=== PATIENT | female | born 1945 | race Caucasian/White ===

== ENCOUNTER → 2016-09-14 | Outpatient (CLI) | payer OTHER ==
[~2016-09-14] MED LIST: ACET-1175 PO; AMIO200T4 PO; ANAS1TAB19 PO; ARM1 PO; ASPI-428 PO; ATOR10TA82 PO; CALC1CAP36 PO; CHOL100010 PO; FURO-85 PO; IBUP-1450 PO; LEVO1TAB PO; METO25TA56 PO; MULT-506 PO; POTA-327 PO; SYN137 PO; WARF5TAB7 PO
[2016-09-14 13:01] VITALS: BP 128/67; PULSE 70; TEMP 36.8; O2SAT 95
--- NOTE | 2016-09-14 13:57 | Radiation Oncology Follow-Up ---
Radiation Oncology Follow-Up Date of Visit Sep 14, 2016. Reason For Visit Annual follow-up Radiation Completion Date 02/07/15 Diagnosis (1) Malignant neoplasm of upper-outer quadrant of female breast Status: Resolved Onset Date: 09/12/2014 Histology Subtype: ductal Stage: l (A) Permanent Comment: Self detected firmness of the right breast Status post abnormal mammogram and ultrasound Status post ultrasound-guided biopsy 09/12/2014 revealing 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, progesterone receptor positive, HER-2/estelita positive Status post lumpectomy and axillary dissection 11/04/2014 positive margin Pathologic stage [id number] Reexcision 12/10/2014 no residual disease Oncotype DX score of 28, patient decision to not have chemotherapy Status post completion of radiation therapy 02/07/2015 received 3850 cGy Last Edited By: Anh Pop on Sep 14, 2016 13:49 History of Present Illness Ms. Richardson is a 70-year-old female without a family history of breast cancer. She has been followed with screening mammograms. The patient's self identified a right breast mass. On 09/02/2014 she underwent bilateral diagnostic mammograms. If the right breast an irregular mass was noted within the right anterior breast at the 3 o'clock position that corresponded with the patient's self identified palpable abnormality. A targeted ultrasound showed a corresponding irregular hypoechoic solid mass at the 2 o'clock position with internal vascularity measuring 0.4 x 0.4 x 0.3 cm 1 cm from the nipple. A group of indistinct calcifications was noted at the 9 o'clock position of the right breast. These findings are suspicious for malignancy and a biopsy was recommended. On 09/12/2014 the patient underwent an ultrasound-guided core biopsy of the right breast of the 2 areas of suspicion. The biopsy of the right breast calcifications showed no evidence of carcinoma. Biopsy of the palpable mass revealed an invasive ductal carcinoma grade 2. This lesion was ER strongly positive (100% nuclear positivity). Progesterone receptors were strongly positive (90% nuclear positivity). 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 Accession #: [id number]. The patient was subtotally seen by Dr. Yuriy Blackmon who discussed treatment options with the patient. The patient opted to proceed with a breast conserving technique. He noted that the patient had developed a large hematoma on the lateral aspect of the right breast that gradually decreased in size. On 11/04/2014 the patient underwent a needle localized lumpectomy. The patient had been injected for possible sentinel node biopsy. However upon investigating the axilla with the neoprobe there was inconsistent counts. After incising and going into the axilla with the neoprobe the counts were 0. Therefore he proceeded with a right axillary dissection. The partial mastectomy specimen revealed an invasive ductal carcinoma measuring 1.9 x 1.5 x 1.1 cm. This was a histologic [place] grade 3 of 3. There was evidence of ductal carcinoma in situ, cribriform with focal necrosis and nuclear grade 2 of 3. The margins were evaluated and invasive carcinoma was noted extending to the anterior and superior margins. The en face medial, lateral and inferior margins were negative. The tumor extended to within 0.8 cm of the posterior margin. No lymphovascular invasion was appreciated. 19 lymph nodes were removed and examined. All were negative for metastatic carcinoma. Pathologic stage was therefore pT1c pN0, ER positive DE positive HER-2/estelita negative Because of the positive margins Dr. Blackmon performed a wide reexcision of the right breast region on 12/10/2014. This revealed benign breast tissue with no residual DCIS or invasive carcinoma identified at the biopsy site or at the examined margins of resection. Case: [id number]. The patient went on to have an Oncotype DX tissue evaluation. This was reported with a recurrent score of 28. This is the patient in the mid intermediate risk group with a 10 year risk of distant recurrence with tamoxifen alone at 18%. The patient was seen by Dr. Cale Hurley on 12/24/2014 to discuss the role of adjuvant therapy based on the NCCN Guidelines the patient did not wish to consider systemic chemotherapy. He therefore offered her Arimidex for 5 years. He suggested starting the Arimidex after the completion of her radiation. We were subsequently asked to see this patient in referral to discuss the role of adjuvant radiation. She underwent a CT simulation and was found to be a candidate for accelerated partial breast treatment. Radiation was completed 02/07/2015 she received 3850 cGy. Interim History She had been on Arimidex. She noted a weight gain of approximately 15 pounds. She discuss this with Dr. Hurley and made a decision to stop treatment. With stopping the medication and is not made a difference in her weight. She plans discuss restarting the medication with Dr. Hurley at her next visit. She has developed fibrous tissue in the upper inner portion of the breast. She has been using massage therapy to the area which does appear to be improving a firmness of the tissue. She denies pain in this area. There is no no change of the axilla. She denies swelling of her arm. She has had some swelling of her left leg which was evaluated. She had a venous Doppler study was negative. Her daughter was diagnosed with breast cancer and underwent bilateral mastectomies. She is 46 years old. She did not require radiation or chemotherapy. Patient stated that genetic testing has been performed and was negative. Allergies Coded Allergies: No Known Allergies (Unverified , 11/04/14) Home Medications Scheduled Amiodarone Hcl (Cordarone), 200 MG PO QAM Aspirin (Ecotrin Low Strength), 81 MG PO QPM Atorvastatin (Lipitor), 10 MG PO DAILY Cholecalciferol (Vitamin D), 1,000 INTER.UNIT PO DAILY Levothyroxine Sodium (Synthroid), 0.137 MG PO QAM Metoprolol Tartrate (Lopressor) (Lopressor), 12.5 MG PO BID Multivitamin (Multivitamin), 1 TAB PO BID Warfarin Sod (Jantoven), 5 MG PO QPM Scheduled PRN Acetaminophen (Tylenol), 650 MG PO Q4H PRN for MILD PAIN Furosemide (Lasix), 20 MG PO DIRECTED PRN for edema Ibuprofen (Motrin), 600 MG PO Q6H PRN for Pain Potassium Ext Rel (Klor-Con), 5 MEQ PO DIRECTED PRN for edema Review of Systems Gastrointestinal: Symptoms: WNL GI Comments: takes stool softener daily, hemrroidal bleeding at times Oral: Symptoms: No Problems Respiratory: Symptoms: WNL Other Respiratory: "I cough now and then" Urinary: Symptoms: WNL Skin: Symptoms: No Problems Other Skin Symptoms: Patient states right breast is tender and has scar tissue Breast: Right Upper Arm Measurement: 35.1 Right Mid Arm Measurement: 26.5 Right Wrist Measurement: 17.6 Left Upper Arm Measurement: 35.2 Left Mid Arm Measurement: 26.4 Left Wrist Measurement: 17.0 Arm Dominence: Right Physical Exam Vital Signs Date Time Temp Pulse Resp B/P Pulse Ox O2 Delivery O2 Flow Rate FiO2 09/14/16 13:01 36.8 70 16 128/67 95 Fatigue: None General Appearance: no apparent distress Eyes: normal inspection, EOMI ENT: normal ENT inspection, hearing grossly normal Neck: no adenopathy, thyroid normal Respiratory/Chest: lungs clear, no respiratory distress, no accessory muscle use Breast: Dense firm fibrous tissue in the upper portion of the right breast which extends medially. There is a central area of deficit. There is mild telangiectasia. The density of the tissue is confluent throughout the areas of fibrous tissue. There is no axillary adenopathy. There are no nipple changes. Using the Wirt score cosmesis she has a poor outcome due to the dense fibrous tissue. The left breast showed no masses or tenderness and no axillary adenopathy. Cardiovascular: regular rate, rhythm, no gallop, no murmur Abdomen: non tender Extremities: no pedal edema Neurologic/Psychiatric: no motor/sensory deficits, alert, normal mood/affect Skin: warm/dry Lymphatic: no adenopathy Additional Studies She had a mammogram 05/10/2016. This showed status post previous radiation therapy and lumpectomy. Findings are probably benign. A short interval follow- up was recommended in 6 months. BI-RADS Category 3. Assessment & Plan Plan: She will have a bilateral digital diagnostic mammogram in October. Continue massage therapy to the area of fibrous tissue. She'll be seeing Dr. Hurley and plans to discuss restarting her Arimidex. Continue follow-up with her primary care physician. We did discuss smoke cessation. She states she has greatly cut down on cigarettes and is only smoking one every few days. She'll continue to cut down on smoking. We asked her to return to our office in 1 year. Total Time In Follow-Up I spent 20 minutes speaking to the patient for an examination. I spent 15 minutes reviewing information and completing this note Copy To Yuriy Blackmon M.D.; Nu Montoya D.O.; Cale Hurley M.D. Problem Qualifiers (1) Malignant neoplasm of upper-outer quadrant of female breast: Laterality: right Qualified Codes: C50.411 - Malignant neoplasm of upper- outer quadrant of right female breast
== END | disposition home or self-care (01) ==
LOC: C.ONC 12:05
PROVIDERS: ATTEND Physician Assistant Medical
DX: Z08 Encounter for follow-up examination after completed treatment for malignant neoplasm (principal); Z92.3 Personal history of irradiation; Z85.3 Personal history of malignant neoplasm of breast

== ENCOUNTER 2016-12-15 17:42 | Emergency (ER) | payer OTHER ==
[~2016-12-15] VITALS: Ht 162.6 cm; Wt 103.0 kg
[~2016-12-15 17:42] MED LIST changes: -ANAS1TAB19 PO; -ARM1 PO; -CALC1CAP36 PO; -SYN137 PO
[2016-12-15 17:49] VITALS: Ht 162.6 cm; Wt 103.0 kg
[2016-12-15] MEDS ORDERED: LIDOCAINE/EPINEPHRINE 1% 20 ML VIAL ONE (17:50)
[2016-12-15] MEDS ORDERED: CALC1CAP36 PO (18:03)
[2016-12-15] MEDS ORDERED: SYN137 PO (18:03)
[2016-12-15] MEDS ORDERED: ARM1 PO (18:03)
--- NOTE | 2016-12-15 18:04 | EMERGENCY ROOM VISIT NOTE ---
History Report prepared by Luda: Vania Griffin Under the Supervision of: Dr. Jp Rowe M.D. 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 The patient was planting paul in her yard today. She stood up quickly and hit her head on the deck. She denies any LOC. She started bleeding immediately. The patient is on Coumadin for two artificial heart valves. She denies headache, neck pain, and any other injury. Her tetanus is not up to dated. 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 A total of 10 systems reviewed and were otherwise negative. Past Medical & Surgical Medical Problems: (1) Bronchitis (2) Kidney disease (3) Malignant neoplasm of upper-outer quadrant of female breast Surgical Problems: (1) H/O mitral valve replacement Family History Diabetes mellitus FH: cancer FH: heart disease Hypertension Social History Smoking Status: Current Every Day Smoker Marital Status: Housing Status: assisted living Occupation Status: retired Current/Historical Medications Scheduled Amiodarone Hcl (Cordarone), 200 MG PO QAM Anastrozole (Anastrozole), 1 MG PO DAILY Aspirin (Ecotrin Low Strength), 81 MG PO QPM Atorvastatin (Lipitor), 10 MG PO DAILY Calcitriol (Calcitriol), 0.25 MCG PO DAILY Cholecalciferol (Vitamin D), 1,000 INTER.UNIT PO DAILY Levothyroxine Sodium (Levothyroxine Sodium), 137 MCG PO QAM Metoprolol Tartrate (Lopressor) (Lopressor), 12.5 MG PO BID Multivitamin (Multivitamin), 1 TAB PO BID Warfarin Sod (Jantoven), 5 MG PO QPM Scheduled PRN Acetaminophen (Tylenol), 650 MG PO Q4H PRN for MILD PAIN Furosemide (Lasix), 20 MG PO DIRECTED PRN for edema Ibuprofen (Motrin), 600 MG PO Q6H PRN for Pain Potassium Ext Rel (Klor-Con), 5 MEQ PO DIRECTED PRN for edema Allergies Coded Allergies: No Known Allergies (Unverified , 12/15/16) Physical Exam Vital Signs Date Time Temp Pulse Resp B/P (MAP) Pulse Ox O2 Delivery O2 Flow Rate FiO2 12/15/16 19:39 37.2 70 16 159/80 98 Room Air 12/15/16 18:57 84 16 179/84 98 12/15/16 17:49 37.2 86 22 133/111 97 Room Air Physical Exam GENERAL: Patient is a healthy-appearing well-nourished older female. HEAD: Normocephalic, 2.6 cm laceration to the crown of the head. EYES: Ocular movements intact pupils equal and react to light OROPHARYNX mucous membranes are moist no exudates present no erythema or edema present NECK: Supple no nuchal rigidity CHEST: Good equal expansion LUNGS: Clear and equal to auscultation CARDIAC: Normal S1 and S2 ABDOMEN: Soft nontender no guarding BACK: No CVA tenderness EXTREMITIES: No pain upon palpation normal muscle strength in all groups no clubbing cyanosis or edema NEURO: Patient is following commands and answering questions appropriately. Alert and oriented x3 Cranial Nerves 2-12 grossly intact Medical Decision & Procedures ER Provider Diagnostic Interpretation: Radiology results as stated below per my review and radiologist interpretation: CT HEAD WITHOUT CONTRAST (CT) CLINICAL HISTORY: Head pain status post head trauma COMPARISON STUDY: 08/25/2013 TECHNIQUE: Axial CT of the brain is performed from the vertex to the skull base. IV contrast was not administered for this examination. CT DOSE: 537.48 mGy.cm FINDINGS: No intra or extra-axial mass lesions are visualized. There is no CT evidence of acute cortical infarction. There is no evidence of midline shift. There is no acute hemorrhage. No calvarial fractures are visualized. There are patchy white matter hypodensities likely on a small vessel basis. There is no evidence of pathologic ventricular dilatation. There are persistent inflammatory changes within the right maxillary sinus. There are frontal scalp skin katie. IMPRESSION: No acute intracranial findings Electronically signed by: Spike Fu M.D. 12/15/2016 6:36 PM Dictated Date/Time: 12/15/2016 6:35 PM Laboratory Results 12/15/16 18:00 Red Blood Count 4.48, Mean Corpuscular Volume 96.4, Mean Corpuscular Hemoglobin 30.8, Mean Corpuscular Hemoglobin Concent 31.9, Mean Platelet Volume 11.3, Neutrophils (%) (Auto) 60.9, Lymphocytes (%) (Auto) 28.0, Monocytes (%) (Auto) 8.7, Eosinophils (%) (Auto) 1.8, Basophils (%) (Auto) 0.3, Neutrophils # (Auto) 4.16, Lymphocytes # (Auto) 1.91, Monocytes # (Auto) 0.59, Eosinophils # (Auto) 0.12, Basophils # (Auto) 0.02 Test 12/15/16 18:00 12/15/16 18:46 White Blood Count 6.82 K/uL (4.8-10.8) Red Blood Count 4.48 M/uL (4.2-5.4) Hemoglobin 13.8 g/dL (12.0-16.0) Hematocrit 43.2 % (37-47) Mean Corpuscular Volume 96.4 fL (80-100) Mean Corpuscular Hemoglobin 30.8 pg (25-34) Mean Corpuscular Hemoglobin Concent 31.9 g/dl (32-36) Platelet Count 187 K/uL (130-400) Mean Platelet Volume 11.3 fL (7.4-10.4) Neutrophils (%) (Auto) 60.9 % Lymphocytes (%) (Auto) 28.0 % Monocytes (%) (Auto) 8.7 % Eosinophils (%) (Auto) 1.8 % Basophils (%) (Auto) 0.3 % Neutrophils # (Auto) 4.16 K/uL (1.4-6.5) Lymphocytes # (Auto) 1.91 K/uL (1.2-3.4) Monocytes # (Auto) 0.59 K/uL (0.11-0.59) Eosinophils # (Auto) 0.12 K/uL (0-0.5) Basophils # (Auto) 0.02 K/uL (0-0.2) RDW Standard Deviation 52.4 fL (36.4-46.3) RDW Coefficient of Variation 15.0 % (11.5-14.5) Immature Granulocyte % (Auto) 0.3 % Immature Granulocyte # (Auto) 0.02 K/uL (0.00-0.02) Prothrombin Time 23.2 SECONDS (9.0-12.0) Prothromb Time International Ratio 2.1 (0.9-1.1) Bedside Hemoglobin 15.0 g/dl (12.0-16.0) Bedside Hematocrit 44 % (37-47) Bedside Sodium 141 mEq/L (135-144) Bedside Potassium 4.1 mEq/L (3.3-5.0) Bedside Chloride 105 mEq/L (101-112) Bedside Total CO2 25 mEq/l (24-31) Anion Gap 16.0 mmol/L (16-25) Bedside Blood Urea Nitrogen 15 mg/dl (7-18) Bedside Creatinine 1.3 mg/dl (0.6-1.3) Bedside Glucose (other) 108 mg/dl (70-99) Bedside Ionized Calcium (Aramis) 1.22 mmol/l (1.12-1.32) Labs reviewed by ED physician. Medications Administered Medications (Trade) Dose Ordered Sig/[place] Route Start Time Stop Time Status Last Admin Dose Admin Lidocaine/ Epinephrine (Xylocaine/Epine 1% Inj) 20 ml NOW STAT INFIL 12/15/16 18:06 12/15/16 18:08 DC 12/15/16 18:06 20 ML Procedure Location: Scalp Total length: 2.6 cm Complexity: Simple Verbal consent was obtained after the risks and benefits were explained, including but not limited to bleeding, scarring, infection, pain, and bone/ nerve damage. At this time, the risks of the procedure are less than the risks of NOT performing the procedure. A time out was taken and the correct patient and site identified. The scalp was prepped with betadine. The target area was anesthetized with 2 ml of 1% lidocaine without epinephrine. Copious irrigation was performed using saline. The skin was re-prepped with betadine, the hair cleared from the wound, and a sterile field set. The wound was explored for foreign bodies and none found. Debridement was not performed. The wound edges were approximated using 4 surgical katie in the standard fashion. Hemostasis and excellent approximation was achieved. Antibacterial ointment and a sterile dressing applied. Detailed wound care instructions and signs and symptoms of infection reviewed with the patient. No complications and the patient tolerated the procedure well. ED Course 1745: Past medical records reviewed. The patient was evaluated in room C3. A complete history and physical examination was performed. At this time I repaired the patient's head laceration. Please see the procedure note for further details. 1805: Lidocaine/Epinephrine 2 ml inj 1902: I updated the patient and her daughter. 1920: I reassessed the patient at this time. She is feeling better and resting comfortably. I discussed the results and treatment plan with the patient. I answered all pertaining questions that she had. She expressed understanding and verbalized agreement. The patient will be discharged home. Medical Decision Differential diagnosis: Etiologies such as fracture, dislocation, intra-abdominal, pneumothorax, intrathoracic , intracranial, neurologic, as well as other traumatic pathologies were entertained. Medication Reconciliation: I attest that I have personally reviewed the patient' s current medication list. Blood Pressure Screening: Patient was found to have an elevated blood pressure and was referred to their primary care doctor for recheck and further treatment. This is a 71-year-old female who presents emergency department complaining of head injury. The patient presents emergency department with diffuse amount of bleeding and what appears to be an arterial bleed present. Therefore she was emergently closed. [place] were used as above. She was sent for CT the head in the patient's Coumadin level was checked. Her hemoglobin and PT/INR are therapeutic and I believe that the patient can be sent home. Patient and family were in agreement with the treatment plan. Impression Primary Impression: Laceration Additional Impression: Closed head injury Scribe Attestation The scribe's documentation has been prepared under my direction and personally reviewed by me in its entirety. I confirm that the note above accurately reflects all work, treatment, procedures, and medical decision making performed by me. Departure Information Dispostion Home / Self-Care Referrals Nu Montoya D.O. (PCP) Forms HOME CARE DOCUMENTATION FORM, IMPORTANT VISIT INFORMATION Patient Instructions ED Head Injury Closed, ED Laceration Scalp Stitch Or Stap, Hypertension Dc, My [facility] Additional Instructions Katie out in 7-10 days You were found to have an elevated blood pressure today (>120 sytolic or >90 diastolic). Per medicare guidelines, you need to follow up with this blood pressure screening with your Primary Care Physician (PCP). For a new PCP call [phone]. You have been examined and treated today on an emergency basis only. This is not a substitute for, or an effort to provide, complete comprehensive medical care. It is impossible to recognize and treat all injuries or illnesses in a single emergency department visit. It is therefore important that you follow up closely with Dr Montoya. Call as soon as possible for an appointment. Thank you for your time and consideration. I look forward to speaking with you again soon. Please don't hesitate to call us if you have any questions. Problem Qualifiers Additional Impression: Closed head injury Encounter type: initial encounter Qualified Codes: S09.90XA - Unspecified injury of head, initial encounter
[2016-12-15] MEDS ORDERED: LIDOCAINE/EPINEPHRINE 1% 20 ML VIAL INFIL STA (18:06)
[2016-12-15] MEDS ORDERED: LIDOCAINE/EPINEPHRINE 1% 20 ML VIAL INJ PRN (18:15)
--- NOTE | 2016-12-15 18:37 | DIAGNOSTIC IMAGING REPORT ---
CT HEAD WITHOUT CONTRAST (CT) CLINICAL HISTORY: Head pain status post head trauma COMPARISON STUDY: 08/25/2013 TECHNIQUE: Axial CT of the brain is performed from the vertex to the skull base. IV contrast was not administered for this examination. CT DOSE: 537.48 mGy.cm FINDINGS: No intra or extra-axial mass lesions are visualized. There is no CT evidence of acute cortical infarction. There is no evidence of midline shift. There is no acute hemorrhage. No calvarial fractures are visualized. There are patchy white matter hypodensities likely on a small vessel basis. There is no evidence of pathologic ventricular dilatation. There are persistent inflammatory changes within the right maxillary sinus. There are frontal scalp skin cisco. IMPRESSION: No acute intracranial findings Electronically signed by: Spike Fu M.D. 12/15/2016 6:36 PM Dictated Date/Time: 12/15/2016 6:35 PM
[2016-12-15 19:13] LABS: BASO % 0.3 %; BASO ABS # 0.02 K/uL (0-0.2); COMPLETE YES; EOS % 1.8 %; HEMATOCRIT 43.2 % (37-47); IG% 0.3 %; LYMPH ABS # 1.91 K/uL (1.2-3.4); MEAN CELL VOLUME 96.4 fL (80-100); MEAN CORPUSCULAR HEMOGLOBIN 30.8 pg (25-34); MEAN CORPUSCULAR HGB CONC 31.9 g/dl (32-36); MEAN PLATELET VOLUME 11.3 fL (7.4-10.4); MONO % 8.7 %; NEUT % 60.9 %; PLATELET COUNT 187 K/uL (130-400); RED BLOOD COUNT 4.48 M/uL (4.2-5.4); WHITE BLOOD COUNT 6.82 K/uL (4.8-10.8)
[2016-12-15 19:21] LABS: INR 2.1 (0.9-1.1); PROTHROMBIN TIME (PATIENT) 23.2 SECONDS (9.0-12.0)
[2016-12-15 19:39] VITALS: BP 159/80; PULSE 70; TEMP 37.2; O2SAT 98
[2016-12-15 19:58] LABS: ISTAT CREATININE 1.3 mg/dl (0.6-1.3); ISTAT IONIZED CALCIUM 1.22 mmol/l (1.12-1.32)
== END 2016-12-15 19:40 | disposition home or self-care (01) ==
LOC: C.EDB 17:43 → C.EDC 19:40
DX: S01.01XA Laceration without foreign body of scalp, initial encounter (principal); Y93.H2 Activity, gardening and landscaping; W22.09XA Striking against other stationary object, initial encounter; Z79.01 Long term (current) use of anticoagulants; Y92.096 Garden or yard of other non-institutional residence as the place of occurrence of the external cause; Z83.3 Family history of diabetes mellitus; Z82.49 Family history of ischemic heart disease and other diseases of the circulatory system; Z79.82 Long term (current) use of aspirin; Z79.899 Other long term (current) drug therapy; F17.210 Nicotine dependence, cigarettes, uncomplicated; Z80.9 Family history of malignant neoplasm, unspecified; Z95.2 Presence of prosthetic heart valve

== ENCOUNTER → 2016-12-20 | Outpatient (CLI) | payer OTHER ==
[~2016-12-20] MED LIST changes: +ARM1 PO; +CALC1CAP36 PO; -LEVO1TAB PO; +SYN137 PO
--- NOTE | 2016-12-21 06:12 | PAP/PSG TECHNICIAN REPORT ---
[facility] Aluminum Pourer Polysomnogram Report Study name: None Report date: 12/21/2016 Study date: 12/20/2016 Referring Physician: Sadia Dotson M.D. Name: CHENTE RICHARDSON Maria Eugenia Interpreting Physician: Coleman Dotson M.D. Date of : 1945 Aluminum Pourer: Roseann Chun, PSGT. Sex: Female Age: 71 StudyType: PSG Weight: 220 lbs Height: 71 years, Height 5' 4" Neck Circum:14.5 inches BMI: 37.76 Medications: VIT-D3 100 UNITS, ARIMIDEX 1MG, LIPITOR 25 MG, LEVOTHYROXINE 137 MCG, JANTOVEN 5 MG, LOPRESSOR 25 MG, KLOR-CON 10, LASIX 40 MG, MULTI-VIT, DOCUSATE SODIUM 100 MG, ECOTRIN 81 MG. Patient History 71 yr. old female in room 5, presents tonight for a split night study. Pt. states that she never feels rested when she wakes, she gets up twice a night for the restroom falls back to sleep pretty well.Ess = 3, Neck = 14.5 inches. Parameters Monitored NPSG: E1-M2, E2-M1, Fp1-M2, Fp2-M1, F3-M2, F4-M2, F4-M1, C3-M2, C4-M2, C4-M1, O1-M2, O2-M2, O2-M1, T3-M2, T4-M1, P3-M2, P4-M1, CHIN1, CHIN2, HR, EKG, Legs, PFLOW, SNOR, FLOW, CFLOW, Tidal Volume, THOR, ABDO, SpO2, PLTH, CPRESS, ETCO2 Wave, ETCO2, pH Sleep Architecture Sleep Stages Time at Lights Off 10:29:02 PM STAGES Time (min.) TST (%) Time at Lights On 5:30:02 AM Wake 187.0 -- Total Recording Time (TRT) 422.00 min. N1 6.0 3 Total Sleep Period (TSP) 387.5 min. N2 208.5 89 Total Sleep Time (TST) 233.5min. N3 0.0 0 Awake Time 187.5 min. REM 19.0 8 Wake after Sleep Onset 154.0 min. Sleep Efficiency (SE) 56 % Sleep Onset Latency (ISAIAH) 33.5 min. Number of Stage 1 Shifts None Awakenings 6 Stage Changes 24 Number of REM periods 2 REM 19.0 8 REM Latency 239.0 min. NREM 214.5 92 Body Position Analysis Supine Right Left Side Prone Vertical Total Sleep Time (min.) 148.6 187.4 5.5 192.88 0.0 0.0 Total Sleep Time (%) 17% 80% 2% 83 0% N/A% Total Sleep Time REM (min.) 0.0 19.0 0.0 None 0.0 0.0 Total Sleep Time NREM (min.) 40.6 168.4 5.5 None 0.0 0.0 Intermittent Wake (min.) 108.0 67.8 11.2 None 0.0 0.0 Total Sleep Period (%) 30% None None None None None Arousals Myoclonus (PLM) * Events Count Index Events Count Index Spontaneous 18 5 Events Awake (PLMW) 5 1.6 Respiratory 13 3.3 Events Asleep w/ Arousal (PLMA) 24 6.2 PLM 24 6 Events Asleep w/o Arousal (PLMS) 148 38.0 Snoring 8 2 Total Asleep 172 44.2 Total 63 16 Total 177 25 Respiratory Analysis * CA OA MA CH H RERA Total Count 0 17 1 0 164 0 182 Index 0.0 4.4 0.3 0 42.1 0 46.8 Mean Duration 0.0 24.6 21.9 0.00 18.6 0.0 19.2 Longest Duration 0.0 38.5 21.9 0.00 21.9 0.0 55.0 Respiratory Event Summary Total Supine ~Supine Right Left Prone REM NREM Apneas Count 18 0 18 18 0 N/A 9 9 Index 4.6 0 6 5.8 0.0 N/A 28 3 Hypopneas (4% Desat) Count 164 29 135 134 1 N/A 16 148 Index 42.1 42.8 42 42.9 11.0 N/A 50.5 41.4 Apneas & All Hypopneas Count 182 29 153 152 1 N/A 25 157 Index 46.8 43 48 49 11 N/A 78.9 43.9 Respiratory Events (Ventilating Equipment Installer+All Hyp+RERA) Count 182 29 153 152 1 N/A 25 157 Index 46.8 43 48 48.7 11.0 N/A 78.9 43.9 Respiratory Related Arousal Count 13 29 12 12 0 N/A 2 11 Index 3.3 1 4 4 0 N/A 6 3 Snoring Analysis Supine Right Left Prone REM NREM Total Snore duration 38.8 min Snores count 240 1,527 32 N/A 97 1,702 1,799 Snore mean duration 1.3 Sec Snores index 354 489 351 N/A 306.3 476.1 462.3 TST with snoring (%) 16.6% Desaturation Event Summary: Minimum %SpO2 Event Count Mean/Min/Max Duration(sec.) Desaturation Index % Time In Bed > 90 129 23.6 / 7.8 / 60.0 75.5 25.5 86 - 90 122 19.2 / 7.8 / 54.3 27.0 67.3 81 - 85 4 18.8 / 12.8 / 29.5 10.5 5.7 76 - 80 1 14.3 / 14.3 / 14.3 16.3 0.9 71 - 75 1 14.3 / 14.3 / 14.3 27.3 0.5 66 - 70 0 N/A 0.0 0.0 61 - 65 0 N/A 0.0 0.0 56 - 60 0 N/A 0.0 0.0 51 - 55 0 N/A 0.0 0.0 < 50 0 N/A 0.0 0.0 Total REM NREM Awake <50% 0.0 min. 0.0 min. 0.0 min. 0.0 min. 51 - 60% 0.0 min. 0.0 min. 0.0 min. 0.0 min. 61 - 70% 0.1 min. 0.1 min. 0.0 min. 0.0 min. 71 - 80% 5.9 min. 3.0 min. 2.9 min. 0.0 min. 81 - 90% 293.5 min. 10.4 min. 178.5 min. 104.6 min. 91 - 100% 102.5 min. 5.5 min. 33.0 min. 64.1 min. Average 89 87 88 90 Minimum SpO2 69 69 71 84 Desaturation Event Index 27.3 82.1 46.2 0.0 # Desat. Events below 89% 181 23 158 N/A Time(%) with Saturation below 89% 36.1 2.5 26.5 7.1 Time(min.) with Saturation below 89% 145.2 10.1 106.4 28.7 Time (mins) REM (mins) NREM (mins) % of TST SpO2 Below 90% 191 26 N165 69.1 SpO2 Below 88% 66 0 0 33 Heart Rate Analysis Min (bpm) Max (bpm) Average (bpm) Awake 53 74 61 NREM 57 69 62 REM 60 72 64 Overall 57 72 62 Supplemental O2 Values Minimum O2 level: None Value Start Time End Time Aluminum Pourer Comments PSG Study MS. Richardson slept in the right, left, and supine positions. No cardiac arrhythmia. PLM's noted. No bruxism noted. Snoring was noted and scored as a 4 on a scale of 1 through 5. (0=no snoring, 5=snoring loud enough to be heard through a closed door or down the sims way) Ms. Richardson awoke to use the restroom two times during the night. Ms. Richardson stated, I did not sleep as well as I do when I am in my own bed. The final report will be interpreted and signed by a sleep physician. The completed physician report will then be placed in the patient medical record. Pt. had a long onset to sleep, she woke twice for the restroom. She did display respiratory events when asleep. With low oxygen saturations. She was a restless sleeper with leg movements waking her. Therapy (cm H2O) 0 TIB (min.) 420.5 TST (min.) 233.5 Sleep Onset (min.) 33.5 REM Onset From Sleep (min.) 239.0 Sleep Efficiency % 56 Wakefulness (%) 44 Wakefulness (min.) 187.5 NREM 1 (%) 3 NREM 1 (min.) 6.0 NREM 2 (%) 89 NREM 2 (min.) 208.5 NREM 3 (%) 0 NREM 3 (min.) 0.0 REM (%) 8 REM (min.) 19.0 # Arousals 63 Arousal Index 16 # Snore 1,799 Snore Index 462.3 AHI 46.8 AHI Supine 43 AHI Non-Supine 48 NREM AHI 43.9 REM AHI 78.9 RDI 46.8 # Obstructive Apnea 17 # Central Apnea 0 # Mixed Apnea 1 # Hypopneas 164 RERAs 0 Total Respiratory Events 184 Time Below SpO2 89% (min.) 116.5 Mean NREM SpO2 (%) 88 Mean REM SpO2 (%) 87 Mean Sleep SpO2 (%) 88 Min NREM SpO2 (%) 71 Min REM SpO2 (%) 69 Position Supine (min.) 148.6 Position Non-supine (min.) 192.9 LM Index Sleep 44.2 LM Index NREM 44.5 LM Index REM 41.1 Mean Heart Rate (bpm) 62 Min Heart Rate (bpm) 57
--- NOTE | 2017-01-15 10:15 | POLYSOMNOGRAPH REPORT ---
REFERRING PERSON: Lois Dotson. AUTOMOTIVE EXHAUST EMISSIONS TECHNICIAN: Kiara Chun. Ms. Richardson is a 71-year-old female who presents for a split night sleep study. She states she never feels rested upon awakening in the morning and she gets up twice during the night to use bathroom. Her [place] sleepiness scale score on the evening of this study is 3. BMI is 37.76. Following the technical and digital specifications of the [employer] [employer] (AASM) a standard diagnostic polysomnogram was performed monitoring EEG, EOG, EMG (chin and leg deviations), oxygen saturation, body position, digital video, respiratory effort and airflow. The sleep Stage and event scoring was based on the AASM Manual for the Scoring of Sleep and Associated Events 2007 edition. Apneas are defined as a drop in the peak thermal sensor excursion by >90% of baseline for at least 10 seconds. Hypopneas were scored using the 4% oxygen desaturation rule (4A-Medicare) and a decrease in the nasal pressure excursions by >30% of baseline for at least 10 seconds. Respiratory effort-related arousal (RERA's) is defined as a sequence of breaths lasting at least 10 seconds characterized by increasing respiratory effort or flattening of the nasal pressure waveform leading to an arousal from sleep when the sequence of breaths does not meet criteria for an apnea or hypopnea. Apnea Hypopnea index (AHI) is defined as the number of apneas and hypopneas occurring in an hour of sleep. Respiratory disturbance index (RDI) is defined as the number of apneas, hypopneas, and RERA's occurring in an hour of sleep. Ms. Kramer total sleep period time was 387.5 minutes. Total sleep time was 233.5 minutes. Sleep efficiency was 56%. Latency to sleep onset was 33.5 minutes. Wake after sleep onset was 154 minutes. Total non-REM sleep time was 214.5 minutes. She spent 3% of that time in N1 sleep, 89% in N2 sleep and no time in N3 sleep. REM latency was prolonged at 239 minutes. Total REM sleep time was 19 minutes or 8% of total sleep time. There were 63 cortical arousals from sleep. Eighteen of these arousals were spontaneous, 13 were due to respiratory events, 24 due to periodic limb movements of sleep and 8 were due to snoring. There were 172 periodic limb movements noted on this test. Limb movement index was 44.2. Limb movement with arousal index was 6.2. There were no central, 17 obstructive and 1 mixed apnea on this test. There were 164 hypopnea. Apnea-hypopnea index was markedly elevated at 46.8 consistent with severe sleep apnea. Supine AHI was 43 and REM AHI was 78.9. There were 1799 snoring events recorded. Total sleep time with snoring was 16.6%. Mean saturation during sleep was low at 89%. Desaturations to 69% were noted on this study. These occurred during a series of respiratory events during REM sleep. Saturations were less than 89% for 145.2 minutes of recording time. This is significant nocturnal hypoxemia. There was no cardiac ectopy noted on this study. Ms. Richardson' heart rate ranged from a low of 57 beats per minute to a high of 72 beats per minute during sleep. IMPRESSION AND PLAN: A 71-year-old female with evidence of severe sleep apnea, which is very severe in REM sleep as well as significant nocturnal hypoxemia. 1. The patient would likely benefit from positive airway pressure therapy. She should return to the sleep lab for a full night titration and then based on those results be started on equipment at home. A download from her machine can be reviewed in 1 month both to check compliance as well as AHI and further pressure adjustments can occur at that time. 2. Should this patient be unwilling or unable to tolerate CPAP therapy, I would recommend that she be started on nocturnal oxygen and then be referred to ear, nose and throat or oral surgery/dental medicine (if appropriate) to discuss alternative treatments for sleep disorder breathing.
== END | disposition home or self-care (01) ==
LOC: C.NEUR 20:00
PROVIDERS: ATTEND Family Medicine
DX: R06.83 Snoring (principal); G47.10 Hypersomnia, unspecified; E66.9 Obesity, unspecified; Z68.35 Body mass index [BMI] 35.0-35.9, adult

== ENCOUNTER → 2017-02-14 | Outpatient (CLI) | payer OTHER ==
[~2017-02-14] MED LIST changes: -ATOR10TA82 PO; +ATOR10TA88 PO
--- NOTE | 2017-02-15 06:20 | PAP/PSG TECHNICIAN REPORT ---
[facility] Component Design Engineer Polysomnogram Report Study name: None Report date: 02/15/2017 Study date: 02/14/2017 Referring Physician: Sadia Dotson M.D. Name: CARABALLO CHENTE Maria Eugenia Interpreting Physician: Coleman Dotson M.D. Date of : 1945 Component Design Engineer: Ammon Zhang RPSGT. Sex: Female Age: 71 StudyType: PSG PAP Weight: 218 lbs Height: 71 years, Height 5' 8" BMI: 33.14 Medications: LEVOTHYROXINE SODIUM 137 MCG, LOPRESSOR 25 MG, LIPITOR 10 MG, BENZONATATE 100 MG, CORDARONE 200 MG, VIT D-3, ARIMIDEX 1 MG, ROCALTROL 0.25 MCG, JANTOVEN 5 MG, KLOR-CON, LASIX 40 MG Patient History PATIENT HAD A SLEEP STUDY DONE IN NOVEMBER OF 2016. SHE WAS POSITIVE FOR SARAH WITH AN AHI OF 46.8/HR. SHE CURRENTLY HAS BEEN WEARING APAP AND HAS BEEN HAVING TROUBLE WEARING THE MASK. SHE IS HERE TODAY FOR A CPAP TITRATION. RM 7 Parameters Monitored NPSG: E1-M2, E2-M1, Fp1-M2, Fp2-M1, F3-M2, F4-M2, F4-M1, C3-M2, C4-M2, C4-M1, O1-M2, O2-M2, O2-M1, T3-M2, T4-M1, P3-M2, P4-M1, CHIN1, CHIN2, HR, EKG, Legs, PFLOW, SNOR, FLOW, CFLOW, Tidal Volume, THOR, ABDO, SpO2, PLTH, CPRESS, ETCO2 Wave, ETCO2, pH Sleep Architecture Sleep Stages Time at Lights Off 10:36:42 PM STAGES Time (min.) TST (%) Time at Lights On 5:45:42 AM Wake 148.5 -- Total Recording Time (TRT) 429.50 min. N1 17.0 6 Total Sleep Period (TSP) 408.5 min. N2 157.5 56 Total Sleep Time (TST) 280.5min. N3 52.0 19 Awake Time 148.5 min. REM 54.0 19 Wake after Sleep Onset 128.0 min. Sleep Efficiency (SE) 65 % Sleep Onset Latency (ISAIAH) 20.5 min. Number of Stage 1 Shifts None Awakenings 27 Stage Changes 84 Number of REM periods 2 REM 54.0 19 REM Latency 127.5 min. NREM 226.5 81 Body Position Analysis Supine Right Left Side Prone Vertical Total Sleep Time (min.) 365.0 0.0 20.0 20.00 0.0 0.0 Total Sleep Time (%) 93% 0% 7% 7 0% N/A% Total Sleep Time REM (min.) 54.0 0.0 0.0 None 0.0 0.0 Total Sleep Time NREM (min.) 206.5 0.0 20.0 None 0.0 0.0 Intermittent Wake (min.) 104.5 0.0 44.0 None 0.0 0.0 Total Sleep Period (%) 84% None None None None None Arousals Myoclonus (PLM) * Events Count Index Events Count Index Spontaneous 18 4 Events Awake (PLMW) 91 36.8 Respiratory 21 4.9 Events Asleep w/ Arousal (PLMA) 41 8.8 PLM 37 9 Events Asleep w/o Arousal (PLMS) 136 29.1 Snoring 4 1 Total Asleep 177 37.9 Total 80 17 Total 268 37 Respiratory Analysis * CA OA MA CH H RERA Total Count 0 3 0 0 57 7 60 Index 0.0 0.6 0.0 0 12.2 1 14.3 Mean Duration 0.0 16.7 0.0 0.00 20.1 15.8 19.5 Longest Duration 0.0 19.9 0.0 0.00 0.0 19.7 56.6 Respiratory Event Summary Total Supine ~Supine Right Left Prone REM NREM Apneas Count 3 3 0 N/A 0 N/A 0 3 Index 0.6 1 0 N/A 0.0 N/A 0 1 Hypopneas (4% Desat) Count 57 56 1 N/A 1 N/A 4 53 Index 12.2 12.9 3 N/A 3.0 N/A 4.4 14.0 Apneas & All Hypopneas Count 60 59 1 N/A 1 N/A 4 56 Index 12.8 14 3 N/A 3 N/A 4.4 14.8 Respiratory Events (Program Director Substance Abuse+All Hyp+RERA) Count 60 64 3 N/A 3 N/A 4 56 Index 14.3 15 9 N/A 9.0 N/A 4.4 16.7 Respiratory Related Arousal Count 21 64 1 N/A 1 N/A 1 22 Index 4.9 5 3 N/A 3 N/A 1 6 Snoring Analysis Supine Right Left Prone REM NREM Total Snore duration 8.3 min Snores count 428 N/A 0 N/A 259 169 428 Snore mean duration 1.2 Sec Snores index 99 N/A 0 N/A 287.8 44.8 91.6 TST with snoring (%) 2.9% Desaturation Event Summary: Minimum %SpO2 Event Count Mean/Min/Max Duration(sec.) Desaturation Index % Time In Bed > 90 49 33.0 / 16.0 / 65.4 10.2 69.7 86 - 90 29 24.8 / 9.5 / 54.8 14.4 29.2 81 - 85 0 N/A 0.0 1.1 76 - 80 0 N/A 0.0 0.0 71 - 75 0 N/A 0.0 0.0 66 - 70 0 N/A 0.0 0.0 61 - 65 0 N/A 0.0 0.0 56 - 60 0 N/A 0.0 0.0 51 - 55 0 N/A 0.0 0.0 < 50 0 N/A 0.0 0.0 Total REM NREM Awake <50% 0.0 min. 0.0 min. 0.0 min. 0.0 min. 51 - 60% 0.0 min. 0.0 min. 0.0 min. 0.0 min. 61 - 70% 0.0 min. 0.0 min. 0.0 min. 0.0 min. 71 - 80% 0.2 min. 0.0 min. 0.0 min. 0.2 min. 81 - 90% 125.0 min. 6.4 min. 88.5 min. 30.1 min. 91 - 100% 288.1 min. 47.6 min. 138.0 min. 102.6 min. Average 92 93 92 92 Minimum SpO2 78 83 83 78 Desaturation Event Index 9.1 4.4 14.6 2.4 # Desat. Events below 89% 46 2 42 2 Time(%) with Saturation below 89% 10.2 0.8 8.0 1.4 Time(min.) with Saturation below 89% 42.2 3.2 33.1 5.9 Time (mins) REM (mins) NREM (mins) % of TST SpO2 Below 90% 52 4 N48 22.9 SpO2 Below 88% 20 0 0 7 Heart Rate Analysis Min (bpm) Max (bpm) Average (bpm) Awake 45 132 52 NREM 45 58 50 REM 44 56 49 Overall 44 58 50 Supplemental O2 Values Minimum O2 level: None Value Start Time End Time Component Design Engineer Comments Mrs. Caraballo slept in the left and supine positions. No cardiac arrhythmia noted. Leg movements noted. No bruxism noted. CPAP was initiated at +4 CMH2O and up-titrated to an optimal level of +18 CMH2O, which nearly eliminated all respiratory events and snoring. A Resmed Mirage Quattro full face size small mask was used during titration Mrs. Caraballo awoke to use the restroom 1 time during the night. Mrs. Caraballo stated I slept as well as I do when I am in my own bed. I started with a Resmed F10 mask full face but longterm through the study it showed was not effective at higher pressures. The patient's jaw would drop causing a very high mask leak. I switched to a Quattro and got better results. The patient stated that she is currently using nasal masks at home. She felt the nasal mask were more comfortable because they don't have to be as tight. I discussed with her the importance and reasoning for why the mask was a tight fit. She did complain of air coming out her mouth at home while using the nasal masks. The final report will be interpreted and signed by a sleep physician. The completed physician report will then be placed in the patient medical record. Therapy Event: Therapy (cm H20) 4 5 6 7 8 9 Total Time at Pressure (min.) 33.1 6.3 6.4 46.0 49.0 7.4 TST at Pressure (min.) 7.1 5.8 6.4 12.5 23.5 7.4 # Periods 1 1 1 1 1 1 Sleep Onset (min.) 20.5 0.0 0.0 0.0 0.0 0.0 REM Onset (min.) N/A N/A N/A N/A N/A 7.3 Sleep Efficiency % 21 92 100 27 47 100 Wakefulness (%) 78.6 8.0 0.0 72.8 52.1 0.0 Wakefulness (min.) 26.0 0.5 0.0 33.5 25.5 0.0 NREM 1 (%) 7.6 8.0 15.7 6.5 6.1 0.0 NREM 1 (min.) 2.5 0.5 1.0 3.0 3.0 0.0 NREM 2 (%) 13.9 84.0 84.3 20.7 41.8 99.1 NREM 2 (min.) 4.6 5.3 5.4 9.5 20.5 7.3 NREM 3 (%) 0.0 0.0 0.0 0.0 0.0 0.0 NREM 3 (min.) 0.0 0.0 0.0 0.0 0.0 0.0 REM (%) 0.0 0.0 0.0 0.0 0.0 0.9 REM (min.) 0.0 0.0 0.0 0.0 0.0 0.1 # Arousals 2 2 4 6 23 3 Arousal Index 16.9 20.9 37.7 28.7 58.8 24.4 # Snore 20 24 14 9 4 2 Snore Index 169.4 250.4 132.1 43.1 10.2 16.3 AHI 42.4 41.7 37.7 47.9 17.9 8.1 AHI Supine 42.4 41.7 37.7 72.2 46.8 8.1 AHI Non-Supine N/A N/A N/A 0.0 3.8 N/A NREM AHI 42.4 41.7 37.7 47.9 17.9 8.2 REM AHI N/A N/A N/A N/A N/A 0.0 RDI 42.4 41.7 37.7 52.6 20.5 16.3 # Obstructive 0 0 0 0 0 0 # Central Ap 0 0 0 0 0 0 # Mixed 0 0 0 0 0 0 # Hypopneas 5 4 4 10 7 1 RERAS 0 0 0 1 1 1 Total Respiratory Events 5 4 4 11 8 2 Time Below SpO2 89.00% (min.) 5.2 4.6 4.3 5.2 1.3 3.9 Mean NREM SpO2 (%) 87 87 88 89 90 89 Mean REM SpO2 (%) N/A N/A N/A N/A N/A 89 Mean Sleep SpO2 (%) 87 87 88 89 90 89 Min NREM SpO2 (%) 84 83 85 83 86 85 Min REM SpO2 (%) N/A N/A N/A N/A N/A 89 Position Supine (min.) 7.1 5.8 6.4 8.3 7.7 7.4 Position Non-supine (min.) 0.0 0.0 0.0 4.2 15.8 0.0 LM Index Sleep 8.5 20.9 9.4 9.6 125.3 40.7 LM Index NREM 8.5 20.9 9.4 9.6 125.3 41.1 LM Index REM N/A N/A N/A N/A N/A 0.0 Mean Heart Rate (bpm) 55 57 57 55 54 54 Min Heart Rate (bpm) 53 56 56 53 52 52 Therapy (cm H20) 10 11 12 14 16 18 Total Time at Pressure (min.) 11.7 119.4 21.0 12.6 44.2 71.9 TST at Pressure (min.) 11.7 75.9 16.5 11.1 42.7 59.9 # Periods 1 1 1 1 1 1 Sleep Onset (min.) 0.0 0.0 0.0 0.0 0.0 0.0 REM Onset (min.) 0.0 0.0 N/A N/A 18.6 N/A Sleep Efficiency % 100 63 78 88 96 83 Wakefulness (%) 0.0 36.4 21.4 11.9 3.4 16.7 Wakefulness (min.) 0.0 43.5 4.5 1.5 1.5 12.0 NREM 1 (%) 0.0 1.4 13.2 10.9 1.4 0.7 NREM 1 (min.) 0.0 1.7 2.8 1.4 0.6 0.5 NREM 2 (%) 0.0 20.9 65.4 77.2 35.3 56.9 NREM 2 (min.) 0.0 25.0 13.8 9.7 15.6 40.9 NREM 3 (%) 0.0 23.0 0.0 0.0 13.6 25.7 NREM 3 (min.) 0.0 27.5 0.0 0.0 6.0 18.5 REM (%) 100.0 18.2 0.0 0.0 46.3 0.0 REM (min.) 11.7 21.7 0.0 0.0 20.5 0.0 # Arousals 3 11 4 3 7 12 Arousal Index 15.3 8.7 14.5 16.2 9.8 12.0 # Snore 2 34 8 7 260 44 Snore Index 10.2 26.9 29.0 37.9 365.1 44.1 AHI 15.3 7.9 18.1 27.0 5.6 2.0 AHI Supine 15.3 7.9 18.1 27.0 5.6 2.0 AHI Non-Supine N/A N/A N/A N/A N/A N/A NREM AHI N/A 10.0 18.1 27.0 10.8 2.0 REM AHI 15.3 2.8 N/A N/A 0.0 N/A RDI 15.3 7.9 18.1 37.9 8.4 2.0 # Obstructive 0 2 0 0 1 0 # Central Ap 0 0 0 0 0 0 # Mixed 0 0 0 0 0 0 # Hypopneas 3 8 5 5 3 2 RERAS 0 0 0 2 2 0 Total Respiratory Events 3 10 5 7 6 2 Time Below SpO2 89.00% (min.) 3.2 8.3 0.1 0.2 0.0 0.0 Mean NREM SpO2 (%) N/A 90 92 93 93 95 Mean REM SpO2 (%) 90 92 N/A N/A 94 N/A Mean Sleep SpO2 (%) 90 91 92 93 94 95 Min NREM SpO2 (%) N/A 85 87 88 90 91 Min REM SpO2 (%) 83 90 N/A N/A 92 N/A Position Supine (min.) 11.7 75.9 16.5 11.1 42.7 59.9 Position Non-supine (min.) 0.0 0.0 0.0 0.0 0.0 0.0 LM Index Sleep 35.8 31.6 14.5 10.8 19.7 50.1 LM Index NREM N/A 26.6 14.5 10.8 24.3 50.1 LM Index REM 35.8 44.2 N/A N/A 14.6 N/A Mean Heart Rate (bpm) 54 50 48 48 47 46 Min Heart Rate (bpm) 52 47 47 47 44 45
--- NOTE | 2017-02-22 08:32 | POLYSOMNOGRAPH REPORT ---
REFERRING PERSON: Coleman Dotson MD TRANSIT COACH OPERATOR: Ammon Zhang. Ms. Richardson is a 71-year-old female who had a sleep study performed in November of 2006, which showed an AHI of 46.8. She has been using auto titrating CPAP at home, but has been having trouble using the device. She returns for a CPAP titration study. Her [place] sleepiness scale score on the evening of this study is not recorded. BMI is 33.14. Following the technical and digital specifications of the [place] [employer] (AASM) a standard diagnostic polysomnogram was performed monitoring EEG, EOG, EMG (chin and leg deviations), oxygen saturation, body position, digital video, respiratory effort and airflow. The sleep Stage and event scoring was based on the AASM Manual for the Scoring of Sleep and Associated Events 2007 edition. Apneas are defined as a drop in the peak thermal sensor excursion by >90% of baseline for at least 10 seconds. Hypopneas were scored using the 4% oxygen desaturation rule (4A-Medicare) and a decrease in the nasal pressure excursions by >30% of baseline for at least 10 seconds. Respiratory effort-related arousal (RERA's) is defined as a sequence of breaths lasting at least 10 seconds characterized by increasing respiratory effort or flattening of the nasal pressure waveform leading to an arousal from sleep when the sequence of breaths does not meet criteria for an apnea or hypopnea. Apnea Hypopnea index (AHI) is defined as the number of apneas and hypopneas occurring in an hour of sleep. Respiratory disturbance index (RDI) is defined as the number of apneas, hypopneas, and RERA's occurring in an hour of sleep. Ms. Richardson' total sleep period time was 408.5 minutes. Total sleep time was 280.5 minutes. Sleep efficiency was 65%. Latency to sleep onset was 20.5 minutes with wake after sleep onset of 128 minutes. Total non-REM sleep time was 226.5 minutes. She spent 6% of that time in N1 sleep, 56% in N2 sleep and 19% in N3 sleep. REM latency was 127.5 minutes. Total REM sleep time was 54 minutes or 19% of total sleep time. There were 80 cortical arousals from sleep. Eighteen of these arousals were spontaneous, 21 were due to respiratory events, 37 due to periodic limb movements of sleep and 4 were due to snoring. There were 177 periodic limb movements noted on this test. Limb movement index was 37.9. Limb movement with arousal index was 8.8. There were no central, 3 obstructive and no mixed apnea on this test. There were 57 hypopnea and 7 RERA. Apnea-hypopnea index was 12.8 consistent with mild sleep apnea. Supine AHI was 14, REM AHI was 4.4. 428 snoring events were recorded. Total sleep time with snoring was 2.9%. Mean saturation was 92% with desaturations of 78%. Saturations were less than 89% for 42.2 minutes of recorded time. This is significant nocturnal hypoxemia. There was no cardiac ectopy noted on this test. Heart rates ranged from a low of 44 beats per minute to a high of 58 beats per minute during this titration. Per the production maintenance technician's notes, this patient was started with a ResMed F10 full face mask for this titration. However, at higher pressures, this patient's jaw would drop causing a very high mask leak. She was switched to Mirage Quattro full face mask in a small size with much better results. The patient stated that she is currently using a nasal mask at home. On this titration, Ms. Richardson was titrated from a CPAP pressure of 4 to a CPAP pressure of 18 over the course of the night. Increasing pressures were needed to prevent hypopneas and arousals. She was observed on a pressure of 16 for 42.7 minutes of sleep time. During that time, the patient had 20.5 minutes of supine REM sleep. Her AHI and RDI on this pressure were 5.6 and 8.4 respectively. There were no desaturations less than 89%. Because of some mild residual events, she was increased to 18 at the end of the study and observed for 59.9 minutes of sleep. AHI and RDI on this pressure were both 2.0 with there was no supine or non-supine REM on this pressure. IMPRESSION AND PLAN: Successful CPAP titration study in this patient with known severe sleep apnea. For comfort, I would start this patient on CPAP at a pressure of 16 with a small Mirage Quattro full facemask. A download from her machine can be reviewed in 1 month, both to check compliance as well as AHI and further pressure adjustments can occur at that time. She may need slightly higher pressures.
== END | disposition home or self-care (01) ==
LOC: C.NEUR 21:00
PROVIDERS: ATTEND Family Medicine
DX: G47.33 Obstructive sleep apnea (adult) (pediatric) (principal); R09.02 Hypoxemia

== ENCOUNTER → 2017-09-13 | Outpatient (CLI) | payer OTHER ==
[~2017-09-13] MED LIST changes: +ATOR10TA82 PO; -ATOR10TA88 PO; -CHOL100010 PO; +DOCU100C31 PO; -FURO-85 PO; +FURO40TA3 PO; +MULT1CHW18 PO; -POTA-327 PO; +POTA10TA PO
[2017-09-13 13:19] VITALS: BP 158/69; PULSE 94; TEMP 36.4; O2SAT 91
--- NOTE | 2017-09-13 16:15 | Radiation Oncology Follow-Up ---
Radiation Oncology Follow-Up Date of Visit Sep 13, 2017. Reason For Visit Annual follow-up Radiation Completion Date 02/07/15 Diagnosis (1) Malignant neoplasm of upper-outer quadrant of female breast Status: Resolved Onset Date: 09/12/2014 Stage: l (A) Permanent Comment: Self detected firmness of the right breast Status post abnormal mammogram and ultrasound Status post ultrasound-guided biopsy 09/12/2014 revealing 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, progesterone receptor positive, HER-2/estelita positive Status post lumpectomy and axillary dissection 11/04/2014 positive margin Pathologic stage [id number] Reexcision 12/10/2014 no residual disease Oncotype DX score of 28, patient decision to not have chemotherapy Status post completion of radiation therapy 02/07/2015 received 3850 cGy Last Edited By: Anh Pop on Sep 14, 2016 13:49 History of Present Illness Ms. Richardson is without a family history of breast cancer. She has been followed with screening mammograms. The patient's self identified a right breast mass. On 09/02/2014 she underwent bilateral diagnostic mammograms. If the right breast an irregular mass was noted within the right anterior breast at the 3 o'clock position that corresponded with the patient's self identified palpable abnormality. A targeted ultrasound showed a corresponding irregular hypoechoic solid mass at the 2 o'clock position with internal vascularity measuring 0.4 x 0.4 x 0.3 cm 1 cm from the nipple. A group of indistinct calcifications was noted at the 9 o'clock position of the right breast. These findings are suspicious for malignancy and a biopsy was recommended. On 09/12/2014 the patient underwent an ultrasound-guided core biopsy of the right breast of the 2 areas of suspicion. The biopsy of the right breast calcifications showed no evidence of carcinoma. Biopsy of the palpable mass revealed an invasive ductal carcinoma grade 2. This lesion was ER strongly positive (100% nuclear positivity). Progesterone receptors were strongly positive (90% nuclear positivity). 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 Accession #: [id number]. The patient was subtotally seen by Dr. Yuriy Blackmon who discussed treatment options with the patient. The patient opted to proceed with a breast conserving technique. He noted that the patient had developed a large hematoma on the lateral aspect of the right breast that gradually decreased in size. On 11/04/2014 the patient underwent a needle localized lumpectomy. The patient had been injected for possible sentinel node biopsy. However upon investigating the axilla with the neoprobe there was inconsistent counts. After incising and going into the axilla with the neoprobe the counts were 0. Therefore he proceeded with a right axillary dissection. The partial mastectomy specimen revealed an invasive ductal carcinoma measuring 1.9 x 1.5 x 1.1 cm. This was a histologic Cubero grade 3 of 3. There was evidence of ductal carcinoma in situ, cribriform with focal necrosis and nuclear grade 2 of 3. The margins were evaluated and invasive carcinoma was noted extending to the anterior and superior margins. The en face medial, lateral and inferior margins were negative. The tumor extended to within 0.8 cm of the posterior margin. No lymphovascular invasion was appreciated. 19 lymph nodes were removed and examined. All were negative for metastatic carcinoma. Pathologic stage was therefore pT1c pN0, ER positive OK positive HER-2/estelita negative Because of the positive margins Dr. Blackmon performed a wide reexcision of the right breast region on 12/10/2014. This revealed benign breast tissue with no residual DCIS or invasive carcinoma identified at the biopsy site or at the examined margins of resection. Case: [id number]. The patient went on to have an Oncotype DX tissue evaluation. This was reported with a recurrent score of 28. This is the patient in the mid intermediate risk group with a 10 year risk of distant recurrence with tamoxifen alone at 18%. The patient was seen by Dr. Cale Hurley on 12/24/2014 to discuss the role of adjuvant therapy based on the NCCN Guidelines the patient did not wish to consider systemic chemotherapy. He therefore offered her Arimidex for 5 years. He suggested starting the Arimidex after the completion of her radiation. We were subsequently asked to see this patient in referral to discuss the role of adjuvant radiation. She underwent a CT simulation and was found to be a candidate for accelerated partial breast treatment. Radiation was completed 02/07/2015 she received 3850 cGy. Interim History She has been doing well over this past year. She is continued follow-up with her breast surgeon Dr. Blackmon. She is noted to have fibrous changes in the inner medial portion of the right breast. He was concerned in May about possible changes to the scar tissue. Mammogram was ordered and performed on June 09, 2017. This showed the right breast was negative for malignancy. Normal interval follow-up is recommended. BI-RADS Category 1. She herself has noted no change in her breasts. There is mild discomfort in the area of fibrous tissue if her dog accidentally bumps the area. She has noted no redness or changes of the overlying skin. There is been no nipple discharge. She has noticed no change of the axilla or swelling of her arm. She had previously discussed stopping the aromatase inhibitor with Dr. Zuluaga. She felt that it caused her to gain weight. She went off the medication and did not lose weight. After seeing him again she decided to restart the medication and has continued on anastrozole. Allergies Coded Allergies: No Known Allergies (Unverified , 08/17/17) Home Medications Scheduled Amiodarone Hcl (Cordarone), 200 MG PO QAM Anastrozole (Anastrozole), 1 MG PO QDL Aspirin (Ecotrin Low Strength), 81 MG PO QPM Atorvastatin (Lipitor), 10 MG PO QD@2000 Calcitriol (Calcitriol), 0.25 MCG PO QDL Docusate Sodium (Docusate Sodium), 1 CAP PO QAM Levothyroxine Sodium (Levothyroxine Sodium), 137 MCG PO QAM Metoprolol Tartrate (Lopressor) (Lopressor), 12.5 MG PO BID Multiple Vitamins W/ Minerals (Multivitamin Gummies Adul), 1 TAB PO QDL Warfarin Sod (Jantoven), 5 MG PO QPM Scheduled PRN Acetaminophen (Tylenol), 650 MG PO Q4H PRN for MILD PAIN Furosemide (Lasix), 40 MG PO DAILY PRN for INCREASED FLUID Ibuprofen (Motrin), 600 MG PO Q6H PRN for Pain Potassium Chloride (K-Tabs), 1 TAB PO QD PRN for WHEN TAKES LASIX Review of Systems Gastrointestinal: Symptoms: WNL GI Comments: Was to have surgery for diverticulitis but cancelled due to pneumnia Oral: Symptoms: No Problems Respiratory: Symptoms: WNL, SOB With Exertion Other Respiratory: "I cough now and then" Urinary: Symptoms: WNL Skin: Symptoms: No Problems Other Skin Symptoms: Patient states right breast is tender and has scar tissue Breast: Right Upper Arm Measurement: 34.1 Right Mid Arm Measurement: 26.8 Right Wrist Measurement: 17.1 Left Upper Arm Measurement: 34.5 Left Mid Arm Measurement: 26.6 Left Wrist Measurement: 16.9 Arm Dominence: Right Physical Exam Vital Signs Date Time Temp Pulse Resp B/P (MAP) Pulse Ox O2 Delivery O2 Flow Rate FiO2 09/13/17 13:19 36.4 94 16 158/69 91 Fatigue: None General Appearance: no apparent distress Eyes: normal inspection, EOMI ENT: normal ENT inspection, hearing grossly normal Neck: no adenopathy, thyroid normal Respiratory/Chest: lungs clear, no respiratory distress, no accessory muscle use Breast: Breast examination on the right reveals a large area of fibrous tissue in the medial central portion of the breast. The nipple deviates inwardly. There is scar retraction with overlying telangiectasia. Fibrous tissue appears to be softer this year compared to last. She denies pain on examination. There is no signs of infection. There is no axillary adenopathy. Using the Earling score of cosmesis she has a poor outcome. The left breast showed no masses or tenderness and no axillary adenopathy. Cardiovascular: regular rate, rhythm, no gallop, no murmur Abdomen: non tender, soft, no organomegaly Extremities: no pedal edema Neurologic/Psychiatric: no motor/sensory deficits, alert, normal mood/affect Skin: warm/dry Pain Management Patient Reports Pain: No Initial Pain Intensity: 0.0 Pain Management Plan She denies pain therefore requires no pain management. Laboratory Laboratory Results: not applicable Pathology Pathology Results: not applicable Imaging Imaging Studies: were reviewed Imaging Comments Reviewed in the interim history. She had a mammogram June 09, 2017. Assessment & Plan Plan: Continue regular follow-up with her breast surgeon, primary care physician , and medical oncologist. She continues on anastrozole. Today we discussed the fibrous changes of the breasts. She is not having issues with the appearance and outcome of her radiation and surgery. She does not have any issues with finding a bra that fits. We did discuss the possibility of seeing a plastic surgeon to discuss possible breast reduction on the left and removal of the fibrous tissue on the right. She did not wish to be considered for possible plastic surgery. She will continue with scheduled mammography. We asked her to return to our office in 1 year. She may call if she has any questions or concerns in the interim. Total Time In Follow-Up I spent 20 minutes speaking to the patient in performing examination. I spent 15 minutes reviewing information and completing this note. Copy To Nu Montoya D.O.; José Antonio Gordon M.D. Problem Qualifiers (1) Malignant neoplasm of upper-outer quadrant of female breast: Estrogen receptor status: positive Laterality: right Qualified Codes: C50.411 - Malignant neoplasm of upper-outer quadrant of right female breast; Z17.0 - Estrogen receptor positive status [ER+]
== END | disposition home or self-care (01) ==
LOC: C.ONC 12:19
PROVIDERS: ATTEND Physician Assistant Medical
DX: Z08 Encounter for follow-up examination after completed treatment for malignant neoplasm (principal); Z92.3 Personal history of irradiation; Z85.3 Personal history of malignant neoplasm of breast

== ENCOUNTER 2024-01-04 10:46 | Inpatient (IN) ==
--- NOTE | 2024-01-04 11:32 | Emergency Department Note ---
Impression & Plan Anemia, Fatigue, Hyponatremia, TONY (acute kidney injury) ED Provider Note NAME: CHENTE CARABALLO AGE: 78 SEX: F : 1945 ARRIVES VIA: Walk-In INFORMANT: [Patient][family] ED PROVIDER(S): [Rush Montoya MD] CHIEF COMPLAINT: Abnormal laboratories HISTORY OF PRESENT ILLNESS: The patient is a 78-year-old female who is on Coumadin. Last INR was 2.3. The patient had lab work done 2 days ago for routine reasons. She was called and told to come to the ED as her hemoglobin had dropped to around 8. She typically runs around 13. Patient has been somewhat short of breath but this is more of a chronic issue because of COPD. She has maybe been somewhat more tired than typical. There has been no fever, no cough or congestion. No urinary complaints. She does have hemorrhoids so she does occasionally see blood in the stool. Sometimes, her stools are dark but she thinks this is more so from what she ate. PMHx/PSHx/Social Hx: See Below PHYSICAL EXAM: GENERAL: Patient is in no acute distress. HEENT: No acute trauma, normocephalic atraumatic, mucous membranes moist, no nasal congestion. NECK: No stridor, no adenopathy, no meningismus, trachea is midline. LUNGS: Clear to auscultation bilaterally, no wheeze, no rhonchi, breath sounds equal. HEART: 3/6 systolic murmur, regular rate and rhythm. ABDOMEN: Soft, nontender, no peritonitis. EXTREMITIES: No cyanosis, full range of motion of all the joints without pain or difficulty. Mild to moderate bilateral pedal edema. NEUROLOGIC: Oriented x 3, no acute motor or sensory deficits, no focal weakness. SKIN: No jaundice, no diaphoresis. Rectal: Exam performed with a web development manager. The patient had significant external hemorrhoids that were not actively bleeding. Digital exam did not reveal any stool as the rectum was empty but heme test was trace positive. DIFFERENTIAL DIAGNOSIS: Upper or lower GI bleeding, electrolyte imbalance, anemia, dehydration, coagulopathy, among others. EMERGENCY DEPARTMENT PROCEDURES: MEDICAL DECISION MAKING: There is no leukocytosis. The patient is anemic with a hemoglobin of around 8. This is a significant drop for her when looking back at previous testing. There was a normal platelet count. INR was elevated at 2, consistent with her Coumadin use. Sodium was low at 130. There was some evidence for some mild acute kidney injury with a creatinine of 1.83. No concerning liver enzyme elevation. TSH was slightly high however, the T4 was normal. Urinalysis did not show findings of infection. Chest x-ray showed some cardiomegaly, no true CHF. On exam, patient was not hypotensive or tachycardic, she was resting comfortably. I did perform a rectal exam, there was no stool in the vault to truly chest for heme positivity. Hemorrhoids were noted externally. The patient received IV saline, 500 cc. The patient is anemic, the cause is unclear. Certainly, GI bleed is a consideration. Given the anemia, given the hyponatremia, given her Coumadin use, I do think a hospital stay, further workup and GI consult is warranted. I spoke with the patient and case management, the on-call hospitalist was consulted. Of note, the patient was not in need of an emergent blood transfusion, if her hemoglobin drops further, she may require packed red blood cells. Prior/Outside records/notes reviewed: None ECG per my interpretation: Indication was possible GI bleed. The ECG shows a normal sinus rhythm with a rate of 67. There is a left bundle branch block. No acute ST elevation, no PVCs. The QTc is 517. Continuous Cardiac Monitoring per my interpretation: An order was placed for continuous cardiac monitoring. The monitor shows a rate of 70 with normal sinus rhythm. Imaging/x-ray results per my interpretation: There was some cardiomegaly on chest x-ray, I did not see any pneumonia or true CHF. Chronic Medical/Social conditions affecting care: Advanced age, chronic Coumadin use. Care/Management discussed with: Case management, the on-call hospitalist. Level of care consideration(s): After review of the information above and other included data: --I believe the patient requires escalation of care to admission DISPOSITION: Admission Past Med/Surg History Problem List (Updated 01/04/24 @ 16:10 by Rush Montoya MD) TONY (acute kidney injury) (Acute) Hyponatremia (Acute) Fatigue (Acute) Anemia (Acute) Anemia SARAH on CPAP (Chronic) CKD (chronic kidney disease), stage III (Chronic) Colon polyps (Chronic) Acquired hypothyroidism (Chronic) HTN (hypertension) (Chronic) CAD (coronary artery disease) (Chronic) CKD (chronic kidney disease), stage III (Chronic) Hx of colonic polyps (Acute) "2/2 sub-total colectomy by Dr. Blackmon in November 2017" S/P AVR (aortic valve replacement) (Chronic 08/25/13) Encounter for pre-operative examination Gross hematuria Medical History Balance problem Poor historian Kidney stones hx Hypothyroidism Cancer of right breast sx, radiation, oral chemo On anticoagulant therapy warfarin daily Hypertension Hyperlipidemia History of transesophageal echocardiography (JAMEL) for monitoring Cardiac murmur followed with Dr. Sofia, has not seen new physician Sleep apnea cpap Thyroid cancer sx History of colon polyps Surgical History History of cystoscopy STENT INSERTED History of aortic aneurysm repair History of anesthesia reaction difficulty waking after heart surgery History of bilateral tubal ligation History of open reduction and internal fixation (ORIF) procedure collar bone fx---hardware in place History of open reduction and internal fixation (ORIF) procedure left leg---hardware removed History of colonoscopy History of esophagogastroduodenoscopy (EGD) History of partial mastectomy of right breast History of right breast biopsy malignant History of tooth extraction History of tonsillectomy and adenoidectomy History of cardiac cath 2014 @ [facility], no stents [place] [facility] [place] of [place] valve [place] [facility] [place] of thyroidectomy History of partial colectomy 2017 d/t colon polyps Family History Brother Family history of diabetes mellitus Family hx of colon cancer Father Family history of diabetes mellitus Other No family history of adverse response to anesthesia Social History Smoking Status: Current every day smoker Tobacco Type: Cigarettes Cigarettes Per Day: 1/2 PPD; Second Hand Exposure: Yes ( smokes); Do You Dip or Chew Tobacco: No; Hx Alcohol Use: No Hx Substance Use: No Preferred Language: Portuguese Communication Ability: Effective Metal Window Frame Maker Required: No Beliefs That Will Affect Care: None Current Living Situation: Spouse Current Living Situation Comment: apartment with Feels Safe at Home: Yes Safety Concerns: Feels Safe At This Time Assistive Devices: Cane and CPAP Allergies Allergies Allergy/AdvReac Type Severity Reaction Status Date / Time No Known Allergies Allergy Verified 01/04/24 12:49 Home Meds Home Medications Medication Instructions Recorded Confirmed amiodarone 200 mg tablet 200 mg PO QAM 08/16/18 01/04/24 aspirin 81 mg tablet,delayed 81 mg PO QPM 08/16/18 01/04/24 release (Yocasta Low Dose Aspirin) atorvastatin 10 mg tablet 10 mg PO QPM 08/16/18 01/04/24 levothyroxine 137 mcg tablet 137 mcg PO QAM 08/16/18 01/04/24 metoprolol tartrate 25 mg tablet 12.5 mg PO BID 08/16/18 01/04/24 multivitamin 1 tab PO QDD 08/16/18 01/04/24 warfarin 5 mg tablet (Jantoven) 7.5 mg PO HS 09/13/18 01/04/24 potassium citrate 10 mEq (1,080 10 meq PO BID 04/23/19 01/04/24 mg) tablet,extended release pantoprazole 20 mg tablet,delayed 20 mg PO QAM 12/02/22 01/04/24 release lisinopril 10 1 tab PO DAILY 01/04/24 01/04/24 mg-hydrochlorothiazide 12.5 mg tablet Results & Data (ED) Vital Signs Vital Signs - 24 hr 01/04/24 10:50 01/04/24 11:38 01/04/24 11:44 Temperature 36.6 C Temperature Source Temporal Artery Scan Pulse Rate 70 70 70 Respiratory Rate 19 14 Blood Pressure 154/65 H Blood Pressure Mean 94 Pulse Oximetry 93 97 Oxygen Delivery Method Room Air Room Air Sepsis Recent Fever Within 48 Hours No Sepsis New/Unexplained Change in Mental Status N/A Sepsis Action Taken by Nursing No Action Required Home Medications Current Medication List: was personally reviewed by me Laboratory Data Attestation: I reviewed the patient's lab results. 01/04/24 11:15 01/04/24 11:15 Lab Results 01/04/24 01/04/24 01/04/24 Range/Units 11:15 11:15 11:32 WBC 5.80 (4.8-10.8) K/ul RBC 3.42 L (4.20-5.40) M/uL Hgb 8.2 L (12.0-16.0) g/dl POC Hgb 9.5 L (12.0-16.0) g/dl Hct 28.1 L (37.0-47.0) % POC Hct 28 L (37-47) % MCV 82.2 (80.0-100.0) fL MCH 24.0 L (25.0-34.0) pg MCHC 29.2 L (32.0-36.0) g/dL RDW Std Deviation 47.2 H (36.4-46.3) fL RDW Coeff of Kallie 15.9 H (11.5-14.5) % Plt Count 300 (130-400) K/uL MPV 8.5 L (9.4-12.4) fL Immature Gran % (Auto) 0.2 % Neut % (Auto) 75.7 % Lymph % (Auto) 15.3 % [place] % (Auto) 7.8 % Eos % (Auto) 0.7 % Baso % (Auto) 0.3 % Neut # (Auto) 4.39 (1.40-6.50) K/uL Lymph # (Auto) 0.89 L (1.20-3.40) K/uL [place] # (Auto) 0.45 (0.11-0.59) K/uL Eos # (Auto) 0.04 (0.00-0.50) K/uL Baso # (Auto) 0.02 (0.00-0.20) K/uL Immature Gran # (Auto) 0.01 (0.01-0.20) K/uL PT 20.7 H (9.0-12.0) Seconds INR 2.0 H (0.9-1.1) APTT 35 H (21-31) Seconds PTT Ratio 1.3 POC Sodium 133 L (135-144) mmol/L Sodium 130 L (136-145) mmol/L POC Potassium 4.0 (3.3-5.0) mmol/L Potassium 4.0 (3.5-5.1) mmol/L POC Chloride 100 L (101-112) mmol/L Chloride 98 (98-107) mmol/L Carbon Dioxide 24 (21-32) mmol/L POC Total CO2 24 (24-31) mmol/L Anion Gap 8 (3-11) POC Anion Gap 15.0 L (16-25) mmol/L POC BUN 15 (7-18) mg/dl BUN 18 (6-23) mg/dl Creatinine 1.83 H (0.6-1.2) mg/dl POC Creatinine 1.9 H (0.6-1.3) mg/dl Est Cr Clr Drug Dosing 26.9 ml/min Est GFR ( Amer) 29.9 ml/min Est GFR (Non-Af Amer) 25.8 ml/min BUN/Creatinine Ratio 9.8 L (10-20) Glucose 103 H (70-99(Fasting)) mg/dl POC Glucose (other) 108 H (70-99) mg/dl Calcium 9.5 (8.6-10.3) mg/dl POC Ioniz Calcium Aramis 1.20 (1.12-1.32) mmol/l Magnesium 1.8 (1.7-2.4) mg/dl Iron 16 L (35-150) mcg/dl TIBC 438 (250-450) mcg/dl Unsaturated IBC 422 H (155-355) mcg/dl Transferrin % Sat 4 L (15-50) % Ferritin 14.4 (8-388) ng/ml Total Bilirubin 0.4 (0.2-1.0) mg/dl AST 31 (13-39) U/L ALT 17 (7-52) U/L Alkaline Phosphatase 43 (34-104) U/L Troponin I High Sens 11.8 (0-14) pg/ml Total Protein 8.0 (6.0-8.3) gm/dl Albumin 4.0 (3.4-5.0) gm/dl Globulin 4.0 (2.5-4.0) gm/dl Albumin/Globulin Ratio 1.0 (0.9-2) Vitamin B12 781 (180-914) pg/ml Folate > 22.30 (>5.38) ng/ml TSH 6.130 H (0.300-4.500) uIu/ml Free T4 1.56 (0.61-1.60) ng/dl Blood Type O Negative Antibody Screen POSITIVE A Antibody Identification Anti-C Anti-D Crossmatch See Detail Administered Medications Discontinued Medications Sodium Chloride (Nss) 500 mls @ 999 mls/hr IV .Q31M PATTY Stop: 01/04/24 11:45 Last Infusion: 01/04/24 12:25 Dose: Infused Documented By: Admin: 01/04/24 11:38 Dose: 999 mls/hr Documented By: AMY Iron Sucrose 300 mg/ Sodium (Chloride) 265 mls @ 176.667 mls/hr IV TODAY ONE; Protocol Stop: 01/04/24 15:59 Last Admin: 01/04/24 14:28 Dose: 176.7 mls/hr Documented By: AMY Imaging Data Radiologist's Impression: Chest X-Ray 01/04/24 11:11 SINGLE VIEW CHEST CLINICAL HISTORY: Generalized weakness FINDINGS: An AP, portable, upright chest radiograph is compared to study dated 09/20/2013. Correlation is made with abdominal CT dated 05/28/[address] dated 08/25/2013. The patient is status post midline sternotomy. The there is pulmonary vascular congestion. There are small pleural effusions, right larger than left with right basilar scarring/atelectasis. No pneumothorax is seen. The skeletal structures are osteopenic. There is chronic deformity and postsurgical change noted in the left clavicle. IMPRESSION: 1. Cardiomegaly with pulmonary vascular congestion. Radiographic follow-up to resolution is recommended. 2. Small pleural effusion. ACT 112: Negative or not required by law. Electronically signed by: Rush Morton M.D. 01/04/2024 12:04 PM Discharge Plan Visit Data Chief Complaint: Abnormal Labs/Diagnostic Testing Stated Complaint: ABN LABS, REF BY DOC ED Provider: Rush Montoya Discharge Problem: Anemia, Fatigue, Hyponatremia, TONY (acute kidney injury) Patient Disposition: Admitted As Inpatient Condition: Fair Discharge Instructions Interventions: ED Discharge Assessment Last Done: 01/04/24 14:43 Discharge Problem: Anemia Qualifiers: Anemia type: unspecified type Qualified Code(s): D64.9 - Anemia, unspecified Fatigue Qualifiers: Fatigue type: unspecified Qualified Code(s): R53.83 - Other fatigue
[2024-01-04] MEDS: SODIUM CHLORIDE 0.9% 500 ML IV SCH (11:38)
[2024-01-04 11:48] LABS: Basophils # (auto) 0.02 K/uL (0.00-0.20); Basophils % (auto) 0.3 %; Eosinophils # (auto) 0.04 K/uL (0.00-0.50); Eosinophils % (auto) 0.7 %; Hematocrit (blood only) 28.1 % (37.0-47.0); Hemoglobin 8.2 g/dl (12.0-16.0); Immature Granulocytes # (auto) 0.01 K/uL (0.01-0.20); Immature Granulocytes % (auto) 0.2 %; Lymphocytes # (auto) 0.89 K/uL (1.20-3.40); Lymphocytes % (auto) 15.3 %; Mean Corpuscular Hgb Conc 29.2 g/dL (32.0-36.0); Mean Corpuscular Volume 82.2 fL (80.0-100.0); Mean Platelet Volume 8.5 fL (9.4-12.4); Monocytes # (auto) 0.45 K/uL (0.11-0.59); Monocytes % (auto) 7.8 %; Neutrophils # (auto) 4.39 K/uL (1.40-6.50); Neutrophils % (auto) 75.7 %; Platelet Count 300 K/uL (130-400); RDW Coefficient of Variation 15.9 % (11.5-14.5); RDW Standard Deviation 47.2 fL (36.4-46.3); Red Blood Count 3.42 M/uL (4.20-5.40)
[2024-01-04 12:02] LABS: BUN Creatinine Ratio 9.8 (10-20); Bilirubin,Total 0.4 mg/dl (0.2-1.0); Calcium 9.5 mg/dl (8.6-10.3); Creatinine Clr Calc Pharmacy 26.9 ml/min; Est GFR (African American) 29.9 ml/min; Est GFR (Non-African American) 25.8 ml/min; Magnesium 1.8 mg/dl (1.7-2.4)
--- NOTE | 2024-01-04 12:05 | XRay Report ---
SINGLE VIEW CHEST CLINICAL HISTORY: Generalized weakness FINDINGS: An AP, portable, upright chest radiograph is compared to study dated 09/20/2013. Correlation is made with abdominal CT dated 05/28/[address] dated 08/25/2013. The patient is status post mi dline sternotomy. The there is pulmonary vascular congestion. There are small pleural effusions, righ t larger than left with right basilar scarring/atelectasis. No pneumothorax is seen. The skeletal str uctures are osteopenic. There is chronic deformity and postsurgical change noted in the left clavicle . IMPRESSION: 1. Cardiomegaly with pulmonary vascular congestion. Radiographic follow-up to resolution is recommend ed. 2. Small pleural effusion. ACT 112: Negative or not required by law. Electronically signed by: Rush Morton M.D. 01/04/2024 12:04 PM
[2024-01-04 12:06] LABS: Troponin I High Sensitivity 11.8 pg/ml (0-14)
[2024-01-04 12:11] LABS: Partial Thromboplastin Ratio 1.3; Partial Thromboplastin Time 35 Seconds (21-31); Prothrombin Time 20.7 Seconds (9.0-12.0)
[2024-01-04 12:12] LABS: iSTAT Creatinine 1.9 mg/dl (0.6-1.3); iSTAT Hemoglobin 9.5 g/dl (12.0-16.0); iSTAT Ionized Calcium 1.2 mmol/l (1.12-1.32)
[2024-01-04 12:16] LABS: Thyroid Stimulating Hormone 6.13 uIu/ml (0.300-4.500)
[2024-01-04 12:51] LABS: T4 Free Thyroxine 1.56 ng/dl (0.61-1.60)
--- NOTE | 2024-01-04 12:55 | History & Physical Report ---
Date of Service January 04, 2024 Assessment & Plan (1) Anemia: (2) CKD (chronic kidney disease), stage III: (3) HTN (hypertension): (4) SARAH on CPAP: Plan This is a 78 yr old F who has a significant PMH of HTN, hx of AVR and MVR, PAF on warfarin, CAD, COPD, SARAH on CPAP, Tobacco abuse, hypothyroidism, CKD-3, Hyperparathyroidism, hx of R breast ca s/p partial mastectomy who presents to ED 2/2 referral from PCP. Anemia, iron deficiency Possible GIB admit to tele anemia panel reveals iron 16, T sat 4% hgb stable no indication for transfusion at this time, will type/cross and place 2 units on hold Blood consent was obtained from the patient (or patient delegate) as delegated by Dr. Morrow. Risks and benefits were explained. All questions were answered, and the patient (or patient delegate) was offered the opportunity to discuss with attending physician and declined. Last C scope 11/2022 evidence of prior end to end ileocolonic anastomosis in sigmoid, patent, HANH revealed prolapse repeat hgb @ 20:00 Clear liquid diet, NPO after midnight in event surgical procedure required hold warfarin and ASA for now IV PPI BID Give 300mg IV Venofer x 1 now, consider repeat in a.m. PAF: anticoagulated with warfarin, metoprolol for rate/rhythm control, INR 2.0. Hold warfarin for now, follow INR, resume as soon as able HTN: Bp stable, hold HCTZ, continue metoprolol/lisinopril with parameters CKD -3b- cr baseline 1.7-1.9 - stable , avoid nephrotoxic agents COPD Tobacco abuse encourage cessation, pt declines nicotine patch no acute exac SARAH on CPAP Hypothyroidism: continue repletion, TSh 6.13, free T4 1.56 DVT ppx: SCDS Dispo: admit to med tele for GI consultation, anemia work up and tele monitoring for arrhythmias, will need PT/OT prior to d/c FULL CODE PCP: Dr. Marino Pt was seen and examined in collaboration with Dr. Morrow, please see addendum A total of 76 minutes was spent coordinating, documenting, and providing care for this patient excluding time spent in the performance of separately billed services. This included personally viewing all current laboratories and imaging studies, medication reconciliation, outpatient chart review, and discussion with specialists. Pt daughter is Sandrine Richardson, she works at [employer] in house keeping, she was not at bedside during my examination, her number is [phone] History of Present Illness Chief Complaint: Referred by PCP. Primary Care Provider: Krystyna Marino MD This is a 78 yr old F who has a significant PMH of HTN, hx of AVR and MVR, PAF on warfarin, CAD, COPD, SARAH on CPAP, Tobacco abuse, hypothyroidism, CKD-3, Hyperparathyroidism, hx of R breast ca s/p partial mastectomy who presents to ED 2/2 referral from PCP. She was seen by PCP Dr. Marino yesterday for routine 6 month check up and hemoglobin had dropped from 13.4 to ~ 8.0. Due to being on coumadin she was referred to ED for further work up. She reports feeling more fatigued and less energy to do her daily tasks then normal. THis has been going on for a few weeks. She also reports dark stools over last 2-3 days. She has known hemorrhoids for which she uses preparation H for but denies and significant BRBPR. She denies any abd pain, n/v/d, postprandial pain, significant NSAID use, f/c/s, chest pain, sob or URI sx. She is on a PPI daily and has been compliant with that. She reports several years ago having a part of her colon removed due to polyps but denies any prior hx of GIB or PUD. Her Daughter works in housekeeping at [employer]. In ED she remained hemodynamically stable. Her HGb was 8.2 and cr 1.9. She received some gentle IVF in ED. Her outpt records in [facility] were reviewed. No family at bedside to assist with history. Discussed with ED provider Dr. Montoya. She smokes 2-4 cigarettes a day as a stress reliever and has second hand exposure with . She denies alcohol. Allergies Allergy/AdvReac Type Severity Reaction Status Date / Time No Known Allergies Allergy Verified 01/04/24 12:49 Home Medications Medication Instructions Recorded Confirmed Type amiodarone 200 mg tablet 200 mg PO QAM 08/16/18 01/04/24 History aspirin 81 mg tablet,delayed 81 mg PO QPM 08/16/18 01/04/24 History release (Yocasta Low Dose Aspirin) atorvastatin 10 mg tablet 10 mg PO QPM 08/16/18 01/04/24 History levothyroxine 137 mcg tablet 137 mcg PO QAM 08/16/18 01/04/24 History metoprolol tartrate 25 mg tablet 12.5 mg PO BID 08/16/18 01/04/24 History multivitamin 1 tab PO QDD 08/16/18 01/04/24 History warfarin 5 mg tablet (Jantoven) 7.5 mg PO HS 09/13/18 01/04/24 History potassium citrate 10 mEq (1,080 10 meq PO BID 04/23/19 01/04/24 History mg) tablet,extended release pantoprazole 20 mg tablet,delayed 20 mg PO QAM 12/02/22 01/04/24 History release lisinopril 10 1 tab PO DAILY 01/04/24 01/04/24 History mg-hydrochlorothiazide 12.5 mg tablet Past Med/Surg History Problem List (Updated 01/04/24 @ 16:10 by Rush Montoya MD) TONY (acute kidney injury) (Acute) Hyponatremia (Acute) Fatigue (Acute) Anemia (Acute) Anemia SARAH on CPAP (Chronic) CKD (chronic kidney disease), stage III (Chronic) Colon polyps (Chronic) Acquired hypothyroidism (Chronic) HTN (hypertension) (Chronic) CAD (coronary artery disease) (Chronic) CKD (chronic kidney disease), stage III (Chronic) Hx of colonic polyps (Acute) "2/2 sub-total colectomy by Dr. Blackmon in November 2017" S/P AVR (aortic valve replacement) (Chronic 08/25/13) Encounter for pre-operative examination Gross hematuria Medical History Balance problem Poor historian Kidney stones hx Hypothyroidism Cancer of right breast sx, radiation, oral chemo On anticoagulant therapy warfarin daily Hypertension Hyperlipidemia History of transesophageal echocardiography (JAMEL) for monitoring Cardiac murmur followed with Dr. Sofia, has not seen new physician Sleep apnea cpap Thyroid cancer sx History of colon polyps Surgical History History of cystoscopy STENT INSERTED History of aortic aneurysm repair History of anesthesia reaction difficulty waking after heart surgery History of bilateral tubal ligation History of open reduction and internal fixation (ORIF) procedure collar bone fx---hardware in place History of open reduction and internal fixation (ORIF) procedure left leg---hardware removed History of colonoscopy History of esophagogastroduodenoscopy (EGD) History of partial mastectomy of right breast History of right breast biopsy malignant History of tooth extraction History of tonsillectomy and adenoidectomy History of cardiac cath 2014 @ [facility], no stents History of aortic valve replacement 2013 @ [facility] [place] History of mitral valve replacement 2013 @ [facility] [place] History of thyroidectomy History of partial colectomy 2017 d/t colon polyps Family History Brother Family history of diabetes mellitus Family hx of colon cancer Father Family history of diabetes mellitus Other No family history of adverse response to anesthesia Social History Smoking Status: Current every day smoker Tobacco Type: Cigarettes Cigarettes Per Day: 1/2 PPD; Second Hand Exposure: Yes ( smokes); Do You Dip or Chew Tobacco: No; Hx Alcohol Use: No Hx Substance Use: No Preferred Language: Sri Lankan Communication Ability: Effective 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 Beliefs That Will Affect Care: None Current Living Situation: Spouse Current Living Situation Comment: apartment with Feels Safe at Home: Yes Safety Concerns: Feels Safe At This Time Assistive Devices: Cane and CPAP Review of Systems Review of Systems: All systems reviewed & are unremarkable except as noted in HPI & below Physical Exam Physical Exam: Constitutional: WD/WN, vitals as above, NAD, sitting up in bed, pleasant, conversing easily Head: Normocephalic, Atraumatic Eyes: PERRL, conjunctivae normal, anicteric sclerae ENMT: external ear and nose normal, oropharynx normal Neck: trachea midline, no thyromegaly normal visual inspection Respiratory: normal respiratory effort, lungs clear to auscultation, no wheeze, rales, rhonchi. Normal insp/exp effort, no accessory muscle use Cardiovascular: RRR, no murmur, no edema Vessels: no JVD or carotid bruit Chest: normal inspection of chest Abdomen: normal bowel sounds, soft, nontender, no hepatosplenomegaly Musculoskeletal: no cyanosis or clubbing, extremities motor strength 5/5 Skin: no rashes, warm and dry normal turgor Neurologic: PERRL, EOMI, accommodation nl, no face palsy, no dysarthria CN's II-XI intact bilaterally and moves all extremities Psychiatric: A+Ox3, euthymic affect Lymphatic: no cervical or axillary lymphadenopathy : +ext hemorrhoid, nonbleeding nonthrombosed Results & Data Results & Data Vital Signs (Past 12 Hours) Vital Signs Temp Pulse Resp BP Pulse Ox O2 Del Method 01/04/24 11:44 70 01/04/24 11:38 70 14 97 Room Air 01/04/24 10:50 36.6 C 70 19 154/65 H 93 Room Air Laboratory Results I have independently reviewed and interpreted patient's admitting labs including CBC, CMP, PTT, PT/INR, mag, iron studies, UA and troponin. Diagnostic Findings Chest X-Ray 01/04/24 11:11 SINGLE VIEW CHEST CLINICAL HISTORY: Generalized weakness FINDINGS: An AP, portable, upright chest radiograph is compared to study dated 09/20/2013. Correlation is made with abdominal CT dated 05/28/[address] dated 08/25/2013. The patient is status post midline sternotomy. The there is pulmonary vascular congestion. There are small pleural effusions, right larger than left with right basilar scarring/atelectasis. No pneumothorax is seen. The skeletal structures are osteopenic. There is chronic deformity and postsurgical change noted in the left clavicle. IMPRESSION: 1. Cardiomegaly with pulmonary vascular congestion. Radiographic follow-up to resolution is recommended. 2. Small pleural effusion. ACT 112: Negative or not required by law. Electronically signed by: Rush Morton M.D. 01/04/2024 12:04 PM Medications Administered Medication List Discontinued Medications Sodium Chloride (Nss) 500 mls @ 999 mls/hr IV .Q31M PATTY Stop: 01/04/24 11:45 Last Infusion: 01/04/24 12:25 Dose: Infused Documented By: Admin: 01/04/24 11:38 Dose: 999 mls/hr Documented By: AMY COVID-19 Results Results COVID-19 Adm Lab Results: RBC 3.42 M/uL (4.20-5.40) L 01/04/24 WBC 5.80 K/ul (4.8-10.8) 01/04/24 Hgb 8.2 g/dl (12.0-16.0) L 01/04/24 Hct 28.1 % (37.0-47.0) L 01/04/24 Plt Count 300 K/uL (130-400) 01/04/24 Neutrophils (%) (Auto) 75.7 % 01/04/24 Lymphocytes (%) (Auto) 15.3 % 01/04/24 Monocytes # (Auto) 0.45 K/uL (0.11-0.59) 01/04/24 Eosinophils # (Auto) 0.04 K/uL (0.00-0.50) 01/04/24 Immature Granulocyte % (Auto) 0.2 % 01/04/24 Neutrophils # (Auto) 4.39 K/uL (1.40-6.50) 01/04/24 Lymphocytes # (Auto) 0.89 K/uL (1.20-3.40) L 01/04/24 Monocytes # (Auto) 0.45 K/uL (0.11-0.59) 01/04/24 Eosinophils # (Auto) 0.04 K/uL (0.00-0.50) 01/04/24 Basophils # (Auto) 0.02 K/uL (0.00-0.20) 01/04/24 Immature Granulocyte # (Auto) 0.01 K/uL (0.01-0.20) 4 Na 130 mmol/L (136-145) L 01/04/24 K 4.0 mmol/L (3.5-5.1) 01/04/24 Cl 98 mmol/L (98-107) 01/04/24 CO2 24 mmol/L (21-32) 01/04/24 Anion Gap 8 (3-11) 01/04/24 BUN 18 mg/dl (6-23) 01/04/24 Creatinine 1.83 mg/dl (0.6-1.2) H 01/04/24 BUN/Creatinine Ratio 9.8 (10-20) L 01/04/24 Glucose Level 103 mg/dl (70-99(Fasting)) H 01/04/24 Ca 9.5 mg/dl (8.6-10.3) 01/04/24 Total Bilirubin 0.4 mg/dl (0.2-1.0) 01/04/24 AST/SGOT 31 U/L (13-39) 01/04/24 ALT/SGPT 17 U/L (7-52) 01/04/24 Alkaline Phosphatase 43 U/L (34-104) 01/04/24 Total Protein 8.0 gm/dl (6.0-8.3) 01/04/24 Albumin 4.0 gm/dl (3.4-5.0) 01/04/24 Globulin 4.0 gm/dl (2.5-4.0) 01/04/24 Albumin/Globulin Ratio 1.0 (0.9-2) 01/04/24 Ferritin 14.4 ng/ml (8-388) 01/04/24 PTT 35 Seconds (21-31) H 01/04/24 INR 2.0 (0.9-1.1) H 01/04/24 Chest X-Ray 01/04/24 Code Status & VTE Plan Code Status FULL CODE Supervising Physician Co-Signing Physician Notes Attending Addendum: Case reviewed with the advanced practitioner. I have personally performed a history and physical examination on the patient. I have reviewed the advanced practitioner's documentation on the date of service referenced in note, and I agree with, and take responsibility for the plan of care. please refer to her notes for full details patient seen and examined, records reviewed by myself as well on exam, patient Seen resting in bed, sitting up, comfortable, not in distress No recurrence of hematochezia while in the hospital Denies abdominal pain, nausea vomiting, shortness of breath, chest pain no other symptoms VS noted and reviewed oriented X 3, not in distress, speaks in sentences with no effort nor accessory muscle use normal rate, regular rhythm, no murmurs clear breath sounds bilaterally non distended, soft, nontender no bipedal edema, erythema, warmth no neuro deficits all labs, imaging noted and reviewed ASSESSMENT AND PLAN Iron deficiency anemia Hematochezia, likely secondary to underlying GI bleed Baseline hemoglobin 13, currently 8 Iron level 16 IV iron ordered Transfuse for hemoglobin less than 8 GI consulted-recommending EGD and colonoscopy Patient is declining at this time Monitor closely other diagnoses and plan of care as per advanced practitioner's notes Miguel Morrow MD
[2024-01-04] MEDS ORDERED: SODIUM CHLORIDE 0.9% 250 ML IV PRN (13:06)
[2024-01-04 13:41] LABS: Appearance Urine Clear (Clear); Bilirubin Urine Negative (Negative); Blood Urine Negative (Negative); Color Urine Yellow; Glucose Urine UA Negative (Negative); Ketones Urine Negative (Negative); Leukocyte Esterase Urine Negative (Negative); Nitrite Urine Negative (Negative); Protein Urine Negative (Negative); Specific Gravity Urine 1.008 (1.000-1.030); Urobilinogen Urine Negative (Negative); pH Urine 7.5 (4.5-7.5)
--- NOTE | 2024-01-04 14:00 | Gastrointestinal Consultation ---
<Statement entered by Lisa Swanson MD - 01/04/24 16:07> I have examined the patient, reviewed the History & Physical and in the interval since the performance of the History & Physical I have noted the following changes of clinical significance: no changes noted. I agree with the documentation provided by JENN Loya with no additional comments. Monitor with iron infusions. If stable, patient prefers to follow up with [facility] for a capsule endoscopy. If her blood count falls further, will again discuss an endoscopic evaluation but she denies evidence of overt GIB and her last egd and colonoscopy were less than a year ago. Date of Consultation January 04, 2024 Assessment & Plan (1) Anemia: Patient had a low hgb on outpatient labs and was advised to come to the ED given her coumadin use. she has had some darker stools at times but she attributes it to diet. She did have a rectal in the ED that shown no stool but was trace positive. - monitor hgb/hct. transfuse as needed. - I discussed with the patient about performing an EGD/colonoscopy to further ev aluate but she wishes to decline at this time. she would prefer just monitoring labs for now. - will start protonix 40mg IV bid. History of Present Illness Reason for Consultation: ? GIB Requesting Physician: Keiko KHANNA History of Present Illness Patient is a 78 year old female with a significant past medical history of HTN, hx of AVR and MVR, PAF on warfarin, CAD, COPD, SARAH on CPAP, Tobacco abuse, hypothyroidism, CKD-3, Hyperparathyroidism, history of right breast cancer s/p partial mastectomy who presents to ED today after recommended by her PCP. She had routine labs done and hemoglobin had dropped from 13.4 in 06/2023 to 8. Due to being on coumadin she was referred to ED for further work up. She reports feeling more fatigued and having less energy to do her daily tasks then normal which has been going on for a few weeks. She also reports dark stools over last 2-3 days but also notes that this can come and go and she has always attributed to her diet. She has known hemorrhoids that can bleed at times, but she would say this is mild and infrequent. she does endorse tobacco use. no nsaid use. In ED she had a rectal exam showing hemorrhoids. no stool, but hemoccult was trace positive. she takes protonix 20mg daily as outpatient for reflux. she feels this works for her. Patient denies any current issues with nausea, vomiting, dysphagia, abdominal pain, unintentional weight loss. she has been taking coumadin for about 11-12 years after she had a blood clot after heart valve replacement. 01/03 hgb 8.2, INR 2. 12/10/22 colonoscopy - colo-ileocolonic anastamosis (she tells me due to larger polyp resection years ago), rectal prolapse. 12/10/22 EGD - unremarkable. Allergies Allergy/AdvReac Type Severity Reaction Status Date / Time No Known Allergies Allergy Verified 01/04/24 12:49 Home Medications Medication Instructions Recorded Confirmed Type amiodarone 200 mg tablet 200 mg PO QAM 08/16/18 01/04/24 History aspirin 81 mg tablet,delayed 81 mg PO QPM 08/16/18 01/04/24 History release (Yocasta Low Dose Aspirin) atorvastatin 10 mg tablet 10 mg PO QPM 08/16/18 01/04/24 History levothyroxine 137 mcg tablet 137 mcg PO QAM 08/16/18 01/04/24 History metoprolol tartrate 25 mg tablet 12.5 mg PO BID 08/16/18 01/04/24 History multivitamin 1 tab PO QDD 08/16/18 01/04/24 History warfarin 5 mg tablet (Jantoven) 7.5 mg PO HS 09/13/18 01/04/24 History potassium citrate 10 mEq (1,080 10 meq PO BID 04/23/19 01/04/24 History mg) tablet,extended release pantoprazole 20 mg tablet,delayed 20 mg PO QAM 12/02/22 01/04/24 History release lisinopril 10 1 tab PO DAILY 01/04/24 01/04/24 History mg-hydrochlorothiazide 12.5 mg tablet Patient History Medical History Balance problem Poor historian Kidney stones hx Hypothyroidism Cancer of right breast sx, radiation, oral chemo On anticoagulant therapy warfarin daily Hypertension Hyperlipidemia History of transesophageal echocardiography (JAMEL) for monitoring Cardiac murmur followed with Dr. Sofia, has not seen new physician Sleep apnea cpap Thyroid cancer sx History of colon polyps Surgical History History of cystoscopy STENT INSERTED History of aortic aneurysm repair History of anesthesia reaction difficulty waking after heart surgery History of bilateral tubal ligation History of open reduction and internal fixation (ORIF) procedure collar bone fx---hardware in place History of open reduction and internal fixation (ORIF) procedure left leg---hardware removed History of colonoscopy History of esophagogastroduodenoscopy (EGD) History of partial mastectomy of right breast History of right breast biopsy malignant History of tooth extraction History of tonsillectomy and adenoidectomy History of cardiac cath [address] [facility], no stents [place] of [place] [facility] [place] of mitral valve [place] [facility] [place] History of thyroidectomy History of partial colectomy 2017 d/t colon polyps Family History Brother Family history of diabetes mellitus Family hx of colon cancer Father Family history of diabetes mellitus Other No family history of adverse response to anesthesia Social History Smoking Status: Current every day smoker Cigarettes Per Day: 2 cigs per day; Second Hand Exposure: Yes ( smokes); Do You Dip or Chew Tobacco: No; Hx Alcohol Use: No Hx Substance Use: No Preferred Language: Uruguayan Communication Ability: Effective [id number]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 Beliefs That Will Affect Care: None Current Living Situation: Spouse Current Living Situation Comment: lives with Feels Safe at Home: Yes Assistive Devices: Cane, CPAP, Denture - Upper and Glasses Review of Systems Review of Systems: All systems reviewed & are unremarkable except as noted in HPI & below Physical Exam Constitutional: WD/WN, vitals as above Respiratory: normal respiratory effort, lungs clear to auscultation Cardiovascular: RRR, no murmur, no edema Gastrointestinal (Abdomen): normal bowel sounds, soft, nontender, no hepatosplenomegaly Psychiatric: Orientation: alert and oriented x 3 Affect: euthymic affect Results & Data Vital Signs (Past 12 Hours) Vital Signs Temp Pulse Resp BP Pulse Ox O2 Del Method 01/04/24 11:44 70 01/04/24 11:38 70 14 97 Room Air 01/04/24 10:50 97.9 F 70 19 154/65 H 93 Room Air Coding Level of Care Code 40295 INT INP/OBS CARE 255MIN Diagnoses Anemia D64.9
[2024-01-04] MEDS: IRON SUCROSE 300 MG in SODIUM CHLORIDE 0.9% 250 ML IV ONE (14:28)
[2024-01-04] MEDS ORDERED: ONDANSETRON INJ 2 MG/ML 2 ML VIAL IV PRN (15:17)
[2024-01-04] MEDS ORDERED: POLYETHYLENE (MIRALAX) 17 GM PACK PO PRN (15:17)
[2024-01-04] MEDS ORDERED: ALUMINUM/MAGNESIUM SUSP 30 ML UDC PO PRN (15:17)
[2024-01-04] MEDS ORDERED: MAGNESIUM HYDROXIDE SUSP 30 ML UDC PO PRN (15:17)
[2024-01-04] MEDS ORDERED: ACETAMINOPHEN 325 MG TAB PO PRN (15:17)
[2024-01-04 15:32] LABS: Ferritin 14.4 ng/ml (8-388)
[2024-01-04 15:44] LABS: Folate (Folic Acid),Ser orPlas > 22.30 ng/ml (>5.38)
[2024-01-04 15:45] LABS: Vitamin B12 781 pg/ml (180-914)
[2024-01-04] MEDS: PANTOprazole 40 MG in SYRINGE 0 ML IV ONE (16:48)
[2024-01-04] MEDS: PANTOprazole 40 MG in SYRINGE 0 ML IV SCH (20:43)
[2024-01-04] MEDS: POTASSIUM CITRATE 10 MEQ TAB PO SCH (20:43)
[2024-01-04] MEDS: ATORVASTATIN 10 MG TAB PO SCH (20:43)
[2024-01-04] MEDS: METOPROLOL TARTRATE 25 MG TAB PO SCH (20:44)
[2024-01-04] MEDS ORDERED: PANTOprazole 40 MG in SYRINGE 0 ML IV SCH (21:00)
[2024-01-04 21:32] LABS: Hematocrit (blood only) 24.6 % (37.0-47.0); Hemoglobin 7.3 g/dl (12.0-16.0)
--- OUTSIDE RECORDS SUMMARY | 2024-01-05 03:12 | External Medical Summary | Summary of Care ---
Author Name Unknown Organization [facility] Address [address] [place] [address] Phone [phone] Care Team Providers Care Advertising Space Clerk Name Role Phone Krystyna Marino MD Primary Care Provider Reason for Visit * Reason Onset Date Comments Test Results 01/03/2024 Encounter Details Date Type Department Care Team (Late st Contact Info) Description 01/03/2024 Telephone [facility] [address] [place] [address] Krystyna Marino MD [address] [place] [address] Test Results Allergies No known active allergiesdocumented as of this encounter (statuses as of 01/03/2024) Medications Medication Sig Dispensed Refills Start Date End Date Status ECOTRIN LOW STRENGTH 81 MG PO TBECIndications:Tob acco use disorder,Vertigo One pill by mouth once a day 1 Tab 0 4 Active MULTIVITAMIN GUMMIES ADULT PO CHEW Take by mouth. Is currently taking Active Acetaminophen 500 MG Oral Tablet Take 1 Tablet by mouth every 6 hours as needed for Pain. Active SURGICAL COMPRESSION STOCKING 20 to 30mm knee high. 2 Each 2 2 Active Pantoprazole Sodium 20 MG Oral Tablet Delayed Release (Protonix)Indicatio ns:Dysphagia, unspecified type Take 1 Tablet by mouth in the morning. In the morning.. 90 Tablet 3 3 Active Atorvastatin Calcium 10 MG Oral Tablet (Lipitor)Indication s:Dyslipidemia, goal LDL below 70 Take 1 Tablet by mouth in the morning. 90 Tablet 3 3 Active Levothyroxine Sodium 137 MCG Oral TabletIndications:P ostablative hypothyroidism take one tablet by mouth daily at least 30 minutes before breakfast and other medications 90 Tablet 3 3 Active Metoprolol Tartrate 25 MG Oral Tablet (Lopressor)Indicati ons:Cardiac tamponade,S/P mitral valve replacement,Overwei ght (BMI 25.0-29.9),Dyslipid emia, goal LDL below 100,Noncompliance TAKE 1/2 TABLET BY MOUTH IN THE MORNING AND 1/2 TABLET BEFORE BEDTIME 90 Tablet 3 3 Active Warfarin Sodium 5 MG Oral Tablet (Jantoven)Indicatio ns:S/P mitral valve replacement,Aortic valve disorder TAKE one to ONE AND ONE-HALF TABLET BY MOUTH DAILY or as directed by anticoagulation clinic 135 Tablet 3 3 Active Potassium Citrate ER 10 MEQ (1080 MG) Oral Tablet Extended Release (Urocit-K)Indicatio ns:CKD (chronic kidney disease) stage 3, GFR 30-59 ml/min (HCC) TAKE 1 TABLET BY MOUTH TWICE DAILY every morning and before bedtime 60 Tablet 11 3 Active Amiodarone HCl 200 MG Oral Tablet (Cordarone)Indicati ons:S/P mitral valve replacement,S/P AVR (aortic valve replacement),Paroxy smal atrial fibrillation (HCC) Take 1 Tablet by mouth in the morning. 90 Tablet 3 3 Active Anoro Ellipta 62.5-25 MCG/ACT Inhalation Aerosol Powder Breath Activated (umeclidinium-vilan terol) INHALE 1 PUFF BY MOUTH IN THE MORNING (BULK) 90 Blister Dosing Unit 3 4 Active Albuterol Sulfate HFA 108 (90 Base) MCG/ACT Inhalation Aerosol Solution INHALE TWO PUFFS BY MOUTH EVERY 6 HOURS NEEDED FOR SHORTNESS OF BREATH 6.7 g 1 4 Active Lisinopril-hydroCHL OROthiazide 10-12.5 MG Oral Tablet Take 1 Tablet by mouth in the morning. 90 Tablet 3 4 Active documented as of this encounter (statuses as of 01/03/2024) Active Problems Problem Noted Date Diagnosed Date Stage 3b chronic kidney disease 08/11/2023 COPD, group A, by GOLD 2017 classification 08/08 Overview: Per COPD GOLD Classification Anticoagulation management encounter 11/08/2022 Varicose veins of both lower extremities 022 DDD (degenerative disc disease), lumbar 04/19/20 Malignant neoplasm of right breast in female, estrogen receptor positive 04/19/2022 Coronary artery disease invo lving [place] coronary artery of [place] heart without angina pectoris 02/20/2021 Benign hypertension with CKD (chronic kidney disease) stage III 12/03/2020 Nocturnal hypoxemia 08/21/2019 Carcinoma of breast upper outer quadrant, right 11/22/2018 Iron deficiency anemia 05/10/2018 Paroxysmal atrial fibrillation 04/27/2018 S/P colectomy 04/27/2018 Secondary hyperparathyroidism of renal origin SARAH (obstructive sleep apnea) 04/01/2017 Overview: CPAP 8 cwp Care Plus Postablative hypothyroidism 10/22/2016 History of thyroid cancer 10/22/2016 Breast cancer 12/24/2014 Cancer Staging:Clinical stage from 12/24/2014:Stage IA(T1c, N0, M0) - Signed by Cale Hurley MD on 12/24/2014 Pathologic: Unsigned HTN, goal below 140/90 08/26/2014 S/P AVR (aortic valve replacement) 07/25/2013 S/P mitral valve replacement 07/06/2013 Tobacco use disorder 03/02/2013 Generalized osteoarthritis 07/24/2007 Dyslipidemia, goal LDL below 70 documented as of this encounter (statuses as of 01/03/2024) Resolved Problems Problem Noted Date Diagnosed Date Resolved Date COPD, severity to be determined 07/05/2022 08/11/2023 Overview: Per COPD GOLD Classification Benign hypertension with sta ge 3a chronic kidney disease 11/04/2020 04/19/2022 Overview: Per CKD protocol Benign hypertension with CKD (chronic kidney disease) stage III 04/27/2017 11/06/2020 Overview: Per CKD protocol Nephrolithiasis 08/11/2016 04/27/2017 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 10/25/2017 Kidney disease, chronic, sta ge III (GFR 30-59 ml/min) 08/20/2013 10/07/2017 Overview: Per CKD protocol #1 Cardiac tamponade 07/25/2013 07/25/2013 HTN, goal below 130/80 07/25/201308/26 Obesity, Class I, BMI 30.0-3 4.9 (see actual BMI) 03/02/2013 10/19/2016 Overview: bmi= 32.36 03/02/13 Adhesive capsulitis of left shoulder 03/02/2013 12/21/2016 Shoulder pain, left 03/02/2013 10/20/19 17 Obesity, Class I, BMI 30.0-3 4.9 (see actual BMI) 03/10/2012 10/19/2016 Overview: bmi= 30.81 03/10/12 Noncompliance 03/10/2012 12/21/2016 Special screening for osteoporosis 03/16/2010 10/19/2016 Special screening for malign ant neoplasms, colon 03/16/2010 10/19/2016 Need for influenza vaccination 03/16/2010 10/19/2016 Overweight (BMI 25.0-29.9) 07/24/2007 0 10/19/2016 Trigger finger 03/23/2006 12/21/2016 Tobacco use disorder 08/06/2004 009 Overview: Resolved per Duplicate Protocol #2. ACUTE CYSTITIS 03/17/2004 08/22/2008 Overview: Resolved per Benign Acute Dxs Protocol #3 Pyelonephritis 02/24/2004 04/27/2017 E COLI SEPTICEMIA 02/24/2004 04/27/2017 Tobacco use disorder 02/24/2004 013 Hypothyroidism 02/24/2004 02/24/2004 PHOTOSENSITIVITY DERMATITIS NOS 02/24/2004 10/19/2016 Hypothyroidism 02/19/2003 04/27/2011 Behavioral problems 05/10/2000 10/20/19 17 Overview: ICD-10 update of inactive term Headache 04/25/2000 02/24/2004 Overview: ICD-10 update of inactive term Hypothyroidism 04/25/2000 07/25/2008 Overview: Resolved per Duplicate Protocol #2. Dyslipidemia, goal to be determined 03/16/2010 Other specified acquired hypothyroidism 03/10/2012 documented as of this encounter (statuses as of 01/03/2024) Immunizations Name Administration Dates Next Due COVID-19 mRNA, LNP-s, No Pre serve, 2-Dose Series (Pfizer) 02/06/2021,01/17/2021 Pneumococcal Conjugate Vacc, 13 Valent (Prevnar) 04/15/2015 Pneumococcal Polysaccharide PPV23 (Pneumovax) 03/16/2010,10/31/2008(Deferred: Patient Refused) Seasonal Influenza, PF, 6 M & above, IM , (FluLaval or Fluzone) 03/06/2020,03/26/2019,04/14/2018,04/27 Seasonal Influenza, Quadriva lent Hd (Fluzone Hd) 05/04/2023,04/19/2022,04/10/2021 Seasonal Influenza, Quadriva lent, No Preserve, IM 04/20/2016,04/15/2015 Seasonal Influenza, Split, I IV3, With Preserve, Inj 06/27/2014,04/08/2014,03/30/2013,03/10,04/27/2011,03/16/2010 TDAP (age 10 and older)(Boostrix) 12/22/2016 TDAP, Age 7 and older, IM (Adacel) 10/31/2008(De josefinad: Patient Refused) documented as of this encounter Social History Tobacco Use Types Packs/Day Years Used Date Smoking Tobacco: Every Day Cigarettes 0.3 42 Passive Smoke Exposure: Current Smokeless Tobacco: Never Alcohol Use Standard Drinks/Week Comments No 0 (1 standard drink = 0.6 oz pur e alcohol) PHQ-2 Answer Date Recorded PHQ Adult Total Score 1 07/05/2022 Hunger Vital Sign Answer Date Recorded Within the past 12 months, y ou worried that your food would run out before you got the money to buy more. Never true 07/05/19 23 Within the past 12 months, t he food you bought just didn't last and you didn't have money to get more. Never true 07/05/2022 Sex and Gender Information Value Date Recorded Sex Assigned at Female 08/20/2022 10:35 AM EST Gender Identity Female 07/05/2022 1:26 PM EST Sexual Orientation Straight 10/13/2021 1: 51 PM EDT Job Start Date Occupation Industry Not on file Not on file Not on file documented as of this encounter Functional Status Functional Status Response Date of Assess ment Are you deaf or do you have serious difficulty h earing? No 08/26/2013 Are you blind or do you have serious difficulty seeing, even when wearing glasses? No 08/26/2013 Do you have serious difficul ty walking or climbing stairs? (5 years old or older) No 08/26/2013 Do you have difficulty dress ing or bathing? (5 years old or older) No 08/26/2013 Because of a physical, menta l, or emotional condition, do you have difficulty doing errands alone such as visiting a doctor s office or shopping? (15 years old or older) No 08/27/19 14 Cognitive Status Response Date of Assessm ent Because of a physical, menta l, or emotional condition, do you have serious difficulty concentrating, remembering, or making decisions? (5 years old or older) No 08/26/2013 documented as of this encounter Miscellaneous Notes * Telephone Encounter - Radha Christian LPN - 01/03/2024 4:23 PM EDT Patient aware and conveyed verbal understanding. Patient is going to call her daughter to take her tomorrow She does not believe that she will be able to take her today due to work Attempted to call [facility], no answer Sent TEAMS message to [facility] * Telephone Encounter - Krystyna Marino MD - 01/03/2024 12:57 PM EDT Called pt but no answer Blood test showed acute anemia again Hb level down to 8.1 from 13 6 mo ago She had EGD colonoscopy last year due to same problem She is on coumadin for her valves and a fib Although she didn't have any issue yesterday ,she will need to go to ER rubio for anemia work up Also need to monitor her level, coumadin use review etc Please advise pt to go to ER documented in this encounter Plan of Treatment Upcoming Encounters Date Type Department Care Team (Late st Contact Info) Description 02/17/2024 11:20 AM EDT Anticoagulation Pharmacy, [facility] [address] [place] [facility] [place] [address] [facility] [address] [place] [address] 03/01/2024 2:20 PM EDT Office Visit Nephrology, [facility] [address] [place] [address] Drake Jha MD [address] [facility] [address] [place] [address] 03/12/2024 11:00 AM EDT Cardiac Studies Cardiac Studies, [facility] [address] [facility] [place] [address] 03/20/2024 11:00 AM EDT Office Visit Cardiology, [facility] [address] [facility] [place] [address] Lise Goldman CRNP [address] [facility] [place] [address] 04/06/2024 10:40 AM EDT Office Visit Family Practice, [facility] [address] [place], [place] [address] [phone] Krystyna [facility]ino [facility] [address] [facility] [address] 07/27/2024 1:00 PM EST Nurse Only Ancillary Department, [address] [address] Trina Nurse [facility] [address] [place] [address] 08/21/2024 10:30 AM EST [facility] [address] [place] [address] Madeline Schaffer CRNP [address] [place] [address] Health Maintenance Due Date Last Done Comments DISCUSS TOBACCO CESSATION (REFER TO SMARTSET #8988) 1945 Alpha-1 Antitrypsin 1962 *COPD SEVERITY VERIFIED BY PFT 07/07/2022 COVID-19 Vaccine ( season) 2023 02/06/2021, 01/17/2021 Influenza Vaccine (FLU shot) (#1) 2024 05/04/2023, 04/19/2022, 04/10/2021, Additional history exists CKD PHOS USE SMARTSET 10750 07/04/20240 01/2024, 03/30/2022, 08/06/2021, Additional history exists GFR 07/04/2024 01/02/2024, 01/2024, 05/28/2023, Additional history exists Depression Screening 07/25/2024 07/25/2023 Albumin/Creatinine Ratio 01/01/2025 024, 01/06/2023, 04/09/2022, Additional history exists CKD HGB USE SMARTSET 12362 01/01/202501/01, 01/02/2024, 07/04/2023, Additional history exists O2 ASSESSMENT COMPLETED IN PAST YEAR FOR COPD 01/01/2025 01/02/2024 TSH 01/01/2025 01/02/2024, 01/2024, 12/31/2022, Additional history exists DTaP,Tdap,and Td Vaccines (2 - Td or Tdap) 12/22/2026 12/22/2016 DXA Scan 08/11/2029 08/11/2022, 07/28, 07/03/2019, Additional history exists Pneumococcal Vaccine: 65+ Years Completed 04/15/2015, 03/16/2010 HPV (Gardasil) Vaccine Aged Out No lo nger eligible based on patient's age to complete this topic Hepatitis B Vaccine Aged Out No longe r eligible based on patient's age to complete this topic MENINGOCOCCAL (MENACTRA/MENVEO) Aged Out No longer eligible based on patient's age to complete this topic Zoster Vaccines Discontinued documented as of this encounter Medical Devices Implanted Type Area Caustic Pump Operator Device Identifier Shelf Expiration Date Model / Serial / Lot Sut Steel 6 M654g - [id number] Implanted:Qty: 4 on 07/06[place]2013 [place] [facility]: Chest DO NOT USE 01/24/2018 M654G / / [id number] Valve Heart Mitral Epic 27mm - [id number] Implanted:Qty: 1 on 07/06/2013 at [place] [facility] N/A: Heart [place] : CARDIOVASCULAR 11/01/2014 [id number]-0 0 / [id number] / Valve Heart Aortic Epic 23mm - [id number] Implanted:Qty: 1 on 07/06/2013 at [place] [facility] N/A: Heart [place] : CARDIOVASCULAR 11/21/2016 [id number] 00 / [id number] / Graft Gelweave 28x12.5 [id number] - [id number] Implanted:Qty: 1 on 07/06/2013 at [place] [facility] N/A: Aorta [facility] : CARDIO SYS 12/04/2017 [id number] / [id number] / [id number] Sut Steel 6 M654g - [id number] Implanted:Qty: 6 on 07/06/2013 at [place] [facility] N/A: Chest DO NOT USE 01/24/2018 M654G / / [id number] documented as of this encounter Advance Directives * Full Code (Latest Code Status on File) Date Activated Date Inactivated Comments 11/01/2014 7:36 AM 11/01/2014 2:03 PM This order ref lects the patients wishes and were consensually agreed upon. * Full Code Date Activated Date Inactivated Comments 08/26/2013 3:14 PM 09/04/2013 5:07 PM This order re flects the patients wishes and were consensually agreed upon. Question Answer Comments Discussion of Advance Directives occurred with: Patient Does the patient have a Living Will? No Does the patient have Health Care Power of Attor donal? No * Full Code Date Activated Date Inactivated Comments 07/23/2013 5:32 AM 07/27/2013 10:52 PM This order reflects the patients wishes and were consensually agreed upon. Question Answer Comments Discussion of Advance Directives occurred with: Patient Does the patient have a Living Will? No Does the patient have Health Care Power of Attor donal? No * Full Code Date Activated Date Inactivated Comments 07/06/2013 12:34 PM 07/14/2013 6:30 PM This order reflects the patients wishes and were consensually agreed upon. Care Teams Advertising Space Clerk Relationship Specialty Start Date End Date Krystyna Marino MD [address] [place] [address] PCP - General Internal Medicine 04/19/22 documented as of this encounter
--- OUTSIDE RECORDS SUMMARY | 2024-01-05 03:12 | External Medical Summary | Summary of Care ---
Author Name Unknown Organization [facility] Address [address] [place] [address] Phone [phone] Care Team Providers Care Diabetes Physician Name Role Phone Krystyna Marino MD Primary Care Provider [phone] Reason for Visit * Reason Onset Date Comments Test Results 01/03/2024 Encounter Details Date Type Department Care Team (Late st Contact Info) Description 01/03/2024 Telephone [facility] [address] [place] [address] Krystyna Marino MD [address] [place] [address] Test Results Allergies No known [...] positive 04/19/2022 Coronary artery disease invo [place]ving [place] coronary artery of [place] heart without angina pectoris 02/20/2021 Benign hypertension [...] to take her today due to work * Telephone Encounter - Krystyna Marino MD [...] Description 02/17/2024 11:20 AM EDT Antico[facility] Pharmacy, [facility] [address] [place] [address] [facility] [address] [place] [facility] [place] [address] 03/01/2024 2:20 PM EDT Office Visit Nephrology, [facility] [address] [place] [address] Drake Jha MD [address] [place] [address] 03/12/2024 11:00 AM EDT Cardiac Studies [facility] [address] [facility] [address] 03/20/2024 11:00 AM EDT [facility] Visit [facility], [facility] [address] [facility] CRNP [address] [facility] [address] 04/06/2024 10:40 AM EDT Office Visit [facility], [facility] [address] [facility] [phone] Krystyna Marino MD [address] [facility] [address] 07/27/2024 1:00 PM EST Nurse Only Ancillary Department, [facility] [address] [facility] [address] Trina, Nurse [facility] [address] [facility] [address] 08/21/2024 10:30 AM EST Office Visit Sleep Disorders Ctr [facility] [address] [place] [address] Madeline Schaffer CRNP [address] [place] [address] Health Maintenance Due Date Last Done Comments DISCUSS TOBACCO CESSATION (REFER TO SMARTSET #3291) 1945 Alpha-1 Antitrypsin 1962 *COPD SEVERITY VERIFIED BY PFT 07/07/2022 COVID-19 Vaccine ( season) 2023 02/06/2021, 01/17/2021 Influenza Vaccine (FLU shot) (#1) 2024 05/04/2023, 04/19/2022, 04/10/2021, Additional history exists CKD PHOS USE SMARTSET 44609 07/04/20240 01/2024, 03/30/2022, 08/06/2021, Additional history exists GFR 07/04/2024 01/02/2024, 01/2024, 05/28/2023, Additional history exists Depression Screening 07/25/2024 07/25/2023 Albumin/Creatinine Ratio 01/01/2025 07/2 024, 01/06/2023, 04/09/2022, Additional history exists CKD HGB USE SMARTSET 20786 01/01/202501/01, 01/02/2024, 07/04/2023, Additional history exists O2 [...] this encounter Medical Devices Implanted Type Area Senior Systems Architect Device Identifier Shelf Expiration Date Model / Serial / Lot Sut Steel 6 M654g - [id number] Implanted:Qty: 4 on 07/06/2013 at OR [facility] [place] N/A: Chest DO NOT USE 01/24/2018 M654G / / [id number] Valve Heart Mitral Epic 27mm - [id number] Implanted:Qty: 1 on 07/06/2013 at OR [facility] [place] N/A: Heart [place] : CARDIOVASCULAR 11/01/2014 E730-65N-4 0 / [id number] / Valve Heart Aortic Epic 23mm - [id number] Implanted:Qty: 1 on 07/06/2013 at OR [facility] [place] N/A: Heart [place] : CARDIOVASCULAR 11/21/2016 [id number] 00 / [id number] / Graft Gelweave 28x12.5 [id number] - [id number] Implanted:Qty: 1 on 07/06/2013 at OR [facility] [place] N/A: Aorta [employer] : CARDIO SYS 12/04/2017 [id number] / [id number] / [id number] Sut Steel 6 M654g - [id number] Implanted:Qty: 6 on 07/06/2013 at [place] [facility] [place] N/A: Chest DO NOT USE 01/24/2018 M654G / / [id number] documented as of this encounter Advance Directives [...] and were consensually agreed upon. Care Teams Diabetes Physician Relationship Specialty Start Date End Date Krystyna Marino MD [address] [place] [address] PCP - General Internal Medicine 04/19/22 documented as of this encounter
--- OUTSIDE RECORDS SUMMARY | 2024-01-05 03:13 | External Medical Summary | Summary of Care ---
Author Name Unknown Organization [facility] Address [address] [place] [address] Phone [phone] Care Team Providers Care Wing Commander Name Role Phone Krystyna Marino MD Primary Care Provider [phone] Reason for Visit * Reason Comments Outpatient Testing Encounter Details Date Type Department Care Team (Late st Contact Info) Description 01/02/2024 11:40 AM EDT Laboratory Laboratory, [facility] [address] [place] [address] [facility], Laboratory [address] [place] [address] [employer] Other*[id number]; HTN, goal below 140/90; COPD, group A, by GOLD 2017 classification ([facility]); Coronary artery disease involving [place] coronary artery of [place] heart without angina pectoris; Postablative hypothyroidism; Stage 3b chronic kidney disease ([facility]) Allergies No known active allergiesdocumented as of this encounter (statuses as of 01/02/2024) Medications Medication Sig Dispensed Refills Start Date [...] as of this encounter (statuses as of 01/02/2024) Active Problems Problem Noted Date Diagnosed Date Stage 3b chronic kidney disease 08/11/2023 COPD, group A, by GOLD 2017 classification 08/08 Overview: Per COPD GOLD Classification Anticoagulation management encounter 11/08/2022 Varicose veins of both lower extremities 022 DDD (degenerative disc disease), lumbar 04/19/20 22 Malignant neoplasm of right breast in female, estrogen receptor positive 04/19/2022 Coronary artery disease invo lving [place] coronary artery of [place] heart without angina pectoris 02/20/2021 Benign hypertension [...] as of this encounter (statuses as of 01/02/2024) Resolved Problems Problem Noted Date Diagnosed Date [...] as of this encounter (statuses as of 01/02/2024) Immunizations Name Administration Dates Next Due COVID-19 [...] No 08/26/2013 documented as of this encounter Plan of Treatment Upcoming Encounters Date Type Department Care Team (Late st Contact Info) Description 02/17/2024 11:20 AM EDT [facility] [address] [facility] [address] [facility] [address] [facility] [place] [address] 03/01/2024 2:20 PM EDT Office Visit NephrologyMicha [address] [address] Drake Jha MD [address] [address] 03/12/2024 11:00 AM EDT Cardiac Studies Card[facility], [facility] [address] [facility] [address] 03/20/2024 11:00 AM EDT Office Visit Cardiology, [facility] [address] [facility] [place] [address] Lise Goldman CRNP [address] [facility] [address] 04/06/2024 10:40 AM EDT Office Visit Family [facility], [place] [address] [place] [phone] Krystyna Marino MD [address] [place] [address] 07/27/2024 1:00 PM EST Nurse Only Ancillary Department, [place] [address] [place] [address] [facility], Nurse [facility] [address] [place] [address] 08/21/2024 10:30 AM EST Office Visit Sleep Disorders Ctr [facility] [address] [facility] [id number] Madeline Schaffer CRNP [address] [facility] [place] [address] Pending Results Name Type Priority Associated Diagnoses Date /Time MYCODE SUBSEQUENT ADULT Lab Routine [employer] Other*[id number] 01/02/2024 11:42 AM EDT CBC WITH WBC DIFFERENTIAL Lab Routine HTN, goal below 140/90 COPD, group A, by GOLD 2017 classification (HCC) Coronary artery disease involving [place] coronary artery of [place] heart without angina pectoris 01/02/2024 11:42 AM EDT COMPREHENSIVE METABOLIC PANEL Lab Routine HTN, goal below 140/90 COPD, group A, by GOLD 2017 classification ([facility]) Coronary artery disease involving [place] coronary artery of [place] heart without angina pectoris 01/02/2024 11:42 AM EDT TSH WITH FREE T4 IF INDICATED Lab Routine Postablative hypothyroidism 01/02/2024 11:42 AM EDT MYCODE SST1 Lab Routine [employer] Other*[id number] 01/02/2024 11:42 AM EDT MYCODE SST2 Lab Routine [employer] Other*[id number] 01/02/2024 11:42 AM EDT CBC Lab Routine HTN, goal below 140/90 COPD, group A, by GOLD 2017 classification ([facility]) Coronary artery disease involving [place] coronary artery of [place] heart without angina pectoris 01/02/2024 11:42 AM EDT DIFFERENTIAL, AUTOMATED Lab Routine HTN, goal below 140/90 COPD, group A, by GOLD 2017 classification ([facility]) Coronary artery disease involving [place] coronary artery of [place] heart without angina pectoris 01/02/2024 11:42 AM EDT ALBUMIN / CREATININE RATIO, URINE Lab Routine Stage 3b chronic kidney disease (HCC) 01/02/2024 11:54 AM EDT Health Maintenance Due Date Last Done Comments DISCUSS TOBACCO CESSATION (REFER TO SMARTSET #3291) 1945 Alpha-1 Antitrypsin 1962 *COPD SEVERITY VERIFIED BY PFT 07/07/2022 COVID-19 Vaccine ( season) 2023 02/06/2021, 01/17/2021 GFR 01/02/2024 07/04/2023, 12/0 07/2022, 03/01/2023, Additional history exists Albumin/Creatinine Ratio 01/07/2024 023, 04/09/2022, 12/04/2018 Influenza Vaccine (FLU shot) (#1) 2024 05/04/2023, 04/19/2022, 04/10/2021, Additional history exists CKD HGB USE SMARTSET 41401 07/04/202407/04, 07/04/2023, 03/22/2023, Additional history exists CKD PHOS USE SMARTSET 47305 07/04/2024/01/2024, 03/30/2022, 08/06/2021, Additional history exists TSH 07/04/2024 07/04/2023, 07/0 12/2022, 09/14/2022, Additional history exists Depression Screening 07/25/2024 07/25/2023 O2 ASSESSMENT COMPLETED IN PAST YEAR FOR COPD 01/01/2025 01/02/2024 DTaP,Tdap,and Td Vaccines (2 - Td or [...] this encounter Medical Devices Implanted Type Area Cpo Device Identifier Shelf Expiration Date Model / Serial / Lot Sut Steel 6 [id number] - [id number] Implanted:Qty: 4 on 07/06/2013 at [place] [facility] N/A: Chest DO NOT USE 01/24/2018 [id number] / / [id number] Valve Heart Mitral Epic 27mm - [id number] Implanted:Qty: 1 on 07/06/2013 at OR [facility] N/A: Heart [place] : CARDIOVASCULAR 11/01/2014 [id number] 0 / [id number] / Valve Heart Aortic Epic 23mm - [id number] Implanted:Qty: 1 on 07/06/2013 at OR [facility] N/A: Heart [place] : CARDIOVASCULAR 11/21/2016 [id number] / [id number] / Graft Gelweave 28x12.5 [id number] - [id number] Implanted:Qty: 1 on 07/06/2013 at OR [facility] N/A: [facility] : CARDIO SYS 12/04/2017 [id number] / [id number] / [id number] Sut Steel 6 M654g - [id number] Implanted:Qty: 6 on 07/06/2013 at OR [facility] N/A: Chest DO NOT USE 01/24/2018 [id number] / / [id number] documented as of this encounter Visit Diagnoses Diagnosis [employer] Other*[id number] HTN, goal below 140/90 Unspecified essential hypertension COPD, group A, by GOLD 2017 classification (HCC) Coronary artery disease involving [place] coronary artery of [place] heart without angina pectoris Postablative hypothyroidism Other postablative hypothyroidism Stage 3b chronic kidney disease (HCC) documented in this encounter Advance Directives * Full Code (Latest Code Status on File) Date Activated Date Inactivated Comments 11/01/2014 7:36 AM 11/01/2014 2:03 PM This order ref lects the patients wishes and were consensually agreed upon. * Full Code Date Activated Date Inactivated Comments 08/26/2013 3:14 PM 09/04/2013 5:07 PM This order r eflects the patients wishes and were consensually agreed [...] and were consensually agreed upon. Care Teams Wing Commander Relationship Specialty Start Date End Date Krystyna Marino MD [address] [place] [address] PCP - General Internal Medicine 04/19/22 documented as of this encounter
--- OUTSIDE RECORDS SUMMARY | 2024-01-05 03:13 | External Medical Summary ---
Author Name Unknown Address Unknown Organization K01:LABORATORY [facility] [place] - [address] [facility] [place] [address] Laboratory Report Ordering Provider Test Date Status BLADESASHASAUMYA 01/02/2024 11:42:46 Final Observation Date Value Abnormality Reference (Units ) Status SYNC LEUKOCYTES IN BLOOD BY AUTOMATED COUNT 01/02/2024 11:42:46 6.27 4.00-10.80 (K/uL) Final Segs 01/02/2024 11:42:46 66.3 40.0-75.0 (%) Final Lymphs % 01/02/2024 11:42:46 20.9 18.0-42.0 (%) Final Monos 01/02/2024 11:42:46 9.1 1.0-11.0 (%) Final Eosinophils 01/02/2024 11:42:46 2.2 0.0-6.0 (%) Final Basos 01/02/2024 11:42:46 0.5 0.0-2.0 (%) Final Immature Granulocyte, Percent 01/02/2024 11:42:46 1.0 0.0-2.0 (%) Final Absolute Segs 01/02/2024 11:42:46 4.16 1.80-7.70 (K/uL) Final Lymphs, absolute 01/02/2024 11:42:46 1.31 1.00-4.80 (K/ul) Final Monos, Abs 01/02/2024 11:42:46 0.57 0.00-1.10 (K/uL) Final Eos, Abs 01/02/2024 11:42:46 0.14 0.00-0.70 (K/uL) Final Basos, Abs 01/02/2024 11:42:46 0.03 0.00-0.20 (K/uL) Final Immature Granulocytes, Number 01/02/2024 11:42:46 0.06 0.00-0.20 (K/uL) Final Performing Location LABORATORY [facility] - [address] [facility] [address]
--- OUTSIDE RECORDS SUMMARY | 2024-01-05 03:13 | External Medical Summary ---
Author Name Unknown Address Unknown Organization K01:[place] [facility] [place] [address] [place] [address] Laboratory Report Ordering Provider Test Date Status JARETT HUYNH 01/02/2024 11:42:46 Final Observation Date Value Abnormality Reference (Units ) Status MYCODE SPECIMEN-SST 01/02/2024 11:42:46 Freezing of extracted DNA, whole blood and/or serum. Final Performing Location LABORATORY C - [address] [place] [address]
--- OUTSIDE RECORDS SUMMARY | 2024-01-05 03:13 | External Medical Summary | Summary of Care ---
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 CARDIOVASCULAR 11/21/2016 [id number] 00 / [id number] / Graft Gelweave 28x12.5 [id number] - [id number] Implanted:Qty: 1 on 07/06/[address] [facility] [place] N/A: Aorta [employer] : CARDIO SYS 12/04/2017 [id number] / [id number] / [id number] Sut Steel 6 M654g - [id number] Implanted:Qty: 6 on 07/06/[address] [facility] [place] N/A: Chest DO NOT USE 01/24/2018 M654G / / [id number] documented as of this encounter Visit Diagnoses Diagnosis Stage 3b chronic kidney disease (HCC)- Primary HTN, goal below 140/90 Unspecified essential hypertension Carcinoma of breast upper outer quadrant, right (HCC) COPD, group A, by GOLD 2017 classification (HCC) Coronary artery disease involving [place] coronary artery of [place] heart without angina pectoris S/P AVR (aortic valve replacement) Heart valve replaced by other means Postablative hypothyroidism Other postablative hypothyroidism Paroxysmal atrial fibrillation (HCC) Atrial fibrillation SARAH (obstructive sleep apnea) Obstructive sleep apnea (adult) (pediatric) Tobacco use disorder Varicose veins of both lower extremities, unspecified whether complicated S/P mitral valve replacement Heart valve replaced by other means Generalized osteoarthritis Generalized osteoarthrosis, unspecified site History of thyroid cancer Personal history of malignant neoplasm of thyroid documented in this encounter Advance Directives * [...] and were consensually agreed upon. Care Teams Tin Plater Relationship Specialty Start Date End Date Krystyna Marino MD [address] [place] [address] PCP - General Internal Medicine 04/19/22 documented as of this encounter"
--- OUTSIDE RECORDS SUMMARY | 2024-01-05 03:13 | External Medical Summary | Summary of Care ---
Author Name Unknown Organization [facility] Address [address] [place] [address] Phone [phone] Care Team Providers Care Draw Tender Name Role Phone Krystyna Marino MD Primary Care Provider [phone] Encounter Details Date Type Department Care Team (Late st Contact Info) Description 01/03/2024 Telephone [facility] [address] [place] [address] Krystyna Marino MD [address] [place] [address] Allergies No known active allergiesdocumented as of [...] Coronary artery disease invo lving [place] coronary artery of [place] heart without angina pectoris 02/20/2021 Benign hypertension [...] encounter Miscellaneous Notes * Telephone Encounter - Krystyna Marino MD [...] Description 02/17/2024 11:20 AM EDT Anticoagulation Pharmacy, [place] [address] [place] [address] [facility] [address] [place] [address] 03/01/2024 2:20 PM EDT Office Visit Nephrology, [facility] [address] [facility] [place] [address] Drake Jha MD [address] [facility] [place] [address] 03/12/2024 11:00 AM EDT Cardiac Studies [facility] [address] 03/20/2024 11:00 AM EDT [facility] [place] [address] Lise [facility] [address] 04/06/2024 10:40 AM EDT Office Visit Family Practice, [place] [address] [place] [phone] Krystyna Marino MD [address] [place] [address] 07/27/2024 1:00 PM EST Nurse Only Ancillary Department, [place] [address] [place] [address] [place], [facility] [address] [place] [address] 08/21/2024 10:30 AM EST Office Visit Sleep Disorders [facility] [address] [facility] [place] [phone] Madeline Schaffer CRNP 132 [facility] [place] [address] Health Maintenance Due Date Last Done Comments DISCUSS TOBACCO CESSATION (REFER TO SMARTSET #3825) 1945 Alpha-1 Antitrypsin 1962 *COPD SEVERITY VERIFIED BY PFT 07/07/2022 COVID-19 Vaccine ( season) 2023 02/06/2021, 01/17/2021 Influenza Vaccine (FLU shot) (#1) 2024 05/04/2023, 04/19/2022, 04/10/2021, Additional history exists CKD PHOS USE SMARTSET 81842 07/04/20240 01/2024, 03/30/2022, 08/06/2021, Additional history exists GFR 07/04/2024 01/02/2024, 01/2024, 05/28/2023, Additional history exists Depression Screening 07/25/2024 07/25/2023 Albumin/Creatinine Ratio 01/01/2025 024, 01/06/2023, 04/09/2022, Additional history exists CKD HGB USE SMARTSET 15599 01/01/202501/01, 01/02/2024, 07/04/2023, Additional history exists O2 [...] this encounter Medical Devices Implanted Type Area Medical Sonographer Device Identifier Shelf Expiration Date Model / Serial / Lot Sut Isac 6 M654g - [id number] Implanted:Qty: 4 on 07/06/2013 [place] [facility] [place]/A: Chest DO NOT USE 01/24/2018 M654G / / [id number] Valve Heart Mitral Epic 27mm - [id number] Implanted:Qty: 1 on 07/06/2013 at [place] [facility] [place] N/A: Heart [place] : CARDIOVASCULAR 11/01/2014 [id number] 0 / [id number] / Valve Heart Aortic Epic 23mm - [id number] Implanted:Qty: 1 on 07/06/2013 at [place] [facility] [place] N/A: Heart [place] : CARDIOVASCULAR 11/21/2016 [id number] 00 / [id number] / Graft Gelweave 28x12.5 [id number] - [id number] Implanted:Qty: 1 on 07/06/2013 at [place] [facility] [place]/A: Aorta [employer] : CARDIO SYS 12/04/2017 [id number] / [id number] / [id number] Sut Steel 6 M654g - [id number] Implanted:Qty: 6 on 07/06/2013 at [place] [facility] [place]/A: Chest DO NOT USE 01/24/2018 M654G / / [id number] documented as of this encounter Advance Directives [...] and were consensually agreed upon. Care Teams Draw Tender Relationship Specialty Start Date End Date Krystyna Marino MD [address] [place] [address] PCP - General Internal Medicine 04/19/22 documented as of this encounter
--- OUTSIDE RECORDS SUMMARY | 2024-01-05 03:13 | External Medical Summary | Summary of Care ---
Author Name Unknown Organization [facility] Address [address] [place] [address] Phone [phone] Care Team Providers Care Element Setter Name Role Phone Krystyna Marino MD Primary Care Provider [phone] Reason for Visit * Reason Comments Dosage Adjustment In Person (Anticoag Cl inic) Encounter Details Date Type Department Care Team (Latest Contact Info) Description 01/02/2024 10:40 AM EDT Anticoagulation Pharmacy, [place] [address] [place] [address] [facility] [address] [place] [address] Anticoagulation management encounter*; S/P mitral valve replacement; Paroxysmal atrial fibrillation (HCC); S/P AVR (aortic valve replacement) Allergies No known active allergiesdocumented as of this encounter (statuses as of 01/02/2024) Medications Medication Sig Dispensed Refills Start Date End Date Status ECOTRIN LOW STRENGTH 81 MG PO TBECIndications:To bacco use disorder,Vertigo One pill by mouth once [...] Sodium 20 MG Oral Tablet Delayed Release (Protonix)Indicati ons:Dysphagia, unspecified type Take 1 Tablet by mouth in the morning. In the morning.. 90 Tablet 3 3 Active amLODIPine Besylate 2.5 MG Oral Tablet (Norvasc) Take 1 Tablet by mouth in the morning. 90 Tablet 3 3 Active Atorvastatin Calcium 10 MG Oral Tablet (Lipitor)Indicatio ns:Dyslipidemia, goal LDL below 70 Take 1 Tablet by mouth in the morning. 90 Tablet 3 3 Active Levothyroxine Sodium 137 MCG Oral TabletIndications: Postablative hypothyroidism take one tablet by mouth daily at least 30 minutes before breakfast and other medications 90 Tablet 3 3 Active Metoprolol Tartrate 25 MG Oral Tablet (Lopressor)Indicat ions:Cardiac tamponade,S/P mitral valve replacement,Overwe ight (BMI 25.0-29.9),Dyslipi demia, goal LDL below 100,Noncompliance TAKE 1/2 TABLET BY MOUTH IN THE MORNING AND 1/2 TABLET BEFORE BEDTIME 90 Tablet 3 3 Active Warfarin Sodium 5 MG Oral Tablet (Jantoven)Indicati ons:S/P mitral valve replacement,Aortic valve disorder TAKE one to ONE AND ONE-HALF TABLET BY MOUTH DAILY or as directed by anticoagulation clinic 135 Tablet 3 3 Active Potassium Citrate ER 10 MEQ (1080 MG) Oral Tablet Extended Release (Urocit-K)Indicati ons:CKD (chronic kidney disease) stage 3, GFR 30-59 ml/min (HCC) TAKE 1 TABLET BY MOUTH TWICE DAILY every morning and before bedtime 60 Tablet 11 3 Active Amiodarone HCl 200 MG Oral Tablet (Cordarone)Indicat ions:S/P mitral valve replacement,S/P AVR (aortic valve replacement),Parox ysmal atrial fibrillation (HCC) Take 1 Tablet by mouth in the morning. 90 Tablet 3 3 Active hydroCHLOROthiazid e 12.5 MG Oral Tablet (Hydrodiuril) Take 1 Tablet by mouth in the morning. 90 Tablet 3 4 Active Lisinopril 5 MG Oral Tablet (Prinivil)Indicati ons:HTN, goal below 140/90,Coronary artery disease involving [place] coronary artery of [place] heart without angina pectoris,S/P AVR (aortic valve replacement),S/P mitral valve replacement Take 1 Tablet by mouth in the morning. 90 Tablet 3 4 Active Anoro Ellipta 62.5-25 MCG/ACT Inhalation Aerosol Powder Breath Activated (umeclidinium-carmine nterol) INHALE 1 PUFF BY MOUTH IN THE MORNING (BULK) 90 Blister Dosing Unit 3 4 Active Albuterol Sulfate HFA 108 (90 Base) MCG/ACT Inhalation Aerosol Solution INHALE TWO PUFFS BY MOUTH EVERY 6 HOURS NEEDED FOR SHORTNESS OF BREATH 6.7 g 1 4 Active Trolamine Salicylate 10 % External Lotion Apply topically to affected area. Apply to back 01/02/20 24 Discontinu ed(Patient preference /discontin uation) Ferrous Sulfate 325 (65 Fe) MG Oral Tablet (Feosol) Take 1 Tablet by mouth in the morning and 1 Tablet before bedtime. 60 Tablet 11 3 01/02/20 24 Discontinu ed(Patient preference /discontin uation) documented as of this encounter (statuses as [...] No 08/26/2013 documented as of this encounter Progress Notes * Callie Wynn RPh - 01/02/2024 10:06 AM EDT Medication Therapy Disease Management - Anticoagulation Patient: Anay Richardson | : 1945 Subjective Patient-Reported Symptoms: Patient Findings Negatives: Signs/symptoms of thrombosis, Signs/symptoms of bleeding, Change in health, Change in alcohol use, Change in activity, Upcoming invasive procedure, Missed doses, Extra doses, Change in medications, Change in diet/appetite, Bruising Objective Current Warfarin Dose As of 01/02/2024 Warfarin maintenance plan: 7.5 mg (5 mg x 1.5) every Mon; 5 mg (5 mg x 1) all other days INR Result As of 01/02/2024 INR goal: 2.0-3.0 INR used for dosin.0 (01/02/2024) Assessment & Plan Warfarin Plan As of 01/02/2024 Full warfarin instructions: 7.5 mg every Mon; 5 mg all other days No change documented: Callie Wynn RPh Next INR check: 02/17/2024 Repeat PT/INR in 6 week(s) Weekly dose: not changed Additional Dosing Information: Callie Wynn RPh Clinical Pharmacist 01/02/2024, 10:06 AM documented in this encounter Plan of Treatment Upcoming Encounters Date Type Department Care Team (Late st Contact Info) Description 01/02/2024 11:00 AM EDT [facility] [address] [facility] [phone] Krystyna Marino MD [address] [facility] [place] [address] Arrived 02/17/2024 11:20 AM EDT Anticoagulation Pharmacy, [place] [address] [facility] [address] [place], [facility] [address] [place] [address] 03/01/2024 2:20 PM EDT Office Visit Nephrology, [facility] [address] [place], [place] [address] Drake Jha MD 200 [facility] [place], [place] [address] 03/12/2024 11:00 AM EDT Cardiac Studies [facility] Studies, [facility] [address] [facility] [address] 03/20/2024 11:00 AM EDT Office Visit Cardiology, [facility] [address] [facility] [place] [address] Lise Goldman CRNP [address] [facility] [address] 07/27/2024 1:00 PM EST Nurse Only Ancillary Department, [place] [address] [place] [address] [place], Nurse [facility] [address] [place] [address] 08/21/2024 10:30 AM EST Office Visit Sleep Disorders [facility] [phone] Madeline Schaffer CRNP [address] [facility] [place] [place] [address] Health Maintenance Due Date Last Done Comments DISCUSS TOBACCO CESSATION (REFER TO SMARTSET #3291) 1945 Alpha-1 Antitrypsin 1962 *COPD SEVERITY VERIFIED BY PFT 07/07/2022 COVID-19 Vaccine ( season) 2023 02/06/2021, 01/17/2021 GFR 01/02/2024 07/04/2023, 12/0 07/2022, 03/01/2023, Additional history exists Albumin/Creatinine Ratio 01/07/2024 023, 04/09/2022, 12/04/2018 Influenza Vaccine (FLU shot) (#1) 2024 05/04/2023, 04/19/2022, 04/10/2021, Additional history exists CKD HGB USE SMARTSET 31312 07/04/202407/04, 07/04/2023, 03/22/2023, Additional history exists CKD PHOS USE SMARTSET 84529 07/04/20240 01/2024, 03/30/2022, 08/06/2021, Additional history exists TSH 07/04/2024 07/04/2023, 12/2022, 09/14/2022, Additional history exists Depression Screening 07/25/2024 07/25/2023 O2 ASSESSMENT COMPLETED IN PAST YEAR FOR COPD 08/18/2024 08/18/2023 DTaP,Tdap,and Td Vaccines (2 - Td or [...] this encounter Medical Devices Implanted Type Area Editor Index Device Identifier Shelf Expiration Date Model / Serial / Lot Sut Steel 6 M654g - [id number] [place]:Q[place] 4 [place] 07[place]06/[place] [facility] [place]: Chest DO NOT USE 01/24/2018 M654G / / [id number] Valve Heart Mitral Epic 27mm - [id number] Implanted:Qty: 1 on 07/06/2013 [place] [facility] [place]A: Heart [place] : CARDIOVASCULAR 11/01/2014 [id number] 0 / [id number] / Valve Heart Aortic Epic 23mm - [id number] Implanted:Qty: 1 on 07/06/2013 [place] [facility] [place] Heart [place] : CARDIOVASCULAR 11/21/2016 [id number]- 00 / [id number] / Graft Gelweave 28x12.5 [id number] - [id number] Implanted:Qty: 1 on 07/06/2013 [place] [facility] [place]: Aorta [employer] : CARDIO SYS 12/04/2017 [id number] / [id number] / [id number] Sut Steel 6 M654g - [id number] Implanted:Qty: 6 on 07/06/2013 [place] [facility] [place]: Chest DO NOT USE 01/24/2018 M654G / / [id number] documented as of this encounter Procedures Procedure Name Priority Date/Time Associated Diagnosis Comments INR FINGERSTICK, POINT OF CARE STAT 01/02/2024 10:40 AM EDT S/P mitral valve replacement Anticoagulation management encounter Paroxysmal atrial fibrillation (HCC) S/P AVR (aortic valve replacement) documented in this encounter Results * INR FINGERSTICK, POINT OF CARE (01/02/2024 10:40 AM EDT) Fingerstick INR 2.0 INR 10:42 AM EDT [facility] Blood 01/02/2024 10:4 0 AM EDT 01/02/2024 10:42 AM EDT Narrative [facility] - 01/02/2024 10:42 AM EDT Therapeutic ranges for non-operative patients: Prophylaxsis/treatment of DVT: (Range:2.0-3.0) Treatment of pulmonary embolism:(Range:2.0-3.0) Prevention of systemic embolism from: -tissue heart valves -acute myocardial infarction -valvular heart disease -atrial fibrillation (Range: 2.0-3.0) Mechanical prosthetic valves: (Range: 2.5-3.5) Callie Wynn [facility] POINT OF CARE TEST DOCKED DEVICE UNSOLICITED RESULTS [facility] [address] [place] [address] documented in this encounter Visit Diagnoses Diagnosis Anticoagulation management encounter- Primary Encounter for therapeutic drug monitoring S/P mitral valve replacement Heart valve replaced by other means Paroxysmal atrial fibrillation (HCC) Atrial fibrillation S/P AVR (aortic valve replacement) Heart valve replaced by other means documented in this encounter Advance Directives * [...] and were consensually agreed upon. Care Teams Element Setter Relationship Specialty Start Date End Date Krystyna Marino MD [address] [place] [address] PCP - General Internal Medicine 04/19/22 documented as of this encounter"
--- OUTSIDE RECORDS SUMMARY | 2024-01-05 03:13 | External Medical Summary ---
Author Name Unknown Address Unknown Organization [id number]:LABORATORY [facility] [place] - [address] [place] [address] [place] [address] Laboratory Report Ordering Provider Test Date Status BLADESASHASAUMYA 01/02/2024 11:42:46 Final Observation Date Value Abnormality Reference (Units ) Status T4, Free 01/02/2024 11:42:46 1.8 Above high normal 0. 9-1.7 (ng/dL) Final Performing Location LABORATORY [facility] - [address] [place] [address]
--- OUTSIDE RECORDS SUMMARY | 2024-01-05 03:13 | External Medical Summary ---
Author Name Unknown Address Unknown Organization [id number]:[facility]ATORY [facility] [place] - [address] [facility] [address] Laboratory Report Ordering Provider Test Date Status DENNISLELASAUMYA 01/02/2024 11:42:46 Final Observation Date Value Abnormality Reference (Units ) Status TSH 01/02/2024 11:42:46 4.49 Above high normal 0. 27-4.20 (uIU/mL) Final Performing Location LAB[facility]ATORY [facility] - [address] [facility] [address]
--- OUTSIDE RECORDS SUMMARY | 2024-01-05 03:14 | External Medical Summary | Summary of Care ---
Author Name Unknown Organization [facility] Address [address] [place] [address] Phone [phone] Care Team Providers Care Adoption Agent Name Role Phone Krystyna Marino MD Primary Care Provider [phone] Reason for Visit * Reason Comments eRx-Medication Refill Encounter Details Date Type Department Care Team (Late st Contact Info) Description 12/21/2023 Refill [facility] [address] [place] [address] Krystyna Marino MD [address] [place] [address] Allergies No known active allergiesdocumented as of this encounter (statuses as of 12/21/2023) Medications Medication Sig Dispensed Refills Start Date End Date Status ECOTRIN LOW STRENGTH 81 MG PO TBECIndications:To bacco use disorder,Vertigo One pill by mouth once a day 1 Tab 0 07/27/19 14 Active MULTIVITAMIN GUMMIES ADULT PO CHEW Take by mouth. Is currently taking Active Acetaminophen 500 MG Oral Tablet Take 1 Tablet by mouth every 6 hours as needed for Pain. Active Trolamine Salicylate 10 % External Lotion Apply topically to affected area. Apply to back Active SURGICAL COMPRESSION STOCKING 20 to 30mm knee high. 2 Each 2 05/26/20 22 Active Ferrous Sulfate 325 (65 Fe) MG Oral Tablet (Feosol) Take 1 Tablet by mouth in the morning and 1 Tablet before bedtime. 60 Tablet 11 08/27/19 23 Active Additional Information Patient not taking.Reported on 07/04/2023 Pantoprazole Sodium 20 MG Oral Tablet Delayed Release (Protonix)Indicati ons:Dysphagia, unspecified type Take 1 Tablet by mouth in the morning. In the morning.. 90 Tablet 3 04/15/20 Active amLODIPine Besylate 2.5 MG Oral Tablet (Norvasc) Take 1 Tablet by mouth in the morning. 90 Tablet 3 04/15/20 Active Atorvastatin Calcium 10 MG Oral Tablet (Lipitor)Indicatio ns:Dyslipidemia, goal LDL below 70 Take 1 Tablet by mouth in the morning. 90 Tablet 3 04/18/20 23 Active Levothyroxine Sodium 137 MCG Oral TabletIndications: Postablative hypothyroidism take one tablet by mouth daily at least 30 minutes before breakfast and other medications 90 Tablet 3 04/18/20 Active Metoprolol Tartrate 25 MG Oral Tablet (Lopressor)Indicat ions:Cardiac tamponade,S/P mitral valve replacement,Overwe ight (BMI 25.0-29.9),Dyslipi demia, goal LDL below 100,Noncompliance TAKE 1/2 TABLET BY MOUTH IN THE MORNING AND 1/2 TABLET BEFORE BEDTIME 90 Tablet 3 04/18/20 Active Warfarin Sodium 5 MG Oral Tablet (Jantoven)Indicati ons:S/P mitral valve replacement,Aortic valve disorder TAKE one to ONE AND ONE-HALF TABLET BY MOUTH DAILY or as directed by anticoagulation clinic 135 Tablet 3 04/18/20 Active Potassium Citrate ER 10 MEQ (1080 [...] morning. 90 Tablet 3 05/16/20 23 Active hydroCHLOROthiazid e 12.5 MG Oral Tablet (Hydrodiuril) Take 1 Tablet by mouth in the morning. 90 Tablet 3 08/11/19 24 Active Lisinopril 5 MG Oral Tablet (Prinivil)Indicati ons:HTN, goal below 140/90,Coronary artery disease involving [place] coronary artery of [place] heart without angina pectoris,S/P AVR (aortic valve replacement),S/P mitral valve replacement Take 1 Tablet by mouth in the morning. 90 Tablet 3 09/13/19 24 Active Anoro Ellipta 62.5-25 MCG/ACT Inhalation Aerosol Powder Breath Activated (umeclidinium-carmine nterol) INHALE 1 PUFF BY MOUTH IN THE MORNING (BULK) 90 Blister Dosing Unit 3 11/15/19 24 Active Albuterol Sulfate HFA 108 (90 Base) MCG/ACT Inhalation Aerosol Solution INHALE TWO PUFFS BY MOUTH EVERY 6 HOURS NEEDED FOR SHORTNESS OF BREATH 6.7 g 1 12/21/19 24 Active Albuterol Sulfate HFA 108 (90 Base) MCG/ACT Inhalation Aerosol Solution Inhale 2 Puffs by mouth every 6 hours as needed for Shortness of Breath. 18 g 1 11/15/19 24 024 Discontinued documented as of this encounter (statuses as of 12/21/2023) Active Problems Problem Noted Date Diagnosed Date Stage 3b chronic kidney disease 08/11/2023 COPD, group A, by GOLD 2017 classification 08/08 Overview: Per COPD GOLD Classification Anticoagulation management encounter 11/08/2022 Varicose veins of both lower extremities 022 DDD (degenerative disc disease), lumbar 04/19/20 22 Malignant neoplasm of right breast in female, estrogen receptor positive 04/19/2022 Coronary artery disease invo lving [place] coronary artery of [place] heart without angina pectoris 02/20/2021 Benign hypertension [...] as of this encounter (statuses as of 12/21/2023) Resolved Problems Problem Noted Date Diagnosed Date [...] as of this encounter (statuses as of 12/21/2023) Immunizations Name Administration Dates Next Due COVID-19 [...] encounter Miscellaneous Notes * Telephone Encounter - Mary Edward RPh - 12/21/2023 5:58 PM EDT * Telephone Encounter - Mary Edward RPh - 12/21/2023 5:58 PM EDTSigned Prescriptions: Disp Refills Albuterol Sulfate HFA 108 (90 Base) MCG/AC*6.7 g 1 Sig: INHALE TWO PUFFS BY MOUTH EVERY 6 HOURS NEEDED FOR SHORTNESS OF BREATH Authorizing Provider: KRYSTYNA MARINO Ordering User: MARY EDWARD documented in this encounter Plan of Treatment Upcoming Encounters Date Type Department Care Team (Late st Contact Info) Description 01/02/2024 10:40 AM EDT Anticoagulation Pharmacy, [place] [address] [place] [facility] [place] [address] [place] [facility] [address] [place] [address] 01/02/2024 11:00 AM EDT Office Visit Family [facility] [place] [address] [facility] [phone] Krystyna Marino MD [address] [place] [facility] [place] [address] 03/01/2024 2:20 PM EDT Office Visit Nephrology, [address] [place] [address] Drake Jha MD [address] [place] [address] 03/12/2024 11:00 AM EDT Cardiac Studies [facility] [place] [address] 03/20/2024 11:00 AM EDT Office Visit Cardiology, [facility] [address] [facility] [place] [address] Lise Goldman CRNP [facility] [address] 07/27/2024 1:00 PM EST Nurse Only Ancillary Department, [address] [address] [place], Nurse Annual Wellness [facility] [place] [address] 08/21/2024 10:30 AM EST Office Visit Sleep Disorders [facility] [phone] Madeline Schaffer CR[facility] [address] [facility] [address] Health Maintenance Due Date Last Done Comments DISCUSS TOBACCO CESSATION (REFER TO SMARTSET #3291) 1945 Alpha-1 Antitrypsin 1962 Zoster Vaccines (1 of 2) 1994 *COPD SEVERITY VERIFIED BY PFT 07/07/2022 COVID-19 Vaccine (2022- season) 2023 02/06/2021, 01/17/2021 GFR 01/02/2024 07/04/2023, 12/0 07/2022, 03/01/2023, Additional history exists Albumin/Creatinine Ratio 01/07/2024 023, 04/09/2022, 12/04/2018 CKD HGB USE SMARTSET 52324 07/04/202407/04, 07/04/2023, 03/22/2023, Additional history exists CKD PHOS USE SMARTSET 35892 07/04/2024/0 01/2024, 03/30/2022, 08/06/2021, Additional history exists TSH 07/04/2024 07/04/2023, 07/0 12/2022, 09/14/2022, Additional history exists Depression Screening 07/25/2024 07/25/2023 O2 ASSESSMENT COMPLETED IN PAST YEAR FOR COPD 08/18/2024 08/18/2023 DTaP,Tdap,and Td Vaccines (2 - Td or Tdap) 12/22/2026 12/22/2016 DXA Scan 08/11/2029 08/11/2022, 07/28, 07/03/2019, Additional history exists Pneumococcal Vaccine: 65+ Years Completed 04/15/2015, 03/16/2010 Influenza Vaccine (FLU shot) Completed 01/2023, 04/19/2022, 04/10/2021, Additional history exists GARDASIL-HPV IMMUNIZATION SERIES Aged Out No longer eligible based on patient's age to complete this topic Hepatitis B Aged Out No longer eligi ble based on patient's age to complete this topic MENINGOCOCCAL (MENACTRA/MENVEO) Aged Out No longer eligible based on patient's age to complete this topic documented as of this encounter Medical Devices Implanted Type Area Physician Ophthalmologist Device Identifier Shelf Expiration Date Model / Serial / Lot Sut Steel 6 M654g - [id number] Implanted:Qty: 4 on 07/06/2013 at [place] [facility] [place]A: Chest DO NOT USE 01/24/2018 M654G / / [id number] Valve Heart Mitral Epic 27mm - [id number] Implanted:Qty: 1 on 07/06/2013 at [place] [facility] [place] N/A: Heart [place] : CARDIOVASCULAR 11/01/2014 [id number] 0 / [id number] / Valve Heart Aortic Epic 23mm - [id number] Implanted:Qty: 1 on 07/06/2013 at [place] [facility] [place] N/A: Heart [place] : CARDIOVASCULAR 11/21/2016 [id number] / [id number] / Graft Gelweave 28x12.5 [id number] - [id number] Implanted:Qty: 1 on 07/06/2013 at [place] [facility] [place] N/A: Aorta [employer] : CARDIO SYS 12/04/2017 [id number] / [id number] / [id number] Sut Steel 6 M654g - [id number] Implanted:Qty: 6 on 07/06/2013 at [place] [facility] [place] N/A: Chest DO NOT USE 01/24/2018 M654G / / [id number] documented as of this encounter Advance Directives [...] and were consensually agreed upon. Care Teams Adoption Agent Relationship Specialty Start Date End Date Krystyna Marino MD [address] [place] [address] PCP - General Internal Medicine 04/19/22 documented as of this encounter
--- OUTSIDE RECORDS SUMMARY | 2024-01-05 03:14 | External Medical Summary | Summary of Care ---
Author Name Unknown Organization [facility] Address [address] [place] [address] Phone [phone] Care Team Providers Care Bending Roll Operator Name Role Phone Krystyna Marino MD Primary Care Provider [phone] Reason for Visit * Reason Comments eRx-Medication Refill Encounter Details Date Type Department Care Team (Late st Contact Info) Description 11/14/2023 Refill [facility] [address] [place] [address] Krystyna Marino MD [address] [place] [address] Allergies No known active allergiesdocumented as of this encounter (statuses as of 11/25/2023) Medications Medication Sig Dispensed Refills Start Date [...] ons:HTN, goal below 140/90,Coronary artery disease involving [place] coronary artery of [place] heart without angina pectoris,S/P AVR (aortic valve [...] of Breath. 18 g 1 11/15/19 24 Active Anoro Ellipta 62.5-25 MCG/ACT Inhalation Aerosol Powder Breath Activated (umeclidinium-carmine nterol) Inhale 1 Puff by mouth in the morning. 90 Each 3 04/18/20 23 024 Discontinued documented as of this encounter (statuses as of 11/25/2023) Active Problems Problem Noted Date Diagnosed Date Stage 3b chronic kidney disease 08/11/2023 COPD, group A, by GOLD 2017 classification 08/08 Overview: Per COPD GOLD Classification Anticoagulation management encounter 11/08/2022 Varicose veins of both lower extremities 022 DDD (degenerative disc disease), lumbar 04/19/20 22 Malignant neoplasm of right breast in female, estrogen receptor positive 04/19/2022 Coronary artery disease invo lving [place] coronary artery of [place] heart without angina pectoris 02/20/2021 Benign hypertension [...] as of this encounter (statuses as of 11/25/2023) Resolved Problems Problem Noted Date Diagnosed Date [...] as of this encounter (statuses as of 11/25/2023) Immunizations Name Administration Dates Next Due COVID-19 [...] encounter Miscellaneous Notes * Telephone Encounter - Marcelle Rodriguez PHARM Tech - 11/25/2023 11:05 AM EDT Pt returning phone call. Notified pt that Albuterol was sent in along with Anoro. I offered to transfer her to [facility] if she had any questions, but she declined. Thank you, Marcelle Rodriguez, [employer]ica Dry Press Helper [facility] ([facility]) (Formerly Telepharmacy) 11/25/2023,11:06 AM * Telephone Encounter - Richar Andrade [facility] - 11/16/2023 5:01 PM EDT Left vm advising of Albuterol inhaler ordered, the reasons why and Rx sent to pharmacy. Asked pt toreturn our call with any questions. Thank You, Richar Herrera [facility] Clinical Pharmacist [facility] ([facility]) (formerly Telepharmacy) 11/16/2023, 5:02 PM * Telephone Encounter - Krystyna Marino MD - 11/15/2023 2:58 PM EDTSigned Prescriptions: Disp Refills Anoro Ellipta 62.5-25 MCG/ACT Inhalation A*90 Bli*3 Sig: INHALE 1 PUFF BY MOUTH IN THE MORNING (BULK) Authorizing Provider: KRYSTYNA MARINO Albuterol Sulfate HFA 108 (90 Base) MCG/AC*18 g 1 Sig: Inhale 2 Puffs by mouth every 6 hours as needed for Shortness of Breath. Authorizing Provider: KRYSTYNA MARINO * Telephone Encounter - Richar Andrade [facility] - 11/15/2023 2:43 PM EDTPending Prescriptions: Disp Refills Anoro Ellipta 62.5-25 MCG/ACT Inhalation A*90 Bli*3 Sig: INHALE 1 PUFF BY MOUTH IN THE MORNING (BULK) Albuterol Sulfate HFA 108 (90 Base) MCG/AC*18 g 1 Sig: Inhale 2 Puffs by mouth every 6 hours as needed for Shortness of Breath. * Telephone Encounter - Richar Andrade [facility] - 11/15/2023 2:41 PM EDT Refill pharmacists cannot approve long acting asthma/COPD (Anoro) medications without a short acting albuterol on file within the last year. Orders for approval for both are pended. Thank You, Richar Herrera [facility] Clinical Pharmacist [facility] ([facility]) (formerly Telepharmacy) 11/15/2023, 2:41 PM * Telephone Encounter - Richar Andrade [facility] - 11/15/2023 2:39 PM EDT Pending Prescriptions: Disp Refills Anoro Ellipta 62.5-25 MCG/ACT Inhalation *90 Bli*3 Sig: INHALE 1 PUFF BY MOUTH IN THE MORNING (BULK) Last Visit: 07/04/2023 (in office), Visit date not found (telemedicine) Next Visit: 01/02/2024 If no future appointments scheduled, and last appointment is greater than a year ago, please schedule patient for a follow-up appointment Last date the medication was ordered: 04/18/23 Pharmacy: [facility] [address] [place] Is this request for a controlled substance? No Urine Drug Screen:No results found. However, due to the size of the patient record, not all encounters were searched. Please check Results Review for a complete set of results. Patient Phone Numbers Labs: Lab Results Component Value Date/Time CREAT 1.6 (H) 07/04/2023 02:06 PM CREAT 1.27 (A) 05/28/2023 12:00 AM CREAT 1.3 (H) 07/17/2020 11:02 AM POTASSIUM 4.8 07/04/2023 02:06 PM POTASSIUM 4.3 05/28/2023 12:00 AM POTASSIUM 4.3 07/17/2020 11:02 AM TSH 1.33 07/04/2023 02:06 PM TSH 2.42 06/03/2020 11:05 AM LDLCALC 50 03/01/2023 10:32 AM LDLCALC 32 07/25/2019 10:16 AM LDLDIRECT NOT APPLICABLE 07/25/2019 10:16 AM ALT 18 07/04/2023 02:06 PM ALT 18 06/03/2020 11:05 AM HGBA1C 4.9 08/26/2013 03:35 PM documented in this encounter Plan of Treatment Upcoming Encounters Date Type Department Care Team (Late st Contact Info) Description 12/01/2023 1:45 PM EDT Imaging Radiology [address] [place] [address] 01/02/2024 10:40 AM EDT Anticoagulation Pharmacy, [facility] [address] [place] [address] [facility] [address] [place] [address] 01/02/2024 11:00 AM EDT Office Visit Family Practice, [facility] [address] [place] [phone] Krystyna Marino MD [address] [place] [address] 03/01/2024 2:20 PM EDT Office Visit Nephrology, [facility] [place] [address] Drake Jha MD [address] [facility] [address] 03/12/2024 11:00 AM EDT Cardiac Studies [facility], [facility] [place] [address] 03/20/2024 11:00 AM EDT Office Visit Cardiology, [facility] [place] [address] Lise Goldman CRNP [facility] [address] 07/27/2024 1:00 PM EST Nurse Only Ancillary Department, [place] [address] [place] [address] [place], Nurse Annual Wellness [address] [place] [address] 08/21/2024 10:30 AM EST Office Visit Sleep Disorders [facility] 132 [facility] [place] [phone] Madeline Schaffer CRNP [address] [address] [address] Health Maintenance Due Date Last Done Comments DISCUSS TOBACCO CESSATION (REFER TO SMARTSET #3293) 1945 Alpha-1 Antitrypsin 1962 Zoster Vaccines (1 of 2) 1994 *COPD SEVERITY VERIFIED BY PFT 07/07/2022 COVID-19 Vaccine ( season) 2023 02/06/2021, 01/17/2021 GFR 01/02/2024 07/04/2023, 1207/2022, 03/01/2023, Additional history exists Albumin/Creatinine Ratio 01/07/2024 023, 04/09/2022, 12/04/2018 CKD HGB USE SMARTSET 68224 07/04/202407/04, 07/04/2023, 03/22/2023, Additional history exists CKD PHOS USE SMARTSET 21570 07/04/20240 01/2024, 03/30/2022, 08/06/2021, Additional history exists [...] this encounter Medical Devices Implanted Type Area Supervisor International Reservations Device Identifier Shelf Expiration Date Model / Serial / Lot Sut Isac 6 M654g - [id number] [place]planted:Qty[place] 4 on 07/06[place]2013 [place] [facility] [place]: Chest DO NOT USE 01/24/2018 M654G / / [id number] Valve Heart Mitral Epic 27mm - [id number] Implanted:Qty: 1 on 07/06/2013 [place] [facility] [place] N/A: Heart [place] : CARDIOVASCULAR 11/01/2014 [id number] 0 / [id number] / Valve Heart Aortic Epic 23mm - [id number] Implanted:Qty: 1 on 07/06/2013 [place] [facility] [place] N/A: Heart [place] : CARDIOVASCULAR 11/21/2016 [id number] / [id number] / Graft Gelweave 28x12.5 [id number] - [id number] Implanted:Qty: 1 on 07/06/2013 [place] [facility] [place]: Aorta [employer] : CARDIO SYS 12/04/2017 [id number] / [id number] / [id number] Sut Steel 6 M654g - [id number] Implanted:Qty: 6 on 07/06/2013 [place] [facility] [place]A: Chest DO NOT USE 01/24/2018 M654G / / [id number] documented as of this encounter Advance Directives [...] and were consensually agreed upon. Care Teams Bending Roll Operator Relationship Specialty Start Date End Date Krystyna Marino MD [address] [place] [address] [place] [address] PCP - General Internal Medicine 04/19/22 documented as of this encounter
--- OUTSIDE RECORDS SUMMARY | 2024-01-05 03:14 | External Medical Summary | Summary of Care ---
Author Name Unknown Organization [facility] Address [address] [place] [address] Phone [phone] Care Team Providers Care Stream Control Officer Name Role Phone Krystyna Marino MD Primary Care Provider [phone] Reason for Visit * Reason Comments eRx-Medication Refill Encounter Details Date Type Department Care Team (Late st Contact Info) Description 11/14/2023 Refill [facility] [address] [place] [address] Krystyna Marino MD [address] [place] [address] Allergies No known active allergiesdocumented as of this encounter (statuses as of 12/03/2023) Medications Medication Sig Dispensed Refills Start Date [...] ons:HTN, goal below 140/90,Coronary artery disease involving [place] coronary artery of [place] heart without angina pectoris,S/P AVR (aortic valve [...] as of this encounter (statuses as of 12/03/2023) Active Problems Problem Noted Date Diagnosed Date Stage 3b chronic kidney disease 08/11/2023 COPD, group A, by GOLD 2017 classification 08/08 Overview: Per COPD GOLD Classification Anticoagulation management encounter 11/08/2022 Varicose veins of both lower extremities 022 DDD (degenerative disc disease), lumbar 04/19/20 22 Malignant neoplasm of right breast in female, estrogen receptor positive 04/19/2022 Coronary artery disease invo lving [place] coronary artery of [place] heart without angina pectoris 02/20/2021 Benign hypertension [...] as of this encounter (statuses as of 12/03/2023) Resolved Problems Problem Noted Date Diagnosed Date [...] as of this encounter (statuses as of 12/03/2023) Immunizations Name Administration Dates Next Due COVID-19 [...] Anoro. I offered to transfer her to [facility] if she had any questions, but she declined. Thank you, Marcelle Rodriguez, It Consulting Director Centralized Clinical Pharmacy Services (CCPS) (Formerly Telepharmacy) 11/25/2023,11:06 AM * Telephone Encounter - Richar Andrade [facility] - 11/16/2023 5:01 PM EDT Left vm advising of Albuterol inhaler ordered, the reasons why and Rx sent to pharmacy. Asked pt toreturn our call with any questions. Thank You, Richar Herrera [facility] Clinical Pharmacist Centralized Clinical Pharmacy [...] MARINO * Telephone Encounter - Richar Andrade [facility] - 11/15/2023 2:43 PM EDTPending Prescriptions: Disp Refills Anoro Ellipta 62.5-25 MCG/ACT Inhalation A*90 Bli*3 Sig: INHALE 1 PUFF BY MOUTH IN THE MORNING (BULK) Albuterol Sulfate HFA 108 (90 Base) MCG/AC*18 g 1 Sig: Inhale 2 Puffs by mouth every 6 hours as needed for Shortness of Breath. * Telephone Encounter - Richar Andrade [facility] - 11/15/2023 2:41 PM EDT Refill pharmacists cannot approve long acting asthma/COPD (Anoro) medications without a short acting albuterol on file within the last year. Orders for approval for both are pended. Thank You, Richar Herrera [facility] Clinical Pharmacist Centralized Clinical Pharmacy Services (CCPS) (formerly Telepharmacy) 11/15/2023, 2:41 PM * Telephone Encounter - Richar Andrade [facility] - 11/15/2023 2:39 PM EDT [...] 04/18/23 Pharmacy: [facility] [address] [place] Is this request for [...] Description 01/02/2024 10:40 AM EDT [facility]tico[facility], [place] [address] [address] [facility] [address] [facility] [address] [facility] [facility] [address] 01/02/2024 11:00 AM EDT Office Visit Family [facility], [place] [address] [address] [facility] [place] [phone] Krystyna Marino MD [address] [facility] [address] 03/01/2024 2:20 PM EDT Office Visit Nephrology, [facility] [address] [place] [address] Drake Jha MD [address] [facility] [place] [address] 03/12/2024 11:00 AM EDT Cardiac Studies [facility] Studies, [facility] [address] [facility] [place] [address] 03/20/2024 11:00 AM EDT Office Visit Cardiology, [facility] 132 [facility] [place] [address] Lise Goldman CRNP 132 [facility] [place] [address] 07/27/2024 1:00 PM EST Nurse Only Ancillary Department, [address] [address] [place], Nurse [facility] [address] [place] [address] 08/21/2024 10:30 AM EST Office Visit Sleep Disorders [facility] [place] [phone] Madeline Schaffer CRNP [facility] [address] Health Maintenance Due Date Last Done Comments DISCUSS TOBACCO CESSATION (REFER TO SMARTSET #4042) 1945 Alpha-1 Antitrypsin 1962 Zoster Vaccines (1 of 2) 1994 *COPD SEVERITY VERIFIED BY PFT 07/07/2022 COVID-19 Vaccine (2022- season) 2023 02/06/2021, 01/17/2021 GFR 01/02/2024 07/04/2023, 12/0 07/2022, 03/01/2023, Additional history exists Albumin/Creatinine Ratio 01/07/2024 023, 04/09/2022, 12/04/2018 CKD HGB USE SMARTSET 48211 07/04/202407/04, 07/04/2023, 03/22/2023, Additional history exists CKD PHOS USE SMARTSET 84680 07/04/2024/0 01/2024, 03/30/2022, 08/06/2021, Additional history exists [...] this encounter Medical Devices Implanted Type Area Hot Strip Mill Supervisor Device Identifier Shelf Expiration Date Model / Serial / Lot Sut Steel 6 M654g - [id number] Implanted:Qty: 4 on 07/06/[address] [facility] [place]: Chest DO NOT USE 01/24/2018 M654G / / [id number] Valve Heart Mitral Epic 27mm - [id number] Implanted:Qty: 1 on 07/06/[address] [facility] [place]/A: Heart [place] : CARDIOVASCULAR 11/01/2014 [id number]-4 0 / [id number] / Valve Heart Aortic Epic 23mm - [id number] Implanted:Qty: 1 on 07/06/[address] [facility] [place]A: Heart [place] : CARDIOVASCULAR 11/21/2016 [id number] / [id number] / Graft Gelweave 28x12.5 [id number] - [id number] Implanted:Qty: 1 on 07/06/[address] [facility] [place]A: Aorta [employer] : CARDIO SYS 12/04/2017 [id number] / [id number] / [id number] Sut Steel 6 M654g - [id number] Implanted:Qty: 6 on 07/06/[address] [facility] [place]A: Chest DO NOT USE 01/24/2018 M654G / / [id number] documented as of this encounter Advance Directives [...] and were consensually agreed upon. Care Teams Stream Control Officer Relationship Specialty Start Date End Date Krystyna Marino MD [address] [place] [address] PCP - General Internal Medicine 04/19/22 documented as of this encounter
--- OUTSIDE RECORDS SUMMARY | 2024-01-05 03:14 | External Medical Summary ---
Author Name Unknown Address Unknown Organization : Laboratory Report Ordering Provider Test Date Status KENDALL BLANDON 11/18/2023 11:34:08 Final Therapeutic ranges for non-o perative patients:
Prophylaxsis/treatment of DVT: (Range:2.0-3.0)
Treatment of pulmonary embolism:(Range:2.0-3.0)
Prevention of systemic embolism from:
-tissue heart valves
-acute myocardial infarction
-valvular heart disease
-atrial fibrillation
(Range: 2.0-3.0)
Mechanical prosthetic valves: (Range: 2.5-3.5) Observation Date Value Abnormality Reference (Units ) Status INR in Capillary blood by Coagulation assay 11/18/2023 11:34:08 2.7 (INR) Final Performing Location
--- OUTSIDE RECORDS SUMMARY | 2024-01-05 03:14 | External Medical Summary ---
Author Name Unknown Address Unknown Organization K01:LABORATORY [facility] - [address] [place] [address] Laboratory Report Ordering Provider Test Date Status JARETT HUYNH 01/02/2024 11:42:46 Final Observation Date Value Abnormality Reference (Units ) Status MYCODE SPECIMEN-SST 01/02/2024 11:42:46 Freezing of extracted DNA, whole blood and/or serum. Final Performing Location LABORATORY C - [address] [place] [address]
--- OUTSIDE RECORDS SUMMARY | 2024-01-05 03:14 | External Medical Summary | Summary of Care ---
Author Name Unknown Organization [facility] Address [address] [place] [address] Phone [phone] Care Team Providers Care Channel Marketing Program Manager Name Role Phone Krystyna Marino MD Primary Care Provider [phone] Reason for Visit * Reason Comments Dosage Adjustment In Person (Anticoag Cl inic) Encounter Details Date Type Department Care Team (Latest Contact Info) Description 11/18/2023 11:30 AM EDT Anticoagulation Pharmacy, [place] [address] [place] [address] [facility] [address] [place] [address] Anticoagulation management encounter*; S/P mitral valve replacement; Paroxysmal atrial fibrillation (HCC); S/P AVR (aortic valve replacement) Allergies No known active allergiesdocumented as of this encounter (statuses as of 11/18/2023) Medications Medication Sig Dispensed Refills Start Date [...] knee high. 2 Each 2 2 Active Ferrous Sulfate 325 (65 Fe) MG Oral Tablet (Feosol) Take 1 Tablet by mouth in the morning and 1 Tablet before bedtime. 60 Tablet 11 3 Active Additional Information Patient not taking.Reported on [...] the morning. 90 Tablet 3 3 Active hydroCHLOROthiazide 12.5 MG Oral Tablet (Hydrodiuril) Take 1 Tablet by mouth in the morning. 90 Tablet 3 4 Active Lisinopril 5 MG Oral Tablet (Prinivil)Indicatio ns:HTN, goal below 140/90,Coronary artery disease involving [place] coronary artery of [place] heart without angina pectoris,S/P AVR (aortic valve [...] for Shortness of Breath. 18 g 1 4 Active documented as of this encounter (statuses as of 11/18/2023) Active Problems Problem Noted Date Diagnosed Date Stage 3b chronic kidney disease 08/11/2023 COPD, group A, by GOLD 2017 classification 08/08 Overview: Per COPD GOLD Classification Anticoagulation management encounter 11/08/2022 Varicose veins of both lower extremities 022 DDD (degenerative disc disease), lumbar 04/19/20 22 Malignant neoplasm of right breast in female, estrogen receptor positive 04/19/2022 Coronary artery disease invo lving [place] coronary artery of [place] heart without angina pectoris 02/20/2021 Benign hypertension [...] as of this encounter (statuses as of 11/18/2023) Resolved Problems Problem Noted Date Diagnosed Date [...] as of this encounter (statuses as of 11/18/2023) Immunizations Name Administration Dates Next Due COVID-19 [...] 06/27/2014,04/08/2014,03/30/2013,03/10,04/27/2011,03/16/2010 TDAP (age 10 and older)(Boostrix) 12/22/2016 TDAP (age 11 and older)(Adacel) 10/31/2008(Defer red: Patient Refused) documented as of this encounter [...] this encounter Progress Notes * Callie Wynn RP - 11/18/2023 11:32 AM EDT Medication Therapy Disease Management - Anticoagulation Patient: Anay Richardson | : 1945 Subjective Patient-Reported Symptoms: Patient Findings Negatives: Signs/symptoms of thrombosis, Signs/symptoms of bleeding, Change in health, Change in alcohol use, Change in activity, Upcoming invasive procedure, Missed doses, Extra doses, Change in medications, Change in diet/appetite, Bruising Objective Current Warfarin Dose As of 11/18/2023 Warfarin maintenance plan: 7.5 mg (5 mg x 1.5) every Mon; 5 mg (5 mg x 1) all other days INR Result As of 11/18/2023 INR goal: 2.0-3.0 INR used for dosin.7 (11/18/2023) Assessment & Plan Warfarin Plan As of 11/18/2023 Full warfarin instructions: 7.5 mg every Mon; 5 mg all other days No change documented: Callie Wynn cabrera Next INR check: 01/02/2024 Repeat PT/INR in 6 week(s) Weekly dose: not changed Additional Dosing Information: Callie Wynn [facility] Clinical Pharmacist 11/18/2023, 11:32 AM documented in this encounter Plan of Treatment Upcoming Encounters Date Type Department Care Team (Late st Contact Info) Description 11/25/2023 11:15 AM EDT Imaging Radiology [address] [place] [address] 01/02/2024 10:40 AM EDT Anticoagulation Pharmacy, [address] [place] [address] [facility] [address] [place] [address] [place] [address] 01/02/2024 11:00 AM EDT Office Visit Family [facility], [address] [place] [phone] Krystyna Marino MD [address] [place] [address] 03/01/2024 2:20 PM EDT [facility] 200 [facility] [place] [address] Drake Jha MD 200 [facility] [place] [address] 03/12/2024 11:00 AM EDT Cardiac Studies Card[facility] Studies, [facility] [address] 03/20/2024 11:00 AM EDT Office Visit Cardiology, [facility] [address] Lise Goldman CRNP [facility] [address] 07/27/2024 1:00 PM EST Nurse Only Ancillary Department, [place] [address] [place] [address] [place], Nurse Annual [facility]ness [address] [place] [address] 08/21/2024 10:30 AM EST Office Visit Sleep Disorders [facility] [phone] Madeline Schaffer CRNP [address] [place] [address] Scheduled Orders Name Type Priority Associated Diagnoses Orde r Schedule PT INR Lab Routine S/P mitral valve replacement Anticoagulation management encounter Paroxysmal atrial fibrillation (HCC) S/P AVR (aortic valve replacement) 26 Occurrences starting 11/18/2023 until 11/17/2024 INR FINGERSTICK, POINT OF CARE Point of Care Testing - Unsolicited Results STAT S/P mitral valve replacement Anticoagulation management encounter Paroxysmal atrial fibrillation (HCC) S/P AVR (aortic valve replacement) Every 2 Weeks for 26 Occurrences starting 11/18/2023 until 11/17/2024 Health Maintenance Due Date Last Done Comments DISCUSS TOBACCO CESSATION (REFER TO SMARTSET #8381) 1945 Alpha-1 Antitrypsin 1962 Zoster Vaccines (1 of 2) 1994 *COPD SEVERITY VERIFIED BY PFT 07/07/2022 COVID-19 Vaccine ( season) 2023 02/06/2021, 01/17/2021 GFR 01/02/2024 07/04/2023, 1207/2022, 03/01/2023, Additional history exists Albumin/Creatinine Ratio 01/07/2024 023, 04/09/2022, 12/04/2018 CKD HGB USE SMARTSET 69411 07/04/202407/04, 07/04/2023, 03/22/2023, Additional history exists CKD PHOS USE SMARTSET 72388 07/04/[address]240 01/2024, 03/30/2022, 08/06/2021, Additional history exists [...] this encounter Medical Devices Implanted Type Area Bed Teacher Device Identifier Shelf Expiration Date Model / Serial / Lot Sut Steel 6 M654g - [id number] [place]planted:Qty: 4 [place] 07[place]06[place]2013 [place] [facility] [place]: Chest DO NOT USE 01/24/2018 M654G / / [id number] Valve Heart Mitral Epic 27mm - [id number] Implanted:Qty: 1 on 07/06/2013 [place] [facility] [place]/A: Heart [place] : CARDIOVASCULAR 11/01/2014 [id number] 0 / [id number] / Valve Heart Aortic Epic 23mm - [id number] Implanted:Qty: 1 on 07/06/2013 [place] [facility] [place]A: Heart [place] : CARDIOVASCULAR 11/21/2016 [id number] / [id number] / Graft Gelweave 28x12.5 [id number] - [id number] Implanted:Qty: 1 on 07/06/2013 [place] [facility] [place]A: Aorta [employer] : CARDIO SYS 12/04/2017 [id number] / [id number] / [id number] Sut Steel 6 M654g - [id number] Implanted:Qty: 6 on 07/06/2013 [place] [facility] [place]A: Chest DO NOT USE 01/24/2018 M654G / / [id number] documented as of this encounter Procedures Procedure Name Priority Date/Time Associated Diagnosis Comments INR FINGERSTICK, POINT OF CARE BRENDA 11/18/2023 11:34 AM EDT documented in this encounter Results * INR FINGERSTICK, POINT OF CARE (11/18/2023 11:34 AM EDT) Fingerstick INR 2.7 INR 11:36 AM EDT LABORATORY [place] 56[facility]01 Blood 11/18/2023 11:3 4 AM EDT 11/18/2023 11:36 AM EDT [facility]ative [facility] - 11/18/2023 11:36 AM EDT Therapeutic ranges for non-operative patients: Prophylaxsis/treatment of DVT: (Range:2.0-3.0) Treatment of pulmonary embolism:(Range:2.0-3.0) Prevention of systemic embolism from: -tissue heart valves -acute myocardial infarction -valvular heart disease -atrial fibrillation (Range: 2.0-3.0) Mechanical prosthetic valves: (Range: 2.5-3.5) [facility] [place] [facility] POINT OF CARE TEST DOCKED DEVICE UNSOLICITED RESULTS [facility] [place] [facility] [place] [address] documented in this encounter Visit Diagnoses Diagnosis [...] and were consensually agreed upon. Care Teams Channel Marketing Program Manager Relationship Specialty Start Date End Date Krystyna Marino MD [address] [place] [address] PCP - General Internal Medicine 04/19/22 documented as of this encounter"
--- OUTSIDE RECORDS SUMMARY | 2024-01-05 03:14 | External Medical Summary ---
Author Name Unknown Address Unknown Organization : Laboratory Report Ordering Provider Test Date Status ARSENIO LIU 01/02/2024 10:40:04 Final Therapeutic ranges for non-o perative patients:
Prophylaxsis/treatment of DVT: (Range:2.0-3.0)
Treatment of pulmonary embolism:(Range:2.0-3.0)
Prevention of systemic embolism from:
-tissue heart valves
-acute myocardial infarction
-valvular heart disease
-atrial fibrillation
(Range: 2.0-3.0)
Mechanical prosthetic valves: (Range: 2.5-3.5) Observation Date Value Abnormality Reference (Units ) Status INR in Capillary blood by Coagulation assay 01/02/2024 10:40:04 2.0 (INR) Final Performing Location
--- OUTSIDE RECORDS SUMMARY | 2024-01-05 03:14 | External Medical Summary ---
Author Name Unknown Address Unknown Organization : Laboratory Report Ordering Provider Test Date Status ARSENIO LIU 10/06/2023 10:55:57 Final Therapeutic ranges for non-o perative patients:
Prophylaxsis/treatment of DVT: (Range:2.0-3.0)
Treatment of pulmonary embolism:(Range:2.0-3.0)
Prevention of systemic embolism from:
-tissue heart valves
-acute myocardial infarction
-valvular heart disease
-atrial fibrillation
(Range: 2.0-3.0)
Mechanical prosthetic valves: (Range: 2.5-3.5) Observation Date Value Abnormality Reference (Units ) Status INR in Capillary blood by Coagulation assay 10/06/2023 10:55:57 2.1 (INR) Final Performing Location
--- OUTSIDE RECORDS SUMMARY | 2024-01-05 03:14 | External Medical Summary | Summary of Care ---
Author Name Unknown Organization [facility] Address [address] [place] [address] Phone [phone] Care Team Providers Care Research Assistant Member Name Role Phone Krystyna Marino MD Primary Care Provider Reason for Visit * Reason Comments eRx-Medication Refill Encounter Details Date Type Department Care Team (Late st Contact Info) Description 11/14/2023 Refill [facility] [address] [place] [address] Krystyna Marino MD [address] [place] [address] Allergies No known active allergiesdocumented as of this encounter (statuses as of 11/16/2023) Medications Medication Sig Dispensed Refills Start Date [...] ons:HTN, goal below 140/90,Coronary artery disease involving ramona coronary artery of ramona heart without angina pectoris,S/P AVR (aortic valve [...] as of this encounter (statuses as of 11/16/2023) Active Problems Problem Noted Date Diagnosed Date Stage 3b chronic kidney disease 08/11/2023 COPD, group A, by GOLD 2017 classification 08/08 Overview: Per COPD GOLD Classification Anticoagulation management encounter 11/08/2022 Varicose veins of both lower extremities 022 DDD (degenerative disc disease), lumbar 04/19/20 22 Malignant neoplasm of right breast in female, estrogen receptor positive 04/19/2022 Coronary artery disease invo lving ramona coronary artery of ramona heart without angina pectoris 02/20/2021 Benign hypertension [...] as of this encounter (statuses as of 11/16/2023) Resolved Problems Problem Noted Date Diagnosed Date [...] as of this encounter (statuses as of 11/16/2023) Immunizations Name Administration Dates Next Due COVID-19 [...] encounter Miscellaneous Notes * Telephone Encounter - Richar Andrade [facility] - 11/16/2023 5:01 PM EDT Left vm advising of Albuterol inhaler ordered, the reasons why and Rx sent to pharmacy. Asked pt toreturn our call with any questions. Thank You, Richar Herrera [facility] Clinical Pharmacist Centralized Clinical Pharmacy Services (CCPS) [...] MARINO * Telephone Encounter - Richar Andrade [facility] - 11/15/2023 2:43 PM EDTPending Prescriptions: Disp Refills Anoro Ellipta 62.5-25 MCG/ACT Inhalation A*90 Bli*3 Sig: INHALE 1 PUFF BY MOUTH IN THE MORNING (BULK) Albuterol Sulfate HFA 108 (90 Base) MCG/AC*18 g 1 Sig: Inhale 2 Puffs by mouth every 6 hours as needed for Shortness of Breath. * Telephone Encounter - Richar Andrade [facility] - 11/15/2023 2:41 PM EDT Refill pharmacists cannot approve long acting asthma/COPD (Anoro) medications without a short acting albuterol on file within the last year. Orders for approval for both are pended. Thank You, Richar Herrera [facility] Clinical Pharmacist Centralized Clinical Pharmacy Services (CCPS) (formerly Telepharmacy) 11/15/2023, 2:41 PM * Telephone Encounter - Richar Andrade [facility] - 11/15/2023 2:39 PM EDT Pending Prescriptions: [...] date the medication was ordered: 04/18/23 Pharmacy: [facility] [address] [place] [address] [place] Is this request for a [...] Care Team (Late st Contact Info) Description 11/18/2023 11:30 AM EDT Anticoagulation Pharmacy, [place] [address] [place] [facility] [place] [address] [facility] [address] [place] [facility] [place] [facility] [place] [address] 11/25/2023 11:15 AM EDT Imaging Radiology [address] [place] [address] 01/02/2024 11:00 AM EDT Office Visit Family [facility], [place] [address] [place] [facility] [place] [address] Krystyna Marino MD [address] [place] [facility] [place] [facility] [place] [address] 03/01/2024 2:20 PM EDT Office Visit Nephrology, [facility] [address] [place] [address] Drake Jha MD [address] [place] [address] 03/12/2024 11:00 AM EDT Cardiac Studies Cardiac Studies, [address] [place] [address] 03/20/2024 11:00 AM EDT Office Visit Cardiology, [facility] [address] [facility] [place] [address] Lise Goldman CRNP [address] [facility] [place] [address] 07/27/2024 1:00 PM EST Nurse Only Ancillary Department, [place] [address] [facility] [place] [address] [place], Nurse Annual Wellness [address] [facility] [place] [address] 08/21/2024 10:30 AM EST Office Visit Sleep Disorders Ctr [facility] [address] [facility] [place] [phone] Madeline Schaffer CRNP [address] [facility] [place] [address] Health Maintenance Due Date Last Done Comments DISCUSS TOBACCO CESSATION (REFER TO SMARTSET #3291) 1945 Alpha-1 Antitrypsin 1962 Zoster Vaccines (1 of 2) 1994 *COPD SEVERITY VERIFIED BY PFT 07/07/2022 COVID-19 Vaccine ( season) 2023 02/06/2021, 01/17/2021 GFR 01/02/2024 07/04/2023, 07/2022, 03/01/2023, Additional history exists Albumin/Creatinine Ratio 01/07/2024 023, 04/09/2022, 12/04/2018 CKD HGB USE SMARTSET 80806 07/04/202407/04, 07/04/2023, 03/22/2023, Additional history exists CKD PHOS USE SMARTSET 44910 07/04/202401/2024, 03/30/2022, 08/06/2021, Additional history exists TSH 07/04/2024 [...] this encounter Medical Devices Implanted Type Area Parks Worker Device Identifier Shelf Expiration Date Model / Serial / Lot Sut Steel 6 M654g - [id number] [place] [facility] [place] Chest DO NOT USE 01/24/2018 M654G / / [id number] Valve Heart Mitral Epic 27mm - [id number] Implanted:Q[place]: 1 on [place]06[place]2013 [place] [facility] [place]A: Heart [place] : CARDIOVASCULAR 11/01/2014 [id number]-0 0 / [id number] / Valve Heart Aortic Epic 23mm - [id number] Implanted:Q[place]: 1 [place] [facility] [place]: Heart [place] : CARDIOVASCULAR 11/21/2016 [id number] / [id number] / Graft Gelweave 28x12.5 [id number] - [id number] [place]planted:Q[place] 1 [place] [facility] [place]: Aorta [facility] : CARDIO SYS 12/04/2017 [id number] / [id number] / [id number] Sut Steel 6 M654g - [id number] Implanted:Qty: 6 [place] 07[place] [facility] [place]: Chest DO NOT USE 01/24/2018 M654G / / [id number] documented as of this encounter Advance Directives [...] and were consensually agreed upon. Care Teams Research Assistant Member Relationship Specialty Start Date End Date Krystyna Marino MD [address] [place] [address] PCP - General Internal Medicine 04/19/22 documented as of this encounter
--- OUTSIDE RECORDS SUMMARY | 2024-01-05 03:14 | External Medical Summary | Summary of Care ---
Author Name Unknown Organization [facility] Address [address] [place] [address] Phone [phone] Care Team Providers Care Application Integration Engineer Name Role Phone Krystyna Marino MD Primary Care Provider Reason for Visit * Reason Comments Dosage Adjustment In Person (Anticoag Cl inic) Encounter Details Date Type Department Care Team (Latest Contact Info) Description 10/06/2023 11:00 AM EDT Anticoagulation Pharmacy, [place] [address] [place] [address] [facility] [address] [place] [address] S/P mitral valve replacement*; Anticoagulation management encounter; Paroxysmal atrial fibrillation (HCC); S/P AVR (aortic valve replacement); technician terminal and repeater current use of anticoagulant therapy Allergies No known active allergiesdocumented as of this encounter (statuses as of 10/06/2023) Medications Medication Sig Dispensed Refills Start Date End Date Status ECOTRIN LOW STRENGTH 81 MG PO TBECIndications:Tob acco use disorder,Vertigo One pill by mouth once a day 1 Tab 0 07/27/2013 Active MULTIVITAMIN GUMMIES ADULT PO CHEW Take by mouth. Is currently taking 0 Active Acetaminophen 500 MG Oral Tablet Take 1 Tablet by mouth every 6 hours as needed for Pain. 0 Active Trolamine Salicylate 10 % External Lotion Apply topically to affected area. Apply to back 0 Active SURGICAL COMPRESSION STOCKING 20 to 30mm knee high. 2 Each 2 05/26/2022 Active Ferrous Sulfate 325 (65 Fe) MG Oral Tablet (Feosol) Take 1 Tablet by mouth in the morning and 1 Tablet before bedtime. 60 Tablet 11 08/26/2022 Active Additional Information Patient not taking.Reported on 07/04/2023 Pantoprazole Sodium 20 MG Oral Tablet Delayed Release (Protonix)Indicatio ns:Dysphagia, unspecified type Take 1 Tablet by mouth in the morning. In the morning.. 90 Tablet 3 04/15/2023 Active amLODIPine Besylate 2.5 MG Oral Tablet (Norvasc) Take 1 Tablet by mouth in the morning. 90 Tablet 3 04/15/2023 Active Anoro Ellipta 62.5-25 MCG/ACT Inhalation Aerosol Powder Breath Activated (umeclidinium-vilan terol) Inhale 1 Puff by mouth in the morning. 90 Each 3 04/18/2023 Active Atorvastatin Calcium 10 MG Oral Tablet (Lipitor)Indication s:Dyslipidemia, goal LDL below 70 Take 1 Tablet by mouth in the morning. 90 Tablet 3 04/18/2023 Active Levothyroxine Sodium 137 MCG Oral TabletIndications:P ostablative hypothyroidism take one tablet by mouth daily at least 30 minutes before breakfast and other medications 90 Tablet 3 04/18/2023 Active Metoprolol Tartrate 25 MG Oral Tablet (Lopressor)Indicati ons:Cardiac tamponade,S/P mitral valve replacement,Overwei ght (BMI 25.0-29.9),Dyslipid emia, goal LDL below 100,Noncompliance TAKE 1/2 TABLET BY MOUTH IN THE MORNING AND 1/2 TABLET BEFORE BEDTIME 90 Tablet 3 04/18/2023 Active Warfarin Sodium 5 MG Oral Tablet (Jantoven)Indicatio ns:S/P mitral valve replacement,Aortic valve disorder TAKE one to ONE AND ONE-HALF TABLET BY MOUTH DAILY or as directed by anticoagulation clinic 135 Tablet 3 04/18/2023 Active Potassium Citrate ER 10 MEQ (1080 MG) Oral Tablet Extended Release (Urocit-K)Indicatio ns:CKD (chronic kidney disease) stage 3, GFR 30-59 ml/min ([facility]) TAKE 1 TABLET BY MOUTH TWICE DAILY every morning and before bedtime 60 Tablet 11 04/27/2023 Active Amiodarone HCl 200 MG Oral Tablet (Cordarone)Indicati ons:S/P mitral valve replacement,S/P AVR (aortic valve replacement),Paroxy smal atrial fibrillation (HCC) Take 1 Tablet by mouth in the morning. 90 Tablet 3 05/16/2023 Active hydroCHLOROthiazide 12.5 MG Oral Tablet (Hydrodiuril) Take 1 Tablet by mouth in the morning. 90 Tablet 3 08/11/2023 Active Lisinopril 5 MG Oral Tablet (Prinivil)Indicatio ns:HTN, goal below 140/90,Coronary artery disease involving [place] coronary artery of [place] heart without angina pectoris,S/P AVR (aortic valve replacement),S/P mitral valve replacement Take 1 Tablet by mouth in the morning. 90 Tablet 3 09/13/2023 Active documented as of this encounter (statuses as of 10/06/2023) Active Problems Problem Noted Date Diagnosed Date Stage 3b chronic kidney disease 08/11/2023 COPD, group A, by GOLD 2017 classification 08/08 Overview: Per COPD GOLD Classification Anticoagulation management encounter 11/08/2022 Varicose veins of both lower extremities 022 DDD (degenerative disc disease), lumbar 04/19/20 22 Malignant neoplasm of right breast in female, estrogen receptor positive 04/19/2022 Coronary artery disease invo lving [place] coronary artery of [place] heart without angina pectoris 02/20/2021 Benign hypertension [...] as of this encounter (statuses as of 10/06/2023) Resolved Problems Problem Noted Date Diagnosed Date [...] as of this encounter (statuses as of 10/06/2023) Immunizations Name Administration Dates Next Due COVID-19 mRNA, LNP-s, No Pre serve, 2-Dose Series ([employer]umble[employer]) 02/06/2021,01/17/2021 Pneumococcal Conjugate Vacc, 13 Valent (Prevnar) [...] of this encounter Progress Notes * Callie Wynn, [facility] - 10/06/2023 10:49 AM EDT Medication Therapy Disease Management - Anticoagulation Patient: Anay Richardson | : 1945 Subjective Patient-Reported Symptoms: Patient Findings Negatives: Signs/symptoms of thrombosis, Signs/symptoms of bleeding, Change in health, Change in alcohol use, Change in activity, Upcoming invasive procedure, Missed doses, Extra doses, Change in medications, Change in diet/appetite, Bruising Objective Current Warfarin Dose As of 10/06/2023 Warfarin maintenance plan: 7.5 mg (5 mg x 1.5) every Mon; 5 mg (5 mg x 1) all other days INR Result As of 10/06/2023 INR goal: 2.0-3.0 INR used for dosin.1 (10/06/2023) Assessment & Plan Warfarin Plan As of 10/06/2023 Full warfarin instructions: 7.5 mg every Mon; 5 mg all other days No change documented: Callie Wynn RPh Next INR check: 11/18/2023 Repeat PT/INR in 6 week(s) Weekly dose: not changed Additional Dosing Information: Callie Wynn [facility] Clinical Pharmacist 10/06/2023, 10:49 AM documented in this encounter Plan of Treatment Upcoming Encounters Date Type Department Care Team (Late st Contact Info) Description 11/18/2023 11:30 AM EDT Anticoagulation Pharmacy, [address] [place] [address] [place] [facility] [address] [place] [facility] [place] [address] 01/02/2024 11:00 AM EDT Office Visit Family [facility], [place] [address] [facility] [phone] Krystyna Marino MD [address] [facility] [address] 03/01/2024 2:20 PM EDT Office Visit Nephrology, [address] [place] [address] Drake Jha MD [address] [place] [address] 03/12/2024 11:00 AM EDT Cardiac Studies Cardiac Studies, [facility] [address] [facility], [place] [address] 03/20/2024 11:00 AM EDT Office Visit Cardiology, [facility] [address] [place] [address] Lise Goldman CRNP [address] [place] [address] 07/27/2024 1:00 PM EST Nurse Only Ancillary Department, [address] [address] [place], [facility] Wellness [address] [place] [address] 08/21/2024 10:30 AM EST Office Visit Sleep Disorders Ctr [facility] [address] [place] [phone] Madeline Schaffer CRNP [address] [place] [address] Health Maintenance Due Date Last Done Comments DISCUSS TOBACCO CESSATION (REFER TO SMARTSET #3291) 1945 Alpha-1 Antitrypsin 1962 Zoster Vaccines (1 of 2) 1994 *COPD SEVERITY VERIFIED BY PFT 07/07/2022 COVID-19 Vaccine ( season) 2023 02/06/2021, 01/17/2021 GFR 01/02/2024 07/04/2023, 12/0 07/2022, 03/01/2023, Additional history exists Albumin/Creatinine Ratio 01/07/2024 023, 04/09/2022, 12/04/2018 CKD HGB USE SMARTSET 81335 07/04/202407/04, 07/04/2023, 03/22/2023, Additional history exists CKD PHOS USE SMARTSET 55447 07/04/2024/0 01/2024, 03/30/2022, 08/06/2021, Additional history exists TSH 07/04/2024 07/04/2023, 07/12/2022, 09/14/2022, Additional history exists Depression Screening 07/25/2024 [...] this encounter Medical Devices Implanted Type Area Audio Visual Production Specialist Device Identifier Shelf Expiration Date Model / Serial / Lot Sut Steel 6 M654g - [id number] [place]planted:Qty[place] 4 [place] 07[place]06[place] [facility] [place]: Chest DO NOT USE 01/24/2018 M654G / / [id number] Valve Heart Mitral Epic 27mm - [id number] Implanted:Qty: 1 on 07/06/2013 [place] [facility] [place] N/A: Heart [place] : CARDIOVASCULAR 11/01/2014 [id number] 0 / [id number] / Valve Heart Aortic Epic 23mm - [id number] Implanted:Qty: 1 on 07/06/2013 [place] [facility] [place] N/A: Heart [place] : CARDIOVASCULAR 11/21/2016 [id number] / [id number] / Graft Gelweave 28x12.5 [id number] - [id number] Implanted:Qty: 1 on 07/06/2013 [place] [facility] [place]/A: Aorta [employer] : CARDIO SYS 12/04/2017 [id number] / [id number] / [id number] Sut Steel 6 M654g - [id number] Implanted:Qty: 6 on 07/06/2013 at [place] [facility] [place] N/A: Chest DO NOT USE 01/24/2018 M654G / / [id number] documented as of this encounter Procedures Procedure Name Priority Date/Time Associated Diagnosis Comments INR FINGERSTICK, POINT OF CARE STAT 10/06/2023 10:55 AM EDT S/P mitral valve replacement Anticoagulation management encounter technician terminal and repeater current use of anticoagulant therapy documented in this encounter Results * INR FINGERSTICK, POINT OF CARE (10/06/2023 10:55 AM EDT) Fingerstick INR 2.1 INR 10:57 AM EDT [facility] Blood 10/06/2023 10:5 5 AM EDT 10/06/2023 10:57 AM EDT Narrative [facility]-01 - 10/06/2023 10:57 AM EDT Therapeutic ranges for non-operative patients: Prophylaxsis/treatment of DVT: (Range:2.0-3.0) Treatment of pulmonary embolism:(Range:2.0-3.0) Prevention of systemic embolism from: -tissue heart valves -acute myocardial infarction -valvular heart disease -atrial fibrillation (Range: 2.0-3.0) Mechanical prosthetic valves: (Range: 2.5-3.5) Callie Wynn [facility] LAB POINT OF CARE TEST DOCKED DEVICE UNSOLICITED RESULTS [facility] [address] [place] [address] documented in this encounter Visit Diagnoses Diagnosis S/P mitral valve replacement- Primary Heart valve replaced by other means Anticoagulation management encounter Encounter for therapeutic drug monitoring Paroxysmal atrial fibrillation (HCC) Atrial fibrillation S/P AVR (aortic valve replacement) Heart valve replaced by other means technician terminal and repeater current use of anticoagulant therapy documented in this encounter Advance Directives Latest Code Status on File Code Status Date Activated Date Inactivated Comments Full Code 11/01/2014 7:36 AM 11/01/2014 2:03 PM This or aleyda reflects the patients wishes and were consensually agreed upon. Code Status History Code Status Date Activated Date Inactivated Comments Full Code 08/26/2013 3:14 PM 09/04/2013 5:07 PM This o rder reflects the patients wishes and were consensually agreed upon. Question Answer Comments Discussion of Advance Directives occurred with: Patient Does the patient have a Living Will? No Does the patient have Health Care Power of Research Food Technologist? No Full Code 07/23/2013 5:32 AM 07/27/2013 10:52 PM This order reflects the patients wishes and were consensually agreed upon. Question Answer Comments Discussion of Advance Directives occurred with: Patient Does the patient have a Living Will? No Does the patient have Health Care Power of Research Food Technologist? No Full Code 07/06/2013 12:34 PM 07/14/2013 6:30 PM This order reflects the patients wishes and were consensually agreed upon. Care Teams Application Integration Engineer Relationship Specialty Start Date End Date Krystyna Marino MD [address] [place] [address] PCP - General Internal Medicine 04/19/22 documented as of this encounter"
--- OUTSIDE RECORDS SUMMARY | 2024-01-05 03:14 | External Medical Summary | Summary of Care ---
Author Name Unknown Organization [facility] Address [address] [place] [address] Phone [phone] Care Team Providers Care Lathe Machine Operator Name Role Phone Krystyna Marino MD Primary Care Provider [phone] Reason for Visit * Reason Onset Date Comments Order Request 10/27/2023 Encounter Details Date Type Department Care Team (Late st Contact Info) Description 10/27/2023 Telephone [facility] [address] [place] [address] Krystyna Marino MD [address] [place] [address] Order Request Allergies No known active allergiesdocumented as of this encounter (statuses as of 10/27/2023) Medications Medication Sig Dispensed Refills Start Date [...] ns:HTN, goal below 140/90,Coronary artery disease involving [place] coronary artery of [place] heart without angina pectoris,S/P AVR (aortic valve replacement),S/P mitral valve replacement Take 1 Tablet by mouth in the morning. 90 Tablet 3 09/13/2023 Active documented as of this encounter (statuses as of 10/27/2023) Active Problems Problem Noted Date Diagnosed Date Stage 3b chronic kidney disease 08/11/2023 COPD, group A, by GOLD 2017 classification 08/08 Overview: Per COPD GOLD Classification Anticoagulation management encounter 11/08/2022 Varicose veins of both lower extremities 022 DDD (degenerative disc disease), lumbar 04/19/20 22 Malignant neoplasm of right breast in female, estrogen receptor positive 04/19/2022 Coronary artery disease invo lving [place] coronary artery of [place] heart without angina pectoris 02/20/2021 Benign hypertension [...] as of this encounter (statuses as of 10/27/2023) Resolved Problems Problem Noted Date Diagnosed Date [...] as of this encounter (statuses as of 10/27/2023) Immunizations Name Administration Dates Next Due COVID-19 [...] Telephone Encounter - Krystyna Marino MD - 10/27/2023 2:17 PM EDT Order it * Telephone Encounter - Colette Burt OSA - 10/27/2023 2:15 PM EDT Could you please place a Mammogram Screening CAR[place] Bilateral order for patient. She is currently scheduled for her yearly exam. Thank you Radiology Scheduling documented in this encounter Plan of Treatment Upcoming Encounters Date Type Department Care Team (Late st Contact Info) Description 11/18/2023 11:30 AM EDT Anticoagulation Pharmacy, [place] [address] [place] [address] [facility] [address] [place] [address] 11/25/2023 11:15 AM EDT Imaging Radiology [facility] 1st [facility] [address] [facility] [place] [address] 01/02/2024 11:00 AM EDT Office Visit Family [facility], [place] [address] [place] [phone] Krystyna Marino MD [address] [place] [address] 03/01/2024 2:20 PM EDT Office Visit Nephrology, [place] [address] [place] [address] Drake Jha MD [address] [place] [address] 03/12/2024 11:00 AM EDT Cardiac Studies Cardiac Studies, [facility] [address] [facility] [place] [address] 03/20/2024 11:00 AM EDT Office Visit Cardiology, [facility] [address] [facility] [place] [address] Lise Goldman CRNP 132 [facility] [place] [address] 07/27/2024 1:00 PM EST Nurse Only Ancillary Department, [place] [address] [facility] [address] [place], Nurse [facility] [address] [facility] [place] [address] 08/21/2024 10:30 AM EST [facility] [address] [place] [phone] Madeline Schaffer CRNP [address] [place] [address] Scheduled Orders Name Type Priority Associated Diagnoses Orde r Schedule MAMMOGRAM SCREENING CARLOTTA BILATERAL Medical Imaging Routine Encounter for screening mammogram for breast cancer Expected: 10/27/2023, Expires: 11/26/2024 Health Maintenance Due Date Last Done Comments DISCUSS TOBACCO CESSATION (REFER TO SMARTSET #3291) 1945 Alpha-1 Antitrypsin 1962 Zoster Vaccines (1 of 2) 1994 *COPD SEVERITY VERIFIED BY PFT 07/07/2022 COVID-19 Vaccine ( season) 2023 02/06/2021, 01/17/2021 GFR 01/02/2024 07/04/2023, 07/2022, 03/01/2023, Additional history exists Albumin/Creatinine Ratio 01/07/2024 023, 04/09/2022, 12/04/2018 CKD HGB USE SMARTSET 59285 07/04/202407/04, 07/04/2023, 03/22/2023, Additional history exists CKD PHOS USE SMARTSET 24317 07/04/202401/2024, 03/30/2022, 08/06/2021, Additional history exists TSH [...] this encounter Medical Devices Implanted Type Area Methods Analyst Device Identifier Shelf Expiration Date Model / Serial / Lot Sut Steel 6 M654g - [id number] Implanted:Qty: 4 on 07/06/2013 at OR [facility] N/A: Chest DO NOT USE 01/24/2018 M654G / / [id number] Valve Heart Mitral Epic 27mm - [id number] Implanted:Qty: 1 on 07/06/2013 at OR [facility] N/A: Heart [place] : CARDIOVASCULAR 11/01/2014 [id number]-5 0 / [id number] / Valve Heart Aortic Epic 23mm - [id number] Implanted:Qty: 1 on 07/06/2013 at OR [facility] N/A: Heart [place] : CARDIOVASCULAR 11/21/2016 [id number] 00 / [id number] / Graft Gelweave 28x12.5 [id number] - [id number] Implanted:Qty: 1 on 07/06/2013 at OR [facility] N/A: Aorta [employer] : CARDIO SYS 12/04/2017 [id number] / [id number] / [id number] Sut Steel 6 M654g - [id number] Implanted:Qty: 6 on 07/06/2013 at OR [facility] N/A: Chest DO NOT USE 01/24/2018 M654G / / [id number] documented as of this encounter Visit Diagnoses Diagnosis Encounter for screening mammogram for breast cancer- Primary documented in this encounter Advance Directives Latest [...] the patient have Health Care Power of Mill [place]? No Full Code 07/23/2013 5:32 AM 07/27/2013 10:52 PM This order reflects the patients wishes and were consensually agreed upon. Question Answer Comments Discussion of Advance Directives occurred with: Patient Does the patient have a Living Will? No Does the patient have Health Care Power of Mill Hand? No Full Code 07/06/2013 12:34 PM 07/14/2013 6:30 PM This order reflects the patients wishes and were consensually agreed upon. Care Teams Lathe Machine Operator Relationship Specialty Start Date End Date Krystyna Marino MD [address] [facility] [address] PCP - General Internal Medicine 04/19/22 documented as of this encounter
--- OUTSIDE RECORDS SUMMARY | 2024-01-05 03:14 | External Medical Summary | Summary of Care ---
Author Name Unknown Organization [facility] Address [address] [place] [address] Phone [phone] Care Team Providers Care Operator Cavity Pump Name Role Phone Krystyna Marino MD Primary Care Provider [phone] Reason for Visit * Reason Onset Date Comments Appointment 08/08/2023 Nephrology appt needs to be rescheduled. Encounter Details Date Type Department Care Team ([facility] st Contact Info) Description 08/08/2023 Telephone [facility] [address] [place] [address] Krystyna Marino MD [address] [place] [address] Appointment (Nephrology appt needs to be r... Allergies No known active allergiesdocumented as of this encounter (statuses as of 11/07/2023) Medications Medication Sig Dispensed Refills Start Date [...] the morning. 90 Tablet 3 05/16/2023 Active documented as of this encounter (statuses as of 11/07/2023) Active Problems Problem Noted Date Diagnosed Date Stage 3b chronic kidney disease 08/11/2023 COPD, group A, by GOLD 2017 classification 08/08 Overview: Per COPD GOLD Classification Anticoagulation management encounter 11/08/2022 Varicose veins of both lower extremities 022 DDD (degenerative disc disease), lumbar 04/19/20 22 Malignant neoplasm of right breast in female, estrogen receptor positive 04/19/2022 Coronary artery disease invo lving [place] coronary artery of [place] heart without angina pectoris 02/20/2021 Benign hypertension [...] as of this encounter (statuses as of 11/07/2023) Resolved Problems Problem Noted Date Diagnosed Date [...] as of this encounter (statuses as of 11/07/2023) Immunizations Name Administration Dates Next Due COVID-19 [...] Passive Smoke Exposure: Current Smokeless Tobacco: Never Comments:smokes 2-3 cigarett es per day, smokes and quits Alcohol Use Standard Drinks/Week Comments No 0 [...] encounter Miscellaneous Notes * Telephone Encounter - Cale Macdonald OSA - 08/08/2023 2:15 PM EST Reason for patient's call: Patient is calling to reschedule her Nephrology Caller was transferred to [facility] at the nurse line. documented in this encounter Plan of Treatment Upcoming Encounters Date Type Department Care Team (Late st Contact Info) Description 11/18/2023 11:30 AM EDT [address] [address] [facility] [address] [facility] [address] 11/25/2023 11:15 AM EDT Imaging Radiology [facility] 1st [facility] [address] [facility] [place] [address] 01/02/2024 11:00 AM EDT Office Visit Family Practice, [place] [address] [facility] [phone] Krystyna Marino MD [address] [facility] [address] 03/01/2024 2:20 PM EDT Office Visit Nephrology, [facility] [address] [facility] [place] [address] Drake Jha MD [address] [facility] [place] [address] 03/12/2024 11:00 AM EDT Cardiac Studies Cardiac Studies, [facility] [address] [facility] [place] [address] 03/20/2024 11:00 AM EDT Office Visit Cardiology, [facility] [address] Lise Goldman CRNP [address] [facility] [place] [address] 07/27/2024 1:00 PM EST Nurse Only Ancillary Department, [place] [address] [facility] [address] [place], Nurse [facility] [address] [facility] [address] 08/21/2024 10:30 AM EST Office Visit Sleep Disorders Ctr [facility] 132 [facility] [place] [address] Madeline Schaffer CRNP [address] [place] [address] Health Maintenance Due Date Last Done Comments DISCUSS TOBACCO CESSATION (REFER TO SMARTSET #2064) 1945 Alpha-1 Antitrypsin 1962 Zoster Vaccines (1 of 2) 1994 *COPD SEVERITY VERIFIED BY PFT 07/07/2022 COVID-19 Vaccine ( season) 2023 02/06/2021, 01/17/2021 GFR 01/02/2024 07/04/2023, 07/2022, 03/01/2023, Additional history exists Albumin/Creatinine Ratio 01/07/2024 023, 04/09/2022, 12/04/2018 CKD HGB USE SMARTSET 92561 07/04/202407/04, 07/04/2023, 03/22/2023, Additional history exists CKD PHOS USE SMARTSET 28989 07/04/20240 01/2024, 03/30/2022, 08/06/2021, Additional history exists [...] this encounter Medical Devices Implanted Type Area Roustabout Crew Leader Device Identifier Shelf Expiration Date Model / Serial / Lot Sut Steel 6 M654g - [id number] Implanted:Qty: 4 on 07/06/2013 at OR [facility] N/A: Chest DO NOT USE 01/24/2018 M654G / / [id number] Valve Heart Mitral Epic 27mm - [id number] Implanted:Qty: 1 on 07/06/2013 at OR [facility] N/A: Heart [place] : CARDIOVASCULAR 11/01/2014 [id number]-7 0 / [id number] / Valve Heart Aortic Epic 23mm - [id number] Implanted:Qty: 1 on 07/06/2013 at OR [facility] N/A: Heart [place] : CARDIOVASCULAR 11/21/2016 [id number] / [id number] / Graft Gelweave 28x12.5 [id number] - [id number] Implanted:Qty: 1 on 07/06/2013 at OR [facility] N/A: Aorta [employer] : CARDIO SYS 12/04/2017 [id number] / [id number] / [id number] Sut Steel 6 M654g - [id number] Implanted:Qty: 6 on 07/06/2013 at OR [facility] N/A: Chest DO NOT USE 01/24/2018 M654G / / [id number] documented as of this encounter Advance Directives Latest Code Status [...] the patient have Health Care Power of Therapist? No Full Code 07/23/2013 5:32 AM 07/27/2013 10:52 PM This order reflects the patients wishes and were consensually agreed upon. Question Answer Comments Discussion of Advance Directives occurred with: Patient Does the patient have a Living Will? No Does the patient have Health Care Power of Therapist? No Full Code 07/06/2013 12:34 PM 07/14/2013 6:30 PM This order reflects the patients wishes and were consensually agreed upon. Care Teams Operator Cavity Pump Relationship Specialty Start Date End Date Krystyna Marino MD [address] [place] [address] PCP - General Internal Medicine 04/19/22 documented as of this encounter
--- OUTSIDE RECORDS SUMMARY | 2024-01-05 03:14 | External Medical Summary ---
Author Name Unknown Address Unknown Organization K01:[facility] - [address] [place] [facility] [place] [address] Laboratory Report Ordering Provider Test Date Status SAUMYA LIAO 01/02/2024 11:42:46 Final Observation Date Value Abnormality Reference (Units ) Status BUN 01/02/2024 11:42:46 18 6-20 (mg/dL) Final Creatinine 01/02/2024 11:42:46 1.7 Above high normal 0.5-1.0 (mg/dL) Final Glomerular filtration rate/1.73 sq M.predicted [Volume Rate/Area] in Serum, Plasma or Blood by Creatinine-based formula (CKD-EPI) 01/02/2024 11:42:46 30 Below low normal >=60 (mL/min) Final eGFR is calculated based on the CKD-EPI 2020 equation Sodium 01/02/2024 11:42:46 133 Below low normal 135 -146 (mmol/L) Final Potassium 01/02/2024 11:42:46 4.5 3.5-5.1 (m mol/L) Final Cl 01/02/2024 11:42:46 97 Below low normal 98- 107 (mmol/L) Final CO2 01/02/2024 11:42:46 25 22-32 (mmo l/L) Final Anion gap 01/02/2024 11:42:46 11 7-15 (mmol /L) Final Glucose 01/02/2024 11:42:46 96 70-120 (mg /dL) Final Albumin 01/02/2024 11:42:46 4.0 3.8-5.0 (g /dL) Final AST (Aspartate aminotransferase) 01/02/2024 11:42:46 30 10-35 (U/L) Fin al Alk Phos 01/02/2024 11:42:46 46 35-130 (U/ L) Final Bilirubin, Total 01/02/2024 11:42:46 0.3 <=1 .2 (mg/dL) Final Calcium 01/02/2024 11:42:46 9.5 8.4-10.2 ( mg/dL) Final Protein 01/02/2024 11:42:46 7.1 6.0-8.3 (g /dL) Final ALT (Alanine aminotransferase) 01/02/2024 11:42:46 21 10-35 (U/L) Ken armijo Performing Location [facility] - [facility] N Mikhail Salazar. [facility] [address]
--- OUTSIDE RECORDS SUMMARY | 2024-01-05 03:14 | External Medical Summary | Summary of Care ---
Author Name Unknown Organization [facility] Address [address] [place] [address] Phone [phone] Care Team Providers Care Devops Solutions Architect Name Role Phone Krystyna Marino MD Primary Care Provider [phone] Reason for Visit * Reason Comments eRx-Medication Refill Encounter Details Date Type Department Care Team (Late st Contact Info) Description 11/14/[address] [facility] [address] [place] [address] Krystyna Marino MD [address] [place] [address] Allergies No known active allergiesdocumented as of this encounter (statuses as of 11/15/2023) Medications Medication Sig Dispensed Refills Start Date [...] ons:HTN, goal below 140/90,Coronary artery disease involving [place] coronary artery of [place] heart without angina pectoris,S/P AVR (aortic valve [...] as of this encounter (statuses as of 11/15/2023) Active Problems Problem Noted Date Diagnosed Date Stage 3b chronic kidney disease 08/11/2023 COPD, group A, by GOLD 2017 classification 08/08 Overview: Per COPD GOLD Classification Anticoagulation management encounter 11/08/2022 Varicose veins of both lower extremities 022 DDD (degenerative disc disease), lumbar 04/19/20 22 Malignant neoplasm of right breast in female, estrogen receptor positive 04/19/2022 Coronary artery disease invo lving [place] coronary artery of [place] heart without angina pectoris 02/20/2021 Benign hypertension [...] as of this encounter (statuses as of 11/15/2023) Resolved Problems Problem Noted Date Diagnosed Date [...] as of this encounter (statuses as of 11/15/2023) Immunizations Name Administration Dates Next Due COVID-19 [...] KRYSTYNA MARINO * Telephone Encounter - Richar Andrade, [facility] - 11/15/2023 2:43 PM EDTPending Prescriptions: Disp Refills Anoro Ellipta 62.5-25 MCG/ACT Inhalation A*90 Bli*3 Sig: INHALE 1 PUFF BY MOUTH IN THE MORNING (BULK) Albuterol Sulfate HFA 108 (90 Base) MCG/AC*18 g 1 Sig: Inhale 2 Puffs by mouth every 6 hours as needed for Shortness of Breath. Electronically signed by Richar Andrade, [facility] at 11/15/2023 2:43 PM EDT * Telephone Encounter - Richar Andrade, [facility] - 11/15/2023 2:41 PM EDT Refill pharmacists cannot approve long acting asthma/COPD (Anoro) medications without a short acting albuterol on file within the last year. Orders for approval for both are pended. Thank You, Richar Herrera [facility] Clinical Pharmacist [facility] ([facility]) (formerly Telepharmacy) 11/15/2023, 2:41 PM Electronically signed by Richar Andrade [facility] at 11/15/2023 2:43 PM EDT * Telephone Encounter - Richar Andrade [facility] - 11/15/2023 2:39 PM EDT Pending Prescriptions: [...] medication was ordered: 04/18/23 Pharmacy: [facility] [address] [place] Is this request for a [...] 11:05 AM HGBA1C 4.9 08/26/2013 03:35 PM Electronically signed by Richar Andrade [facility] at 11/15/2023 2:43 PM EDT documented in this encounter Plan of Treatment Upcoming Encounters Date Type Department Care Team (Late st Contact Info) Description 11/18/2023 11:30 AM EDT [facility]ticoagulation Pharmacy, [place] [address] [facility] [address] [facility] [address] [facility] [address] 11/25/2023 11:15 AM EDT Imaging Radiology [facility] [address] [facility] [place] [address] 01/02/2024 11:00 AM EDT Office Visit Family Practice, [place] [address] [facility] [phone] Krystyna Marino MD [address] [facility] [address] 03/01/2024 2:20 PM EDT Office Visit Nephrology, [place] [address] [facility] [place] [address] Drake Jha MD [address] [facility] [place] [address] 03/12/2024 11:00 AM EDT Cardiac Studies Cardiac Studies, [facility] [address] [facility] [place] [address] 03/20/2024 11:00 AM EDT Office Visit Cardiology, [facility] [address] [facility] [place] [address] Lise Goldman CRNP [facility] [place] [address] 07/27/2024 1:00 PM EST Nurse Only Ancillary Department, [place] [address] [facility] [address] Trina Nurse [facility] [address] [place] [address] 08/21/2024 10:30 AM EST Office Visit Sleep Disorders Ctr [facility] [address] [place] [phone] Madeline Schaffer CRNP [address] [place] [address] Health Maintenance Due Date Last Done Comments DISCUSS TOBACCO CESSATION (REFER TO SMARTSET #329) 1945 Alpha-1 Antitrypsin 1962 Zoster Vaccines (1 of 2) 1994 *COPD SEVERITY VERIFIED BY PFT 07/07/2022 COVID-19 Vaccine ( season) 2023 02/06/2021, 01/17/2021 GFR 01/02/2024 07/04/2023, 1207/2022, 03/01/2023, Additional history exists Albumin/Creatinine Ratio 01/07/2024 023, 04/09/2022, 12/04/2018 CKD HGB USE SMARTSET 39772 07/04/202407/04, 07/04/2023, 03/22/2023, Additional history exists CKD PHOS USE SMARTSET 04114 07/04/20240 01/2024, 03/30/2022, 08/06/2021, Additional history exists TSH 07/04/2024 07/04/2023, 0712/2022, 09/14/2022, Additional history exists Depression Screening 07/25/2024 [...] this encounter Medical Devices Implanted Type Area Hand Rug Cleaner Device Identifier Shelf Expiration Date Model / Serial / Lot Sut Steel 6 M654g - [id number] Implanted:Qty: 4 on 07/06/2013 at OR [facility] N/A: Chest DO NOT USE 01/24/2018 M654G / / [id number] Valve Heart Mitral Epic 27mm - [id number] Implanted:Qty: 1 on 07/06/2013 at OR [facility] N/A: Heart [place] : CARDIOVASCULAR 11/01/2014 J091-38M-3 0 / [id number] / Valve Heart Aortic Epic 23mm - [id number] Implanted:Qty: 1 on 07/06/2013 at OR [facility] N/A: Heart [place] : CARDIOVASCULAR 11/21/2016 [id number]- 00 / [id number] / Graft Gelweave 28x12.5 [id number] - [id number] Implanted:Qty: 1 on 07/06/2013 at OR [facility] N/A: Aorta [facility] : CARDIO SYS 12/04/2017 [id number] / [id number] / [id number] Sut Steel 6 M654g - [id number] Implanted:Qty: 6 on 07/06/2013 at OR [facility] N/A: Chest DO NOT USE 01/24/2018 M654G / / [id number] documented as of this encounter Advance Directives [...] and were consensually agreed upon. Care Teams Devops Solutions Architect Relationship Specialty Start Date End Date Krystyna Marino MD [address] [place] [address] PCP - General Internal Medicine 04/19/22 documented as of this encounter
--- OUTSIDE RECORDS SUMMARY | 2024-01-05 03:15 | External Medical Summary | Summary of Care ---
Author Name Unknown Organization [facility] Address [address] [facility] [place] [address] Phone [phone] Care Team Providers Care Car Escort Name Role Phone Krystyna Marino MD Primary Care Provider [phone] Reason for Visit * Reason Onset Date Comments Administrative Follow-Up 08/23/2023 Jesús pae download report Encounter Details Date Type Department Care Team (Late st Contact Info) Description 08/23/2023 Telephone [facility] [address] [place] [address] Madeline Schaffer CRNP [address] [place] [address] Administrative Follow-Up (Compliance downl... Allergies No known active allergiesdocumented as of this encounter (statuses as of 09/19/2023) Medications Medication Sig Dispensed Refills Start Date [...] mouth in the morning. 90 Each 3 3 Active Atorvastatin Calcium 10 MG [...] ons:HTN, goal below 140/90,Coronary artery disease involving [place] coronary artery of [place] heart without angina pectoris,S/P AVR (aortic valve replacement),S/P mitral valve replacement Take 1 Tablet by mouth in the morning. 90 Tablet 3 4 09/13/19 24 Discontinu ed(Refill) documented as of this encounter (statuses as of 09/19/2023) Active Problems Problem Noted Date Diagnosed Date Stage 3b chronic kidney disease 08/11/2023 COPD, group A, by GOLD 2017 classification 08/08 Overview: Per COPD GOLD Classification Anticoagulation management encounter 11/08/2022 Varicose veins of both lower extremities 022 DDD (degenerative disc disease), lumbar 04/19/20 22 Malignant neoplasm of right breast in female, estrogen receptor positive 04/19/2022 Coronary artery disease invo lving [place] coronary artery of [place] heart without angina pectoris 02/20/2021 Benign hypertension [...] as of this encounter (statuses as of 09/19/2023) Resolved Problems Problem Noted Date Diagnosed Date [...] as of this encounter (statuses as of 09/19/2023) Immunizations Name Administration Dates Next Due COVID-19 [...] encounter Miscellaneous Notes * Telephone Encounter - Daisy Ragsdale LPN - 09/19/2023 11:06 AM EDT Pt aware of below info. NPO was already sent to 09/14/23. Order for pressure change has been faxed to [employer] * Telephone Encounter - Daisy Ragsdale LPN - 09/19/2023 10:01 AM EDT Left a message for the pt to return phn call to the office. * Telephone Encounter - Huma Herrera LPN - 09/14/2023 1:41 PM EDT LM asking pt to return call. * Telephone Encounter - Madeline Schaffer CRNP - 09/14/2023 8:54 AM EDT 30 day report ending 08/23/2023 % total days used: 93 % days used > 4 hours: 93 Average hours per day used: 7 hours 16 mins Large leak: 41 L/min AHI: 0.2 Pressures: median 10, p95% 12 on 8-20 cm H2O Please let her know that data was reviewed. There are periods of high leak. Assure that mask cushion is changed every 2-4 weeks, headgear every6 months. If there is room to tighten the mask, please advise this to be done. Orders placed: Adjust to aPAP 10-20, ramp to remain on 5 Overnight oximetry ordered on new settings with corresponding detailed PAP data requested (wait a full day after testing, then remove the SD card and turn it in with the oximeter after completing testing). * Telephone Encounter - Huma Herrera LPN - 09/13/2023 6:58 AM EDT DL obtained and given to provider for her review. * Telephone Encounter - Daisy Ragsdale LPN - 09/06/2023 11:54 AM EDT An email has been sent to [facility] to check for a current DL * Telephone Encounter - Shalini Fagan OSA - 09/05/2023 3:12 PM EDT Pt stated that she mailed her SD card last month. * Telephone Encounter - Daisy Ragsdale LPN - 09/01/2023 9:47 AM EST Left a message for the pt to return phn call to the office. Need to know if the pt mailed her SD card to the DME yet * Telephone Encounter - Madeline Schaffer CRNP - 08/24/2023 8:57 AM EST Noted. Please await download. * Telephone Encounter - Cecile Olivares LPN - 08/23/2023 9:39 AM EST Received faxed encounter from [employer] regarding our request for patient's compliance download report. Patient has C2C machine therefore patient needs to send her card to them for a manual download. They also called patient and instructed her to mail her card to [address] [place] [address]. documented in this encounter Plan of Treatment Upcoming Encounters Date Type Department Care Team (Late st Contact Info) Description 10/06/2023 11:00 AM EDT Anticoagulation Pharmacy[address] [address] [facility] [address] [place] [address] 01/02/2024 11:00 AM EDT Office Visit [facility], [place] [address] [place] [address] Krystyna Marino MD [address] [place] [address] 03/01/2024 2:20 PM EDT Office Visit Nephrology, [place] [address] [place] [address] Drake Jha MD [address] [facility] [place] [address] 03/12/2024 11:00 AM EDT Cardiac Studies Cardiac Studies, [facility] 132 [facility] [place] [address] 03/20/2024 11:00 AM EDT Office Visit Cardiology, [facility] [address] [place] [address] Lise Goldman CRNP [facility] [address] 07/27/2024 1:00 PM EST Nurse Only Ancillary Department, [place] [address] [place] [address] [place], Nurse [facility] [address] [place] [address] 08/21/2024 10:30 AM EST Office Visit [facility] [phone] Madeline Schaffer CRNP [address] [facility] [address] Health Maintenance Due Date Last Done Comments DISCUSS TOBACCO CESSATION (REFER TO SMARTSET #3768) 1945 Alpha-1 Antitrypsin 1962 Zoster Vaccines (1 of 2) 1994 *COPD SEVERITY VERIFIED BY PFT 07/07/2022 COVID-19 Vaccine (2022- season) 2023 02/06/2021, 01/17/2021 GFR 01/02/2024 07/04/2023, 12/0 07/2022, 03/01/2023, Additional history exists Albumin/Creatinine Ratio 01/07/2024 023, 04/09/2022, 12/04/2018 CKD HGB USE SMARTSET 41801 07/04/202407/04, 07/04/2023, 03/22/2023, Additional history exists CKD PHOS USE SMARTSET 90121 07/04/20240 01/2024, 03/30/2022, 08/06/2021, Additional history exists [...] this encounter Medical Devices Implanted Type Area Peanut Picker Device Identifier Shelf Expiration Date Model / Serial / Lot Sut Steel 6 M654g - [id number] Implanted:Qty: 4 on [place] [facility] [place]: Chest DO NOT USE 01/24/2018 M654G / / [id number] Valve Heart Mitral Epic 27mm - [id number] Implanted:Qty: 1 on 07/06/2013 [place] [facility] [place] N/A: Heart [place] : CARDIOVASCULAR 11/01/2014 [id number] 0 / [id number] / Valve Heart Aortic Epic 23mm - [id number] Implanted:Qty: 1 on 07/06/2013 [place] [facility] [place] N/A: Heart [place] : CARDIOVASCULAR 11/21/2016 [id number] 00 / [id number] / Graft Gelweave 28x12.5 [id number] - [id number] Implanted:Qty: 1 on 07/06/2013 [place] [facility] [place]/A: Aorta [facility] : CARDIO SYS 12/04/2017 [id number] / [id number] / [id number] Sut Steel 6 M654g - [id number] Implanted:Qty: 6 on 07/06/2013 [place] [facility] [place]A: Chest DO NOT USE 01/24/2018 M654G / / [id number] documented as of this encounter Advance Directives [...] the patient have Health Care Power of Sales And Distribution Clerk? No Full Code 07/23/2013 5:32 AM 07/27/2013 10:52 PM This order reflects the patients wishes and were consensually agreed upon. Question Answer Comments Discussion of Advance Directives occurred with: Patient Does the patient have a Living Will? No Does the patient have Health Care Power of Sales And Distribution Clerk? No Full Code 07/06/2013 12:34 PM 07/14/2013 6:30 PM This order reflects the patients wishes and were consensually agreed upon. Care Teams Car Escort Relationship Specialty Start Date End Date Krystyna Marino MD [address] [place] [address] PCP - General Internal Medicine 04/19/22 documented as of this encounter
--- OUTSIDE RECORDS SUMMARY | 2024-01-05 03:15 | External Medical Summary | Summary of Care ---
Author Name Unknown Organization [facility] Address [address] [place] [address] Phone [phone] Care Team Providers Care Receiver Setter Name Role Phone Krystyna Marino MD Primary Care Provider [phone] Reason for Visit * Reason Comments eRx-Medication Refill Encounter Details Date Type Department Care Team (Late st Contact Info) Description 09/23/2023 Refill [facility] [address] [place] [address] Krystyna Marino MD [address] [place] [address] Allergies No known active allergiesdocumented as of this encounter (statuses as of 09/23/2023) Medications Medication Sig Dispensed Refills Start Date [...] ns:HTN, goal below 140/90,Coronary artery disease involving [place] coronary artery of [place] heart without angina pectoris,S/P AVR (aortic valve replacement),S/P mitral valve replacement Take 1 Tablet by mouth in the morning. 90 Tablet 3 09/13/2023 Active documented as of this encounter (statuses as of 09/23/2023) Active Problems Problem Noted Date Diagnosed Date Stage 3b chronic kidney disease 08/11/2023 COPD, group A, by GOLD 2017 classification 08/08 Overview: Per COPD GOLD Classification Anticoagulation management encounter 11/08/2022 Varicose veins of both lower extremities 022 DDD (degenerative disc disease), lumbar 04/19/20 22 Malignant neoplasm of right breast in female, estrogen receptor positive 04/19/2022 Coronary artery disease invo lving [place] coronary artery of [place] heart without angina pectoris 02/20/2021 Benign hypertension [...] as of this encounter (statuses as of 09/23/2023) Resolved Problems Problem Noted Date Diagnosed Date [...] as of this encounter (statuses as of 09/23/2023) Immunizations Name Administration Dates Next Due COVID-19 [...] encounter Miscellaneous Notes * Telephone Encounter - Savannah Krause [facility] - 09/23/2023 5:23 PM EDTRefused Prescriptions: Disp Refills Anoro Ellipta 62.5-25 MCG/ACT Inhalation A*90 Bli*11 Sig: INHALE 1 PUFF BY MOUTH IN THE MORNING (BULK)Refused By: SAVANNAH KRAUSEeason for Refusal: Too soon--- documented in this encounter Plan of Treatment Upcoming Encounters Date Type Department Care Team (Late st Contact Info) Description 10/06/2023 11:00 AM EDT Anticoagulation Pharmacy, [place] [address] [place] [address] [facility] [address] [place] [facility] [place] [address] 01/02/2024 11:00 AM EDT Office Visit Family [facility], [place] [address] [place] [facility] [place] [address] Krystyna Marino MD [address] [place] [address] 03/01/2024 2:20 PM EDT Office Visit Nephrology, [facility] [address] [place] [address] Drake Jha MD 200 [facility] [place] [address] 03/12/2024 11:00 AM EDT Cardiac Studies Cardiac Studies, [facility] 132 [facility] [place] [address] 03/20/2024 11:00 AM EDT Office Visit Cardiology, [facility] [address] [facility] [place] [address] Lise Goldman CRNP [address] [place] [address] 07/27/2024 1:00 PM EST Nurse Only Ancillary Department, [place] [address] [facility] [place] [address] [place], Nurse [facility] [address] [place] [address] 08/21/2024 10:30 AM EST Office Visit Sleep Disorders Ctr [facility] [address] [place] [phone] Madeline Schaffer CRNP [address] [place] [address] Health Maintenance Due Date Last Done Comments DISCUSS TOBACCO CESSATION (REFER TO SMARTSET #3291) 1945 Alpha-1 Antitrypsin 1962 Zoster Vaccines (1 of 2) 1994 *COPD SEVERITY VERIFIED BY PFT 07/07/2022 COVID-19 Vaccine ( season) 2023 02/06/2021, 01/17/2021 GFR 01/02/2024 07/04/2023, 07/2022, 03/01/2023, Additional history exists Albumin/Creatinine Ratio 01/07/2024 023, 04/09/2022, 12/04/2018 CKD HGB USE SMARTSET 85803 07/04/202407/04, 07/04/2023, 03/22/2023, Additional history exists CKD PHOS USE SMARTSET 53431 07/04/202401/2024, 03/30/2022, 08/06/2021, Additional history exists TSH [...] this encounter Medical Devices Implanted Type Area Parole Hearing Officer Device Identifier Shelf Expiration Date Model / Serial / Lot Sut Steel 6 M654g - [id number] Implanted:Qty: 4 on 07/06/2013 [place] [facility] [place]A: Chest DO NOT USE 01/24/2018 M654G / / [id number] Valve Heart Mitral Epic 27mm - [id number] Implanted:Qty: 1 on 07/06/2013 at [place] [facility] [place] N/A: Heart [place] : CARDIOVASCULAR 11/01/2014 [id number]-6 0 / [id number] / Valve Heart Aortic Epic 23mm - [id number] Implanted:Qty: 1 on 07/06/2013 [place] [facility] [place] N/A: Heart [place] : CARDIOVASCULAR 11/21/2016 [id number] / [id number] / Graft Gelweave 28x12.5 [id number] - [id number] Implanted:Qty: 1 on 07/06/2013 at [place] [facility] [place]/A: Aorta [employer] : CARDIO SYS 12/04/2017 [id number] / [id number] / [id number] Sut Steel 6 M654g - [id number] Implanted:Qty: 6 on 07/06/2013 at [place] [facility] [place]/A: Chest DO NOT USE 01/24/2018 M654G / / [id number] documented as of this encounter Advance Directives [...] the patient have Health Care Power of Retail And Restaurant Associate? No Full Code 07/23/2013 5:32 AM 07/27/2013 10:52 PM This order reflects the patients wishes and were consensually agreed upon. Question Answer Comments Discussion of Advance Directives occurred with: Patient Does the patient have a Living Will? No Does the patient have Health Care Power of Retail And Restaurant Associate? No Full Code 07/06/2013 12:34 PM 07/14/2013 6:30 PM This order reflects the patients wishes and were consensually agreed upon. Care Teams Receiver Setter Relationship Specialty Start Date End Date Krystyna Marino MD [address] [place] [address] PCP - General Internal Medicine 04/19/22 documented as of this encounter
--- OUTSIDE RECORDS SUMMARY | 2024-01-05 03:15 | External Medical Summary | Summary of Care ---
Author Name Unknown Organization [facility] Address [address] [place] [facility] [place] [address] Phone [phone] Care Team Providers Care Clinical Registered Nurse Name Role Phone Krystyna Marino MD Primary Care Provider [phone] Reason for Visit * Reason Onset Date Comments Administrative Follow-Up 08/23/2023 Jesús mie download report Encounter Details Date Type Department Care Team (Late st Contact Info) Description 08/23/2023 [facility] [address] [place] [phone] Madeline Schaffer CRNP [address] [place] [address] Administrative Follow-Up (Compliance downl... Allergies No known [...] ons:HTN, goal below 140/90,Coronary artery disease involving [place] [...] email has been sent to [facility] to check for a current DL [...] 9:39 AM EST Received faxed encounter from [employer] regarding our request for patient's compliance download report. Patient has C2C machine therefore patient needs to send her card to them for a manual download. They also called patient and instructed her to mail her card to [address] [place] [address]. documented in this encounter Plan of Treatment Upcoming Encounters Date Type Department Care Team (Late st Contact Info) Description 10/06/2023 11:00 AM EDT Anticoagulation Pharmacy, [place] [address] [facility] [place] [address] Tr[place] [facility] [address] [place] [address] 01/02/2024 11:00 AM EDT Office Visit Family [facility], [place] [address] [place] [phone] Krystyna Marino MD [address] [place] [address] 03/01/2024 2:20 PM EDT Office Visit Nephrology, [facility] [address] Drake Jha MD [address] [facility], [place] [address] 03/12/2024 11:00 AM EDT Cardiac Studies [facility] Studies, [facility] [place] [address] 03/20/2024 11:00 AM EDT Office Visit Cardiology, [facility] [place] [address] Lise Goldman CRNP [address] [facility] [address] 07/27/2024 1:00 PM EST Nurse Only Ancillary Department, [place] [address] [place] [address] [place], Nurse [facility] [address] [place] [address] 08/21/2024 10:30 AM EST Office Visit Sleep Disorders [facility] 132 [facility] [place] [phone] Madeline Schaffer CRNP [address] [place] [address] Health Maintenance Due Date Last Done Comments DISCUSS TOBACCO CESSATION (REFER TO SMARTSET #3299) 1945 Alpha-1 Antitrypsin 1962 Zoster Vaccines (1 of 2) 1994 *COPD SEVERITY VERIFIED BY PFT 07/07/2022 COVID-19 Vaccine (2022- season) 2023 02/06/2021, 01/17/2021 GFR 01/02/2024 07/04/2023, 1207/2022, 03/01/2023, Additional history exists Albumin/Creatinine Ratio 01/07/2024 023, 04/09/2022, 12/04/2018 CKD HGB USE SMARTSET 20487 07/04/202407/04, 07/04/2023, 03/22/2023, Additional history exists CKD PHOS USE SMARTSET 62312 07/04/20240 01/2024, 03/30/2022, 08/06/2021, Additional history exists [...] this encounter Medical Devices Implanted Type Area Manager Money Device Identifier Shelf Expiration Date Model / Serial / Lot Gemini Chau 6 M654g - [id number] Implanted:Qty: 4 on 07/06/2013 at [place] [facility] [place] N/A: Chest DO NOT USE 01/24/2018 M654G / / [id number] Valve Heart Mitral Epic 27mm - [id number] Implanted:Qty: 1 on 07/06/2013 at [place] [facility] [place] N/A: Heart [place] : CARDIOVASCULAR 11/01/2014 [id number]-6 0 / [id number] / Valve Heart Aortic Epic 23mm - [id number] Implanted:Qty: 1 on 07/06/2013 at [place] [facility] [place] N/A: Heart [place] : CARDIOVASCULAR 11/21/2016 [id number]- 00 / [id number] / Graft [employer] 28x12.5 [id number] - [id number] Implanted:Qty: 1 on 07/06/2013 at [place] [facility] [place] N/A: Aorta [employer] : CARDIO SYS 12/04/2017 [id number] / [id number] / [id number] Sut Steel 6 M654g - [id number] Implanted:Qty: 6 on 07/06/2013 at [place] [facility] [place] N/A: Chest DO NOT USE 01/24/2018 M654G / / [id number] documented as of this encounter Advance Directives [...] the patient have Health Care Power of Low Voltage Electrician? No Full Code 07/23/2013 5:32 AM 07/27/2013 10:52 PM This order reflects the patients wishes and were consensually agreed upon. Question Answer Comments Discussion of Advance Directives occurred with: Patient Does the patient have a Living Will? No Does the patient have Health Care Power of Low Voltage Electrician? No Full Code 07/06/2013 12:34 PM 07/14/2013 6:30 PM This order reflects the patients wishes and were consensually agreed upon. Care Teams Clinical Registered Nurse Relationship Specialty Start Date End Date Krystyna Marino MD [address] [place] [address] PCP - General Internal Medicine 04/19/22 documented as of this encounter
--- OUTSIDE RECORDS SUMMARY | 2024-01-05 03:15 | External Medical Summary | Summary of Care ---
Author Name Unknown Organization [facility] Address [address] [place] [address] Phone [phone] Care Team Providers Care Braille Coder Name Role Phone Krystyna Marino MD Primary Care Provider [phone] Reason for Visit * Reason Onset Date Comments Advice 07/06/2023 Encounter Details Date Type Department Care Team (Late st Contact Info) Description 07/06/2023 Telephone [facility] [address] [place] [address] Krystyna Marino MD [address] [place] [address] Advice Allergies No known active allergiesdocumented as of this encounter (statuses as of 10/05/2023) Medications Medication Sig Dispensed Refills Start Date [...] 90 Tablet 3 3 Active hydroCHLOROthiazid e 25 MG Oral Tablet (Hydrodiuril)Indic ations:HTN, goal below 140/90,S/P mitral valve replacement,Dyslip idemia, goal LDL below 70,LBBB (left bundle branch block),Paroxysmal atrial fibrillation (HCC),S/P AVR (aortic valve replacement),Coron norma artery disease involving af[place] coronary artery of afognak heart without angina pectoris Take 1 Tablet by mouth in the morning. 90 Tablet 3 3 08/11/19 24 Discontinu ed(Formula ry/Cost) Lisinopril 5 MG Oral Tablet (Prinivil)Indicati ons:HTN, goal below 140/90 Take 1 Tablet by mouth in the morning. 90 Tablet 3 3 08/08/19 24 Discontinu ed(Refill) documented as of this encounter (statuses as of 10/05/2023) Active Problems Problem Noted Date Diagnosed Date [...] as of this encounter (statuses as of 10/05/2023) Resolved Problems Problem Noted Date Diagnosed Date [...] as of this encounter (statuses as of 10/05/2023) Immunizations Name Administration Dates Next Due COVID-19 mRNA, LNP-s, No Pre serve, 2-Dose Series ([employer]) 02/06/2021,01/17/2021 Pneumococcal Conjugate Vacc, 13 Valent (Prevnar) [...] encounter Miscellaneous Notes * Telephone Encounter - Camila Koch OSA - 07/08/2023 2:23 PM EST Pt is calling back because a [employer] number called her and there was no message for what the callwas for. Please call pt if needed * Telephone Encounter - Nancy Smalls OSA - 07/06/2023 1:14 PM EST Good afternoon, Patient states she received a call from a [phone] number, I see no documentation regarding a call out to patient in review or on previous/ upcoming appt notes. Please call patient back if necessary Thank you SARAH Iraheta documented in this encounter Plan of Treatment Upcoming Encounters Date Type Department Care Team (Late st Contact Info) Description 10/06/2023 11:00 AM EDT Anticoagulation Pharmacy, [place] [address] [place] [address] [facility] [address] [place] [address] 01/02/2024 11:00 AM EDT Office Visit [place] [address] [place] [address] Krystyna Marino MD [address] [place] [address] 03/01/2024 2:20 PM EDT Office Visit Nephrology, [facility] [address] [place] [address] Drake Jha MD [address] [place] [address] 03/12/2024 11:00 AM EDT Cardiac Studies Cardiac Studies, [facility] [place] [address] [place] [address] 03/20/2024 11:00 AM EDT Office Visit Cardiology, [facility] [address] [place] [address] Lise Goldman CRNP [address] [place] [address] 07/27/2024 1:00 PM EST Nurse Only Ancillary Department, [address] [address] [place], Nurse [facility] [address] [place] [address] 08/21/2024 10:30 AM EST Office Visit Sleep Disorders [facility] [address] [place] [phone] Madeline Schaffer CRNP [address] [place] [address] Health Maintenance Due Date Last Done Comments DISCUSS TOBACCO CESSATION (REFER TO SMARTSET #3291) 1945 Alpha-1 Antitrypsin 1962 Zoster Vaccines (1 of 2) 1994 *COPD SEVERITY VERIFIED BY PFT 07/07/2022 COVID-19 Vaccine ( season) 2023 02/06/2021, 01/17/2021 GFR 01/02/2024 07/04/2023, 07/2022, 03/01/2023, Additional history exists Albumin/Creatinine Ratio 01/07/2024 023, 04/09/2022, 12/04/2018 CKD HGB USE SMARTSET 75692 07/04/202407/04, 07/04/2023, 03/22/2023, Additional history exists CKD PHOS USE SMARTSET 26975 07/04/202401/2024, 03/30/2022, 08/06/2021, Additional history exists TSH [...] this encounter Medical Devices Implanted Type Area Tuber Operator Device Identifier Shelf Expiration Date Model / Serial / Lot Sut Steel 6 M654g - [id number] [place] [facility] [place] Chest DO NOT USE 01/24/2018 M654G / / [id number] Valve Heart Mitral Epic 27mm - [id number] Implanted:Qty: 1 [place]2013 [place] [facility] [place]: Heart [place] : CARDIOVASCULAR 11/01/2014 [id number]-7 0 / [id number] / Valve Heart Aortic Epic 23mm - [id number] Implanted:Qty: 1 [place]06[place]2013 [place] [facility] [place]: Heart [place] : CARDIOVASCULAR 11/21/2016 [id number] 00 / [id number] / Graft Gelweave 28x12.5 [id number] - [id number] Implanted:Qty: 1 on 07[place]06/2013 [place] [facility] [place]: Aorta [facility] : CARDIO SYS 12/04/2017 [id number] / [id number] / [id number] Sut Steel 6 M654g - [id number] Implanted:Qty: 6 on 07[place]06/2013 [place] [facility] [place]: Chest DO NOT USE 01/24/2018 M654G / / [id number] documented as of this encounter Advance Directives [...] the patient have Health Care Power of Social Welfare Administrator? No Full Code 07/23/2013 5:32 AM 07/27/2013 10:52 PM This order reflects the patients wishes and were consensually agreed upon. Question Answer Comments Discussion of Advance Directives occurred with: Patient Does the patient have a Living Will? No Does the patient have Health Care Power of Social Welfare Administrator? No Full Code 07/06/2013 12:34 PM 07/14/2013 6:30 PM This order reflects the patients wishes and were consensually agreed upon. Care Teams Braille Coder Relationship Specialty Start Date End Date Krystyna Marino MD [address] [place] [address] PCP - General Internal Medicine 04/19/22 documented as of this encounter
--- OUTSIDE RECORDS SUMMARY | 2024-01-05 03:15 | External Medical Summary | Summary of Care ---
Author Name Unknown Organization [facility] Address [address] [place] [place] [address] Phone [phone] Care Team Providers Care Cigar Brander Name Role Phone Krystyna Marino MD Primary Care Provider [phone] Reason for Visit * Reason Onset Date Comments Administrative Follow-Up 08/23/2023 Jesús ine download report Encounter Details Date Type Department Care Team (Late st Contact Info) Description 08/23/2023 Telephone [facility] [address] [place] [address] Madeline Schaffer CRNP [address] [place] [address] Administrative Follow-Up (Compliance downl... Allergies No known active allergiesdocumented as of this encounter (statuses as of 09/14/2023) Medications Medication Sig Dispensed Refills Start Date [...] ons:HTN, goal below 140/90,Coronary artery disease involving [place] coronary artery of [place] heart without angina pectoris,S/P AVR (aortic valve replacement),S/P mitral valve replacement Take 1 Tablet by mouth in the morning. 90 Tablet 3 4 09/13/19 24 Discontinu ed(Refill) documented as of this encounter (statuses as of 09/14/2023) Active Problems Problem Noted Date Diagnosed Date Stage 3b chronic kidney disease 08/11/2023 COPD, group A, by GOLD 2017 classification 08/08 Overview: Per COPD GOLD Classification Anticoagulation management encounter 11/08/2022 Varicose veins of both lower extremities 022 DDD (degenerative disc disease), lumbar 04/19/20 22 Malignant neoplasm of right breast in female, estrogen receptor positive 04/19/2022 Coronary artery disease invo lving [place] coronary artery of s[place]tz tribe heart without angina pectoris 02/20/2021 Benign hypertension [...] as of this encounter (statuses as of 09/14/2023) Resolved Problems Problem Noted Date Diagnosed Date [...] as of this encounter (statuses as of 09/14/2023) Immunizations Name Administration Dates Next Due COVID-19 [...] encounter Miscellaneous Notes * Telephone Encounter - Huma Herrera LPN [...] EDT An email has been sent to [facility] to check for a current DL [...] 9:39 AM EST Received faxed encounter from [employer] regarding our request for patient's compliance download report. Patient has [employer] machine therefore patient needs to send her card to them for a manual download. They also called patient and instructed her to mail her card to [address] [place] [address]. documented in this encounter Plan of Treatment Upcoming Encounters Date Type Department Care Team (Late st Contact Info) Description 10/06/2023 11:00 AM EDT Anticoagulation Pharmacy, [place] [address] [place] [address] [place] [facility] [address] [place] [address] 01/02/2024 11:00 AM EDT Office Visit Family Practice, [place] [address] [place] [facility] [place] [phone] Krystyna Marino MD [address] [place] [address] 03/01/2024 2:20 PM EDT Office Visit Nephrology, [address] [place] [address] Drake Jha MD [address] [place] [address] 03/12/2024 11:00 AM EDT Cardiac Studies Cardiac Studies, [facility] [address] [facility], [place] [address] 03/20/2024 11:00 AM EDT Office Visit Cardiology, [facility] [address] [place] [address] Lise Goldman CRNP 132 [place] [address] 07/27/2024 1:00 PM EST Nurse Only Ancillary Department, [address] [address] [place], [facility] Annual Wellness [address] [place] [address] 08/21/2024 10:30 AM EST Office Visit [facility] Disorders [facility]tr [facility] [phone] Madeline Schaffer CRNP [address] [place] [address] Health Maintenance Due Date Last Done Comments DISCUSS TOBACCO CESSATION (REFER TO SMARTSET #3291) 1945 Alpha-1 Antitrypsin 1962 Zoster Vaccines (1 of 2) 1994 *COPD SEVERITY VERIFIED BY PFT 07/07/2022 COVID-19 Vaccine (2022- season) 2023 02/06/2021, 01/17/2021 GFR 01/02/2024 07/04/2023, 12/0 07/2022, 03/01/2023, Additional history exists Albumin/Creatinine Ratio 01/07/2024 023, 04/09/2022, 12/04/2018 CKD HGB USE SMARTSET 30412 07/04/202407/04, 07/04/2023, 03/22/2023, Additional history exists CKD PHOS USE SMARTSET 98487 07/04/2024/0 01/2024, 03/30/2022, 08/06/2021, Additional history exists [...] this encounter Medical Devices Implanted Type Area Siebel Crm Developer Device Identifier Shelf Expiration Date Model / Serial / Lot Sut Steel 6 M654g - [id number] Implanted:Qty: 4 on 07/06/2013 at [place] [facility] [place]A: Chest DO NOT USE 01/24/2018 M654G / / [id number] Valve Heart Mitral Epic 27mm - [id number] Implanted:Qty: 1 on 07/06/2013 at [place] [facility] [place] N/A: Heart [place] : CARDIOVASCULAR 11/01/2014 [id number]-5 0 / [id number] / Valve Heart Aortic Epic 23mm - [id number] Implanted:Qty: 1 on 07/06/2013 at [place] [facility] [place] N/A: Heart [place] : CARDIOVASCULAR 11/21/2016 [id number]- 00 / [id number] / Graft Gelweave 28x12.5 [id number] - [id number] Implanted:Qty: 1 on 07/06/2013 at [place] [facility] [place] N/A: Aorta [employer] : CARDIO SYS 12/04/2017 [id number] / [id number] / [id number] Sut Steel 6 M654g - [id number] Implanted:Qty: 6 on 07/06/2013 at [place] [facility] [place] N/A: Chest DO NOT USE 01/24/2018 M654G / / [id number] documented as of this encounter Advance Directives [...] the patient have Health Care Power of Mule Tender? No Full Code 07/23/2013 5:32 AM 07/27/2013 10:52 PM This order reflects the patients wishes and were consensually agreed upon. Question Answer Comments Discussion of Advance Directives occurred with: Patient Does the patient have a Living Will? No Does the patient have Health Care Power of Mule Tender? No Full Code 07/06/2013 12:34 PM 07/14/2013 6:30 PM This order reflects the patients wishes and were consensually agreed upon. Care Teams Cigar Brander Relationship Specialty Start Date End Date Krystyna Marino MD [address] [facility] [place] [address] PCP - General Internal Medicine 04/19/22 documented as of this encounter
--- OUTSIDE RECORDS SUMMARY | 2024-01-05 03:16 | External Medical Summary | Summary of Care ---
Author Name Unknown Organization [facility] Address [address] [place] [address] Phone [phone] Care Team Providers Care Debone Processing Supervisor Name Role Phone Krystyna Marino MD Primary Care Provider [phone] Reason for Visit * Reason Comments Dosage Adjustment In Person (Anticoag Cl inic) Encounter Details Date Type Department Care Team (Latest Contact Info) Description 08/25/2023 11:10 AM EST Anticoagulation Pharmacy, [place] [address] [place] [address] [facility] [address] [place] [address] S/P mitral valve replacement*; Anticoagulation management encounter; Paroxysmal atrial fibrillation (HCC); S/P AVR (aortic valve replacement); snf current use of anticoagulant therapy Allergies No known active allergiesdocumented as of this encounter (statuses as of 08/25/2023) Medications Medication Sig Dispensed Refills Start Date [...] kidney disease) stage 3, GFR 30-59 ml/min ([facility]) TAKE 1 TABLET BY MOUTH TWICE DAILY every morning and before bedtime 60 Tablet 11 04/27/2023 Active Amiodarone HCl 200 MG Oral Tablet (Cordarone)Indicati ons:S/P mitral valve replacement,S/P AVR (aortic valve replacement),Paroxy smal atrial fibrillation (HCC) Take 1 Tablet by mouth in the morning. 90 Tablet 3 05/16/2023 Active Lisinopril 5 MG Oral Tablet (Prinivil)Indicatio ns:HTN, goal below 140/90,Coronary artery disease involving [place] coronary artery of [place] heart without angina pectoris,S/P AVR (aortic valve replacement),S/P mitral valve replacement Take 1 Tablet by mouth in the morning. 90 Tablet 3 08/08/2023 Active hydroCHLOROthiazide 12.5 MG Oral Tablet (Hydrodiuril) Take 1 Tablet by mouth in the morning. 90 Tablet 3 08/11/2023 Active documented as of this encounter (statuses as of 08/25/2023) Active Problems Problem Noted Date Diagnosed Date Stage 3b chronic kidney disease 08/11/2023 COPD, group A, by GOLD 2017 classification 08/08 Overview: Per COPD GOLD Classification Anticoagulation management encounter 11/08/2022 Varicose veins of both lower extremities 022 DDD (degenerative disc disease), lumbar 04/19/20 22 Malignant neoplasm of right breast in female, estrogen receptor positive 04/19/2022 Coronary artery disease invo lving [place] coronary artery of [place] heart without angina pectoris 02/20/2021 Benign hypertension [...] as of this encounter (statuses as of 08/25/2023) Resolved Problems Problem Noted Date Diagnosed Date [...] finger 03/23/2006 12/21/2016 Tobacco use disorder 08/06/2004 01/29/2 009 Overview: Resolved per Duplicate Protocol #2. [...] as of this encounter (statuses as of 08/25/2023) Immunizations Name Administration Dates Next Due COVID-19 mRNA, LNP-s, No Pre serve, 2-Dose Series ([employer]) 02/06/2021,01/17/2021 Pneumococcal Conjugate Vacc, 13 Valent (Prevnar) [...] this encounter Progress Notes * Callie Wynn, [facility] - 08/25/2023 11:11 AM EST Medication Therapy Disease Management - Anticoagulation Patient: Anay Richardson | : 1945 Subjective Patient-Reported Symptoms: Patient Findings Negatives: Signs/symptoms of thrombosis, Signs/symptoms of bleeding, Change in health, Change in alcohol use, Change in activity, Upcoming invasive procedure, Missed doses, Extra doses, Change in medications, Change in diet/appetite, Bruising Objective Current Warfarin Dose As of 08/25/2023 Warfarin maintenance plan: 7.5 mg (5 mg x 1.5) every Mon; 5 mg (5 mg x 1) all other days INR Result As of 08/25/2023 INR goal: 2.0-3.0 INR used for dosin.0 (08/25/2023) Assessment & Plan Warfarin Plan As of 08/25/2023 Full warfarin instructions: 7.5 mg every Mon; 5 mg all other days No change documented: Callie Wynn RPh Next INR check: 10/06/2023 Repeat PT/INR in 6 week(s) Weekly dose: not changed Additional Dosing Information: Description PRN hemorrhoidectomy date- pt not interested FRED Callie Wynn RPh Clinical Pharmacist 08/25/2023, 11:11 AM documented in this encounter Plan of Treatment Upcoming Encounters Date Type Department Care Team (Late st Contact Info) Description 09/08/2023 10:00 AM EDT Office Visit Cardiology, [facility] [address] [place] [address] Lise Goldman CRNP [address] [place] [address] 10/06/2023 11:00 AM EDT [address], [address] [address] [place] [address] [place] [address] 01/02/2024 11:00 AM EDT Office Visit Family Practice, [place] [address] [place] [address] Krystyna Marino MD [address] [place] [address] 03/01/2024 2:20 PM EDT Office Visit Nephrology, [facility] [address] [facility] [place] [address] Drake Jha MD [address] [facility] [place] [address] 07/27/2024 1:00 PM EST Nurse Only Ancillary Department, [place] [address] [place] [address] [place], Nurse [facility] [address] [place], [place] [address] 08/21/2024 10:30 AM EST Office Visit Sleep Disorders Ctr [facility] [address] [place] [address] Madeline Schaffer CRNP [address] [place] [address] Health Maintenance Due Date Last Done Comments DISCUSS TOBACCO CESSATION (REFER TO SMARTSET #3291) 1945 Alpha-1 Antitrypsin 1962 Zoster Vaccines (1 of 2) 1994 *COPD SEVERITY VERIFIED BY PFT 07/07/2022 COVID-19 Vaccine ( season) 2023 02/06/2021, 01/17/2021 GFR 01/02/2024 07/04/2023, 12/0 07/2022, 03/01/2023, Additional history exists Albumin/Creatinine Ratio 01/07/2024 023, 04/09/2022, 12/04/2018 CKD HGB USE SMARTSET 39930 07/04/202407/04, 07/04/2023, 03/22/2023, Additional history exists CKD PHOS USE SMARTSET 26201 07/04/2024/0 01/2024, 03/30/2022, 08/06/2021, Additional history exists [...] this encounter Medical Devices Implanted Type Area Industrial Painter Device Identifier Shelf Expiration Date Model / Serial / Lot Sut [facility] 6 M654g - [id number] [place]ed:Q[place] 4 [place] [facility] [place] Chest DO NOT USE 01/24/2018 M654G / / [id number] Valve Heart Mitral Epic 27mm - [id number] Implanted:Qty: 1 [place]2013 [place] [facility] [place]: Heart [place] : CARDIOVASCULAR 11/01/2014 [id number]-9 0 / [id number] / Valve Heart Aortic Epic 23mm - [id number] Implanted:Qty: 1 [place]2013 [place] [facility] [place]: Heart [place] : CARDIOVASCULAR 11/21/2016 [id number]- 00 / [id number] / Graft Gelweave 28x12.5 [id number] - [id number] Implanted:Qty: 1 [place]06[place]2013 [place] [facility] [place]: Aorta [employer] : CARDIO SYS 12/04/2017 [id number] / [id number] / [id number] Sut Steel 6 M654g - [id number] Implanted:Qty: 6 on 07/06/2013 [place] [facility] [place]: Chest DO NOT USE 01/24/2018 M654G / / [id number] documented as of this encounter Procedures Procedure Name Priority Date/Time Associated Diagnosis Comments INR FINGERSTICK, POINT OF CARE STAT 08/25/2023 11:15 AM EST S/P mitral valve replacement Anticoagulation management encounter terminal carman current use of anticoagulant therapy documented in this encounter Results * INR FINGERSTICK, POINT OF CARE (08/25/2023 11:15 AM EST) Fingerstick INR 3.0 INR 11:17 AM EST [facility]- Blood 08/25/2023 11:1 5 AM EST 08/25/2023 11:17 AM EST Narrative [facility]-01 - 08/25/2023 11:17 AM EST Therapeutic ranges for non-operative patients: Prophylaxsis/treatment of DVT: (Range:2.0-3.0) Treatment of pulmonary embolism:(Range:2.0-3.0) Prevention of systemic embolism from: -tissue heart valves -acute myocardial infarction -valvular heart disease -atrial fibrillation (Range: 2.0-3.0) Mechanical prosthetic valves: (Range: 2.5-3.5) Callie Wynn [facility] POINT OF CARE TEST DOCKED DEVICE UNSOLICITED RESULTS [facility] [address] [place] [address] documented in this encounter Visit Diagnoses Diagnosis S/P mitral valve replacement- Primary Heart valve replaced by other means Anticoagulation management encounter Encounter for therapeutic drug monitoring Paroxysmal atrial fibrillation (HCC) Atrial fibrillation S/P AVR (aortic valve replacement) Heart valve replaced by other means terminal carman current use of anticoagulant therapy documented in [...] the patient have Health Care Power of Motion Picture Commentator? No Full Code 07/23/2013 5:32 AM 07/27/2013 10:52 PM This order reflects the patients wishes and were consensually agreed upon. Question Answer Comments Discussion of Advance Directives occurred with: Patient Does the patient have a Living Will? No Does the patient have Health Care Power of Motion Picture Commentator? No Full Code 07/06/2013 12:34 PM 07/14/2013 6:30 PM This order reflects the patients wishes and were consensually agreed upon. Care Teams Debone Processing Supervisor Relationship Specialty Start Date End Date Krystyna Marino MD [address] [place] [address] PCP - General Internal Medicine 04/19/22 documented as of this encounter"
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
--- OUTSIDE RECORDS SUMMARY | 2024-01-05 03:16 | External Medical Summary | Summary of Care ---
Author Name Unknown Organization [facility] Address [address] [facility] [place] [address] Phone [phone] Care Team Providers Care Storage Solutions Architect Name Role Phone Krystyna Marino MD Primary Care Provider [phone] Reason for Visit * Reason Comments Follow Up Here return. SARAH. CP AP. Adjusting to new machine. Encounter Details Date Type Department Care Team (Late st Contact Info) Description 08/18/2023 10:30 AM EST Office Visit Sleep Disorders Ctr [facility] [address] [place] [phone] Atif Hernandes CRNP [address] [place] [address] Obstructive sleep apnea*; Nocturnal hypoxemia Allergies No known active allergiesdocumented as of [...] ons:HTN, goal below 140/90,Coronary artery disease involving [place] coronary artery of com[place] heart without angina pectoris,S/P AVR (aortic valve [...] positive 04/19/2022 Coronary artery disease invo lving [place] coronary artery of com[place] heart without angina pectoris 02/20/2021 Benign hypertension [...] Sign Reading Time Taken Comments Blood Pressure 118/60 08/18/2023 10:08 AM EST Pulse 67 08/18/2023 10:08 AM EST Temperature 36.2 C (97.1 F) 08/18/2023 10:[address] Respiratory Rate 16 08/18/2023 10:08 AM EST Oxygen Saturation 99% 08/18/2023 10:08 AM EST Inhaled Oxygen Concentration - - Weight 86.6 kg (191 lb) 08/18/2023 10:08 AM EST Height 161.3 cm (5' 3.5") 08/18/2023 10:08 AM ES T Body Mass Index 33.3 08/18/2023 10:08 AM EST documented in this [...] this encounter Patient Instructions * Patient Instructions* Atif Hernandes CRNP - 08/18/2023 11:01 AM EST Work with [employer] / [employer] about getting the SD card read and the ramp pressure adjusted. Continue use of CPAP to include all periods of sleep. Recommended total sleep time for adults is 7-9 hours. Reminder to clean CPAP supplies weekly and change supplies as needed. Work at making lifestyle changes to loss weight, as weight loss often results in improvement of sleep disordered breathing. Daily exercise has been shown to improve sleep quality. Avoid driving or engaging in any activity that requires full alertness if feeling sleepy, drowsy orotherwise impaired. documented in this encounter Progress Notes * Atif Hernandes CRNP - 09/14/2023 8:54 AM EDT 30 day report ending 08/23/2023 % total days used: 93 % days used > 4 hours: 93 Average hours per day used: 7 hours 16 mins Large leak: 41 L/min AHI: 0.2 Pressures: median 10, p95% 12 on 8-20 cm H2O Adjust to aPAP 10-20 Overnight oximetry on new settings with corresponding detailed PAP data requested. * Atif Hernandes CRNP - 08/18/2023 10:30 AM EST [facility] Anay Richardson is a 77 year old female seen today for initial follow-up on replacement CPAP. Initially presented in 2017 at the request of nephrology with snoring, non refreshing sleep and daytime fatigue/sleepiness. -PSG 12/21/2016: AHI 46 (ZEB 0), SpO2 69% with 145 minutes <89%, PLMI 44 -AutoCPAP initiated -PAP titration 01/2017: CPAP titrated from 4 to 18 cm H2O, recommendation 16 cm H2O using full interface, desats noted at lower settings Interim History: CPAP used nightly, noting ongoing benefit with use. Total usage is 5-8 hours. She notes that the pressure of 4 (ramp) is too low. May nap in the afternoon while watching tv, 10-15 minutes. Compliance Data: Requested Equipment: DME Provider: [employer] Device: [employer] (no modem?) Settings: 8-20 cmH20 Interface Type: nasal Humidifier: yes Cleaning: By hand routinely [place] Sleepiness Scale Question 08/18/2023 10:07 AM EST - Filed by Patient What is the chance you will doze off in the following situation? Sitting and reading No chance of dozing Watching TV No chance of dozing Sitting inactive in a public place, such as a theater or meeting No chance of dozing As a passenger in a car for an hour without a break No chance of dozing Lying down to rest in the afternoon when circumstances permit Slight chance of dozing When sitting and talking to someone No chance of dozing When sitting quietly after lunch without alcohol No chance of dozing In a car, while stopped for a few minutes in traffic No chance of dozing Score (range: 0 - 24) 1 Review of Systems Respiratory: Negative for shortness of breath. Cardiovascular: Negative for chest pain. Neurological: Negative for headaches. Problem List: Patient Active Problem List Diagnosis Code Generalized osteoarthritis M15.9 Dyslipidemia, goal LDL below 70 E78.5 Tobacco use disorder F17.200 S/P mitral valve replacement Z95.2 S/P AVR (aortic valve replacement) Z95.2 HTN, goal below 140/90 I10 Breast cancer (HCC) C50.919 Postablative hypothyroidism E89.0 History of thyroid cancer Z85.850 SARAH (obstructive sleep apnea) G47.33 Secondary hyperparathyroidism of renal origin (HCC) N25.81 Paroxysmal atrial fibrillation (HCC) I48.0 S/P colectomy Z90.49 Iron deficiency anemia D50.9 Carcinoma of breast upper outer quadrant, right ([facility]) C50.411 Nocturnal hypoxemia G47.34 Benign hypertension with CKD (chronic kidney disease) stage III ([facility]) I12.9, N18.30 Coronary artery disease involving [place] coronary artery of comanche heart without angina pectoris I25.10 Varicose veins of both lower extremities I83.93 DDD (degenerative disc disease), lumbar M51.36 Malignant neoplasm of right breast in female, estrogen receptor positive ([facility]) C50.911, Z17.0 Anticoagulation management encounter Z51.81, Z79.01 COPD, group A, by GOLD 2017 classification ([facility]) J44.9 Stage 3b chronic kidney disease ([facility]) N18.32 Current Medications: Outpatient Medications Marked as Taking for the 08/18/23 encounter (Office Visit) with Atif Hernandes CRNP Medication Sig hydroCHLOROthiazide 12.5 MG Oral Tablet (Hydrodiuril) Take 1 Tablet by mouth in the morning. Lisinopril 5 MG Oral Tablet (Prinivil) Take 1 Tablet by mouth in the morning. Amiodarone HCl 200 MG Oral Tablet (Cordarone) Take 1 Tablet by mouth in the morning. Potassium Citrate ER 10 MEQ (1080 MG) Oral Tablet Extended Release (Urocit-K) TAKE 1 TABLET BY MOUTH TWICE DAILY every morning and before bedtime Anoro Ellipta 62.5-25 MCG/ACT Inhalation Aerosol Powder Breath Activated (umeclidinium-vilanterol) Inhale 1 Puff by mouth in the morning. Atorvastatin Calcium 10 MG Oral Tablet (Lipitor) Take 1 Tablet by mouth in the morning. Levothyroxine Sodium 137 MCG Oral Tablet take one tablet by mouth daily at least 30 minutes before breakfast and other medications Metoprolol Tartrate 25 MG Oral Tablet (Lopressor) TAKE 1/2 TABLET BY MOUTH IN THE MORNING AND 1/2 TABLET BEFORE BEDTIME Warfarin Sodium 5 MG Oral Tablet (Jantoven) TAKE one to ONE AND ONE-HALF TABLET BY MOUTH DAILY or as directed by anticoagulation clinic amLODIPine Besylate 2.5 MG Oral Tablet (Norvasc) Take 1 Tablet by mouth in the morning. Pantoprazole Sodium 20 MG Oral Tablet Delayed Release (Protonix) Take 1 Tablet by mouth in the morning. In the morning.. SURGICAL COMPRESSION STOCKING 20 to 30mm knee high. Acetaminophen 500 MG Oral Tablet Take 1 Tablet by mouth every 6 hours as needed for Pain. MULTIVITAMIN GUMMIES ADULT PO CHEW Take by mouth. Is currently taking ECOTRIN LOW STRENGTH 81 MG PO TBEC One pill by mouth once a day Physical Exam: BP 118/60 | Pulse 67 | Temp 36.2 C (97.1 F) (Tympanic) | Resp 16 | Ht 1.613 m (5' 3.5") | Wt 86.6 kg (191 lb) | SpO2 99% | BMI 33.30 kg/m | BSA 1.97 m Constitutional: Alert, oriented and in no acute distress Skin: No abnormal mask markings on face Cardio: Regular rate and rhythm Chest: Normal respiratory effort at rest Neuro: Fluent speech Psych: Appropriate mood and affect. Assessment & Plan: Encounter Diagnoses Name Primary? Obstructive sleep apnea Yes Nocturnal hypoxemia Severe obstructive sleep apnea based on AHI criteria associated with hypoxemia diagnosed in 2017. She reports compliance and benefiting with PAP treatment. Download requested from [employer]. Change ramp pressure to 5 cm H2O. Patient Instructions Work with [employer] / [employer] about getting the SD card read and the ramp pressure adjusted. Continue use of CPAP to include all periods of sleep. Recommended total sleep time for adults is 7-9 hours. Reminder to clean CPAP supplies weekly and change supplies as needed. Work at making lifestyle changes to loss weight, as weight loss often results in improvement of sleep disordered breathing. Daily exercise has been shown to improve sleep quality. Avoid driving or engaging in any activity that requires full alertness if feeling sleepy, drowsy orotherwise impaired. JED [facility] I spent a total of 20-29 minutes (exact time 23 mins) on the date of service in preparation, delivery, and documentation of the care provided to Anay Richardson excluding any time spent in the performance of separately billed services. documented in this encounter Nursing Notes * Gina Estrada LPN - 08/18/2023 10:14 AM EST Chief Complaint Patient presents with Follow Up Here return. SARAH. CPAP. Adjusting to new machine. DME: [employer]. Travel Screening Question 08/18/2023 9:52 AM EST - Filed by Patient Do you have any of the following new or worsening symptoms? None of these Have you recently been in contact with someone who was sick? No / Unsure [place] Sleepiness Scale Question 08/18/2023 10:07 AM EST - Filed by Patient What is the chance you will doze off in the following situation? Sitting and reading No chance of dozing Watching TV No chance of dozing Sitting inactive in a public place, such as a theater or meeting No chance of dozing As a passenger in a car for an hour without a break No chance of dozing Lying down to rest in the afternoon when circumstances permit Slight chance of dozing When sitting and talking to someone No chance of dozing When sitting quietly after lunch without alcohol No chance of dozing In a car, while stopped for a few minutes in traffic No chance of dozing Score (range: 0 - 24) 1 documented in this encounter Miscellaneous Notes * Addendum Note - Atif Hernandes CRNP - 09/14/2023 8:57 AM EDTAddended by: ATIF HERNANDES on: 09/14/2023 08:57 AM Modules accepted: Orders documented in this encounter Plan of Treatment Upcoming Encounters Date Type Department Care Team (Late st Contact Info) Description 10/06/2023 11:00 AM EDT [facility], [place] [address] [facility] [address] [place], [facility] [address] [facility] [address] 01/02/2024 11:00 AM EDT Office Visit [facility], [place] [address] [place] [address] Krystyna Marino MD [address] [facility] [place] [address] 03/01/2024 2:20 PM EDT Office Visit Nephrology, [place] [address] [place], [place] [address] Drake Jha MD [address] [facility] [place] [address] 03/12/2024 11:00 AM EDT Cardiac Studies Cardiac Studies, [facility] [address] [place] [address] 03/20/2024 11:00 AM EDT Office Visit Cardiology, [facility] [address] [place] [address] Lise Goldman CRNP [address] [place] [address] 07/27/2024 1:00 PM EST Nurse Only Ancillary Department, [address] [address] [place], [facility] [address] [place] [address] 08/21/2024 10:30 AM EST Office Visit Sleep Disorders [facility] [address] [place] [phone] Atif Hernandes CRNP [address] [place] [address] Scheduled Orders Name Type Priority Associated Diagnoses Orde r Schedule NOCTURNAL HOME OXIMETRY (OP) Procedures Routine Obstructive sleep apnea Nocturnal hypoxemia Ordered: 09/14/2023 Health Maintenance Due Date Last Done Comments DISCUSS TOBACCO CESSATION (REFER TO SMARTSET #1401) 1945 Alpha-1 Antitrypsin 1962 Zoster Vaccines (1 of 2) 1994 *COPD SEVERITY VERIFIED BY PFT 07/07/2022 COVID-19 Vaccine ( season) 2023 02/06/2021, 01/17/2021 GFR 01/02/2024 07/04/2023, 12/0 07/2022, 03/01/2023, Additional history exists Albumin/Creatinine Ratio 01/07/2024 023, 04/09/2022, 12/04/2018 CKD HGB USE SMARTSET 08086 07/04/202407/04, 07/04/2023, 03/22/2023, Additional history exists CKD PHOS USE SMARTSET 68168 07/04/20240 01/2024, 03/30/2022, 08/06/2021, Additional history exists [...] this encounter Medical Devices Implanted Type Area Poultry Buyer Device Identifier Shelf Expiration Date Model / Serial / Lot Sut Steel 6 M654g - [id number] Implanted:Qty: 4 on 07/06/2013 at [place] [facility] [place]A: Chest DO NOT USE 01/24/2018 M654G / / [id number] Valve Heart Mitral Epic 27mm - [id number] Implanted:Qty: 1 on 07/06/2013 at [place] [facility] N/A: Heart [place] : CARDIOVASCULAR 11/01/2014 [id number] 0 / [id number] / Valve Heart Aortic Epic 23mm - [id number] Implanted:Qty: 1 on 07/06/2013 at [place] [facility] N/A: Heart [place] : CARDIOVASCULAR 11/21/2016 [id number] 00 / [id number] / Graft Gelweave 28x12.5 [id number] - [id number] Implanted:Qty: 1 on 07/06/2013 at [place] [facility] N/A: Aorta [employer] : CARDIO SYS 12/04/2017 [id number] / [id number] / [id number] Sut Steel 6 M654g - [id number] Implanted:Qty: 6 on 07/06/2013 at [place] [facility] N/A: Chest DO NOT USE 01/24/2018 M654G / / [id number] documented as of this encounter Visit Diagnoses Diagnosis Obstructive sleep apnea- Primary Obstructive sleep apnea (adult) (pediatric) Nocturnal hypoxemia Hypoxemia documented in this encounter Advance Directives Latest [...] the patient have Health Care Power of Carboy Filler? No Full Code 07/23/2013 5:32 AM 07/27/2013 10:52 PM This order reflects the patients wishes and were consensually agreed upon. Question Answer Comments Discussion of Advance Directives occurred with: Patient Does the patient have a Living Will? No Does the patient have Health Care Power of Carboy Filler? No Full Code 07/06/2013 12:34 PM 07/14/2013 6:30 PM This order reflects the patients wishes and were consensually agreed upon. Care Teams Storage Solutions Architect Relationship Specialty Start Date End Date Krystyna Marino MD [address] [place] [id number] PCP - General Internal Medicine 04/19/22 documented as of this encounter
--- OUTSIDE RECORDS SUMMARY | 2024-01-05 03:16 | External Medical Summary | Summary of Care ---
Author Name Unknown Organization [facility] Address [address] [place] [place] [place] [address] Phone [phone] Care Team Providers Care Economic Developer Name Role Phone Krystyna Marino MD Primary Care Provider [phone] Reason for Visit * Reason Onset Date Comments Administrative Follow-Up 08/23/2023 Jesús nve download report Encounter Details Date Type Department Care Team (Late st Contact Info) Description 08/23/2023 [facility] [address] [place] [phone] Madeline Schaffer CRNP [address] [place] [address] Administrative Follow-Up (Compliance downl... Allergies No known active allergiesdocumented as of this encounter (statuses as of 09/06/2023) Medications Medication Sig Dispensed Refills Start Date [...] ns:HTN, goal below 140/90,Coronary artery disease involving [place] coronary artery of [place] heart without angina pectoris,S/P AVR (aortic valve replacement),S/P mitral valve replacement Take 1 Tablet by mouth in the morning. 90 Tablet 3 08/08/2023 Active hydroCHLOROthiazide 12.5 MG Oral Tablet (Hydrodiuril) Take 1 Tablet by mouth in the morning. 90 Tablet 3 08/11/2023 Active documented as of this encounter (statuses as of 09/06/2023) Active Problems Problem Noted Date Diagnosed Date Stage 3b chronic kidney disease 08/11/2023 COPD, group A, by GOLD 2017 classification 08/08 Overview: Per COPD GOLD Classification Anticoagulation management encounter 11/08/2022 Varicose veins of both lower extremities 022 DDD (degenerative disc disease), lumbar 04/19/20 22 Malignant neoplasm of right breast in female, estrogen receptor positive 04/19/2022 Coronary artery disease invo lving [place] coronary artery of [place] heart without angina pectoris 02/20/2021 Benign hypertension [...] as of this encounter (statuses as of 09/06/2023) Resolved Problems Problem Noted Date Diagnosed Date [...] as of this encounter (statuses as of 09/06/2023) Immunizations Name Administration Dates Next Due COVID-19 [...] EDT An email has been sent to [employer] to check for a current DL * [...] 9:39 AM EST Received faxed encounter from [employer] regarding our request for patient's compliance download report. Patient has C2C machine therefore patient needs to send her card to them for a manual download. They also called patient and instructed her to mail her card to [address] [place] [address]. documented in this encounter Plan of Treatment Upcoming Encounters Date Type Department Care Team (Late st Contact Info) Description 09/08/2023 10:00 AM EDT [facility], [facility] [place] [address] Lise Goldman CRNP [address] [place] [address] 10/06/2023 11:00 AM EDT Anticoagulation Pharmacy, [place] [address] [place] [address] [facility] [address] [place] [address] 01/02/2024 11:00 AM EDT Office Visit Family Practice, [place] [address] [place] [facility] [place] [phone] Krystyna Marino MD [address] [place] [address] 03/01/2024 2:20 PM EDT Office Visit Nephrology, [facility] [address] [facility] [place] [address] Drake Jha MD [address] [facility] [place] [address] 07/27/2024 1:00 PM EST Nurse Only Ancillary Department, [place] [address] [place] [address] [place], Nurse Annual [facility] [address] [place] [address] 08/21/2024 10:30 AM EST Office Visit Sleep Disorders Ctr [facility] [address] [place] [phone] Madeline Schaffer CRNP [address] [place] [address] Health Maintenance Due Date Last Done Comments DISCUSS TOBACCO CESSATION (REFER TO SMARTSET #9354) 1945 Alpha-1 Antitrypsin 1962 Zoster Vaccines (1 of 2) 1994 *COPD SEVERITY VERIFIED BY PFT 07/07/2022 COVID-19 Vaccine (2022- season) 2023 02/06/2021, 01/17/2021 GFR 01/02/2024 07/04/2023, 12/0 07/2022, 03/01/2023, Additional history exists Albumin/Creatinine Ratio 01/07/2024 023, 04/09/2022, 12/04/2018 CKD HGB USE SMARTSET 67188 07/04/202407/04, 07/04/2023, 03/22/2023, Additional history exists CKD PHOS USE SMARTSET 40554 07/04/20240 01/2024, 03/30/2022, 08/06/2021, Additional history exists [...] this encounter Medical Devices Implanted Type Area Coding Specialist Home Health Device Identifier Shelf Expiration Date Model / Serial / Lot Sut Isac 6 M654g - [id number] Implanted:Qty: 4 on 07/06/2013 at [place] [facility] N/A: Chest DO NOT USE 01/24/2018 M654G / / [id number] Valve Heart Mitral Epic 27mm - [id number] Implanted:Qty: 1 on 07/06/2013 at OR [facility] N/A: Heart [place] : CARDIOVASCULAR 11/01/2014 [id number] 0 / [id number] / Valve Heart Aortic Epic 23mm - [id number] Implanted:Qty: 1 on 07/06/2013 at OR [facility] N/A: Heart [place] : CARDIOVASCULAR 11/21/2016 [id number] / [id number] / Graft Gelweave 28x12.5 [id number] - [id number] Implanted:Qty: 1 on 07/06/2013 at OR [facility] N/A: Aorta [employer] : CARDIO SYS 12/04/2017 [id number] / [id number] / [id number] Sut Steel 6 M654g - [id number] Implanted:Qty: 6 on 07/06/2013 at OR [facility] N/A: Chest DO NOT USE 01/24/2018 M654G / / [id number] documented as of this encounter Advance Directives [...] the patient have Health Care Power of Lime Burner? No Full Code 07/23/2013 5:32 AM 07/27/2013 10:52 PM This order reflects the patients wishes and were consensually agreed upon. Question Answer Comments Discussion of Advance Directives occurred with: Patient Does the patient have a Living Will? No Does the patient have Health Care Power of Lime Burner? No Full Code 07/06/2013 12:34 PM 07/14/2013 6:30 PM This order reflects the patients wishes and were consensually agreed upon. Care Teams Economic Developer Relationship Specialty Start Date End Date Krystyna Marino MD [address] [place] [facility] [place] [address] PCP - General Internal Medicine 04/19/22 documented as of this encounter
--- OUTSIDE RECORDS SUMMARY | 2024-01-05 03:16 | External Medical Summary | Summary of Care ---
Author Name Unknown Organization [facility] Address [address] [facility] [place] [address] Phone [phone] Care Team Providers Care Rf Microwave Engineer Name Role Phone Krystyna Marino MD Primary Care Provider [phone] Reason for Visit * Reason Onset Date Comments Administrative Follow-Up 08/23/2023 Jesús ake download report Encounter Details Date Type Department Care Team (Late st Contact Info) Description 08/23/2023 [facility] [address] [place] [phone] Madeline Schaffer CRNP [address] [place] [address] Administrative Follow-Up (Compliance downl... Allergies No known active allergiesdocumented as of this encounter (statuses as of 09/01/2023) Medications Medication Sig Dispensed Refills Start Date [...] ns:HTN, goal below 140/90,Coronary artery disease involving iroquois coronary artery of iroquois heart without angina pectoris,S/P AVR (aortic valve replacement),S/P mitral valve replacement Take 1 Tablet by mouth in the morning. 90 Tablet 3 08/08/2023 Active hydroCHLOROthiazide 12.5 MG Oral Tablet (Hydrodiuril) Take 1 Tablet by mouth in the morning. 90 Tablet 3 08/11/2023 Active documented as of this encounter (statuses as of 09/01/2023) Active Problems Problem Noted Date Diagnosed Date Stage 3b chronic kidney disease 08/11/2023 COPD, group A, by GOLD 2017 classification 08/08 Overview: Per COPD GOLD Classification Anticoagulation management encounter 11/08/2022 Varicose veins of both lower extremities 022 DDD (degenerative disc disease), lumbar 04/19/20 22 Malignant neoplasm of right breast in female, estrogen receptor positive 04/19/2022 Coronary artery disease invo lving iroquois coronary artery of iroquois heart without angina pectoris 02/20/2021 Benign hypertension with CKD (chronic kidney disease) stage III 12/03/2020 Nocturnal hypoxemia 08/21/2019 Carcinoma of breast upper outer quadrant, right 11/22/2018 Iron deficiency anemia 05/10/2018 Paroxysmal atrial fibrillation 04/27/2018 S/P colectomy 04/27/2018 Secondary hyperparathyroidism of renal origin ASRAH (obstructive sleep apnea) 04/01/2017 Overview: CPAP 8 [...] as of this encounter (statuses as of 09/01/2023) Resolved Problems Problem Noted Date Diagnosed Date [...] as of this encounter (statuses as of 09/01/2023) Immunizations Name Administration Dates Next Due COVID-19 [...] 9:39 AM EST Received faxed encounter from [employer] regarding our request for patient's compliance download report. Patient has C2C machine therefore patient needs to send her card to them for a manual download. They also called patient and instructed her to mail her card to [address] [place] [address]. documented in this encounter Plan of Treatment Upcoming Encounters Date Type Department Care Team (Late st Contact Info) Description 09/08/2023 10:00 AM EDT Office Visit Cardiology, [facility] [address] [place] [address] Lise Goldman CRNP [address] [place] [address] 10/06/2023 11:00 AM EDT Anticoagulation Pharmacy, [facility] [address] [place] [facility] [place] [address] [facility] [address] [place] [facility] [place] [address] 01/02/2024 11:00 AM EDT Office Visit [facility] [address] [facility] [phone] Krystyna Marino [facility] [address] [facility] [address] 03/01/2024 2:20 PM EDT Office Visit Nephrology, [facility] [address] [place] [address] Drake Jha MD [address] [place] [address] 07/27/2024 1:00 PM EST Nurse Only Ancillary Department, [facility] [address] [facility] [address] [facility], Nurse Annual Wellness [address] [place] [facility] [place] [address] 08/21/2024 10:30 AM EST [facility] [address] [place] [address] Madeline Schaffer CRNP [address] [place] [address] Health Maintenance Due Date Last Done Comments DISCUSS TOBACCO CESSATION (REFER TO SMARTSET #3291) 1945 Alpha-1 Antitrypsin 1962 Zoster Vaccines (1 of 2) 1994 *COPD SEVERITY VERIFIED BY PFT 07/07/2022 COVID-19 Vaccine ( season) 2023 02/06/2021, 01/17/2021 GFR 01/02/2024 07/04/2023, 07/2022, 03/01/2023, Additional history exists Albumin/Creatinine Ratio 01/07/2024 023, 04/09/2022, 12/04/2018 CKD HGB USE SMARTSET 44965 07/04/202407/04, 07/04/2023, 03/22/2023, Additional history exists CKD PHOS USE SMARTSET 90030 07/04/202401/2024, 03/30/2022, 08/06/2021, Additional history exists TSH [...] this encounter Medical Devices Implanted Type Area Softball Umpire Device Identifier Shelf Expiration Date Model / Serial / Lot Sut Steel 6 M654g - [id number] Implanted:Q[place] 4 [place] [facility]: Chest DO NOT USE 01/24/2018 M654G / / [id number] Valve Heart Mitral Epic 27mm - [id number] Implanted:Qty: 1 on 07/06/2013 [place] [facility] N/A: Heart [place] : CARDIOVASCULAR 11/01/2014 [id number] 0 / [id number] / Valve Heart Aortic Epic 23mm - [id number] Implanted:Qty: 1 on 07/06/2013 [place] [facility] N/A: Heart [place] : CARDIOVASCULAR 11/21/2016 [id number] / [id number] / Graft Gelweave 28x12.5 [id number] - [id number] Implanted:Qty: 1 on 07/06/2013 [place] [facility] [place]A: [facility] : CARDIO SYS 12/04/2017 [id number] / [id number] / [id number] Sut Steel 6 M654g - [id number] Implanted:Qty: 6 on 07/06/2013 at [place] [facility] [place]A: Chest DO NOT USE 01/24/2018 M654G / / [id number] documented as of this encounter Advance Directives [...] the patient have Health Care Power of School Transportation Supervisor? No Full Code 07/23/2013 5:32 AM 07/27/2013 10:52 PM This order reflects the patients wishes and were consensually agreed upon. Question Answer Comments Discussion of Advance Directives occurred with: Patient Does the patient have a Living Will? No Does the patient have Health Care Power of School Transportation Supervisor? No Full Code 07/06/2013 12:34 PM 07/14/2013 6:30 PM This order reflects the patients wishes and were consensually agreed upon. Care Teams Rf Microwave Engineer Relationship Specialty Start Date End Date Krystyna Marino MD [address] [place] [facility] [place] [address] PCP - General Internal Medicine 04/19/22 documented as of this encounter
--- OUTSIDE RECORDS SUMMARY | 2024-01-05 03:16 | External Medical Summary | Summary of Care ---
Author Name Unknown Organization [facility] Address [address] [place] [facility] [place] [place] [address] Phone [phone] Care Team Providers Care Apprenticeship Consultant Name Role Phone Krystyna Marino MD Primary Care Provider Reason for Visit * Reason Onset Date Comments Administrative Follow-Up 08/23/2023 Jesús mse download report Encounter Details Date Type Department Care Team (Late st Contact Info) Description 08/23[facility]20[facility] [address] [place] [address] Madeline Schaffer CRNP [address] [place] [address] Administrative Follow-Up (Compliance downl... Allergies No known [...] ons:HTN, goal below 140/90,Coronary artery disease involving pokagon coronary artery of pokagon heart without angina pectoris,S/P AVR (aortic valve [...] positive 04/19/2022 Coronary artery disease invo lving pokagon coronary artery of pokagon heart without angina pectoris 02/20/2021 Benign hypertension [...] encounter Miscellaneous Notes * Telephone Encounter - Madeline Schaffer CRNP [...] email has been sent to [facility] to check for a current DL [...] 9:39 AM EST Received faxed encounter from [employer] regarding our request for patient's compliance download report. Patient has C2C machine therefore patient needs to send her card to them for a manual download. They also called patient and instructed her to mail her card to [address] [place] [address]. documented in this encounter Plan of Treatment Upcoming Encounters Date Type Department Care Team (Late st Contact Info) Description 10/06/2023 11:00 AM EDT Anticoagulation Pharmacy, [place] [address] [place] [address] [facility] [address] [place] [address] 01/02/2024 11:00 AM EDT Office Visit [place] [address] [place] [phone] Krystyna Marino MD [address] [place] [address] 03/01/2024 2:20 PM EDT Office Visit Nephrology, [facility] [address] [place] [address] Drake Jha MD [address] [place] [address] 03/12/2024 11:00 AM EDT [facility] [address] [facility] [place] [address] 03/20/2024 11:00 AM EDT Office Visit Cardiology, [facility] [address] [facility] [place] [address] Lise Goldman CRNP [address] [place] [address] 07/27/2024 1:00 PM EST Nurse Only Ancillary Department, [place] [address] [facility] [place] [address] [place], [facility] Annual Wellness [address] [facility] [place] [address] 08/21/2024 10:30 AM EST Office Visit [facility] Disorders Ctr [facility] [address] [facility] [place] [phone] Madeline Schaffer CRNP [address] [facility] [place] [address] Health Maintenance Due Date Last Done Comments DISCUSS TOBACCO CESSATION (REFER TO SMARTSET #3291) 1945 Alpha-1 Antitrypsin 1962 Zoster Vaccines (1 of 2) 1994 *COPD SEVERITY VERIFIED BY PFT 07/07/2022 COVID-19 Vaccine ( season) 2023 02/06/2021, 01/17/2021 GFR 01/02/2024 07/04/2023, 07/2022, 03/01/2023, Additional history exists Albumin/Creatinine Ratio 01/07/2024 023, 04/09/2022, 12/04/2018 CKD HGB USE SMARTSET 36673 07/04/202407/04, 07/04/2023, 03/22/2023, Additional history exists CKD PHOS USE SMARTSET 42317 07/04/202401/2024, 03/30/2022, 08/06/2021, Additional history exists TSH [...] this encounter Medical Devices Implanted Type Area Controls Designer Device Identifier Shelf Expiration Date Model / Serial / Lot Sut Steel 6 M654g - [id number] Implanted:Qty: 4 on 07/06/2013 [place] [facility]/A: Chest DO NOT USE 01/24/2018 M654G / / [id number] Valve Heart Mitral Epic 27mm - [id number] Implanted:Qty: 1 on 07/06/2013 at [place] [facility] N/A: Heart [place] : CARDIOVASCULAR 11/01/2014 [id number]-9 0 / [id number] / Valve Heart Aortic Epic 23mm - [id number] Implanted:Qty: 1 on 07/06/2013 at [place] [facility] N/A: Heart [place] : CARDIOVASCULAR 11/21/2016 [id number]- 00 / [id number] / Graft Gelweave 28x12.5 [id number] - [id number] Implanted:Qty: 1 on 07/06/2013 at [place] [facility] N/A: Aorta [facility] : CARDIO SYS 12/04/2017 [id number] / [id number] / [id number] Sut Steel 6 M654g - [id number] Implanted:Qty: 6 on 07/06/2013 at [place] [facility] N/A: Chest DO NOT USE 01/24/2018 M654G / / [id number] documented as of this encounter Advance Directives [...] the patient have Health Care Power of Manager Medical Affairs? No Full Code 07/23/2013 5:32 AM 07/27/2013 10:52 PM This order reflects the patients wishes and were consensually agreed upon. Question Answer Comments Discussion of Advance Directives occurred with: Patient Does the patient have a Living Will? No Does the patient have Health Care Power of Manager Medical Affairs? No Full Code 07/06/2013 12:34 PM 07/14/2013 6:30 PM This order reflects the patients wishes and were consensually agreed upon. Care Teams Apprenticeship Consultant Relationship Specialty Start Date End Date Krystyna Marino MD [address] [place] [address] PCP - General Internal Medicine 04/19/22 documented as of this encounter
--- OUTSIDE RECORDS SUMMARY | 2024-01-05 03:16 | External Medical Summary | Summary of Care ---
Author Name Unknown Organization [facility] Address [address] [facility] [place] [address] Phone [phone] Care Team Providers Care Application Counselor Name Role Phone Krystyna Marino MD Primary Care Provider [phone] Reason for Visit * Reason Onset Date Comments Administrative Follow-Up 08/23/2023 Jesús ute download report Encounter Details Date Type Department Care Team (Late st Contact Info) Description 08/23[facility]20[facility] [address] [place] [address] Madeline Schaffer CRNP [address] [place] [address] Administrative Follow-Up (Compliance downl... Allergies No known active allergiesdocumented as of this encounter (statuses as of 09/13/2023) Medications Medication Sig Dispensed Refills Start Date [...] ns:HTN, goal below 140/90,Coronary artery disease involving capitan grande coronary artery of capitan grande heart without angina pectoris,S/P AVR (aortic valve replacement),S/P mitral valve replacement Take 1 Tablet by mouth in the morning. 90 Tablet 3 08/08/2023 Active hydroCHLOROthiazide 12.5 MG Oral Tablet (Hydrodiuril) Take 1 Tablet by mouth in the morning. 90 Tablet 3 08/11/2023 Active documented as of this encounter (statuses as of 09/13/2023) Active Problems Problem Noted Date Diagnosed Date Stage 3b chronic kidney disease 08/11/2023 COPD, group A, by GOLD 2017 classification 08/08 Overview: Per COPD GOLD Classification Anticoagulation management encounter 11/08/2022 Varicose veins of both lower extremities 022 DDD (degenerative disc disease), lumbar 04/19/20 22 Malignant neoplasm of right breast in female, estrogen receptor positive 04/19/2022 Coronary artery disease invo lving capitan grande coronary artery of capitan grande heart without angina pectoris 02/20/2021 Benign hypertension [...] as of this encounter (statuses as of 09/13/2023) Resolved Problems Problem Noted Date Diagnosed Date [...] as of this encounter (statuses as of 09/13/2023) Immunizations Name Administration Dates Next Due COVID-19 [...] EDT An email has been sent to [facility] to check for a current DL [...] 9:39 AM EST Received faxed encounter from [employer] regarding our request for patient's compliance download report. Patient has C2C machine therefore patient needs to send her card to them for a manual download. They also called patient and instructed her to mail her card to [address] [place] [address]. documented in this encounter Plan of Treatment Upcoming Encounters Date Type Department Care Team (Late st Contact Info) Description 10/06/2023 11:00 AM EDT Anticoagulation Pharmacy, [place] [address] [place] [address] [place] [facility] [address] [place] [address] 01/02/2024 11:00 AM EDT Office Visit Family Practice, [place] [address] [facility] [place] [address] Krystyna Marino MD [address] [place] [address] 03/01/2024 2:20 PM EDT Office Visit Nephrology, [facility] [address] [facility] [place] [address] Drake Jha MD [address] [facility] [place] [address] 03/12/2024 11:00 AM EDT Cardiac Studies [facility] Studies, [facility] [address] 03/20/2024 11:00 AM EDT Office Visit Cardiology, [facility] [address] [place] [address] Lise Goldman CRNP [facility] [address] 07/27/2024 1:00 PM EST Nurse Only Ancillary Department, [place] [address] [facility] [place] [address] [place], Nurse [facility] [address] [place] [address] 08/21/2024 10:30 AM EST Office Visit [facility] [phone] Madeline Schaffer CRNP [address] [place] [address] Health Maintenance Due Date Last Done Comments DISCUSS TOBACCO CESSATION (REFER TO SMARTSET #4677) 1945 Alpha-1 Antitrypsin 1962 Zoster Vaccines (1 of 2) 1994 *COPD SEVERITY VERIFIED BY PFT 07/07/2022 COVID-19 Vaccine ( season) 2023 02/06/2021, 01/17/2021 GFR 01/02/2024 07/04/2023, 1207/2022, 03/01/2023, Additional history exists Albumin/Creatinine Ratio 01/07/2024 023, 04/09/2022, 12/04/2018 CKD HGB USE SMARTSET 53681 07/04/202407/04, 07/04/2023, 03/22/2023, Additional history exists CKD PHOS USE SMARTSET 16430 07/04/[address] 01/2024, 03/30/2022, 08/06/2021, Additional history exists [...] this encounter Medical Devices Implanted Type Area Business Controller Device Identifier Shelf Expiration Date Model / Serial / Lot Sut Steel 6 M654g - [id number] Implanted:Qty: 4 on 07/06/2013 [place] [facility] [place]: Chest DO NOT USE 01/24/2018 M654G / / [id number] Valve Heart Mitral Epic 27mm - [id number] Implanted:Qty: 1 on 07/06/2013 [place] [facility] [place] N/A: Heart [place] : CARDIOVASCULAR 11/01/2014 [id number]-9 0 / [id number] / Valve Heart Aortic Epic 23mm - [id number] Implanted:Qty: 1 on 07/06/2013 [place] [facility] [place] N/A: Heart [place] : CARDIOVASCULAR 11/21/2016 [id number]- 00 / [id number] / Graft [employer]weave 28x12.5 [id number] - [id number] Implanted:Qty: 1 on 07/06/2013 [place] [facility] [place] [place]A: Aorta [employer] : CARDIO SYS 12/04/2017 [id number] / [id number] / [id number] Sut Steel 6 M654g - [id number] Implanted:Qty: 6 on 07/06/2013 [place] [facility] [place] [place]A: Chest DO NOT USE 01/24/2018 M654G / / [id number] documented as of this encounter Advance Directives [...] the patient have Health Care Power of Catalyst Manufacturing Operator? No Full Code 07/23/2013 5:32 AM 07/27/2013 10:52 PM This order reflects the patients wishes and were consensually agreed upon. Question Answer Comments Discussion of Advance Directives occurred with: Patient Does the patient have a Living Will? No Does the patient have Health Care Power of Catalyst Manufacturing Operator? No Full Code 07/06/2013 12:34 PM 07/14/2013 6:30 PM This order reflects the patients wishes and were consensually agreed upon. Care Teams Application Counselor Relationship Specialty Start Date End Date Krystyna Marino MD [address] [place] [address] PCP - General Internal Medicine 04/19/22 documented as of this encounter
--- OUTSIDE RECORDS SUMMARY | 2024-01-05 03:16 | External Medical Summary | Summary of Care ---
Author Name Unknown Organization [facility] Address [address] [place] [address] Phone [phone] Care Team Providers Care Data Center Operator Name Role Phone Krystyna Marino MD Primary Care Provider [phone] Reason for Referral * Precert (Within 10 days (routine)) - Pending Review Specialty Diagnoses / Procedures Referred By Contac t Referred To Contact Cardiac Studies Diagnoses S/P AVR (aortic valve replacement) S/P mitral valve replacement Procedures ECHO, COMPLETE (2D), TRANS-THORACIC Lise Goldman CRNP [address] [facility] [place] [address] Referral ID Status Reason Start Date Expiration Date Visits Requested Visits Authorized [id number] Pending Review Precert 03/10/2024 999 999 Reason [...] prosthetic heart valve 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 Paroxysmal atrial fibrillation (HCC) Essential (primary) hypertension Hyperlipidemia, unspecified Procedures CT OFFICE/OUTPATIENT ESTABLISHED MOD MDM [address] [facility] OUTPT CLINIC VISIT Krystyna Marino MD [address] [place] [address] Lise Goldman CRNP [address] [place] [address] Referral ID Status Reason Start Date Expiration Date Visits Requested Visits Authorized [id number] Authorized Specialty Services Required 09/08/2023 12/16/2023 2 2 Encounter Details Date Type Department Care Team (Judi garcia Contact Info) Description 09/08/2023 10:00 AM EDT Office Visit Cardiology, [facility] [address] [place] [address] Lise Goldman CRNP [address] [place] [address] S/P AVR (aortic valve replacement)*; S/P mitral valve replacement Allergies No known active allergiesdocumented as of this encounter (statuses as of 09/08/2023) Medications Medication Sig Dispensed Refills Start Date [...] ns:HTN, goal below 140/90,Coronary artery disease involving [place] coronary artery of shosh[place]bannock heart without angina pectoris,S/P AVR (aortic valve replacement),S/P mitral valve replacement Take 1 Tablet by mouth in the morning. 90 Tablet 3 08/08/2023 Active hydroCHLOROthiazide 12.5 MG Oral Tablet (Hydrodiuril) Take 1 Tablet by mouth in the morning. 90 Tablet 3 08/11/2023 Active documented as of this encounter (statuses as of 09/08/2023) Active Problems Problem Noted Date Diagnosed Date Stage 3b chronic kidney disease 08/11/2023 COPD, group A, by GOLD 2017 classification 08/08 Overview: Per COPD GOLD Classification Anticoagulation management encounter 11/08/2022 Varicose veins of both lower extremities 022 DDD (degenerative disc disease), lumbar 04/19/20 Malignant neoplasm of right breast in female, estrogen receptor positive 04/19/2022 Coronary artery disease invo lving [place] coronary artery of shosh[place]ann[place] heart without angina pectoris 02/20/2021 Benign hypertension [...] as of this encounter (statuses as of 09/08/2023) Resolved Problems Problem Noted Date Diagnosed Date [...] as of this encounter (statuses as of 09/08/2023) Immunizations Name Administration Dates Next Due COVID-19 [...] AM EDT Cardiology Outpatient Visit 09/08/2023 Primary Lopper: Formally Dr. Sofia Past medical history: Status post aortic valve (23mm St. Lb bioprosthesis) and mitral valve (27mm St. Lb prosthesis) replacement with CABG,07/06/[address] 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 Yuriy Blackmon BREAST BIOPSY Right benign BREAST LESION,OTHER,EXCISION Right 12/10/2014 EXCISION OF CYST OR TUMOR BREAST performed by Yuriy Blackmon MD at OR [facility] COLONOSCOPY, DIAGNOSTIC (RECTUM) 07/06/2017 TVA polyp, repeat 6 mo after resection/COLONOSCOPY FLEXIBLE PROXIMAL DIAGNOSTIC performed by MD Prema at ENDOSCOPY [facility] COLONOSCOPY, DIAGNOSTIC (RECTUM) 08/21/2018 fair prep/[facility] COLONOSCOPY, DIAGNOSTIC (RECTUM) N/A 12/10/2022 rectal prolapse/Colonoscopy/[place] CYSTOSCOPY CYSTOSCOPY 03/19/2019 done in office, Dr Rich CYSTOURETHROSCOPY W/BIOPSY 11/01/2014 EGD, FLEXIBLE, DIAGNOSTIC 08/21/2018 gastritis/[facility] EGD, FLEXIBLE, DIAGNOSTIC N/A 12/10/2022 biopsies normal/EGD/[place] EXPLORE CHEST VESSELS, POST-OP 07/06/2013 EXPLORATION POSTOPERATIVE HEMORRHAGE CHEST performed by Josh Woods MD at [facility] INCISION OF HEART SAC FOR DRAINAGE 07/23/2013 CREATION PERICARDIAL WINDOW performed by Robbie Bain MD at [facility] IOF CT GUIDED NEEDLE BIOPSY 08/28/2013 CT GUIDED NEEDLE ASPIRATION BIOPSY performed by Stuart Chan PA-C at RADIOLOGY [facility] LAPAROSCOPIC COLECTOMY PARTIAL WITH ANASTOMOSIS 11/28/2017 11/28/2017 laparoscopic assisted subtotal abdominal colectomy - [facility] DR. Yuriy Blackmon LIGATE/CUT OVIDUCT(S) LIGATE/CUT OVIDUCT(S) [...] performed by Josh Woods MD at OR [facility] SENTINEL LYMPH NODE BIOPSY PERFORMED Right 11/04/2014 [...] valve replacement 3. Coronary artery disease involving [place]bann[place] coronary artery of shoshone[place]bannock heart without angina pectoris -Status post aortic valve (23mm St. Lb bioprosthesis) and mitral valve (27mm St. Lb prosthesis)replacement with CABG,07/06/[address] Woods [facility] -History of bioprosthetic valve endocarditis status post [...] atrial fibrillation (HCC) -H/o Postop PAF 06/2013 -[id number]-TDSv score of 5 (age 1, female, HTN, CAD) -Chronic amiodarone and Coumadin therapy- maintaining NSR today on EKG. 1. Continue metoprolol tartrate 12.5 mg BID and amiodarone 200 mg daily 2. Surveillance lab work ordered, recent TSH normal 06/2023 3. Continue coumadin for stroke prevention, follows with [facility] coumadin clinic, INR goal between [...] Check-out note: Needs to establish with new catalytic case operator in 6 months, echo prior. I spent a total of 40 minutes on the date of service in preparation, delivery, and documentation ofthe care provided to Anay Richardson excluding any time spent in the performance of separately billed services. JED Urena [facility], Department of Cardiology This chart was completed in part utilizing [employer] Speech Voice Recognition Software. Grammatical errors, random [...] and dizziness. Examination Room: 7 Name: Anay Richradson Date of : (1945). Reason for Visit: [...] Description 10/06/2023 11:00 AM EDT Anticoagulation Pharmacy, [place] [address] [place] [facility] [place] [address] [place] [facility] [address] [place] [facility] [place] [address] 01/02/2024 11:00 AM EDT Office Visit Family Practice, [place] [address] [facility] [phone] Krystyna Marino MD [address] [place] [facility] [place] [address] 03/01/2024 2:20 PM EDT Office Visit Nephrology, [facility] [address] [place] [address] Drake Jha MD [address] [place] [address] 03/12/2024 11:00 AM EDT Cardiac Studies Cardiac Studies, [facility] [address] [facility] [place] [address] 03/20/2024 11:00 AM EDT Office Visit Cardiology, [facility] [address] [facility] [place] [address] Lise Goldman CRNP [address] [place] [address] 07/27/2024 1:00 PM EST Nurse Only Ancillary Department, [place] [address] [facility], [place] [address] [place], Nurse Annual Wellness [address] [facility], [place] [address] 08/21/2024 10:30 AM EST Office Visit Sleep Disorders Ctr [facility] [address] [place] [phone] Madeline Schaffer CRNP [address] [place] [address] Scheduled Orders Name Type Priority Associated Diagnoses [...] 023, 04/09/2022, 12/04/2018 CKD HGB USE SMARTSET 31698 07/04/202407/04, 07/04/2023, 03/22/2023, Additional history exists CKD PHOS USE SMARTSET 62415 07/04/202401/2024, 03/30/2022, 08/06/2021, Additional history exists TSH [...] this encounter Medical Devices Implanted Type Area Title I Assistant Device Identifier Shelf Expiration Date Model / Serial / Lot Gemini Chau 6 M654g - [id number] Implanted:Qty: 4 on 07/06/2013 at OR [facility] N/A: Chest DO NOT USE 01/24/2018 M654G / / [id number] Valve Heart Mitral Epic 27mm - [id number] Implanted:Qty: 1 on 07/06/2013 at OR [facility] N/A: Heart ST LB : CARDIOVASCULAR 11/01/2014 [id number] 0 / [id number] / Valve Heart Aortic Epic 23mm - [id number] Implanted:Qty: 1 on 07/06/2013 at OR [facility] N/A: Heart ST LB : CARDIOVASCULAR 11/21/2016 [id number]- 00 / [id number] / Graft Gelweave 28x12.5 [id number] - [id number] Implanted:Qty: 1 on 07/06/2013 at OR [facility] N/A: Aorta [employer] : CARDIO SYS 12/04/2017 [id number] / [id number] / [id number] [facility] 6 M654g - [id number] Implanted:Qty: 6 on 07/06/2013 at OR [facility] N/A: Chest DO NOT USE 01/24/2018 M654G / / [id number] documented as of this encounter Visit Diagnoses [...] the patient have Health Care Power of Automotive Production Worker? No Full Code 07/23/2013 5:32 AM 07/27/2013 10:52 PM This order reflects the patients wishes and were consensually agreed upon. Question Answer Comments Discussion of Advance Directives occurred with: Patient Does the patient have a Living Will? No Does the patient have Health Care Power of Automotive Production Worker? No Full Code 07/06/2013 12:34 PM 07/14/2013 6:30 PM This order reflects the patients wishes and were consensually agreed upon. Care Teams Data Center Operator Relationship Specialty Start Date End Date Krystyna Marino MD [address] [place] [address] PCP - General Internal Medicine 04/19/22 documented as of this encounter"
--- OUTSIDE RECORDS SUMMARY | 2024-01-05 03:16 | External Medical Summary | Summary of Care ---
Author Name Unknown Organization [facility] Address [address] [facility] [place] [address] Phone [phone] Care Team Providers Care Ingot Header Name Role Phone Krystyna Mraino MD Primary Care Provider [phone] Reason for Visit * Reason Onset Date Comments Med Request 09/05/2023 Encounter Details Date Type Department Care Team (Late st Contact Info) Description 09/05/2023 Telephone Cardiology, [facility] [address] [facility] [place] [address] Lise Goldman CRNP [address] [facility] [place] [address] Med Request Allergies No known active allergiesdocumented as [...] ons:HTN, goal below 140/90,Coronary artery disease involving [place] coronary artery of [place] heart without angina pectoris,S/P AVR (aortic valve replacement),S/P mitral valve replacement Take 1 Tablet by mouth in the morning. 90 Tablet 3 4 Active Lisinopril 5 MG Oral Tablet (Prinivil)Indicati ons:HTN, goal below 140/90,Coronary artery disease involving [place] coronary artery of [place] heart without angina pectoris,S/P AVR (aortic valve [...] positive 04/19/2022 Coronary artery disease invo lving [place] coronary artery of [place] heart without angina pectoris 02/20/2021 Benign hypertension [...] encounter Miscellaneous Notes * Telephone Encounter - Lise Goldman CRNP - 09/13/2023 1:48 PM EDT Signed. JED Dillard * Telephone Encounter - Vania Blum LPN - 09/13/2023 1:46 PM EDT Called pharmacy. They did not receive 08/21/23 prescription. * Telephone Encounter - Lisandro Frausto OSA - 09/05/2023 9:32 AM EDT Person calling: Jp - [facility] Relationship to patient: Technical Specialist Cytology Number to return call: [phone] Reason for call: Jp from [facility] calling. Patient needs a refill on Lisinopril 5 MG Tablets. If you can please have Lise review and authorize. Jp can be reached at [phone] if there are any questions. Pharmacy: [facility] Provider Name:Lise ADKINS Thank You, Lisandro Irvin [id number] documented in this encounter Plan of Treatment Upcoming Encounters Date Type Department Care Team (Late st Contact Info) Description 10/06/2023 11:00 AM EDT Anticoagulation Pharmacy, [place] [address] [facility] [address] [facility] [address] [facility] [address] 01/02/2024 11:00 AM EDT Office Visit Family [facility], [place] [address] [facility] [place] [phone] Krystyna Marino MD [address] [place] [address] 03/01/2024 2:20 PM EDT Office Visit Nephrology, [facility] [address] [facility] [place] [address] Drake Jha MD [address] [facility] [place] [address] 03/12/2024 11:00 AM EDT Cardiac Studies Cardiac Studies, [facility] [address] [facility] [place] [address] 03/20/2024 11:00 AM EDT Office Visit Cardiology, [facility] [address] [facility] [place] [address] Lise Goldman CRNP [address] [facility] [place] [address] 07/27/2024 1:00 PM EST Nurse Only Ancillary Department, [place] [address] [place] [address] [place], Nurse Annual [facility]ness [address] [place] [address] 08/21/2024 10:30 AM EST Office Visit Sleep Disorders [facility] [address] [facility] [place] [phone] Madeline Schaffer CRNP [address] [place] [address] Health Maintenance Due Date Last Done Comments DISCUSS TOBACCO CESSATION (REFER TO SMARTSET #3238) 1945 Alpha-1 Antitrypsin 1962 Zoster Vaccines (1 of 2) 1994 *COPD SEVERITY VERIFIED BY PFT 07/07/2022 COVID-19 Vaccine (2022- season) 2023 02/06/2021, 01/17/2021 GFR 01/02/2024 07/04/2023, 120 07/2022, 03/01/2023, Additional history exists Albumin/Creatinine Ratio 01/07/2024 023, 04/09/2022, 12/04/2018 CKD HGB USE SMARTSET 26804 07/04/202407/04, 07/04/2023, 03/22/2023, Additional history exists CKD PHOS USE SMARTSET 71501 07/04/[address] 01/2024, 03/30/2022, 08/06/2021, Additional history exists [...] this encounter Medical Devices Implanted Type Area Excavator Operator Device Identifier Shelf Expiration Date Model / Serial / Lot Sut Steel 6 M654g - [id number] Implanted:Qty: 4 on 07/06/2013 [place] [facility] N/A: Chest DO NOT USE 01/24/2018 M654G / / [id number] Valve Heart Mitral Epic 27mm - [id number] Implanted:Qty: 1 on 07/06/2013 at [place] [facility] N/A: Heart [place] : CARDIOVASCULAR 11/01/2014 [id number]-8 0 / [id number] / Valve Heart Aortic Epic 23mm - [id number] Implanted:Qty: 1 on 07/06/2013 at [place] [facility] N/A: Heart [place] : CARDIOVASCULAR 11/21/2016 [id number]- 00 / [id number] / Graft Gelweave 28x12.5 [id number] - [id number] Implanted:Qty: 1 on 07/06/2013 at [place] [facility] N/A: Aorta [employer] : CARDIO SYS 12/04/2017 [id number] / [id number] / [id number] Sut Steel 6 M654g - [id number] Implanted:Qty: 6 on 07/06/2013 at [place] [facility] N/A: Chest DO NOT USE 01/24/2018 M654G / / [id number] documented as of this encounter Visit Diagnoses Diagnosis HTN, goal below 140/90 Unspecified essential hypertension Coronary artery disease involving [place] coronary artery of [place] heart without angina pectoris S/P AVR (aortic valve replacement) Heart valve replaced by other means S/P [...] the patient have Health Care Power of Instrument Technician Apprentice? No Full Code 07/23/2013 5:32 AM 07/27/2013 10:52 PM This order reflects the patients wishes and were consensually agreed upon. Question Answer Comments Discussion of Advance Directives occurred with: Patient Does the patient have a Living Will? No Does the patient have Health Care Power of Instrument Technician Apprentice? No Full Code 07/06/2013 12:34 PM 07/14/2013 6:30 PM This order reflects the patients wishes and were consensually agreed upon. Care Teams Ingot Header Relationship Specialty Start Date End Date Krystyna Marino MD [address] [place] [address] PCP - General Internal Medicine 04/19/22 documented as of this encounter
--- OUTSIDE RECORDS SUMMARY | 2024-01-05 03:16 | External Medical Summary ---
Author Name Unknown Address Unknown Organization : Laboratory Report Ordering Provider Test Date Status ALEXAARSENIO 08/25/2023 11:15:17 Final Therapeutic ranges for non-o perative patients:
Prophylaxsis/treatment of DVT: (Range:2.0-3.0)
Treatment of pulmonary embolism:(Range:2.0-3.0)
Prevention of systemic embolism from:
-tissue heart valves
-acute myocardial infarction
-valvular heart disease
-atrial fibrillation
(Range: 2.0-3.0)
Mechanical prosthetic valves: (Range: 2.5-3.5) Observation Date Value Abnormality Reference (Units ) Status INR in Capillary blood by Coagulation assay 08/25/2023 11:15:17 3.0 (INR) Final Performing Location
--- OUTSIDE RECORDS SUMMARY | 2024-01-05 03:16 | External Medical Summary | Summary of Care ---
Author Name Unknown Organization [facility] Address [address] [place] [facility] [place] [address] Phone [phone] Care Team Providers Care Elementary Substitute Teacher Name Role Phone Krystyna Marino MD Primary Care Provider [phone] Reason for Visit * Reason Onset Date Comments Administrative Follow-Up 08/23/2023 Jesús nve download report Encounter Details Date Type Department Care Team (Late st Contact Info) Description 08/23/2023 Telephone [facility] Disorders [facility] [address] [place] [phone] Madeline Schaffer CRNP [address] [place] [address] Administrative Follow-Up (Compliance downl... Allergies No known active allergiesdocumented as of this encounter (statuses as of 09/05/2023) Medications Medication Sig Dispensed Refills Start Date [...] ns:HTN, goal below 140/90,Coronary artery disease involving [place] coronary artery of [place] heart without angina pectoris,S/P AVR (aortic valve replacement),S/P mitral valve replacement Take 1 Tablet by mouth in the morning. 90 Tablet 3 08/08/2023 Active hydroCHLOROthiazide 12.5 MG Oral Tablet (Hydrodiuril) Take 1 Tablet by mouth in the morning. 90 Tablet 3 08/11/2023 Active documented as of this encounter (statuses as of 09/05/2023) Active Problems Problem Noted Date Diagnosed Date Stage 3b chronic kidney disease 08/11/2023 COPD, group A, by GOLD 2017 classification 08/08 Overview: Per COPD GOLD Classification Anticoagulation management encounter 11/08/2022 Varicose veins of both lower extremities 022 DDD (degenerative disc disease), lumbar 04/19/20 22 Malignant neoplasm of right breast in female, estrogen receptor positive 04/19/2022 Coronary artery disease invo lving [place] coronary artery of [place] heart without angina pectoris 02/20/2021 Benign hypertension [...] as of this encounter (statuses as of 09/05/2023) Resolved Problems Problem Noted Date Diagnosed Date [...] as of this encounter (statuses as of 09/05/2023) Immunizations Name Administration Dates Next Due COVID-19 [...] encounter Miscellaneous Notes * Telephone Encounter - Shalini Fagan OSA [...] 9:39 AM EST Received faxed encounter from [employer] regarding our request for patient's compliance download report. Patient has C2C machine therefore patient needs to send her card to them for a manual download. They also called patient and instructed her to mail her card to [address] [place] [address]. documented in this encounter Plan of Treatment Upcoming Encounters Date Type Department Care Team (Late st Contact Info) Description 09/08/2023 10:00 AM EDT Office Visit Cardiology, [facility] [address] [facility] [place] [address] Lise Goldman CRNP [facility] [place] [address] 10/06/2023 11:00 AM EDT Anticoagulation Pharmacy, [place] [address] [place] [address] [facility] [address] [place] [address] 01/02/2024 11:00 AM EDT Office Visit Family Practice, [place] [address] [place] [address] Krystyna Marino MD [address] [place] [address] 03/01/2024 2:20 PM EDT Office Visit Nephrology, [facility] [address] [facility] [place] [address] Drake Jha MD [address] [facility] [place] [address] 07/27/2024 1:00 PM EST Nurse Only Ancillary Department, [place] [address] [place] [address] [facility] Nurse Annual Wellness [address] [place] [address] 08/21/2024 10:30 AM EST Office Visit Sleep Disorders Ctr [facility] [address] [place] [phone] Madeline Schaffer CRNP [address] [place] [address] Health Maintenance Due Date Last Done Comments DISCUSS TOBACCO CESSATION (REFER TO SMARTSET #3291) 1945 Alpha-1 Antitrypsin 1962 Zoster Vaccines (1 of 2) 1994 *COPD SEVERITY VERIFIED BY PFT 07/07/2022 COVID-19 Vaccine (2022- season) 2023 02/06/2021, 01/17/2021 GFR 01/02/2024 07/04/2023, 12/0 07/2022, 03/01/2023, Additional history exists Albumin/Creatinine Ratio 01/07/2024 023, 04/09/2022, 12/04/2018 CKD HGB USE SMARTSET 58364 07/04/202407/04, 07/04/2023, 03/22/2023, Additional history exists CKD PHOS USE SMARTSET 34443 07/04/2024/0 01/2024, 03/30/2022, 08/06/2021, Additional history exists [...] this encounter Medical Devices Implanted Type Area Patent Law Specialist Device Identifier Shelf Expiration Date Model / Serial / Lot Sut Steel 6 M654g - [id number] Implanted:Qty: 4 on 07/06/2013 [place] [facility] N/A: Chest DO NOT USE 01/24/2018 M654G / / [id number] Valve Heart Mitral Epic 27mm - [id number] Implanted:Qty: 1 on 07/06/2013 at [place] [facility] N/A: Heart [place] : CARDIOVASCULAR 11/01/2014 [id number]-8 0 / [id number] / Valve Heart Aortic Epic 23mm - [id number] Implanted:Qty: 1 on 07/06/2013 at [place] [facility] N/A: Heart [place] : CARDIOVASCULAR 11/21/2016 UBV572-60- 00 / [id number] / Graft Gelweave 28x12.5 [id number] - [id number] Implanted:Qty: 1 on 07/06/2013 at [place] [facility] N/A: Aorta [employer] : CARDIO SYS 12/04/2017 [id number] / [id number] / [id number] Sut Steel 6 M654g - [id number] Implanted:Qty: 6 on 07/06/2013 at [place] [facility] N/A: Chest DO NOT USE 01/24/2018 M654G / / [id number] documented as of this encounter Advance Directives [...] the patient have Health Care Power of Side Show Entertainer? No Full Code 07/23/2013 5:32 AM 07/27/2013 10:52 PM This order reflects the patients wishes and were consensually agreed upon. Question Answer Comments Discussion of Advance Directives occurred with: Patient Does the patient have a Living Will? No Does the patient have Health Care Power of Side Show Entertainer? No Full Code 07/06/2013 12:34 PM 07/14/2013 6:30 PM This order reflects the patients wishes and were consensually agreed upon. Care Teams Elementary Substitute Teacher Relationship Specialty Start Date End Date Krystyna Marino MD [address] [facility] [address] PCP - General Internal Medicine 04/19/22 documented as of this encounter
--- OUTSIDE RECORDS SUMMARY | 2024-01-05 03:17 | External Medical Summary | Summary of Care ---
Author Name Unknown Organization [facility] Address [address] [facility] [place] [address] Phone [phone] Care Team Providers Care Excavating Contractor Name Role Phone Krystyna Marino MD Primary Care Provider [phone] Encounter Details Date Type Department Care Team (Late st Contact Info) Description 08/18/2023 Telephone Pulmonary Medicine, [facility] [address] [place] [address] Madeline Schaffer CRNP [address] [place] [address] Allergies No known active allergiesdocumented as of this encounter (statuses as of 08/18/2023) Medications Medication Sig Dispensed Refills Start Date [...] ns:HTN, goal below 140/90,Coronary artery disease involving buck[place] coronary artery of buck[place] heart without angina pectoris,S/P AVR (aortic valve replacement),S/P mitral valve replacement Take 1 Tablet by mouth in the morning. 90 Tablet 3 08/08/2023 Active hydroCHLOROthiazide 12.5 MG Oral Tablet (Hydrodiuril) Take 1 Tablet by mouth in the morning. 90 Tablet 3 08/11/2023 Active documented as of this encounter (statuses as of 08/18/2023) Active Problems Problem Noted Date Diagnosed Date Stage 3b chronic kidney disease 08/11/2023 COPD, group A, by GOLD 2017 classification 08/08 Overview: Per COPD GOLD Classification Anticoagulation management encounter 11/08/2022 Varicose veins of both lower extremities 022 DDD (degenerative disc disease), lumbar 04/19/20 Malignant neoplasm of right breast in female, estrogen receptor positive 04/19/2022 Coronary artery disease invo lving buckland coronary artery of buckland heart without angina pectoris 02/20/2021 Benign hypertension [...] as of this encounter (statuses as of 08/18/2023) Resolved Problems Problem Noted Date Diagnosed Date [...] as of this encounter (statuses as of 08/18/2023) Immunizations Name Administration Dates Next Due COVID-19 [...] encounter Miscellaneous Notes * Telephone Encounter - Stephanie Viveros OSA - 08/18/2023 3:31 PM EST CPAP settings order entered in TH. documented in this encounter Plan of Treatment Upcoming Encounters Date Type Department Care Team (Late st Contact Info) Description 08/25/2023 11:10 AM EST Anticoagulation Pharmacy, [place] [address] [facility] [address] [place], [facility] [address] [facility] [place] [address] 09/08/2023 10:00 AM EDT Office Visit Cardiology, [facility] [address] [facility] [place] [address] Lise Goldman CRNP [address] [facility] [place] [address] 01/02/2024 11:00 AM EDT Office Visit Family Practice, [place] [address] [facility] [phone] Krystyna Marino MD [address] [place] [facility] [place] [address] 03/01/2024 2:20 PM EDT Office Visit Nephrology, [facility] [address] [facility] [address] Drake Jha MD [address] [facility] [place] [address] 07/27/2024 1:00 PM EST Nurse Only Ancillary Department, [place] [address] [facility] [address] [place], [facility] [address] [facility] [address] 08/21/2024 10:30 AM EST Office Visit Sleep Disorders Ctr [facility] [address] [facility] [place] [phone] Madeline Schaffer CRNP [address] [facility] [place] [address] Health Maintenance Due Date Last Done Comments DISCUSS TOBACCO CESSATION (REFER TO SMARTSET #5868) 1944 Alpha-1 Antitrypsin 1962 Zoster Vaccines (1 of 2) 1994 *COPD SEVERITY VERIFIED BY PFT 07/07/2022 COVID-19 Vaccine ( season) 2023 02/06/2021, 01/17/2021 GFR 01/02/2024 07/04/2023, 1207/2022, 03/01/2023, Additional history exists Albumin/Creatinine Ratio 01/07/2024 023, 04/09/2022, 12/04/2018 CKD HGB USE SMARTSET 80014 07/04/202407/04, 07/04/2023, 03/22/2023, Additional history exists CKD PHOS USE SMARTSET 96694 07/04/202401/2024, 03/30/2022, 08/06/2021, Additional history exists TSH [...] this encounter Medical Devices Implanted Type Area Biofuels Plant Operations Engineer Device Identifier Shelf Expiration Date Model / Serial / Lot Sut Steel 6 [id number] - [id number] Implanted:Qty: 4 on 07/06/2013 at OR [facility] N/A: Chest DO NOT USE 01/24/2018 [id number] / / [id number] Valve Heart Mitral Epic 27mm - [id number] Implanted:Qty: 1 on 07/06/2013 at OR [facility] N/A: Heart [place] : CARDIOVASCULAR 11/01/2014 [id number] / [id number] / Valve Heart Aortic Epic 23mm - [id number] Implanted:Qty: 1 on 07/06/2013 at OR [facility] N/A: Heart [place] : CARDIOVASCULAR 11/21/2016 [id number] / [id number] / Graft Gelweave 28x12.5 [id number] - [id number] Implanted:Qty: 1 on 07/06/2013 at OR [facility] N/A: Aorta [employer] : CARDIO SYS 12/04/2017 [id number] / [id number] / [id number] Sut Steel 6 M654g - [id number] Implanted:Qty: 6 on 07/06/2013 at OR [facility] N/A: Chest DO NOT USE 01/24/2018 [id number] / / [id number] documented as of this encounter Advance Directives [...] the patient have Health Care Power of City Assessor? No Full Code 07/23/2013 5:32 AM 07/27/2013 10:52 PM This order reflects the patients wishes and were consensually agreed upon. Question Answer Comments Discussion of Advance Directives occurred with: Patient Does the patient have a Living Will? No Does the patient have Health Care Power of City Assessor? No Full Code 07/06/2013 12:34 PM 07/14/2013 6:30 PM This order reflects the patients wishes and were consensually agreed upon. Care Teams Excavating Contractor Relationship Specialty Start Date End Date Krystyna Marino MD [address] [place] [address] PCP - General Internal Medicine 04/19/22 documented as of this encounter
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
--- OUTSIDE RECORDS SUMMARY | 2024-01-05 03:17 | External Medical Summary | Summary of Care ---
Author Name Unknown Organization [facility] Address [address] [place] [facility] [place] [address] Phone [phone] Care Team Providers Care Director Retail Brand Development Name Role Phone Krystyna Marino MD Primary Care Provider [phone] Reason for Visit * Reason Onset Date Comments Administrative Follow-Up 08/23/2023 Jesús ohe download report Encounter Details Date Type Department Care Team (Late st Contact Info) Description 08/23/2023 [facility] [address] [place] [address] Madeline Schaffer CRNP [address] [place] [address] Administrative Follow-Up (Compliance downl... Allergies No known active allergiesdocumented as of this encounter (statuses as of 08/23/2023) Medications Medication Sig Dispensed Refills Start Date [...] ns:HTN, goal below 140/90,Coronary artery disease involving [place] coronary artery of [place] heart without angina pectoris,S/P AVR (aortic valve replacement),S/P mitral valve replacement Take 1 Tablet by mouth in the morning. 90 Tablet 3 08/08/2023 Active hydroCHLOROthiazide 12.5 MG Oral Tablet (Hydrodiuril) Take 1 Tablet by mouth in the morning. 90 Tablet 3 08/11/2023 Active documented as of this encounter (statuses as of 08/23/2023) Active Problems Problem Noted Date Diagnosed Date Stage 3b chronic kidney disease 08/11/2023 COPD, group A, by GOLD 2017 classification 08/08 Overview: Per COPD GOLD Classification Anticoagulation management encounter 11/08/2022 Varicose veins of both lower extremities 022 DDD (degenerative disc disease), lumbar 04/19/20 22 Malignant neoplasm of right breast in female, estrogen receptor positive 04/19/2022 Coronary artery disease invo lving [place] coronary artery of [place] heart without angina pectoris 02/20/2021 Benign hypertension with CKD (chronic kidney disease) stage III 12/03/2020 Nocturnal hypoxemia 08/21/2019 Carcinoma of breast upper outer quadrant, right 11/22/2018 Iron deficiency anemia 05/10/2018 Paroxysmal atrial fibrillation 04/27/2018 S/P colectomy 04/27/2018 Secondary hyperparathyroidism of renal origin SARHA (obstructive sleep apnea) 04/01/2017 Overview: CPAP 8 [...] as of this encounter (statuses as of 08/23/2023) Resolved Problems Problem Noted Date Diagnosed Date [...] as of this encounter (statuses as of 08/23/2023) Immunizations Name Administration Dates Next Due COVID-19 [...] encounter Miscellaneous Notes * Telephone Encounter - Cecile Olivares LPN - 08/23/2023 9:39 AM EST Received faxed encounter from [facility] regarding our request for patient's compliance download report. Patient has C2C machine therefore patient needs to send her card to them for a manual download. They also called patient and instructed her to mail her card to [address] [place] [address]. documented in this encounter Plan of Treatment Upcoming Encounters Date Type Department Care Team (Late st Contact Info) Description 08/25/2023 11:10 AM EST Anticoagulation Pharmacy, [place] [address] [place] [address] [facility] [address] [place] [address] 09/08/2023 10:00 AM EDT Office Visit Cardiology, [facility] [address] [place] [address] Lise Goldman CRNP [address] [facility] [address] 01/02/2024 11:00 AM EDT Office Visit Family Practice, [address] [phone] Krystyna Marino MD [address] [place] [address] 03/01/2024 2:20 PM EDT Office Visit Nephrology, [place] [address] [place] [address] Drake Jha MD [address] [place] [address] 07/27/2024 1:00 PM EST Nurse Only Ancillary Department, [place] [address] [place] [facility] [place] [address] [facility] [address] [place] [address] 08/21/2024 10:30 AM EST Office Visit Sleep Disorders Ctr [facility] [address] [place] [address] Madeline Schaffer CRNP [address] [place] [address] Health Maintenance Due Date Last Done Comments DISCUSS TOBACCO CESSATION (REFER TO SMARTSET #3291) 1945 Alpha-1 Antitrypsin 1962 Zoster Vaccines (1 of 2) 1994 *COPD SEVERITY VERIFIED BY PFT 07/07/2022 COVID-19 Vaccine ( season) 2023 02/06/2021, 01/17/2021 GFR 01/02/2024 07/04/2023, 1207/2022, 03/01/2023, Additional history exists Albumin/Creatinine Ratio 01/07/2024 023, 04/09/2022, 12/04/2018 CKD HGB USE SMARTSET 77446 07/04/202407/04, 07/04/2023, 03/22/2023, Additional history exists CKD PHOS USE SMARTSET 38105 07/04/202401/2024, 03/30/2022, 08/06/2021, Additional history exists TSH [...] this encounter Medical Devices Implanted Type Area Tube And Rod Straightener Device Identifier Shelf Expiration Date Model / Serial / Lot Sut Steel 6 M654g - [id number] Implanted:Qty: 4 on 07/06/2013 [place] [facility] [place]: Chest DO NOT USE 01/24/2018 [id number] / / [id number] Valve Heart Mitral Epic 27mm - [id number] Implanted:Qty: 1 on 07/06/2013 at [place] [facility] [place] N/A: Heart [place] : CARDIOVASCULAR 11/01/2014 [id number]-5 0 / [id number] / Valve Heart Aortic Epic 23mm - [id number] Implanted:Qty: 1 on 07/06/2013 at [place] [facility] [place] N/A: Heart [place] : CARDIOVASCULAR 11/21/2016 [id number] / [id number] / Graft Gelweave 28x12.5 [id number] - [id number] Implanted:Qty: 1 on 07/06/2013 at [place] [facility] [place]/A: Aorta [employer] : CARDIO SYS 12/04/2017 [id number] / [id number] / [id number] Sut Steel 6 M654g - [id number] Implanted:Qty: 6 on 07/06/2013 at [place] [facility] [place]/A: Chest DO NOT USE 01/24/2018 M654G / / [id number] documented as of this encounter Advance Directives [...] the patient have Health Care Power of Body Service Team Member? No Full Code 07/23/2013 5:32 AM 07/27/2013 10:52 PM This order reflects the patients wishes and were consensually agreed upon. Question Answer Comments Discussion of Advance Directives occurred with: Patient Does the patient have a Living Will? No Does the patient have Health Care Power of Body Service Team Member? No Full Code 07/06/2013 12:34 PM 07/14/2013 6:30 PM This order reflects the patients wishes and were consensually agreed upon. Care Teams Director Retail Brand Development Relationship Specialty Start Date End Date Krystyna Marino MD [address] [place] [address] PCP - General Internal Medicine 04/19/22 documented as of this encounter
--- OUTSIDE RECORDS SUMMARY | 2024-01-05 03:17 | External Medical Summary | Summary of Care ---
Author Name Unknown Organization [facility] Address [address] [facility] [address] Phone [phone] Care Team Providers Care Hr Recruiter Name Role Phone Krystyna Marino MD Primary Care Provider [phone] Reason for Visit * Reason Comments Outpatient Testing Encounter Details Date Type Department Care Team (Late st Contact Info) Description 08/11/2023 2:30 PM EST Laboratory Laboratory [facility] [place] [address] [place] [address] [facility] [address] [facility] [place] [address] Arrived Allergies No known active allergiesdocumented as of [...] the morning. 90 Tablet 3 04/15/2023 Active hydroCHLOROthiazide 25 MG Oral Tablet (Hydrodiuril)Indica tions:HTN, goal below 140/90,S/P mitral valve replacement,Dyslipi demia, goal LDL below 70,LBBB (left bundle branch block),Paroxysmal atrial fibrillation (HCC),S/P AVR (aortic valve replacement),Rosario ry artery disease involving [place] coronary artery of [place] heart without angina pectoris Take 1 Tablet [...] kidney disease) stage 3, GFR 30-59 ml/min ([facility]) TAKE 1 TABLET BY MOUTH TWICE DAILY every morning and before bedtime 60 Tablet 11 04/27/2023 Active Amiodarone HCl 200 MG Oral Tablet (Cordarone)Indicati ons:S/P mitral valve replacement,S/P AVR (aortic valve replacement),Paroxy smal atrial fibrillation (HCC) Take 1 Tablet by mouth in the morning. 90 Tablet 3 05/16/2023 Active Lisinopril 5 MG Oral Tablet (Prinivil)Indicatio ns:HTN, goal below 140/90,Coronary artery disease involving [place] coronary artery of [place] heart without angina pectoris,S/P AVR (aortic valve replacement),S/P mitral valve replacement Take 1 Tablet by mouth in the morning. 90 Tablet 3 08/08/2023 Active documented as of this encounter (statuses as of 08/11/2023) Active Problems Problem Noted Date Diagnosed Date COPD, group A, by GOLD 2017 classification 08/08 Overview: Per COPD GOLD Classification Anticoagulation management encounter 11/08/2022 Varicose veins of both lower extremities 022 DDD (degenerative disc disease), lumbar 04/19/20 22 Malignant neoplasm of right breast in female, estrogen receptor positive 04/19/2022 Coronary artery disease invo lving [place] coronary artery of [place] heart without angina pectoris 02/20/2021 Benign hypertension [...] Description 08/11/2023 3:00 PM EST Office Visit Nephrology, [place] [address] [place] [address] Drake Jha MD [address] [place] [address] Arrived 08/18/2023 10:30 AM EST Office Visit [facility]tr [facility] [address] [facility] [phone] Madeline Schaffer CRNP [address] [facility] [address] 08/25/2023 11:10 AM EST [facility]tico[facility], [place] [address] [facility] [address] [facility] [address] [place] [address] 09/08/2023 10:00 AM EDT Office Visit Cardiology, [facility] [place] [address] Lise Goldman CRNP [address] [facility] [address] 01/02/2024 11:00 AM EDT Office Visit Family Practice, [place] [address] [facility] [phone] Krystyna Marino MD [address] [facility] [address] 07/27/2024 1:00 PM EST Nurse Only Ancillary Department, [place] [address] [facility] [address] [place] [address] [facility] [address] Health Maintenance Due Date Last Done Comments DISCUSS TOBACCO CESSATION (REFER TO SMARTSET #4144) 1945 Alpha-1 Antitrypsin 1962 Zoster Vaccines (1 of 2) 1994 *COPD SEVERITY VERIFIED BY PFT 07/07/2022 COVID-19 Vaccine ( season) 2023 02/06/2021, 01/17/2021 GFR 01/02/2024 07/04/2023, 1207/2022, 03/01/2023, Additional history exists Albumin/Creatinine Ratio 01/07/2024 023, 04/09/2022, 12/04/2018 CKD HGB USE SMARTSET 54525 07/04/202407/04, 07/04/2023, 03/22/2023, Additional history exists CKD PHOS USE SMARTSET 80712 07/04/202401/2024, 03/30/2022, 08/06/2021, Additional history exists TSH 07/04/2024 07/04/2023, 070 12/2022, 09/14/2022, Additional history exists Depression Screening 07/25/2024 07/25/2023 O2 ASSESSMENT COMPLETED IN PAST YEAR FOR COPD 07/25/2024 07/25/2023 DTaP,Tdap,and Td Vaccines (2 - Td or [...] this encounter Medical Devices Implanted Type Area Farmworkers Device Identifier Shelf Expiration Date Model / Serial / Lot Sut Steel 6 M654g - [id number] [place]planted:Qty[place] 6 on 07[place] [facility] [facility] [place]: Chest DO NOT USE 01/24/2018 M654G / / [id number] documented as of this encounter Advance Directives [...] the patient have Health Care Power of Safety Companion? No Full Code 07/23/2013 5:32 AM 07/27/2013 10:52 PM This order reflects the patients wishes and were consensually agreed upon. Question Answer Comments Discussion of Advance Directives occurred with: Patient Does the patient have a Living Will? No Does the patient have Health Care Power of Safety Companion? No Full Code 07/06/2013 12:34 PM 07/14/2013 6:30 PM This order reflects the patients wishes and were consensually agreed upon. Care Teams Hr Recruiter Relationship Specialty Start Date End Date Krystyna Marino MD [address] [place] [address] PCP - General Internal Medicine 04/19/22 documented as of this encounter
--- OUTSIDE RECORDS SUMMARY | 2024-01-05 03:17 | External Medical Summary | Summary of Care ---
Author Name Unknown Organization [facility] Address [address] [facility] [address] Phone [phone] Care Team Providers Care Block Cableman Name Role Phone Krystyna Marino MD Primary Care Provider [phone] Reason for Visit * Reason Comments Follow Up Here return. SARAH. CP AP. Adjusting to new machine. Encounter Details Date Type Department Care Team (Late st Contact Info) Description 08/18/2023 10:30 AM EST Office Visit Sleep Disorders Ctr [facility] [address] [place] [phone] Madeline Schaffer CRNP [address] [place] [address] Obstructive sleep apnea*; Nocturnal hypoxemia Allergies No [...] ns:HTN, goal below 140/90,Coronary artery disease involving [place] coronary artery of [place] heart without angina pectoris,S/P AVR (aortic valve [...] 11/08/2022 Varicose veins of both lower extremities DDD (degenerative disc disease), lumbar 04/19/20 Malignant neoplasm of right breast in female, estrogen receptor positive 04/19/2022 Coronary artery disease invo lving [place] coronary artery of [place] heart without angina pectoris 02/20/2021 Benign hypertension [...] this encounter Patient Instructions * Patient Instructions* Madeline Schaffer CRNP - 08/18/2023 11:01 AM EST Work with [employer] / [employer] about getting the SD card [...] documented in this encounter Progress Notes * Madeline Schaffer CRNP - 08/18/2023 10:30 AM EST [facility] Anay Richardson is a [...] minutes. Compliance Data: Requested Equipment: DME Provider: [employer] Device: [employer] AirSense (no modem?) Settings: 8-20 cmH20 Interface Type: nasal Humidifier: yes Cleaning: By hand routinely Orion Sleepiness Scale Question 08/18/2023 10:07 AM EST [...] of breast upper outer quadrant, right (HCC) C50.411 Nocturnal hypoxemia G47.34 Benign hypertension with CKD (chronic kidney disease) stage III (HCC) I12.9, N18.30 Coronary artery disease involving [place] coronary artery of [place] heart without angina pectoris I25.10 Varicose veins of both lower extremities I83.93 DDD (degenerative disc disease), lumbar M51.36 Malignant neoplasm of right breast in female, estrogen receptor positive (HCC) C50.911, Z17.0 Anticoagulation management encounter Z51.81, Z79.01 COPD, group A, by GOLD 2017 classification ([facility]) J44.9 Stage 3b chronic kidney disease ([facility]) N18.32 Current Medications: Outpatient Medications Marked as Taking for the 08/18/23 encounter (Office Visit) with Madeline Schaffer CRNP Medication Sig hydroCHLOROthiazide 12.5 MG Oral [...] benefiting with PAP treatment. Download requested from [employer]. Change ramp pressure to 5 cm H2O. Patient Instructions Work with [employer] about getting the [...] impaired. [facility] I spent a total of 20-29 minutes [...] someone who was sick? No / Unsure Orion Sleepiness Scale Question 08/18/2023 10:07 AM EST [...] - 24) 1 documented in this encounter Plan of Treatment Upcoming Encounters Date Type Department Care Team (Late st Contact Info) Description 08/25/2023 11:10 AM EST Anticoagulation Pharmacy, [place] [address] [place] [address] [facility] [address] [place] [address] 09/08/2023 10:00 AM EDT Office Visit Cardiology, [facility] [address] [facility] [address] Lise Goldman CRNP [address] [facility] [address] 01/02/2024 11:00 AM EDT Office Visit Family Practice, [place] [address] [place] [facility] [place] [phone] Krystyna Marino MD [address] [place] [address] 03/01/2024 2:20 PM EDT Office Visit Nephrology, [facility] [place] [address] [place] [address] Drake Jha MD [address] [place] [address] 07/27/2024 1:00 PM EST Nurse Only Ancillary Department, [place] [address] [place] [address] [place], Nurse [facility] [address] [place] [address] 08/21/2024 10:30 AM EST [facility] [address] [place] [phone] Madeline Schaffer CRNP [address] [place] [address] Health Maintenance Due Date Last Done Comments DISCUSS TOBACCO CESSATION (REFER TO SMARTSET #3291) 1945 Alpha-1 Antitrypsin 1962 Zoster Vaccines (1 of 2) 1994 *COPD SEVERITY VERIFIED BY PFT 07/07/2022 COVID-19 Vaccine ( season) 2023 02/06/2021, 01/17/2021 GFR 01/02/2024 07/04/2023, 07/2022, 03/01/2023, Additional history exists Albumin/Creatinine Ratio 01/07/2024 023, 04/09/2022, 12/04/2018 CKD HGB USE SMARTSET 25553 07/04/202407/04, 07/04/2023, 03/22/2023, Additional history exists CKD PHOS USE SMARTSET 83179 07/04/202401/2024, 03/30/2022, 08/06/2021, Additional history exists TSH [...] this encounter Medical Devices Implanted Type Area Helix Coil Winder Device Identifier Shelf Expiration Date Model / Serial / Lot Sut Steel 6 M654g - [id number] Implanted:Qty: 4 on 07/06/2013 [place] [facility] [place] [facility] [place]: Chest DO NOT USE 01/24/2018 M654G / / [id number] Valve Heart Mitral Epic 27mm - [id number] Implanted:Qty: 1 on 07/06/2013 at [place] [facility] [place] [facility] [place] N/A: Heart [place] : CARDIOVASCULAR 11/01/2014 [id number]-2 0 / [id number] / Valve Heart Aortic Epic 23mm - [id number] Implanted:Qty: 1 on 07/06/2013 at [place] [facility] [place] N/A: Heart [place] : CARDIOVASCULAR 11/21/2016 [id number] / [id number] / Graft Gelweave 28x12.5 [id number] - [id number] Implanted:Qty: 1 on 07/06/2013 at [place] [facility] [place]A: Aorta [employer] : CARDIO SYS 12/04/2017 [id number] / [id number] / [id number] Sut Steel 6 M654g - [id number] Implanted:Qty: 6 on 07/06/2013 at [place] [facility] [place] [place] [facility] [place]A: Chest DO NOT USE 01/24/2018 M654G / / [id number] documented as of this encounter Visit Diagnoses [...] the patient have Health Care Power of Corporate Safety Manager? No Full Code 07/23/2013 5:32 AM 07/27/2013 10:52 PM This order reflects the patients wishes and were consensually agreed upon. Question Answer Comments Discussion of Advance Directives occurred with: Patient Does the patient have a Living Will? No Does the patient have Health Care Power of Corporate Safety Manager? No Full Code 07/06/2013 12:34 PM 07/14/2013 6:30 PM This order reflects the patients wishes and were consensually agreed upon. Care Teams Block Cableman Relationship Specialty Start Date End Date Krystyna Marino MD [address] [place] [address] PCP - General Internal Medicine 04/19/22 documented as of this encounter
--- OUTSIDE RECORDS SUMMARY | 2024-01-05 03:17 | External Medical Summary | Summary of Care ---
Author Name Unknown Organization [facility] Address [address] [facility] [place] [address] Phone [phone] Care Team Providers Care Molecular Biology Director Name Role Phone Krystyna Marino MD Primary Care Provider [phone] Reason for Visit * Reason Onset Date Comments Administrative Follow-Up 08/23/2023 Jesús kse download report Encounter Details Date Type Department Care Team (Late st Contact Info) Description 08/23/2023 Telephone [facility] [address] [place] [address] Madeline Schaffer CRNP [address] [place] [address] Administrative Follow-Up (Compliance downl... Allergies No known active allergiesdocumented as of this encounter (statuses as of 08/24/2023) Medications Medication Sig Dispensed Refills Start Date [...] ns:HTN, goal below 140/90,Coronary artery disease involving andreafski coronary artery of andreafski heart without angina pectoris,S/P AVR (aortic valve replacement),S/P mitral valve replacement Take 1 Tablet by mouth in the morning. 90 Tablet 3 08/08/2023 Active hydroCHLOROthiazide 12.5 MG Oral Tablet (Hydrodiuril) Take 1 Tablet by mouth in the morning. 90 Tablet 3 08/11/2023 Active documented as of this encounter (statuses as of 08/24/2023) Active Problems Problem Noted Date Diagnosed Date Stage 3b chronic kidney disease 08/11/2023 COPD, group A, by GOLD 2017 classification 08/08 Overview: Per COPD GOLD Classification Anticoagulation management encounter 11/08/2022 Varicose veins of both lower extremities 022 DDD (degenerative disc disease), lumbar 04/19/20 22 Malignant neoplasm of right breast in female, estrogen receptor positive 04/19/2022 Coronary artery disease invo lving andreafski coronary artery of andreafski heart without angina pectoris 02/20/2021 Benign hypertension [...] as of this encounter (statuses as of 08/24/2023) Resolved Problems Problem Noted Date Diagnosed Date [...] as of this encounter (statuses as of 08/24/2023) Immunizations Name Administration Dates Next Due COVID-19 [...] 9:39 AM EST Received faxed encounter from [facility] regarding our request for patient's compliance download report. Patient has C2C machine therefore patient needs to send her card to them for a manual download. They also called patient and instructed her to mail her card to [address] [place] [address]. documented in this encounter Plan of Treatment Upcoming Encounters Date Type Department Care Team (Late st Contact Info) Description 08/25/2023 11:10 AM EST Anticoagulation Pharmacy, [place] [address] [place] [address] [facility] [address] [place] [address] 09/08/2023 10:00 AM EDT Office Visit Cardiology, [facility] [address] [place] [address] Lise Goldman CRNP [address] [place] [address] 01/02/2024 11:00 AM EDT Office Visit Family Practice, [address] [phone] Krystyna Marino MD [address] [place] [address] 03/01/2024 2:20 PM EDT Office Visit Nephrology, [facility] [address] [place] [address] Drake Jha MD [address] [place] [address] 07/27/2024 1:00 PM EST Nurse Only Ancillary Department, [place] [address] [facility] [place] [address] [place], Nurse Annual Well[facility] [address] [facility] [place] [address] 08/21/2024 10:30 AM EST Office Visit Sleep Disorders Ctr [facility] [address] [place] [phone] Madeline Schaffer CRNP [address] [place] [address] Health Maintenance Due Date Last Done Comments DISCUSS TOBACCO CESSATION (REFER TO SMARTSET #3295) 1944 Alpha-1 Antitrypsin 1962 Zoster Vaccines (1 of 2) 1994 *COPD SEVERITY VERIFIED BY PFT 07/07/2022 COVID-19 Vaccine ( season) 2023 02/06/2021, 01/17/2021 GFR 01/02/2024 07/04/2023, 07/2022, 03/01/2023, Additional history exists Albumin/Creatinine Ratio 01/07/2024 023, 04/09/2022, 12/04/2018 CKD HGB USE SMARTSET 94980 07/04/202407/04, 07/04/2023, 03/22/2023, Additional history exists CKD PHOS USE SMARTSET 01965 07/04/202401/2024, 03/30/2022, 08/06/2021, Additional history exists TSH [...] encounter Medical Devices Implanted Type Area Coding Quality Analyst Device Identifier Shelf Expiration Date Model / Serial / Lot Sut Steel 6 M654g - [id number] Implanted:Qty: 4 on 07/06/2013 at OR [facility] [place] N/A: Chest DO NOT USE 01/24/2018 M654G / / [id number] Valve Heart Mitral Epic 27mm - [id number] Implanted:Qty: 1 on 07/06/2013 at OR [facility] [place] N/A: Heart [place] : CARDIOVASCULAR 11/01/2014 [id number] 0 / [id number] / Valve Heart Aortic Epic 23mm - [id number] Implanted:Qty: 1 on 07/06/2013 at OR [facility] [place] N/A: Heart [place] : CARDIOVASCULAR 11/21/2016 [id number] / [id number] / Graft Gelweave 28x12.5 [id number] - [id number] Implanted:Qty: 1 on 07/06/2013 at OR [facility] N/A: Aorta [employer] : CARDIO SYS 12/04/2017 [id number] / [id number] / [id number] Sut Steel 6 M654g - [id number] Implanted:Qty: 6 on 07/06/2013 at OR [facility] N/A: Chest DO NOT USE 01/24/2018 [id number] / / [id number] documented as of this encounter Advance Directives [...] the patient have Health Care Power of Boom Man? No Full Code 07/23/2013 5:32 AM 07/27/2013 10:52 PM This order reflects the patients wishes and were consensually agreed upon. Question Answer Comments Discussion of Advance Directives occurred with: Patient Does the patient have a Living Will? No Does the patient have Health Care Power of Boom Man? No Full Code 07/06/2013 12:34 PM 07/14/2013 6:30 PM This order reflects the patients wishes and were consensually agreed upon. Care Teams Molecular Biology Director Relationship Specialty Start Date End Date Krystyna Marino MD [address] [place] [address] PCP - General Internal Medicine 04/19/22 documented as of this encounter
--- OUTSIDE RECORDS SUMMARY | 2024-01-05 03:18 | External Medical Summary | Summary of Care ---
Author Name Unknown Organization [facility] Address [address] [place] [address] Phone [phone] Care Team Providers Care Political Science Instructor Name Role Phone Krystyna Marino MD Primary Care Provider [phone] Reason for Visit * Reason Onset Date Comments Advice 08/04/2023 Encounter Details Date Type Department Care Team (Late st Contact Info) Description 08/04/2023 Telephone [facility] [address] [place] [address] Krystyna Marino MD [address] [place] [address] Advice Allergies No known active allergiesdocumented as of this encounter (statuses as of 08/04/2023) Medications Medication Sig Dispensed Refills Start Date [...] (aortic valve replacement),Rosario ry artery disease involving in[place] coronary artery of inaja heart without angina pectoris Take 1 Tablet [...] disease) stage 3, GFR 30-59 ml/min ([facility]) TAKE 1 TABLET BY MOUTH TWICE DAILY every morning and before bedtime 60 Tablet 11 04/27/2023 Active Lisinopril 5 MG Oral Tablet (Prinivil)Indicatio ns:HTN, goal below 140/90 Take 1 Tablet by mouth in the morning. 90 Tablet 3 05/02/2023 Active Amiodarone HCl 200 MG Oral Tablet (Cordarone)Indicati ons:S/P mitral valve replacement,S/P AVR (aortic valve replacement),Paroxy smal atrial fibrillation (HCC) Take 1 Tablet by mouth in the morning. 90 Tablet 3 05/16/2023 Active documented as of this encounter (statuses as of 08/04/2023) Active Problems Problem Noted Date Diagnosed Date Anticoagulation management encounter 11/08/2022 COPD, severity to be determined 07/05/2022 Varicose veins of both lower extremities 022 DDD (degenerative disc disease), lumbar 04/19/20 22 Malignant neoplasm of right breast in female, estrogen receptor positive 04/19/2022 Coronary artery disease invo lving inaja coronary artery of inaja heart without angina pectoris 02/20/2021 Benign hypertension [...] as of this encounter (statuses as of 08/04/2023) Resolved Problems Problem Noted Date Diagnosed Date Resolved Date Benign hypertension with sta ge 3a chronic [...] as of this encounter (statuses as of 08/04/2023) Immunizations Name Administration Dates Next Due COVID-19 [...] encounter Miscellaneous Notes * Telephone Encounter - Lacy Contreras OSA - 08/04/2023 3:45 PM EST Patient has been notified of the message. Patient has no further questions. * Telephone Encounter - Avani Cm LPN - 08/04/2023 3:34 PM EST Last outgoing phone call where message was left was 07/08/23 - pt may just need to delete voicemail * Telephone Encounter - Lyla Gillis OSA - 08/04/2023 3:16 PM EST Pt called stating that she received a call today, did not see any calls going out today 08/04/23. Thanks documented in this encounter Plan of Treatment Upcoming Encounters Date Type Department Care Team (Late st Contact Info) Description 08/09/2023 1:30 PM EST Laboratory Laboratory [facility] [place] [address] [facility] [place] [phone] [place] [address] [place] [address] 08/09/2023 2:00 PM EST Office Visit Nephrology, [facility] [address] [place] [address] Drake Jha MD [address] [facility] [place] [address] 08/18/2023 10:30 AM EST Office Visit Sleep Disorders Ctr [facility] [address] [facility] [place] [phone] Madeline Schaffer CRNP [facility] [place] [address] 08/25/2023 11:10 AM EST Anticoagulation Pharmacy, [place] [address] [facility] [place] [address] [facility] [place] [address] 09/08/2023 10:00 AM EDT Office Visit Cardiology, [facility] [address] [place] [address] Lise Goldman CRNP [address] [place] [address] 01/02/2024 11:00 AM EDT [facility] [place] [address] [facility] [phone] Krystyna Marino MD [address] [place] [address] 07/27/2024 1:00 PM EST Nurse Only Ancillary Department, [place] [address] [facility] [phone] [place], Nurse Annual Wellness [address] [place], [place] [phone] Health Maintenance Due Date Last Done Comments DISCUSS TOBACCO CESSATION (REFER TO SMARTSET #3291) 1945 Alpha-1 Antitrypsin 1962 Zoster Vaccines (1 of 2) 1994 *COPD SEVERITY VERIFIED BY PFT 07/07/2022 COVID-19 Vaccine ( season) 2023 02/06/2021, 01/17/2021 GFR 01/02/2024 07/04/2023, 07/2022, 03/01/2023, Additional history exists Albumin/Creatinine Ratio 01/07/2024 023, 04/09/2022, 12/04/2018 CKD HGB USE SMARTSET 13639 07/04/202407/04, 07/04/2023, 03/22/2023, Additional history exists CKD PHOS USE SMARTSET 56056 07/04/202401/2024, 03/30/2022, 08/06/2021, Additional history exists TSH [...] this encounter Medical Devices Implanted Type Area Director Case Device Identifier Shelf Expiration Date Model / Serial / Lot Sut Steel 6 M654g - [id number] Implanted:Qty: 6 on 07/06/2013 at [place] [facility] [place] N/A: Chest DO NOT USE 01/24/2018 M654G / / [id number] documented as of this encounter Advance Directives [...] the patient have Health Care Power of Talent Development Coordinator? No Full Code 07/23/2013 5:32 AM 07/27/2013 10:52 PM This order reflects the patients wishes and were consensually agreed upon. Question Answer Comments Discussion of Advance Directives occurred with: Patient Does the patient have a Living Will? No Does the patient have Health Care Power of Talent Development Coordinator? No Full Code 07/06/2013 12:34 PM 07/14/2013 6:30 PM This order reflects the patients wishes and were consensually agreed upon. Care Teams Political Science Instructor Relationship Specialty Start Date End Date Krystyna Marino MD [address] [place] [address] PCP - General Internal Medicine 04/19/22 documented as of this encounter
--- OUTSIDE RECORDS SUMMARY | 2024-01-05 03:18 | External Medical Summary | Summary of Care ---
Author Name Unknown Organization [facility] Address [address] [place] [address] Phone [phone] Care Team Providers Care Netbackup Admin Name Role Phone Krystyna Marino MD Primary Care Provider [phone] Reason for Visit * Reason Onset Date Comments Call Back 08/02/2023 Encounter Details Date Type Department Care Team (Late st Contact Info) Description 08/02/2023 Telephone [facility] [address] [place] [address] Krystyna Marino MD [address] [place] [address] Call Back (/) Allergies No known active allergiesdocumented as of this encounter (statuses as of 08/02/2023) Medications Medication Sig Dispensed Refills Start Date [...] (aortic valve replacement),Rosario ry artery disease involving [place] coronary artery of [place] heart without angina pectoris Take 1 Tablet [...] as of this encounter (statuses as of 08/02/2023) Active Problems Problem Noted Date Diagnosed Date Anticoagulation management encounter 11/08/2022 COPD, severity to be determined 07/05/2022 Varicose veins of both lower extremities 022 DDD (degenerative disc disease), lumbar 04/19/20 22 Malignant neoplasm of right breast in female, estrogen receptor positive 04/19/2022 Coronary artery disease invo lving [place] coronary artery of [place] heart without angina pectoris 02/20/2021 Benign hypertension [...] as of this encounter (statuses as of 08/02/2023) Resolved Problems Problem Noted Date Diagnosed Date [...] as of this encounter (statuses as of 08/02/2023) Immunizations Name Administration Dates Next Due COVID-19 [...] encounter Miscellaneous Notes * Telephone Encounter - Jamila Vázquez, filtering machine tender helper - 08/02/2023 2:52 PM EST Pt called stating that she received a call today, did not see any calls going out today Thank you, Jamila Vázquez CPhT [facility] 08/02/2023,2:52 PM documented in this encounter Plan of Treatment Upcoming Encounters Date Type Department Care Team (Late st Contact Info) Description 08/09/2023 1:30 PM EST Laboratory Laboratory [facility] [place] [address] [place] [phone] [place], Lab [facility] [address] [facility] [place] [address] 08/09/2023 2:00 PM EST Office Visit Nephrology, [facility] [address] [place] [address] Drake Jha MD [address] [place] [address] 08/18/2023 10:30 AM EST Office Visit Sleep Disorders [facility] [address] [place] [phone] Madeline Schaffer CRNP [address] [place] [address] 08/25/2023 11:10 AM EST Anticoagulation Pharmacy, [place] [address] [place] [address] [facility] [place] [address] 09/08/2023 10:00 AM EDT Office Visit Cardiology, [facility] [address] [place] [address] Lise Goldman CRNP [address] [place] [address] 01/02/2024 11:00 AM EDT Office Visit Family Practice, [place] [address] [place] [address] Krystyna Marino MD [address] [facility], [place] [address] 07/27/2024 1:00 PM EST Nurse Only Ancillary Department, [place] [address] [facility], [place] [address] [place], Nurse Annual Wellness [address] [facility], [place] [address] Health Maintenance Due Date Last Done Comments DISCUSS TOBACCO CESSATION (REFER TO SMARTSET #3291) 1945 Alpha-1 Antitrypsin 1962 Zoster Vaccines (1 of 2) 1994 *COPD SEVERITY VERIFIED BY PFT 07/07/2022 COVID-19 Vaccine ( season) 2023 02/06/2021, 01/17/2021 GFR 01/02/2024 07/04/2023, 1207/2022, 03/01/2023, Additional history exists Albumin/Creatinine Ratio 01/07/2024 023, 04/09/2022, 12/04/2018 CKD HGB USE SMARTSET 21157 07/04/202407/04, 07/04/2023, 03/22/2023, Additional history exists CKD PHOS USE SMARTSET 23167 07/04/202401/2024, 03/30/2022, 08/06/2021, Additional history exists TSH [...] this encounter Medical Devices Implanted Type Area Photographer Lithographic Device Identifier Shelf Expiration Date Model / Serial / Lot Sut Steel 6 M654g - [id number] Implanted:Qty: 6 on 07/06/2013 at [place] [facility] N/A: Chest DO NOT USE 01/24/2018 M654G / / [id number] documented as of this encounter Advance Directives [...] the patient have Health Care Power of Cold Rolling Supervisor? No Full Code 07/23/2013 5:32 AM 07/27/2013 10:52 PM This order reflects the patients wishes and were consensually agreed upon. Question Answer Comments Discussion of Advance Directives occurred with: Patient Does the patient have a Living Will? No Does the patient have Health Care Power of Cold Rolling Supervisor? No Full Code 07/06/2013 12:34 PM 07/14/2013 6:30 PM This order reflects the patients wishes and were consensually agreed upon. Care Teams Netbackup Admin Relationship Specialty Start Date End Date Krystyna Marino MD [address] [place] [facility] [place] [address] PCP - General Internal Medicine 04/19/22 documented as of this encounter
--- OUTSIDE RECORDS SUMMARY | 2024-01-05 03:18 | External Medical Summary | Summary of Care ---
Author Name Unknown Organization [facility] Address [address] [place] [address] Phone [phone] Care Team Providers Care Furniture Refinisher Name Role Phone Krystyna Marino MD Primary Care Provider [phone] Reason for Visit * Reason Onset Date Comments Advice 08/04/2023 Encounter Details Date Type Department Care Team (Late st Contact Info) Description 08/04/2023 Telephone [facility] [address] [place] [address] Krystyna Marino MD [address] [place] [address] Advice Allergies No known active [...] (aortic valve replacement),Rosario ry artery disease involving [place] coronary artery of [place] heart without angina pectoris Take 1 Tablet [...] kidney disease) stage 3, GFR 30-59 ml/min ([facility]) TAKE 1 TABLET BY MOUTH TWICE DAILY [...] positive 04/19/2022 Coronary artery disease invo lving [place] coronary artery of [place] heart without angina pectoris 02/20/2021 Benign hypertension [...] Description 08/09/2023 1:30 PM EST Laboratory Laboratory [facility] [place] [address] [facility] [phone] [place] [address] [place] [address] 08/09/2023 2:00 PM EST Office Visit Nephrology, [facility] [address] [place] [address] Drake Jha MD [address] [facility] [place] [address] 08/18/2023 10:30 AM EST Office Visit Sleep Disorders Ctr [facility] [address] [facility] [place] [phone] Madeline Schaffer CRNP [facility] [place] [address] 08/25/2023 11:10 AM EST Anticoagulation Pharmacy, [place] [address] [facility] [place] [address] [facility] [place] [address] 09/08/2023 10:00 AM EDT Office Visit Cardiology, [facility] [address] [place] [address] Lise Goldman CRNP [address] [place] [address] 01/02/2024 11:00 AM EDT Office Visit [facility], [place] [address] [facility] [phone] Krystyna Marino MD [address] [place] [address] 07/27/2024 1:00 PM EST Nurse Only Ancillary Department, [place] [address] [facility] [phone] [place], Nurse Annual Wellness [address] [place], [place] [phone] Health Maintenance Due Date Last Done Comments DISCUSS TOBACCO CESSATION (REFER TO SMARTSET #3291) 1945 Alpha-1 Antitrypsin 1962 Zoster Vaccines (1 of 2) 1994 *COPD SEVERITY VERIFIED BY PFT 07/07/2022 COVID-19 Vaccine ( season) 2023 02/06/2021, 01/17/2021 GFR 01/02/2024 07/04/2023, 07/2022, 03/01/2023, Additional history exists Albumin/Creatinine Ratio 01/07/2024 023, 04/09/2022, 12/04/2018 CKD HGB USE SMARTSET 94189 07/04/202407/04, 07/04/2023, 03/22/2023, Additional history exists CKD PHOS USE SMARTSET 16013 07/04/202401/2024, 03/30/2022, 08/06/2021, Additional history exists TSH [...] this encounter Medical Devices Implanted Type Area Component Technician Device Identifier Shelf Expiration Date Model / Serial / Lot Sut Steel 6 M654g - [id number] Implanted:Qty: 6 on 07/06/2013 at [place] [facility] [place] N/A: Chest DO NOT USE 01/24/2018 M654G / / [id number] documented as of this encounter Advance Directives Latest Code Status on File Code Status Date Activated Date Inactivated Comments Full Code 11/01/2014 7:36 AM 11/01/2014 2:03 PM This or aleyda reflects the patients wishes and were consensually agreed upon. Code Status History Code Status Date Activated Date Inactivated Comments Full Code 08/26/2013 3:14 PM 09/04/2013 5:07 PM This order reflects the patients wishes and were consensually agreed upon. Question Answer Comments Discussion of Advance Directives occurred with: Patient Does the patient have a Living Will? No Does the patient have Health Care Power of Rotary Peel Oven Tender? No Full Code 07/23/2013 5:32 AM 07/27/2013 10:52 PM This order reflects the patients wishes and were consensually agreed upon. Question Answer Comments Discussion of Advance Directives occurred with: Patient Does the patient have a Living Will? No Does the patient have Health Care Power of Rotary Peel Oven Tender? No Full Code 07/06/2013 12:34 PM 07/14/2013 6:30 PM This order reflects the patients wishes and were consensually agreed upon. Care Teams Furniture Refinisher Relationship Specialty Start Date End Date Krystyna Marino MD [address] [place] [address] PCP - General Internal Medicine 04/19/22 documented as of this encounter
--- OUTSIDE RECORDS SUMMARY | 2024-01-05 03:18 | External Medical Summary | Summary of Care ---
Author Name Unknown Organization [facility] Address [address] [place] [place] [address] Phone [phone] Care Team Providers Care Dining Room Busser Name Role Phone Krystyna Marino MD Primary Care Provider Reason for Visit * Reason Onset Date Comments Test Results 08/05/2023 Encounter Details Date Type Department Care Team (Late st Contact Info) Description 08/05/2023 Telephone Cardiology, [facility] [address] [facility] [place] [address] Lise Goldman CRNP [address] [facility] [place] [address] Test Results Allergies No known active allergiesdocumented as of this encounter (statuses as of 08/05/2023) Medications Medication Sig Dispensed Refills Start Date [...] (aortic valve replacement),Rosario ry artery disease involving [place] coronary artery of [place] heart without angina pectoris Take 1 Tablet [...] as of this encounter (statuses as of 08/05/2023) Active Problems Problem Noted Date Diagnosed Date Anticoagulation management encounter 11/08/2022 COPD, severity to be determined 07/05/2022 Varicose veins of both lower extremities 022 DDD (degenerative disc disease), lumbar 04/19/20 22 Malignant neoplasm of right breast in female, estrogen receptor positive 04/19/2022 Coronary artery disease invo lving [place] coronary artery of [place] heart without angina pectoris 02/20/2021 [...] as of this encounter (statuses as of 08/05/2023) Resolved Problems Problem Noted Date Diagnosed Date [...] as of this encounter (statuses as of 08/05/2023) Immunizations Name Administration Dates Next Due COVID-19 [...] encounter Miscellaneous Notes * Telephone Encounter - Donita Le CMA - 08/05/2023 11:52 AM EST Letter mailed. * Telephone Encounter - Donita Le CMA - 08/05/2023 11:52 AM EST ----- Message from JED Ray sent at 08/05/2023 11:33 AM EST ----- Echocardiogram reviewed. LV systolic function is normal at 62%. Known bioprosthetic aortic valve replacement with normal systolic gradients. There is mild prosthetic aortic valve regurgitation noted, known and unchanged. There is at least mild mitral stenosis noted with a mean gradient of 7.8 mmHg, previously 10.5 mmHgon last study. No significant regurgitation. Will discuss at follow-up. documented in this encounter Plan of Treatment Upcoming Encounters Date Type Department Care Team (Late st Contact Info) Description 08/09/2023 1:30 PM EST Laboratory Laboratory [facility] [address] [place] [phone] [place] [facility] 200 [facility] [place] [address] 08/09/2023 2:00 PM EST Office Visit Nephrology, [facility] 200 [facility] [place] [address] Drake Jha MD 200 [facility] [place] [address] 08/18/2023 10:30 AM EST Office Visit Sleep Disorders Ctr [facility] 132 [facility] [place] [address] Madeline Schaffer CRNP [facility] [place] [address] 08/25/2023 11:10 AM EST Anticoagulation Pharmacy, [place] [address] [place] [address] [facility] [address] [place] [address] 09/08/2023 10:00 AM EDT Office Visit Cardiology, [facility] [address] [place] [address] Lise Goldman CRNP [address] [place] [address] 01/02/2024 11:00 AM EDT Office Visit Family Practice, [place] [address] [facility] [phone] Krystyna Marino MD [address] [place] [address] 07/27/2024 1:00 PM EST Nurse Only Ancillary Department, [place] [address] [facility] [address] [place], Nurse [facility] [address] [place] [address] Health Maintenance Due Date Last Done Comments DISCUSS TOBACCO CESSATION (REFER TO SMARTSET #3291) 1944 Alpha-1 Antitrypsin 1962 Zoster Vaccines (1 of 2) 1994 *COPD SEVERITY VERIFIED BY PFT 07/07/2022 COVID-19 Vaccine ( season) 2023 02/06/2021, 01/17/2021 GFR 01/02/2024 07/04/2023, 07/2022, 03/01/2023, Additional history exists Albumin/Creatinine Ratio 01/07/2024 023, 04/09/2022, 12/04/2018 CKD HGB USE SMARTSET 15800 07/04/202407/04, 07/04/2023, 03/22/2023, Additional history exists CKD PHOS USE SMARTSET 23733 07/04/202401/2024, 03/30/2022, 08/06/2021, Additional history exists TSH [...] this encounter Medical Devices Implanted Type Area Maintenance Of Way Foreman Device Identifier Shelf Expiration Date Model / Serial / Lot Sut Steel 6 [id number] - [id number] Implanted:Qty: 6 on 07/06/2013 at [place] [facility] N/A: Chest DO NOT USE 01/24/2018 [id number] / / [id number] documented as of this encounter Advance Directives [...] the patient have Health Care Power of Mechanical Developer Prover? No Full Code 07/23/2013 5:32 AM 07/27/2013 10:52 PM This order reflects the patients wishes and were consensually agreed upon. Question Answer Comments Discussion of Advance Directives occurred with: Patient Does the patient have a Living Will? No Does the patient have Health Care Power of Mechanical Developer Prover? No Full Code 07/06/2013 12:34 PM 07/14/2013 6:30 PM This order reflects the patients wishes and were consensually agreed upon. Care Teams Dining Room Busser Relationship Specialty Start Date End Date Krystyna Marino MD [address] [place] [address] PCP - General Internal Medicine 04/19/22 documented as of this encounter
--- OUTSIDE RECORDS SUMMARY | 2024-01-05 03:18 | External Medical Summary | Summary of Care ---
Author Name Unknown Organization [facility] Address [address] [place] [place] [address] Phone [phone] Care Team Providers Care Gum Sprayer Name Role Phone Krystyna Marino MD Primary Care Provider [phone] Reason for Visit * Reason Onset Date Comments Fax Refill 08/08/2023 Encounter Details Date Type Department Care Team (Late st Contact Info) Description 08/08/2023 Telephone Cardiology, [facility] [address] [facility] [place] [address] Lise Goldman CRNP [address] [facility] [place] [address] Fax Refill Allergies No known active allergiesdocumented as of this encounter (statuses as of 08/08/2023) Medications Medication Sig Dispensed Refills Start Date [...] (aortic valve replacement),Coron norma artery disease involving [place] coronary artery of [place] heart without angina pectoris Take 1 Tablet [...] as of this encounter (statuses as of 08/08/2023) Active Problems Problem Noted Date Diagnosed Date [...] as of this encounter (statuses as of 08/08/2023) Resolved Problems Problem Noted Date Diagnosed Date [...] as of this encounter (statuses as of 08/08/2023) Immunizations Name Administration Dates Next Due COVID-19 mRNA, LNP-s, No Pre serve, 2-Dose Series (EidoSearch) 02/06/2021,01/17/2021 Pneumococcal Conjugate Vacc, 13 Valent (Prevnar) [...] Description 08/09/2023 1:30 PM EST Laboratory Laboratory [facility] [address] [place] [phone] [facility] 200 [facility] [place] [address] 08/09/2023 2:00 PM EST Office Visit Nephrology, [facility] [address] [place] [address] Drake Jha MD [address] [place] [address] 08/18/2023 10:30 AM EST Office Visit Sleep Disorders [facility] 132 [facility] [place] [phone] Madeline Schaffer CRNP 132 [place] [address] 08/25/2023 11:10 AM EST Anticoagulation Pharmacy, [place] [address] [place] [address] [facility] [address] [place] [address] 09/08/2023 10:00 AM EDT Office Visit Cardiology, [facility] 132 [facility] [place] [address] Lise Goldman CRNP 132 [facility] [address] 01/02/2024 11:00 AM EDT Office Visit Family Practice, [place] [address] [place] [phone] Krystyna Marino MD [address] [place] [address] 07/27/2024 1:00 PM EST Nurse Only Ancillary Department, [place] [address] [facility] [place] [phone] [place], Nurse Annual Wellness [address] [place] [address] Health Maintenance Due Date Last Done Comments DISCUSS TOBACCO CESSATION (REFER TO SMARTSET #3291) 1945 Alpha-1 Antitrypsin 1962 Zoster Vaccines (1 of 2) 1994 *COPD SEVERITY VERIFIED BY PFT 07/07/2022 COVID-19 Vaccine ( season) 2023 02/06/2021, 01/17/2021 GFR 01/02/2024 07/04/2023, 1207/2022, 03/01/2023, Additional history exists Albumin/Creatinine Ratio 01/07/2024 023, 04/09/2022, 12/04/2018 CKD HGB USE SMARTSET 39826 07/04/202407/04, 07/04/2023, 03/22/2023, Additional history exists CKD PHOS USE SMARTSET 55604 07/04/202401/2024, 03/30/2022, 08/06/2021, Additional history exists TSH [...] this encounter Medical Devices Implanted Type Area Rolling Chair Pusher Device Identifier Shelf Expiration Date Model / Serial / Lot Sut Isac 6 M654g - [id number] Implanted:Qty: 6 on 07/06/2013 [place] [facility] [place]A: Chest DO NOT USE 01/24/2018 [id number] / / [id number] documented as of this encounter Visit Diagnoses Diagnosis HTN, goal below 140/90- Primary Unspecified essential hypertension Coronary artery disease involving [place] coronary artery of [place] heart without angina pectoris S/P AVR (aortic [...] the patient have Health Care Power of Daycare Teacher? No Full Code 07/23/2013 5:32 AM 07/27/2013 10:52 PM This order reflects the patients wishes and were consensually agreed upon. Question Answer Comments Discussion of Advance Directives occurred with: Patient Does the patient have a Living Will? No Does the patient have Health Care Power of Daycare Teacher? No Full Code 07/06/2013 12:34 PM 07/14/2013 6:30 PM This order reflects the patients wishes and were consensually agreed upon. Care Teams Gum Sprayer Relationship Specialty Start Date End Date Krystyna Marino MD [address] [place] [address] PCP - General Internal Medicine 04/19/22 documented as of this encounter
--- OUTSIDE RECORDS SUMMARY | 2024-01-05 03:18 | External Medical Summary | Summary of Care ---
Author Name Unknown Organization [facility] Address [address] [place] [place] [place] [address] Phone [phone] Care Team Providers Care Balancing Machine Set Up Worker Name Role Phone Krystyna Marino MD Primary Care Provider [phone] Encounter Details Date Type Department Care Team (Late st Contact Info) Description 08/03/2023 Telephone Cardiology, [facility] [address] [place] [address] Lise Goldman CRNP [address] [place] [address] Allergies No known active allergiesdocumented as of this encounter (statuses as of 08/03/2023) Medications Medication Sig Dispensed Refills Start Date [...] (aortic valve replacement),Rosario ry artery disease involving [place] coronary artery of [place] heart without angina pectoris Take 1 Tablet [...] kidney disease) stage 3, GFR 30-59 ml/min ([facility]) TAKE 1 TABLET BY MOUTH [...] as of this encounter (statuses as of 08/03/2023) Active Problems Problem Noted Date Diagnosed Date Anticoagulation management encounter 11/08/2022 COPD, severity to be determined 07/05/2022 Varicose veins of both lower extremities 022 DDD (degenerative disc disease), lumbar 04/19/20 22 Malignant neoplasm of right breast in female, estrogen receptor positive 04/19/2022 Coronary artery disease invo lving [place] shosh[place] coronary artery of [place] shosh[place] heart without angina pectoris 02/20/2021 Benign hypertension [...] as of this encounter (statuses as of 08/03/2023) Resolved Problems Problem Noted Date Diagnosed Date [...] as of this encounter (statuses as of 08/03/2023) Immunizations Name Administration Dates Next Due COVID-19 [...] encounter Miscellaneous Notes * Telephone Encounter - Nohemi Piña PHARM Tech - 08/03/2023 4:32 PM EST Pt calling to request lisinopril . Informed pt that RX is available at their pharmacy. Pt verbalized understanding and stated they will check with their pharmacy regarding this medication. Thanks, Nohemi Piña Global Marketing Intern [facility] 08/03/2023,4:32 PM documented in this encounter Plan of Treatment Upcoming Encounters Date Type Department Care Team (Late st Contact Info) Description 08/09/2023 1:30 PM EST Laboratory Laboratory [facility] [address] [place] [phone] [place], [place] [address] [facility] [place] [address] 08/09/2023 2:00 PM EST Office Visit Nephrology, [facility] [address] [place] [address] Drake Jha MD [address] [place] [address] 08/18/2023 10:30 AM EST Office Visit Sleep Disorders [facility] [address] [facility] [phone] Madeline Schaffer CRNP 132 [place] [address] 08/25/2023 11:10 AM EST Anticoagulation Pharmacy, [place] [address] [place] [address] [facility] [address] [place] [address] 09/08/2023 10:00 AM EDT Office Visit Cardiology, [facility] [address] Lise Goldman CRNP 132 [facility] [place] [address] 01/02/2024 11:00 AM EDT Office Visit Family Practice, [place] [address] [place] [phone] Krystyna Marino MD [address] [facility] [place] [address] 07/27/2024 1:00 PM EST Nurse Only Ancillary Department, [place] [address] [place] [address] [place], Nurse Annual Wellness [address] [facility] [place] [address] Health Maintenance Due Date Last Done Comments DISCUSS TOBACCO CESSATION (REFER TO SMARTSET #1876) 1945 Alpha-1 Antitrypsin 1962 Zoster Vaccines (1 of 2) 1994 *COPD SEVERITY VERIFIED BY PFT 07/07/2022 COVID-19 Vaccine ( season) 2023 02/06/2021, 01/17/2021 GFR 01/02/2024 07/04/2023, 07/2022, 03/01/2023, Additional history exists Albumin/Creatinine Ratio 01/07/2024 023, 04/09/2022, 12/04/2018 CKD HGB USE SMARTSET 24355 07/04/202407/04, 07/04/2023, 03/22/2023, Additional history exists CKD PHOS USE SMARTSET 64816 07/04/202401/2024, 03/30/2022, 08/06/2021, Additional history exists TSH [...] this encounter Medical Devices Implanted Type Area Web Support Engineer Device Identifier Shelf Expiration Date Model / Serial / Lot Sut Steel 6 M654g - [id number] Implanted:Qty: 6 on 07/06/[address] [facility] [place]: Chest DO NOT USE 01/24/2018 M654G / / [id number] documented as of this encounter Advance Directives [...] the patient have Health Care Power of Call Center Supervisor? No Full Code 07/23/2013 5:32 AM 07/27/2013 10:52 PM This order reflects the patients wishes and were consensually agreed upon. Question Answer Comments Discussion of Advance Directives occurred with: Patient Does the patient have a Living Will? No Does the patient have Health Care Power of Call Center Supervisor? No Full Code 07/06/2013 12:34 PM 07/14/2013 6:30 PM This order reflects the patients wishes and were consensually agreed upon. Care Teams Balancing Machine Set Up Worker Relationship Specialty Start Date End Date Krystyna Marino MD [address] [facility] [place] [address] PCP - General Internal Medicine 04/19/22 documented as of this encounter
--- OUTSIDE RECORDS SUMMARY | 2024-01-05 03:19 | External Medical Summary | Summary of Care ---
Author Name Unknown Organization [facility] Address [address] [place] [address] Phone [phone] Care Team Providers Care Portfolio Administrator Name Role Phone Krystyna Marino MD Primary Care Provider [phone] Encounter Details Date Type Department Care Team (Late st Contact Info) Description 07/11/2023 Orders Only Outcomes Research Department [address] [place] [address] Sophie Mccoy CHRA [facility] Other*[id number] Allergies No known active allergiesdocumented as of this encounter (statuses as of 07/11/2023) Medications Medication Sig Dispensed Refills Start Date [...] (aortic valve replacement),Rosario ry artery disease involving [place] coronary artery of [place] heart without angina pectoris Take 1 Tablet [...] as of this encounter (statuses as of 07/11/2023) Active Problems Problem Noted Date Diagnosed Date Anticoagulation management encounter 11/08/2022 COPD, severity to be determined 07/05/2022 Varicose veins of both lower extremities 022 DDD (degenerative disc disease), lumbar 04/19/20 Malignant neoplasm of right breast in female, estrogen receptor positive 04/19/2022 Coronary artery disease invo lving [place] coronary artery of [place] heart without angina pectoris 02/20/2021 Benign hypertension [...] as of this encounter (statuses as of 07/11/2023) Resolved Problems Problem Noted Date Diagnosed Date [...] as of this encounter (statuses as of 07/11/2023) Immunizations Name Administration Dates Next Due COVID-19 [...] Care Team (Late st Contact Info) Description 07/12/2023 1:00 PM EST Laboratory Laboratory [facility] [place] [address] [phone] [place] [address] 07/12/2023 2:20 PM EST Office Visit Nephrology, [place] [address] [address] Drake Jha MD [address] [place] [address] 07/19/2023 11:00 AM EST Office Visit Nephrology, [facility] 200 [facility] [place] [address] Lelia Madison PA-C 200 [facility] [place] [address] 07/22/2023 2:30 PM EST Cardiac Studies Cardiac Studies, [facility] 132 [place] [address] 07/25/2023 1:00 PM EST Nurse Only Ancillary Department, [address] [address] [place], Nurse Annual Wellness [address] [place] [address] 08/18/2023 10:30 AM EST Office Visit Sleep Disorders Ctr [facility] 132 [place] [phone] Madeline Schaffer CRNP 132 [place] [address] 09/08/2023 10:00 AM EDT Office Visit Cardiology, [facility] 132 [place] [address] Lise Goldman CRNP 132 [place] [address] 01/02/2024 11:00 AM EDT Office Visit [facility] [address] [place] [phone] Krystyna Marino MD [address] [place] [address] Scheduled Orders Name Type Priority Associated Diagnoses Orde r Schedule MYCODE SUBSEQUENT ADULT Lab Routine [facility] Research Other*[id number] Every 6 Months for 2 Occurrences starting 07/11/2023 until 07/30/2024 Health Maintenance Due Date Last Done Comments DISCUSS TOBACCO CESSATION (REFER TO SMARTSET #3291) 1945 Alpha-1 Antitrypsin 1962 Zoster Vaccines (1 of 2) 1994 *COPD SEVERITY VERIFIED BY PFT 07/07/2022 COVID-19 Vaccine ( season) 2023 02/06/2021, 01/17/2021 Depression Screening 07/05/2023 07/05/2022 GFR 01/02/2024 07/04/2023, 1207/2022, 03/01/2023, Additional history exists Albumin/Creatinine Ratio 01/07/2024 023, 04/09/2022, 12/04/2018 CKD HGB USE SMARTSET 59840 07/04/202407/04, 07/04/2023, 03/22/2023, Additional history exists CKD PHOS USE SMARTSET 49654 07/04/2024 010 01/2024, 03/30/2022, 08/06/2021, Additional history exists O2 ASSESSMENT COMPLETED IN PAST YEAR FOR COPD 07/04/2024 07/04/2023 TSH 07/04/2024 07/04/2023, 07/0 12/2022, 09/14/2022, Additional history exists DTaP,Tdap,and Td Vaccines (2 [...] this encounter Medical Devices Implanted Type Area Dental Mechanic Device Identifier Shelf Expiration Date Model / Serial / Lot Gemini Chau 6 M654g - [id number] Implanted:Qty: 6 on 07/06/2013 [place] [facility] [place]A: Chest DO NOT USE 01/24/2018 [id number] / / [id number] documented as of this encounter Visit Diagnoses Diagnosis My[facility] Research Other*[id number] documented in this encounter Advance Directives Latest [...] the patient have Health Care Power of Masonry Instructor? No Full Code 07/23/2013 5:32 AM 07/27/2013 10:52 PM This order reflects the patients wishes and were consensually agreed upon. Question Answer Comments Discussion of Advance Directives occurred with: Patient Does the patient have a Living Will? No Does the patient have Health Care Power of Masonry Instructor? No Full Code 07/06/2013 12:34 PM 07/14/2013 6:30 PM This order reflects the patients wishes and were consensually agreed upon. Care Teams Portfolio Administrator Relationship Specialty Start Date End Date Krystyna Marino MD [address] [place] [address] PCP - General Internal Medicine 04/19/22 documented as of this encounter
--- OUTSIDE RECORDS SUMMARY | 2024-01-05 03:19 | External Medical Summary | Summary of Care ---
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 lives in [place] Community Resources: Not Applicable Functional Status and ADL Skills: Has patient ever had an amputation? No Functional Assessment: 80- Normal activity with effort: some symptoms of disease Ambulation: Patient ambulates with assistive device. Cane Dressing: Gets clothes and dresses without any assistance: Independent Able to move freely in chair or bed including turning over: Independent Repositioning (bed or chair): Not applicable Transfers: Independent Toileting: Goes to bathroom, uses toilet, arranges clothes and returns without any assistance: Independent Toileting: continent of bowel and incontinent of bladder Feeding: Self Bathing: Self; tub, grab bars, mat to step out onto Requires none assistance with ADLs. Instrumental ADL's: Shopping: Independent Housekeeping: Independent Handling Finances: Independent DME Vendor Name: Not Applicable Fall Risk Assessment: Can the patient demonstrate that she can stand from a sitting position? Yes Has the patient had a fall within the last 6 months? No Does the patient have a problem with her gait or balance? Yes Does the patient take 4 or more prescription medicines? Yes Does the patient use sedatives or narcotics? No Fall Risk Factors Present: Uses more than 4 medications Uses assistive devices Balance or gait disturbances Older than age 70 Pcq-Ri-yvc-Go Test: Time began at 1300. Patient stood from sitting position and walked approximately 10 feet, returned and sat down. Total time for ams-mg-twa-go test was 15 seconds. Jif-Tq-big-Go Test completed? Yes Gender Specific Preventative Plan: Health Maintenance Topic Date Due DISCUSS TOBACCO CESSATION (REFER TO SMARTSET #329) Never done Alpha-1 Antitrypsin Never done Zoster Vaccines (1 of 2) Never done *COPD SEVERITY VERIFIED BY PFT Never done COVID-19 Vaccine ( season) 2023 GFR 01/02/2024 Albumin/Creatinine Ratio 01/07/2024 CKD HGB USE SMARTSET 68047 07/04/2024 CKD PHOS USE SMARTSET 97291 07/04/2024 O2 ASSESSMENT COMPLETED IN PAST YEAR FOR COPD 07/04/2024 TSH 07/04/2024 Depression Screening 07/25/2024 DTaP,Tdap,and Td Vaccines (2 - Td or Tdap) 12/22/2026 DXA Scan 08/11/2029 Influenza Vaccine (FLU shot) Completed Pneumococcal Vaccine: 65+ Years Completed Hepatitis B Aged Out MENINGOCOCCAL (MENACTRA/MENVEO) Aged Out GARDASIL-HPV IMMUNIZATION SERIES Aged Out Follow Up/ Referrals/Handouts: Depression screening - Completed Functional assessment - Completed Falls Risk screening - Completed, handout given Exercise screening - Encouraged to be as active as able, regular walking Nutrition assessment -. Education Provided and Handouts Provided Pain screening - No concerns Incontinence screening - Urinary incontinence, no new concerns Routine general medical examination at a health care facility (Primary) Risk and functional assessment Dyslipidemia, goal LDL below 70 Component Latest Ref Rng 03/01/2023 Non-HDL Cholesterol <=159 mg/dL 70 LDL Cholesterol <=129 mg/dL 50 SARAH (obstructive sleep apnea) Uses CPAP -Med reconciliation completed and compliance discussed. - pt to continue present medications. Continue to monitor and follow with PCP COPD, severity to be determined (HCC) -Med reconciliation completed and compliance discussed. - pt to continue present medications. Continue to monitor and follow with PCP Postablative hypothyroidism -Med reconciliation completed and compliance discussed. - pt to continue present medications. Continue to monitor and follow with PCP HTN, goal below 140/90 BP Readings from Last 3 Encounters: 07/25/23 124/72 07/04/23 118/64 05/04/23 118/82 -Med reconciliation completed and compliance discussed. - pt to continue present medications. Continue to monitor and follow with PCP Paroxysmal atrial fibrillation (HCC) S/P AVR (aortic valve replacement) S/P mitral valve replacement -Med reconciliation completed and compliance discussed. - pt to continue present medications. Continue to monitor and follow with Cardiology Tobacco use disorder [facility] Smoking Quitline number given [phone] Encouraged to stop smoking Patient has been verbally educated on the need or importance of Immunizations: Shingles Patient declines Shingles vaccine Discussed importance of Covid Vaccine: pt has received the vaccine Yes, Patient has received Covid vaccine and booster. Confrimed in Immunization record. Would patient like to schedule next AWV visit? Yes Anai Barton RN Urinary Incontinence Plan of Care Documentation: (This education is for all patients over 65 regardless of symptoms) Current medications reconciled. Patient encouraged to: Practice kegal exercises Provide education materials Use the restroom every 2 hours throughout the day Limit caffeine, alcohol, spicy foods and acidic foods Keep a bladder diary Limit fluid intake 3-4 hours before bed Lose weight Prevent constipation Take fluid pills at a time when you can get to the bathroom quickly Control sugar better if diabetic Limit fluid intake to 60 oz. per day Wear support stockings (TEDs)if you have edema Anai Barton RN 07/25/2023 documented in this encounter Miscellaneous Notes * Pt Handout (not on AVS) - Anai Barton RN - 07/25/2023 2:07 PM EST [id number] Fall Prevention Falls often take place due to slipping, tripping, or losing your balance. Millions of people fall every year and injure themselves. Among older adults in the [place] falls are the most common cause of traumatic brain injuries. Every 20 minutes, an older adult dies from a fall. Here are ways to reduceyour risk of falling again: Think about your fall. Was there anything that caused your fall that can be fixed, removed, or replaced? Make your home safe by keeping walkways clear of objects you may trip over, such as electrical cords. Use nonslip pads under rugs. Don't use area rugs or small throw rugs. Use nonslip mats in bathtubs and showers. Hang grab rails by the toilet and inside and outside the shower. Install handrails and lights on staircases. The handrails should be on both sides of the stairs. Use night lights. Don't walk in poorly lit areas. Don't stand on chairs or wobbly ladders. Use care when reaching overhead or looking up. This position can cause a loss of balance. Be sure your shoes fit well, are in good condition, and have nonslip bottoms. Wear shoes both inside and outside of your home. Don't go barefoot or wear slippers. Be cautious when going up and down stairs, curbs, and when walking on uneven sidewalks. If your balance is poor, consider using a cane or walker. Talk with your healthcare provider about having a balance assessment. If your fall was related to alcohol use, stop or limit alcohol intake. Ask your provider for help if you think you may overuse alcohol and can't stop. If your fall was related to use of sleeping medicines, talk with your provider about this. You may need to reduce your dosage at bedtime if you wake up during the night to go to the bathroom. To reduce the need for nighttime bathroom trips: o Don't drink fluids for several hours before going to bed o Empty your bladder before going to bed o Men can keep a urinal at the bedside Stay as active as you can. Balance, flexibility, strength, and endurance all come from exercise.They all play a role in preventing falls. Ask your provider which types of activity are right for you. Try to do some type of exercise every day. Get your eyes checked once a year or more often if your vision changes If you have pets, know where they are before you stand up or walk so you don't trip over them. Go over all your medicines with a pharmacist or other provider. This is to see if any of them could make you more likely to fall. Have this type of medicine review at least once every year. If your provider advises a new medicine, ask if the side effects will affect your balance. Don't move quickly from one position to another. For instance, don't stand up fast from sitting.This can cause dizziness and may lead to a fall. Sit down when putting on pants, socks, and shoes. This will make you less likely to lose your balance and fall. Always let your provider know if you have fallen since your last visit. Contact your provider right away if you're having balance problems or falling more often. Last Reviewed Date: 06/27/202119996955-0688 [employer]. All rights reserved. This information is not intended as a substitute for professional medical care. Always follow your healthcare professional's instructions. * Pt Handout (not on AVS) - Anai Barton RN - 07/25/2023 2:07 PM EST Images from the original note were not included. [id number] Steps for Eating Healthier Changing the way you eat can improve your health. It can lower your cholesterol and blood pressure,and help you stay at a healthy weight. Your diet doesn?t have to be bland and boring to be healthy.Just watch your calories and follow these steps: Step 1. Eat fewer unhealthy fats Choose more fish and lean meats instead of fatty cuts of meat. Skip butter and lard, and use less margarine. Replace these with healthier fats, such as olive, canola, or avocado oils. Pass on foods that have palm, coconut, or partially hydrogenated oils. Eat fewer high-fat dairy foods like cheese, ice cream, and whole milk. Get a heart-healthy cookbook and try some new recipes. Step 2. Go light on salt Keep the saltshaker off the table. Limit high-salt ingredients, such as soy sauce, bouillon, and garlic salt. Instead of adding salt when cooking, season your food with herbs, spices, and other flavorings. Try lemon, garlic, onion, vinegar, or salt-free herb seasonings. Limit convenience foods, such as boxed or canned foods and restaurant food. Read food labels and choose lower-sodium options. Buy fresh, frozen, or canned vegetables that don't have added salt. Step 3. Limit sugar Pause before you add sugars to pancakes, cereal, coffee, or tea. This includes white and brown table sugar, syrup, honey, and molasses. Cut your usual amount by half. Swap out sugar-filled soda and other drinks. Buy sugar-free or low-calorie beverages. Remember, water is always the best choice. Try adding lemon juice to water for extra flavor. Read labels and choose foods with less added sugar. Keep in mind that dairy foods and foods withfruit will have some natural sugar. Cut the sugar in recipes by 1/3 to 1/2. Boost the flavor with extracts like almond, vanilla, or orange. Or add spices such as cinnamon or nutmeg. Step 4. Eat more fiber Eat fresh fruits and vegetables every day. Boost your diet with whole grains. Go for oats, whole-grain rice, and bran. Add beans and lentils to your meals. Drink more water to match your fiber increase to help prevent constipation. Step 5. Pay attention to serving sizes Remember that a serving size is a standard measurement. It will let you track the amount of fat,calories, and other nutrients in the food you eat. Read the Nutrition Facts label on packaged foods to learn their serving sizes. Use serving sizes to assess how much food you put on your plate. Pay attention to your portions.How many servings are you eating? Keep in mind that your needs may change if you?re more active or less active, or if you have other factors that change your calorie needs. Use your hand to help you measure serving sizes. For example: o 1 teaspoon: This is about the size of the first joint of your thumb. o 1 tablespoon: This is about the size of the first 2 joints of your thumb. o 1 ounce: This is about what you can fit in your cupped hand. o 2 to 3 ounces: This is about the size of the palm of your hand. o cup: This is also about what you can fit in your cupped hand. o 1 cup: This is about the size of your fist. Last Reviewed Date: 05/27/202219992692-0974 [employer]. All rights reserved. This information is not intended as a substitute for professional medical care. Always follow your healthcare professional's instructions. documented in this encounter Plan of Treatment Upcoming Encounters Date Type Department Care Team (Late st Contact Info) Description 08/09/2023 12:30 PM EST Laboratory Laboratory [facility] [address] [place] [id number] [facility] [address] [place] [address] 08/09/2023 2:00 PM EST Office Visit Nephrology, [facility] [address] [place] [address] Drake Jha MD [address] [facility] [place] [place] [address] 08/18/2023 10:30 AM EST Office Visit Sleep Disorders Ctr [facility] [address] [phone] Madeline Schaffer CRNP [address] [address] 08/25/2023 11:10 AM EST [facility]tico[facility] Pharm[facility], [place] [address] [address] [facility] [place] [address] 09/08/2023 10:00 AM EDT Office Visit Cardiology, [facility] [address] [place] [address] Lise Goldman CRNP [address] [place] [address] 01/02/2024 11:00 AM EDT Office Visit Family Practice, [place] [address] [place] [phone] Krystyna Marino MD [address], [place] [phone] 07/27/2024 1:00 PM EST Nurse Only Ancillary Department, [place] [address], [place] [phone] [place], Nurse [facility] [address] [place] [address] Health Maintenance Due Date Last Done Comments DISCUSS TOBACCO CESSATION (REFER TO SMARTSET #3291) 1944 Alpha-1 Antitrypsin 1962 Zoster Vaccines (1 of 2) 1994 *COPD SEVERITY VERIFIED BY PFT 07/07/2022 COVID-19 Vaccine ( season) 2023 02/06/2021, 01/17/2021 GFR 01/02/2024 07/04/2023, 07/2022, 03/01/2023, Additional history exists Albumin/Creatinine Ratio 01/07/2024 023, 04/09/2022, 12/04/2018 CKD HGB USE SMARTSET 92414 07/04/202407/04, 07/04/2023, 03/22/2023, Additional history exists CKD PHOS USE SMARTSET 26073 07/04/20240 01/2024, 03/30/2022, 08/06/2021, Additional history exists [...] this encounter Medical Devices Implanted Type Area Decorative Cutting Machine Tender Device Identifier Shelf Expiration Date Model / Serial / Lot Sut Steel 6 [id number] - [id number] Implanted:Qty: 6 on 07/06/2013 at [place] [facility] [place]: Chest DO NOT USE 01/24/2018 [id number] / / [id number] documented as of this encounter Visit Diagnoses Diagnosis Routine general medical examination at a health care facility- Primary Risk and functional assessment Screening for unspecified condition Dyslipidemia, goal LDL below 70 Other and unspecified hyperlipidemia SARAH (obstructive sleep apnea) Obstructive sleep apnea (adult) (pediatric) COPD, severity to be determined (HCC) Chronic airway obstruction, not elsewhere classified Postablative hypothyroidism Other postablative hypothyroidism HTN, goal below 140/90 Unspecified essential hypertension Paroxysmal atrial fibrillation (HCC) Atrial fibrillation S/P AVR (aortic valve replacement) Heart valve replaced by other means S/P mitral valve replacement Heart valve replaced by other means Tobacco use disorder documented in this encounter Advance Directives Latest [...] the patient have Health Care Power of Server Software Engineer? No Full Code 07/23/2013 5:32 AM 07/27/2013 10:52 PM This order reflects the patients wishes and were consensually agreed upon. Question Answer Comments Discussion of Advance Directives occurred with: Patient Does the patient have a Living Will? No Does the patient have Health Care Power of Server Software Engineer? No Full Code 07/06/2013 12:34 PM 07/14/2013 6:30 PM This order reflects the patients wishes and were consensually agreed upon. Care Teams Collar Cutter Relationship Specialty Start Date End Date Krystyna Marino MD [address] [place] [address] PCP - General Internal Medicine 04/19/22 documented as of this encounter
--- OUTSIDE RECORDS SUMMARY | 2024-01-05 03:19 | External Medical Summary ---
Author Name Unknown Address Unknown Organization : Laboratory Report Ordering Provider Test Date Status ALEXAARSENIO 07/14/2023 11:13:29 Final Therapeutic ranges for non-o perative patients:
Prophylaxsis/treatment of DVT: (Range:2.0-3.0)
Treatment of pulmonary embolism:(Range:2.0-3.0)
Prevention of systemic embolism from:
-tissue heart valves
-acute myocardial infarction
-valvular heart disease
-atrial fibrillation
(Range: 2.0-3.0)
Mechanical prosthetic valves: (Range: 2.5-3.5) Observation Date Value Abnormality Reference (Units ) Status INR in Capillary blood by Coagulation assay 07/14/2023 11:13:29 1.8 (INR) Final Performing Location
--- OUTSIDE RECORDS SUMMARY | 2024-01-05 03:19 | External Medical Summary | Summary of Care ---
Author Name Unknown Organization [facility] Address [address] [place] [address] Phone [phone] Care Team Providers Care Taxi Driver Supervisor Name Role Phone Krystyna Marino MD Primary Care Provider [phone] Reason for Visit * Reason Onset Date Comments Test Results 07/08/2023 Encounter Details Date Type Department Care Team (Late st Contact Info) Description 07/08/2023 Telephone [facility] [address] [place] [address] Krystyna Marino MD [address] [place] [address] Test Results Allergies No known active allergiesdocumented as of this encounter (statuses as of 07/08/2023) Medications Medication Sig Dispensed Refills Start Date [...] (aortic valve replacement),Rosario ry artery disease involving telida coronary artery of telida heart without angina pectoris Take 1 Tablet [...] as of this encounter (statuses as of 07/08/2023) Active Problems Problem Noted Date Diagnosed Date Anticoagulation management encounter 11/08/2022 COPD, severity to be determined 07/05/2022 Varicose veins of both lower extremities 022 DDD (degenerative disc disease), lumbar 04/19/20 22 Malignant neoplasm of right breast in female, estrogen receptor positive 04/19/2022 Coronary artery disease invo lving telida coronary artery of telida heart without angina pectoris 02/20/2021 Benign hypertension [...] as of this encounter (statuses as of 07/08/2023) Resolved Problems Problem Noted Date Diagnosed Date [...] as of this encounter (statuses as of 07/08/2023) Immunizations Name Administration Dates Next Due COVID-19 [...] Telephone Encounter - Krystyna Marino MD - 07/08/2023 3:18 PM EST All the blood tests were stable Known CKD which seems about same level And known hyper PTH level due to kidney All other tests were good * Telephone Encounter - Madeline Treadwell OSA - 07/08/2023 2:34 PM EST Who is Requesting Test Results: Patient Primary Care Provider : Krystyna Marino MD Tests Results Requested : Lab work results Date of Test : 07/04/23 Location of Test: [facility] Ordering Provider: Dr. Marino Callback Number: [phone] Patient has been made aware that the turnaround time for test results are typically as follows: Laboratory results = within 2-3 days ([facility]), 3-5 days (Non-[facility], ie. [facility]) Urine Cultures = within 2-3 days depending on growth within the culture Pathology results (biopsy results/PAP) = 1-2 weeks Radiology results = about 1 week Cologuard results = within 2 weeks from the shipment date COVID testing = about 24 hours documented in this encounter Plan of Treatment Upcoming Encounters Date Type Department Care Team (Late st Contact Info) Description 07/12/2023 1:00 PM EST Laboratory Laboratory [facility] [place] [address] [place] [address] [place], [facility] [address] [facility] [place] [address] 07/12/2023 2:20 PM EST Office Visit [facility] [address] [place] [address] Drake Jha MD [address] [place] [address] 07/19/2023 11:00 AM EST Office Visit [facility] [address] [address] [address] Lelia Madison PA-C [address] [place] [address] 07/22/2023 2:30 PM EST Cardiac Studies Cardiac Studies, [facility] [address] [place] [address] 07/25/2023 1:00 PM EST Nurse Only Ancillary Department, [place] [address] [facility] [address] [place], [facility] [address] [place] [address] 08/18/2023 10:30 AM EST Office Visit Sleep Disorders Ctr [facility] [address] [facility] [place] [phone] Madeline Schaffer CRNP [address] [facility] [place] [address] 09/08/2023 10:00 AM EDT Office Visit Cardiology, [facility] [address] [facility] [place] [address] Lise Goldman CRNP [address] [facility] [place] [address] 01/02/2024 11:00 AM EDT Office Visit Family Practice, [place] [address] [place] [facility] [place] [phone] Krystyna Marino MD [address] [place] [address] Health Maintenance Due Date Last Done Comments DISCUSS TOBACCO CESSATION (REFER TO SMARTSET #3291) 1945 Alpha-1 Antitrypsin 1962 Zoster Vaccines (1 of 2) 1994 *COPD SEVERITY VERIFIED BY PFT 07/07/2022 COVID-19 Vaccine ( season) 2023 02/06/2021, 01/17/2021 Depression Screening 07/05/2023 07/05/2022 GFR 01/02/2024 07/04/2023, 12/0 07/2022, 03/01/2023, Additional history exists Albumin/Creatinine Ratio 01/07/2024 023, 04/09/2022, 12/04/2018 CKD HGB USE SMARTSET 36449 07/04/202407/04, 07/04/2023, 03/22/2023, Additional history exists CKD PHOS USE SMARTSET 64150 07/04/2024 01/0 01/2024, 03/30/2022, 08/06/2021, Additional history exists O2 [...] this encounter Medical Devices Implanted Type Area Home Mortgage Disclosure Act Specialist Device Identifier Shelf Expiration Date Model / Serial / Lot Sut Isac 6 [id number] - [id number] Implanted:Qty: 6 on 07/06/2013 [place] [facility] [place]: Chest DO NOT USE 01/24/2018 [id number] / / [id number] documented as of this encounter Advance Directives [...] the patient have Health Care Power of Stave Planer Tender? No Full Code 07/23/2013 5:32 AM 07/27/2013 10:52 PM This order reflects the patients wishes and were consensually agreed upon. Question Answer Comments Discussion of Advance Directives occurred with: Patient Does the patient have a Living Will? No Does the patient have Health Care Power of Stave Planer Tender? No Full Code 07/06/2013 12:34 PM 07/14/2013 6:30 PM This order reflects the patients wishes and were consensually agreed upon. Care Teams Taxi Driver Supervisor Relationship Specialty Start Date End Date Krystyna Marino MD [address] [place] [address] PCP - General Internal Medicine 04/19/22 documented as of this encounter
--- OUTSIDE RECORDS SUMMARY | 2024-01-05 03:19 | External Medical Summary | Summary of Care ---
Author Name Unknown Organization [facility] Address [address] [place] [address] Phone [phone] Care Team Providers Care Worm Farm Laborer Name Role Phone Krystyna Marino MD Primary Care Provider [phone] Reason for Visit * Reason Onset Date Comments Test Results 07/08/2023 Advice 07/08/2023 Encounter Details Date Type Department Care Team (Late st Contact Info) Description 07/08/2023 Telephone [facility] [address] [place] [address] Krystyna Marino MD [address] [place] [address] Test Results; Advice Allergies No known active allergiesdocumented as [...] (aortic valve replacement),Rosario ry artery disease involving wales coronary artery of wales heart without angina pectoris Take 1 Tablet [...] positive 04/19/2022 Coronary artery disease invo lving wales coronary artery of wales heart without angina pectoris 02/20/2021 Benign hypertension [...] encounter Miscellaneous Notes * Telephone Encounter - Felicia Foote LPN - 07/08/2023 3:41 PM EST Patient returned call. Informed of message. Verbalized understanding. * Telephone Encounter - Cceile De La Garza OSA - 07/08/2023 3:38 PM EST Reason for patient's call: returning the call Caller was transferred to [facility] at the nurse line. * Telephone Encounter - Latha Singh LPN - 07/08/2023 3:35 PM EST Left generic message on answering machine asking patient to return our call. * Telephone Encounter - Krystyna Marino MD [...] of Test : 07/04/23 Location of Test: [place] Ordering Provider: Dr. Marino Callback Number: [phone] Patient has been made aware that the [...] Description 07/12/2023 1:00 PM EST Laboratory Laboratory [facility] [address] [place], [place] [phone] [place], Lab [facility] [address] [place] [address] 07/12/2023 2:20 PM EST Office Visit Nephrology, [facility] [address] [place], [place] [address] Drake Jha MD [address] [place] [address] 07/19/2023 11:00 AM EST Office Visit Nephrology, [facility] [address] [place], [place] [address] Lelia Madison PA-C 200 [facility] [place] [address] 07/22/2023 2:30 PM EST Cardiac Studies Cardiac Studies, [facility] 132 [facility] [place] [address] 07/25/2023 1:00 PM EST Nurse Only Ancillary Department, [address] [address] [place], [address] [address] 08/18/2023 10:30 AM EST Office Visit Sleep Disorders [facility] 132 [facility] [place] [phone] Madeline Schaffer CRNP 132 [facility] [place] [address] 09/08/2023 10:00 AM EDT Office Visit Cardiology, [facility] [address] [facility] [place] [address] Lise Goldman CRNP 132 [facility] [place] [address] 01/02/2024 11:00 AM EDT Office Visit [facility] [address] [place] [address] Krystyna Marino MD [address] [facility] [place] [address] Health Maintenance Due Date Last Done Comments DISCUSS TOBACCO CESSATION (REFER TO SMARTSET #3291) 1945 Alpha-1 Antitrypsin 1962 Zoster Vaccines (1 of 2) 1994 *COPD SEVERITY VERIFIED BY PFT 07/07/2022 COVID-19 Vaccine (2022- season) 2023 02/06/2021, 01/17/2021 Depression Screening 07/05/2023 07/05/2022 GFR 01/02/2024 07/04/2023, 07/2022, 03/01/2023, Additional history exists Albumin/Creatinine Ratio 01/07/2024 023, 04/09/2022, 12/04/2018 CKD HGB USE SMARTSET 04163 07/04/202407/04, 07/04/2023, 03/22/2023, Additional history exists CKD PHOS USE SMARTSET 28165 07/04/202401/2024, 03/30/2022, 08/06/2021, Additional history exists O2 ASSESSMENT COMPLETED IN PAST YEAR FOR COPD 07/04/2024 07/04/2023 TSH 07/04/2024 07/04/2023, 12/2022, 09/14/2022, Additional history exists DTaP,Tdap,and Td [...] this encounter Medical Devices Implanted Type Area Private Equity Analyst Device Identifier Shelf Expiration Date Model / Serial / Lot Sut Steel 6 [id number] - [id number] Implanted:Qty: 6 on 07/06/2013 at OR [facility] N/A: Chest DO NOT USE 01/24/2018 [id number] / / [id number] documented as of this encounter Advance Directives [...] the patient have Health Care Power of Skein Straightener? No Full Code 07/23/2013 5:32 AM 07/27/2013 10:52 PM This order reflects the patients wishes and were consensually agreed upon. Question Answer Comments Discussion of Advance Directives occurred with: Patient Does the patient have a Living Will? No Does the patient have Health Care Power of Skein Straightener? No Full Code 07/06/2013 12:34 PM 07/14/2013 6:30 PM This order reflects the patients wishes and were consensually agreed upon. Care Teams Worm Farm Laborer Relationship Specialty Start Date End Date Krystyna Marino MD [address] [place] [address] PCP - General Internal Medicine 04/19/22 documented as of this encounter
--- OUTSIDE RECORDS SUMMARY | 2024-01-05 03:19 | External Medical Summary | Summary of Care ---
Author Name Unknown Organization [facility] Address [address] [place] [address] Phone [phone] Care Team Providers Care Mechanical Fitter Name Role Phone Krystyna Marino MD Primary Care Provider [phone] Reason for Visit * Reason Onset Date Comments Test Results 07/08/2023 Advice 07/08/2023 Encounter Details Date Type Department Care Team (Late st Contact Info) Description 07/08/2023 Telephone [facility] [address] [place] [address] Krystyna Marino MD [address] [place] [address] Test Results; Advice Allergies No [...] (aortic valve replacement),Rosario ry artery disease involving or[place]ararmiut coronary artery of orutsararmiut heart without angina pectoris Take 1 Tablet [...] positive 04/19/2022 Coronary artery disease invo lving orutsararmiut coronary artery of orutsararmiut heart without angina pectoris 02/20/2021 Benign hypertension [...] Miscellaneous Notes * Telephone Encounter - Cecile De La Garza OSA - 07/08/2023 3:38 PM EST Reason for patient's call: returning the call Caller was transferred to [facility] at the nurse line. * Telephone [...] of Test : 07/04/23 Location of Test: [place] Ordering Provider: Dr. Marino Callback Number: [phone] Patient has been made aware that the [...] 1:00 PM EST Laboratory Laboratory [facility] [place] [address] [place] [phone] Lynn [facility] [address] [place] [address] 07/12/2023 2:20 PM EST Office Visit Nephrology, [facility] 200 [facility] [place], [place] [address] Drake Jha MD 200 [facility] [place] [address] 07/19/2023 11:00 AM EST Office Visit Nephrology, [facility] 200 [facility] [place] [address] Lelia Madison PA-C 200 [facility] [place] [address] 07/22/2023 2:30 PM EST Cardiac Studies Cardiac Studies, [facility] 132 [facility] [address] 07/25/2023 1:00 PM EST Nurse Only Ancillary Department, [address] [address] [place], [facility] [address] [place] [address] 08/18/2023 10:30 AM EST Office Visit Sleep Disorders [facility] 132 [facility] [phone] Madeline Schaffer CRNP 132 [facility] [address] 09/08/2023 10:00 AM EDT Office Visit Cardiology, [facility] 132 [facility] [place] [address] Lise Goldman CRNP 132 [facility], [place] [address] 01/02/2024 11:00 AM EDT Office Visit Family Practice, [place] [address] [place] [phone] Krystyna Marino MD [address] [place], [place] [address] Health Maintenance Due Date Last Done Comments DISCUSS TOBACCO CESSATION (REFER TO SMARTSET #8895) 1945 Alpha-1 Antitrypsin 1962 Zoster Vaccines (1 of 2) 1994 *COPD SEVERITY VERIFIED BY PFT 07/07/2022 COVID-19 Vaccine ( season) 2023 02/06/2021, 01/17/2021 Depression Screening 07/05/2023 07/05/2022 GFR 01/02/2024 07/04/2023, 12/0 07/2022, 03/01/2023, Additional history exists Albumin/Creatinine Ratio 01/07/2024 023, 04/09/2022, 12/04/2018 CKD HGB USE SMARTSET 31946 07/04/202407/04, 07/04/2023, 03/22/2023, Additional history exists CKD PHOS USE SMARTSET 46704 07/04/20240 01/2024, 03/30/2022, 08/06/2021, Additional history exists O2 ASSESSMENT COMPLETED IN PAST YEAR FOR COPD 07/04/2024 07/04/2023 TSH 07/04/2024 07/04/2023, [address]12/2022, 09/14/2022, Additional history exists DTaP,Tdap,and Td Vaccines [...] this encounter Medical Devices Implanted Type Area Functional Consultant Device Identifier Shelf Expiration Date Model / Serial / Lot Gemini Chau 6 M654g - [id number] Implanted:Qty: 6 on 07/06/2013 at OR [facility] N/A: Chest DO NOT USE 01/24/2018 [id number] / / [id number] documented as of this encounter Advance Directives [...] the patient have Health Care Power of Survey Research Analyst? No Full Code 07/23/2013 5:32 AM 07/27/2013 10:52 PM This order reflects the patients wishes and were consensually agreed upon. Question Answer Comments Discussion of Advance Directives occurred with: Patient Does the patient have a Living Will? No Does the patient have Health Care Power of Survey Research Analyst? No Full Code 07/06/2013 12:34 PM 07/14/2013 6:30 PM This order reflects the patients wishes and were consensually agreed upon. Care Teams Mechanical Fitter Relationship Specialty Start Date End Date Krystyna Marino MD [address] [place] [address] PCP - General Internal Medicine 04/19/22 documented as of this encounter
--- OUTSIDE RECORDS SUMMARY | 2024-01-05 03:19 | External Medical Summary | Summary of Care ---
Author Name Unknown Organization [facility] Address [address] [place] [address] Phone [phone] Care Team Providers Care Spool Sander Name Role Phone Krystyna Marino MD Primary Care Provider [phone] Reason for Visit * Reason Onset Date Comments Test Results 07/08/2023 Encounter Details Date Type Department Care Team (Late st Contact Info) Description 07/08/2023 Telephone [facility] [address] [place] [address] Krystyna Marino MD [address] [place] [address] Test Results Allergies No known [...] (aortic valve replacement),Rosario ry artery disease involving crow coronary artery of crow heart without angina pectoris Take 1 Tablet [...] positive 04/19/2022 Coronary artery disease invo lving crow coronary artery of crow heart without angina pectoris 02/20/2021 Benign hypertension [...] encounter Miscellaneous Notes * Telephone Encounter - Latha Singh LPN [...] of Test : 07/04/23 Location of Test: [place] Ordering Provider: Dr. Marino Callback Number: [phone] Patient has been made aware that the [...] State Danial Rosa [address] [place] [address] [phone] [place] [address] [place] [address] 07/12/2023 2:20 PM EST Office Visit [facility]ph[facility] ramirez [address] [place] [address] [address] Drake Jha MD [address] [place] [address] [address] 07/19/2023 11:00 AM EST Office Visit NephMicha ramirez [address] [place] [address] [address] Lelia Madison PA-C [address] [place] [facility] [place] [address] 07/22/2023 2:30 PM EST Cardiac Studies Cardiac Studies, [facility] 132 [place] [address] 07/25/2023 1:00 PM EST Nurse Only Ancillary Department, [place] [address] [place] [address] [place], Nurse Annual Wellness [address] [place] [address] 08/18/2023 10:30 AM EST Office Visit Sleep Disorders [facility] [address] [place] [phone] Madeline Schaffer CRNP 132 [facility] [place] [address] 09/08/2023 10:00 AM EDT Office Visit Cardiology, [facility] 132 [place] [address] Lise Goldman CRNP 132 [facility] [place] [address] 01/02/2024 11:00 AM EDT Office Visit Family Practice, [place] [address] [place] [address] Krystyna Marino MD [address] [place] [address] Health Maintenance Due Date Last Done Comments DISCUSS TOBACCO CESSATION (REFER TO SMARTSET #3291) 1945 Alpha-1 Antitrypsin 1962 Zoster Vaccines (1 of 2) 1994 *COPD SEVERITY VERIFIED BY PFT 07/07/2022 COVID-19 Vaccine (2022- season) 2023 02/06/2021, 01/17/2021 Depression Screening 07/05/2023 07/05/2022 GFR 01/02/2024 07/04/2023, 1207/2022, 03/01/2023, Additional history exists Albumin/Creatinine Ratio 01/07/2024 023, 04/09/2022, 12/04/2018 CKD HGB USE SMARTSET 50923 07/04/202407/04, 07/04/2023, 03/22/2023, Additional history exists CKD PHOS USE SMARTSET 83191 07/04/202401/2024, 03/30/2022, 08/06/2021, Additional history exists O2 [...] this encounter Medical Devices Implanted Type Area Patient Placement Coordinator Device Identifier Shelf Expiration Date Model / Serial / Lot Sut Steel 6 M654g - [id number] Implanted:Qty: 6 on 07/06/2013 at OR [facility] [place] N/A: Chest DO NOT USE 01/24/2018 M654G / / [id number] documented as of this encounter Advance Directives [...] the patient have Health Care Power of Senior Staff Accountant? No Full Code 07/23/2013 5:32 AM 07/27/2013 10:52 PM This order reflects the patients wishes and were consensually agreed upon. Question Answer Comments Discussion of Advance Directives occurred with: Patient Does the patient have a Living Will? No Does the patient have Health Care Power of Senior Staff Accountant? No Full Code 07/06/2013 12:34 PM 07/14/2013 6:30 PM This order reflects the patients wishes and were consensually agreed upon. Care Teams Spool Sander Relationship Specialty Start Date End Date Krystyna Marino MD [address] [place] [facility] [place] [address] PCP - General Internal Medicine 04/19/22 documented as of this encounter
--- OUTSIDE RECORDS SUMMARY | 2024-01-05 03:19 | External Medical Summary | Summary of Care ---
Author Name Unknown Organization [facility] Address [address] [place] [address] Phone [phone] Care Team Providers Care Motor Driver Name Role Phone Krystyna Marino MD Primary Care Provider [phone] Reason for Visit * Reason Comments Dosage Adjustment In Person (Anticoag Cl inic) Encounter Details Date Type Department Care Team (Latest Contact Info) Description 07/14/2023 11:50 AM EST Anticoagulation Pharmacy, [place] [address] [place] [address] [facility] [address] [place] [address] S/P mitral valve replacement*; Anticoagulation management encounter; Paroxysmal atrial fibrillation (HCC); S/P AVR (aortic valve replacement); 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 Allergies No known active allergiesdocumented as of this encounter (statuses as of 07/14/2023) Medications Medication Sig Dispensed Refills Start Date [...] (aortic valve replacement),Rosario ry artery disease involving lower sioux coronary artery of lower sioux heart without angina pectoris Take 1 Tablet [...] as of this encounter (statuses as of 07/14/2023) Active Problems Problem Noted Date Diagnosed Date Anticoagulation management encounter 11/08/2022 COPD, severity to be determined 07/05/2022 Varicose veins of both lower extremities 022 DDD (degenerative disc disease), lumbar 04/19/20 22 Malignant neoplasm of right breast in female, estrogen receptor positive 04/19/2022 Coronary artery disease invo lving lower sioux coronary artery of lower sioux heart without angina pectoris 02/20/2021 Benign hypertension [...] as of this encounter (statuses as of 07/14/2023) Resolved Problems Problem Noted Date Diagnosed Date [...] as of this encounter (statuses as of 07/14/2023) Immunizations Name Administration Dates Next Due COVID-19 [...] as of this encounter Progress Notes * Pranav Parnell, [facility] - 07/14/2023 11:10 AM EST Images from the original note were not included. Medication Therapy Disease Management - Anticoagulation Anay Richardson 1945 Description PRN hemorrhoidectomy date- pt not interested FRED Patient Findings Negatives: Signs/symptoms of thrombosis, Signs/symptoms of bleeding, Change in health, Change in alcohol use, Change in activity, Upcoming invasive procedure, Missed doses, Extra doses, Change in medications, Change in diet/appetite, Bruising INR Result As of 07/14/2023 INR goal: 2.0-3.0 INR used for dosin.8 (07/14/2023) Warfarin Plan As of 07/14/2023 Full warfarin instructions: 7.5 mg every Mon; 5 mg all other days Next INR check: 08/25/2023 Repeat PT/INR in 6 week(s) Weekly dose: not changed Pranav Mckeon RPh, CACP, CDE Clinical Pharmacist Medication Therapy Management Clinic 07/14/2023 11:17 AM documented in this encounter Plan of Treatment Upcoming Encounters Date Type Department Care Team (Late st Contact Info) Description 07/22/2023 2:30 PM EST Cardiac Studies Cardiac Studies, [facility] 132 [facility] [place] [address] 07/25/2023 1:00 PM EST Nurse Only Ancillary Department, [address] [address] [place], Nurse Annual Wellness [facility] [place] [address] 08/09/2023 12:30 PM EST Laboratory Laboratory [facility] [place] 200 [facility] [address] [place] [phone] [place] [address] [facility] [place] [address] 08/09/2023 2:00 PM EST Office Visit Nephrology, [facility] [address] [place] [address] Drake Jha MD [address] [place] [address] 08/18/2023 10:30 AM EST Office Visit Sleep Disorders [facility] 132 [facility] [place] [phone] Madeline Schaffer CRNP 132 [facility] [place] [address] 08/25/2023 11:10 AM EST Anticoagulation Pharmacy, [place] [address] [place] [address] [facility] [address] [place] [address] 09/08/2023 10:00 AM EDT Office Visit Cardiology, [facility] 132 [facility] [place] [address] Lise Goldman CRNP 132 [facility] [place] [address] 01/02/2024 11:00 AM EDT Office Visit Family Practice, [place] [address] [place] [facility] [place] [phone] Krystyna Marino MD [address] [place] [address] Health Maintenance Due Date Last Done Comments DISCUSS TOBACCO CESSATION (REFER TO SMARTSET #3291) 1945 Alpha-1 Antitrypsin 1962 Zoster Vaccines (1 of 2) 1994 *COPD SEVERITY VERIFIED BY PFT 07/07/2022 COVID-19 Vaccine ( season) 2023 02/06/2021, 01/17/2021 Depression Screening 07/05/2023 07/05/2022 GFR 01/02/2024 07/04/2023, 12/0 07/2022, 03/01/2023, Additional history exists Albumin/Creatinine Ratio 01/07/20242 023, 04/09/2022, 12/04/2018 CKD HGB USE SMARTSET 54667 07/04/202407/04, 07/04/2023, 03/22/2023, Additional history exists CKD PHOS USE SMARTSET 34833 07/04/2024 01/0 01/2024, 03/30/2022, 08/06/2021, Additional history [...] this encounter Medical Devices Implanted Type Area Marketing Communications Manager Device Identifier Shelf Expiration Date Model / Serial / Lot Sut Isac 6 M654g - [id number] Implanted:Qty: 6 on 07/06/2013 at [place] [facility] [place] N/A: Chest DO NOT USE 01/24/2018 M654G / / [id number] documented as of this encounter Procedures Procedure Name Priority Date/Time Associated Diagnosis Comments INR FINGERSTICK, POINT OF CARE STAT 07/14/2023 11:13 AM EST S/P mitral valve replacement Anticoagulation management encounter [facility] current use of anticoagulant therapy documented in this encounter Results * INR FINGERSTICK, POINT OF CARE (07/14/2023 11:13 AM EST) Fingerstick INR 1.8 INR 11:14 AM EST [facility] 56-01 Blood 07/14/2023 11:1 3 AM EST 07/14/2023 11:14 AM EST Narrative [facility] - 07/14/2023 11:14 AM EST Therapeutic ranges for non-operative patients: Prophylaxsis/treatment of DVT: (Range:2.0-3.0) Treatment of pulmonary embolism:(Range:2.0-3.0) Prevention of systemic embolism from: -tissue heart valves -acute myocardial infarction -valvular heart disease -atrial fibrillation (Range: 2.0-3.0) Mechanical prosthetic valves: (Range: 2.5-3.5) Callie Wynn [facility] POINT OF CARE TEST DOCKED DEVICE UNSOLICITED RESULTS Performing Organization Address City/State/[facility] Co de Phone Number [facility] [address] [place] [address] documented in this encounter Visit Diagnoses Diagnosis S/P mitral valve replacement- Primary Heart valve replaced by other means Anticoagulation management encounter Encounter for therapeutic drug monitoring Paroxysmal atrial fibrillation (HCC) Atrial fibrillation S/P AVR (aortic valve replacement) Heart valve replaced by other means [facility] current use of anticoagulant therapy documented in [...] the patient have Health Care Power of Investigator Narcotics? No Full Code 07/23/2013 5:32 AM 07/27/2013 10:52 PM This order reflects the patients wishes and were consensually agreed upon. Question Answer Comments Discussion of Advance Directives occurred with: Patient Does the patient have a Living Will? No Does the patient have Health Care Power of Investigator Narcotics? No Full Code 07/06/2013 12:34 PM 07/14/2013 6:30 PM This order reflects the patients wishes and were consensually agreed upon. Care Teams Motor Driver Relationship Specialty Start Date End Date Krystyna Marino MD [address] [place] [address] PCP - General Internal Medicine 04/19/22 documented as of this encounter
[2024-01-05 06:27] LABS: Basophils # (auto) 0.03 K/uL (0.00-0.20); Basophils % (auto) 0.6 %; Eosinophils # (auto) 0.17 K/uL (0.00-0.50); Eosinophils % (auto) 3.4 %; Hematocrit (blood only) 24.5 % (37.0-47.0); Hemoglobin 7.3 g/dl (12.0-16.0); Immature Granulocytes # (auto) 0.01 K/uL (0.01-0.20); Immature Granulocytes % (auto) 0.2 %; Lymphocytes # (auto) 1.08 K/uL (1.20-3.40); Lymphocytes % (auto) 21.9 %; Mean Corpuscular Hemoglobin 24.2 pg (25.0-34.0); Mean Corpuscular Hgb Conc 29.8 g/dL (32.0-36.0); Mean Corpuscular Volume 81.1 fL (80.0-100.0); Mean Platelet Volume 9.1 fL (9.4-12.4); Monocytes # (auto) 0.46 K/uL (0.11-0.59); Monocytes % (auto) 9.3 %; Neutrophils # (auto) 3.19 K/uL (1.40-6.50); Neutrophils % (auto) 64.6 %; Platelet Count 259 K/uL (130-400); RDW Coefficient of Variation 15.9 % (11.5-14.5); RDW Standard Deviation 46.9 fL (36.4-46.3); Red Blood Count 3.02 M/uL (4.20-5.40); White Blood Count 4.94 K/ul (4.8-10.8)
[2024-01-05 06:50] LABS: Poikilocytosis Present; Polychromasia 1+
[2024-01-05 06:53] LABS: Albumin Level 3.4 gm/dl (3.4-5.0); BUN Creatinine Ratio 8.5 (10-20); Bilirubin,Total 0.5 mg/dl (0.2-1.0); Calcium 8.6 mg/dl (8.6-10.3); Creatinine Clr Calc Pharmacy 33.2 ml/min; Est GFR (Non-African American) 35.3 ml/min; Globulin 3.3 gm/dl (2.5-4.0); Magnesium 1.8 mg/dl (1.7-2.4); Potassium 3.9 mmol/L (3.5-5.1); Total Protein 6.7 gm/dl (6.0-8.3)
[2024-01-05 07:03] LABS: INR 2.1 (0.9-1.1); Prothrombin Time 21.1 Seconds (9.0-12.0)
[2024-01-05] MEDS: LEVOTHYROXINE SODIUM 137 MCG TABLET PO SCH (08:05)
[2024-01-05] MEDS: AMIODARONE 200 MG TAB PO SCH (08:05)
[2024-01-05] MEDS: lisinopril 10 MG TAB PO SCH (08:05)
--- NOTE | 2024-01-05 09:45 | Hospitalist Progress Note ---
Date of Service January 05, 2024 Assessment & Plan (1) Anemia: (2) CKD (chronic kidney disease), stage III: (3) HTN (hypertension): (4) SARAH on CPAP: Plan Pt is a 78 yr old F who has a significant PMH of HTN, hx of aortic and mitral valve replacement, PAF on warfarin, CAD, COPD, SARAH on CPAP, Tobacco abuse, hypothyroidism, CKD-3, Hyperparathyroidism, hx of R breast ca s/p partial mastectomy who presents to ED 2/2 referral from PCP after a noted drop in her hemoglobin from baseline of 13 to 8. Anemia, iron deficiency Possible GIB Referred by her pcp after a noted drop in her hemoglobin from baseline of 13 to 8 Notes dark stools, on chronic warfarin for Hx of aortic and mitral heart valve replacements with thrombus and atrial fibrillation Anemia panel on admission noting iron deficiency hgb low but stable at his time, was typed/crossed with 2 units on hold, blood consent obtained -transfused 1U of pRBCs on 01/04 for hgb of 7.3- 7.9 down from 8.2 on admission Last C scope 11/2022 evidence of prior end to end ileocolonic anastomosis in sigm oid, patent, HANH revealed prolapse Held warfarin and ASA on admission, cardiology consulted for further anticoagulation recs IV PPI BID s/p 1 bag of IV venofer on 01/03 GI consulted, appreciate recs. Noted the following -patient is now agreeable to an EGD and colonoscopy. - would wait until her INR is lower than 1.7 and once it is, would plan to prep for a colonoscopy and EGD to further evaluate. - continue to follow hgb/hct and transfuse as needed. -continue with protonix 40mg bid. Continue to monitor Hx of Aortic Valve replacement Hx of Mitral Valve replacement PAF Bioprosthetic aortic and mitral valve replacements with associated thrombus Hx of a fib anticoagulated with warfarin INR 2.0 on admission, currently 2.1. Per GI would like in range of 1.7 for procedure Continue metoprolol, amiodarone for rate/rhythm control for a fib Warfarin was held on admission in the setting of anemia requiring possible transfusion, continue to hold in anticipation of EGD/colonoscopy Cardiology consulted for further anticoagulation recs in this setting. -Obtain echocardiogram to assess AVR/MVR gradients/function -Coumadin and ASA currently on hold for workup. -Will resume when source of anemia is identified and corrected -No need for heparin bridge as she has a bioprosthetic AVR/MVR -Transfuse hemoglobin per recommendations of hospitalist service/GI. Recommend maintaining hgb >10. Continue to monitor Cardiomegaly Small Pleural Effusion Noted on chest xray Cardiology on board in setting of above, appreciate recs Echo ordered as above Stable at this time HTN Bp stable held HCTZ, lisinopril on admission continue metoprolol with parameters Continue to monitor TONY on CKD -3b cr elevated at 1.83 on admission Received IVF, currently downtrended to 1.43 avoid nephrotoxic agents as able, holding home lisinopril at this time Continue to monitor COPD Tobacco abuse encourage cessation, pt declines nicotine patch no acute exac SARAH on CPAP stable, continue cpap qhs Hypothyroidism TSh 6.13, free T4 1.56 Continue home meds Diet: diet and NPO after midnight DVT ppx: SCDS in setting of possible bleed, warfarin on hold Dispo: PT/OT ordered for further recs Admission and Anticipated Discharge Date Admission Date: January 04, 2024 Subjective pt was seen laying in bed, no acute distress. Watching TV States that she had more bowel movements with blood. Agreeable to endoscopic procedures currently. Denies chest pain, SOB, palpitations, N/V, abdominal pain. Review of Systems Review of Systems: All systems reviewed & are unremarkable except as noted in Subjective Physical Exam Physical Exam: General: Alert, oriented. No acute distress Psych: Appropriate mood and affect Neuro: No gross deficits while laying in bed HEENT: NC/AT CV: RRR Resp: Breath sounds clear bilaterally, no increased effort of breathing Abdomen:Soft, nontender Extremities: edema in lower extremities bilaterally. Results & Data Results & Data Vital Signs (Past 12 Hours) Vital Signs Temp Pulse Pulse Pulse Resp BP Pulse Ox 01/05/24 08:22 01/05/24 08:02 62 01/05/24 07:25 55 L 01/05/24 07:08 36.6 C 63 18 116/68 95 01/05/24 03:35 65 18 94 01/05/24 03:10 36.5 C 58 L 18 109/63 96 01/04/24 23:56 36.4 C L 60 18 122/71 92 01/04/24 23:30 63 20 95 01/04/24 21:57 63 O2 Del Method FiO2 01/05/24 08:22 Room Air 01/05/24 08:02 01/05/24 07:25 01/05/24 07:08 Room Air 01/05/24 03:35 21 01/05/24 03:10 Room Air, CPAP 01/04/24 23:56 Room Air 01/04/24 23:30 21 01/04/24 21:57 Diagnostic Findings Chest X-Ray 01/04/24 11:11 SINGLE VIEW CHEST CLINICAL HISTORY: Generalized weakness FINDINGS: An AP, portable, upright chest radiograph is compared to study dated 09/20/2013. Correlation is made with abdominal CT dated 05/28/[address] dated 08/25/2013. The patient is status post midline sternotomy. The there is pulmonary vascular congestion. There are small pleural effusions, right larger than left with right basilar scarring/atelectasis. No pneumothorax is seen. The skeletal structures are osteopenic. There is chronic deformity and postsurgical change noted in the left clavicle. IMPRESSION: 1. Cardiomegaly with pulmonary vascular congestion. Radiographic follow-up to resolution is recommended. 2. Small pleural effusion. ACT 112: Negative or not required by law. Electronically signed by: Rush Morton M.D. 01/04/2024 12:04 PM
--- NOTE | 2024-01-05 10:05 | Cardiology Consultation ---
Date of Consultation January 05, 2024 Assessment & Plan (1) Anemia: (2) S/P AVR (aortic valve replacement): (3) S/P MVR (mitral valve replacement): (4) CAD (coronary artery disease): (5) Paroxysmal atrial fibrillation: (6) CKD (chronic kidney disease), stage III: Plan Impression: Medically complex 78 year old female with history of bioprosthetic AVR/MVR in 06/2013- anticoagulated with Coumadin. Also carries a history of PAF on amiodarone. Telemetry has been benign. Plan: Iron deficiency anemia Possible GI bleed Acute TITA with admitting hgb of 8.1. Possible GIB. Appreciate GI recommendations- currently on PPI. Patient initially declined scope; now agreeable. Hospitalist service notified. Coumadin and ASA currently on hold for workup. Will resume when source of anemia is identified and corrected. No need for heparin bridge as she has a bioprosthetic AVR/MVR Transfuse hemoglobin per recommendations of hospitalist service/GI. Recommend maintaining hgb >10. History of bioprosthetic AVR and MVR Patient on anticoagulation for AVR/MVR with history of postoperative tamponade secondary to thrombus. -Obtain echocardiogram to assess AVR/MVR gradients/function Paroxysmal atrial fibrillation Post op AFIB following AVR/MVR- anticoagulated with Coumadin. Maintaining SR with LBBB on amiodarone. No PAF noted on telemetry. Coronary artery disease Branch vessel CAD, not amenable to intervention Stable. No angina. Normally on ASA 81 mg daily; on hold for possible GIB. Continue Statin therapy CKD stage III TONY on CKD in the setting of anemia. Baseline scr of 1.3-1.4. Improved on today's blood work when compared to admission. Case discussed with Dr. Desir. Further recommendations pending assessment. I spent a total of 40 minutes on the date of service in preparation, delivery, and documentation of the care provided to the patient excluding any time spent in the performance of separately billed services. JED Suarez Department of Cardiology, [facility] This chart was completed in part utilizing Speech Voice Recognition Software. Grammatical errors, random word insertions, pronoun errors, and incomplete sentences are an occasional consequence of this system due to software limitations, ambient noise, and hardware issues. Any formal questions or concerns about the content, text, or information contained within the body of this dictation should be directly addressed to the provider for clarification. Supervising Physician Co-Signing Physician Notes Patient was seen and personally examined. Assessment plan as outlined above. Care and management discussed with advanced provider and personally endorsed 78-year-old female on chronic anticoagulation due to paroxysmal atrial fibrillation, aortic and mitral valve bioprostheses. Patient referred for hospital evaluation after routine surveillance laboratory studies demonstrated recurrence of significant anemia. Laboratory studies with iron deficiency Patient warrants chronic anticoagulation given paroxysmal atrial fibrillation and left atrial enlargement, mitral valve bioprosthesis. Agree with plans as outlined with GI surveillance Iron supplementation Echocardiogram ordered to assess valvular structures exclude hemolytic source though laboratory studies do not suggest Patient currently asymptomatic I spent a total of 40 minutes on the date of service in preparation, delivery, and documentation of the care provided to the patient excluding any time spent in the performance of separately billed services. History of Present Illness Reason for Consultation: TITA with possible GIB; on Coumadin Bioprosthetic AV and MV Requesting Physician: Nellie martinez Attending Physician: Kiara Dubose MD History of Present Illness Medically complex 78-year-old female with past medical history of bioprosthetic AVR and MVR in June 2013. Also carries a history of paroxysmal atrial fibrillation on chronic amiodarone therapy and anticoagulated with Coumadin. Presented to [facility] emergency department yesterday, 01/04/2024, after being evaluated by her PCP for routine 6-month check. Patient reported dark stools over 2 to 3 days. CBC was performed. Hemoglobin dropped from 13.4 to approximately 8.1. On admission Coumadin and ASA was held. Given 300 mg of IV Venofer and IV PPI was started. GI consulted-- recommended EGD/colonoscopy but declined at that time. Cardiology consulted for anticoagulation recommendations. 01/05/2024: Hgb: 8.2>>7.3>>7.3 Scr: (baseline 1.2-1.3) 1.8>>1.4 Tele: SR 60-70s (Known LBBB) Upon entrance into the room patient up ambulating with a cane. Currently feeling well. Denies chest pain, shortness of breath, palpitations, dizziness, syncope or near syncope. No orthopnea, PND, or increased lower extremity edema. Had a BM last night- notes " a little bit of blood" at the time, also notes blood on the toilet tissue. States that she has hemorrhoids. No nausea or vomiting. Outpatient cardiac medications: Lisinoprilhydrochlorothiazide 10-12.5 mg daily Amiodarone 200 mg daily Potassium 10 meq daily Atorvastatin 10 mg daily Metoprolol tartrate 12.5 mg twice daily Coumadin Aspirin 81 mg daily Past medical history: 1. Status post aortic valve (23mm St. Lb bioprosthesis) and mitral valve (27mm St. Lb bioprosthesis) replacement with CABG, 07/06/[address] Woods, [facility] a. Postop PAF, on chronic amiodarone and Coumadin therapy b. Postoperative tamponade x2 secondary to thrombus c. 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 Branch vessel CAD, not amenable to intervention 3. Paroxysmal atrial fib a. [id number] score of 5 (age 1, female, HTN, CAD)- on Coumadin and amiodarone 4. Hypertension 5. Hyperlipidemia 6. LBBB 7. CKD 8. COPD with ongoing Tobacco abuse 9. SARAH on CPAP 10. Thyroid carcinoma, s/p resection, 1980s 11.History of breast cancer status post partial mastectomy and radiation, on Arimidex Allergies Allergy/AdvReac Type Severity Reaction Status Date / Time No Known Allergies Allergy Verified 01/04/24 12:49 Home Medications Medication Instructions Recorded Confirmed Type amiodarone 200 mg tablet 200 mg PO QAM 08/16/18 01/04/24 History aspirin 81 mg tablet,delayed 81 mg PO QPM 08/16/18 01/04/24 History release (Yocasta Low Dose Aspirin) atorvastatin 10 mg tablet 10 mg PO QPM 08/16/18 01/04/24 History levothyroxine 137 mcg tablet 137 mcg PO QAM 08/16/18 01/04/24 History metoprolol tartrate 25 mg tablet 12.5 mg PO BID 08/16/18 01/04/24 History multivitamin 1 tab PO QDD 08/16/18 01/04/24 History warfarin 5 mg tablet (Jantoven) 7.5 mg PO HS 09/13/18 01/04/24 History potassium citrate 10 mEq (1,080 10 meq PO BID 04/23/19 01/04/24 History mg) tablet,extended release pantoprazole 20 mg tablet,delayed 20 mg PO QAM 12/02/22 01/04/24 History release lisinopril 10 1 tab PO DAILY 01/04/24 01/04/24 History mg-hydrochlorothiazide 12.5 mg tablet Patient History Medical History Balance problem Poor historian Kidney stones hx Hypothyroidism Cancer of right breast sx, radiation, oral chemo On anticoagulant therapy warfarin daily Hypertension Hyperlipidemia History of transesophageal echocardiography (JAMEL) for monitoring Cardiac murmur followed with Dr. Sofia, has not seen new physician Sleep apnea cpap Thyroid cancer sx History of colon polyps Surgical History History of cystoscopy STENT INSERTED History of aortic aneurysm repair History of anesthesia reaction difficulty waking after heart surgery History of bilateral tubal ligation History of open reduction and internal fixation (ORIF) procedure collar bone fx---hardware in place History of open reduction and internal fixation (ORIF) procedure left leg---hardware removed History of colonoscopy History of esophagogastroduodenoscopy (EGD) History of partial mastectomy of right breast History of right breast biopsy malignant History of tooth extraction History of tonsillectomy and adenoidectomy History of cardiac cath 2014 @ [facility], no stents History of aortic valve replacement 2013 @ [facility] History of mitral valve replacement 2013 @ [facility] History of thyroidectomy History of partial colectomy 2018 d/t colon polyps Family History Brother Family history of diabetes mellitus Family hx of colon cancer Father Family history of diabetes mellitus Other No family history of adverse response to anesthesia Social History Smoking Status: Current every day smoker Tobacco Type: Cigarettes Cigarettes Per Day: 1/2 PPD; Second Hand Exposure: Yes ( smokes); Do You Dip or Chew Tobacco: No; Hx Alcohol Use: No Hx Substance Use: No Preferred Language: Maltese Communication Ability: Effective Dental Mechanic Required: No Beliefs That Will Affect Care: None Current Living Situation: Spouse Current Living Situation Comment: apartment with Feels Safe at Home: Yes Safety Concerns: Feels Safe At This Time Assistive Devices: Cane Review of Systems Review of Systems: All systems reviewed & are unremarkable except as noted in HPI & below Physical Exam Constitutional: no acute distress Neck: trachea midline Respiratory: normal respiratory effort, lungs clear to auscultation Cardiovascular: RRR, no murmur, no edema Rate/Rhythm: regular rate and regular rhythm Heart Sounds: normal S1, normal S2 and + murmur (+systolic murmur) Vessels: no JVD Extremities: no edema Gastrointestinal (Abdomen): Inspection/Auscultation: abdomen normal to inspection and normal bowel sounds; abdomen not distended Percussion/Palpation: abdomen soft; abdomen nontender Musculoskeletal: no cyanosis or clubbing, extremities motor strength 5/5 Neurologic: PERRL, EOMI, accommodation nl, no face palsy, no dysarthria Psychiatric: A+Ox3, euthymic affect Results & Data Vital Signs (Past 12 Hours) Vital Signs Temp Pulse Pulse Pulse Resp BP Pulse Ox 01/05/24 08:22 01/05/24 08:02 62 01/05/24 07:25 55 L 01/05/24 07:08 36.6 C 63 18 116/68 95 01/05/24 03:35 65 18 94 01/05/24 03:10 36.5 C 58 L 18 109/63 96 01/04/24 23:56 36.4 C L 60 18 122/71 92 01/04/24 23:30 63 20 95 01/04/24 21:57 63 O2 Del Method FiO2 01/05/24 08:22 Room Air 01/05/24 08:02 01/05/24 07:25 01/05/24 07:08 Room Air 01/05/24 03:35 21 01/05/24 03:10 Room Air, CPAP 01/04/24 23:56 Room Air 01/04/24 23:30 21 01/04/24 21:57 Laboratory Results Cardiac Enzymes 01/04/24 01/05/24 Range/Units 11:15 05:37 AST 31 23 (13-39) U/L Troponin I High Sens 11.8 (0-14) pg/ml Coagulation 01/04/24 01/05/24 Range/Units 11:15 05:37 PT 20.7 H 21.1 H (9.0-12.0) Seconds APTT 35 H (21-31) Seconds CBC 01/04/24 01/04/24 01/05/24 Range/Units 11:15 20:09 05:37 WBC 5.80 4.94 (4.8-10.8) K/ul RBC 3.42 L 3.02 L (4.20-5.40) M/uL Hgb 8.2 L 7.3 L 7.3 L (12.0-16.0) g/dl Hct 28.1 L 24.6 L 24.5 L (37.0-47.0) % Plt Count 300 259 (130-400) K/uL Neut # (Auto) 4.39 3.19 (1.40-6.50) K/uL Lymph # (Auto) 0.89 L 1.08 L (1.20-3.40) K/uL Collin # (Auto) 0.45 0.46 (0.11-0.59) K/uL Eos # (Auto) 0.04 0.17 (0.00-0.50) K/uL Baso # (Auto) 0.02 0.03 (0.00-0.20) K/uL Comprehensive Metabolic Panel 01/04/24 01/05/24 Range/Units 11:15 05:37 Sodium 130 L 136 (136-145) mmol/L Potassium 4.0 3.9 (3.5-5.1) mmol/L Chloride 98 105 (98-107) mmol/L Carbon Dioxide 24 25 (21-32) mmol/L BUN 18 12 (6-23) mg/dl Creatinine 1.83 H 1.41 H D (0.6-1.2) mg/dl Glucose 103 H 79 (70-99(Fasting)) mg/dl Calcium 9.5 8.6 (8.6-10.3) mg/dl AST 31 23 (13-39) U/L ALT 17 15 (7-52) U/L Alkaline Phosphatase 43 35 (34-104) U/L Total Protein 8.0 6.7 (6.0-8.3) gm/dl Albumin 4.0 3.4 (3.4-5.0) gm/dl Intake and Output 01/04/24 01/05/24 01/05/24 22:59 06:59 14:59 Intake Total 505 / 1005 0 / 1005 Output Total 2 / 2 Balance 503 / 1003 0 / 1003 Intake: IV 265 / 765 Iron Sucrose 300 mg In Sodium 265 / 265 Chloride 0.9% 250 ml @ 176.667 mls/hr IV TODAY ONE Rx#: [id number] Oral 240 / 240 0 / 240 Output: # Bowel Movements 2 / 2 Other: Weight 84.1 kg Weight Measurement Method Built in [facility] Diagnostic Findings Echo 06/2023 The examination is adequate to evaluate the referral indication. Calculated LV ejection Fraction = 62% (three dimensional volumes). The left atrium is moderately enlarged. The left ventricular diastolic function is moderately abnormal (grade II). There is an aortic valve bioprosthetic present. The aortic valve prosthesis systolic gradients are normal for this type prosthesis. At least mild prosthetic aortic valve regurgitation is present but not quantified due to contamination from the mitral valve inflow signal which is adjacent to the left ventricular outflow tract due to the configuration of the prosthetic valves. There is a mitral valve bioprosthesis present. The prosthetic mitral valve leaflets appear thickened and calcified. At least mild mitral stenosis is felt to be present with mean diastolic gradient of 7.8 mm Hg with heart rate of 52 bpm. Prosthetic regurgitation is absent, however assessment is technically limited due to the calcification of the prosthesis. Mild tricuspid regurgitation is present. Compared to the report of the previous study dated 03/30/2022, the mean diastolic gradient across the mitral valve prosthesis was 10.5 with heart rate in the range of 90-95 beats per minute at that time. The aortic valve velocities are relatively unchanged. Consider transesophageal echocardiogram for further assessment of the aortic and mitral valves. (1) Anemia Anemia type: iron deficiency
--- NOTE | 2024-01-05 10:53 | Gastroenterology Progress Note ---
<Statement entered by Lisa Swanson MD - 01/05/24 16:13> I have examined the patient, reviewed the History & Physical and in the interval since the performance of the History & Physical I have noted the following changes of clinical significance: no changes noted. I agree with the documentation provided by JENN Loya with no additional comments. Given that the weekend is approaching, discussed prep today in hopes of proceeding with an egd and colonoscopy tomorrow. The capacity to proceed/intervene may depend on her INR. Date of Service January 05, 2024 Assessment & Plan (1) Anemia: Plan: Patient with a drop in hgb and now reported bright red blood in the stool. Prior reports of darker stool though none now. Patient is now agreeable to an EGD and colonoscopy. Her INR was 2.1 today. Discussed case with Dr. Swanson who helped advise on plan. - would wait until her INR is lower than 1.7 and once it is, would plan to prep for a colonoscopy and EGD to further evaluate. - continue to follow hgb/hct and transfuse as needed. - continue with protonix 40mg bid. Admission and Anticipated Discharge Date Admission Date: January 04, 2024 Subjective Patient had a stool last evening with some bright red blood in it. no darker stool now. spoke with nursing that confirmed this.Her hgb dropped from 8.2 y esterday to 7.3 today. INR 2.1, history of coumadin use. patient denies any nausea, vomiting, heartburn, abdominal pain, chest pain, sob, or melena. she tells me she would be agreeable to a colonoscopy and EGD at this time. Review of Systems Review of Systems: All systems reviewed & are unremarkable except as noted in HPI & below Physical Exam Constitutional: WD/WN, vitals as above Respiratory: normal respiratory effort, lungs clear to auscultation Cardiovascular: RRR, no murmur, no edema Gastrointestinal (Abdomen): normal bowel sounds, soft, nontender, no hepatosplenomegaly Psychiatric: Orientation: alert and oriented x 3 Affect: euthymic affect Results & Data Results & Data Vital Signs (Past 12 Hours) Vital Signs Temp Pulse Pulse Pulse Resp BP Pulse Ox 01/05/24 08:22 01/05/24 08:02 62 01/05/24 07:25 55 L 01/05/24 07:08 97.9 F 63 18 116/68 95 01/05/24 03:35 65 18 94 01/05/24 03:10 97.7 F 58 L 18 109/63 96 01/04/24 23:56 97.5 F L 60 18 122/71 92 01/04/24 23:30 63 20 95 O2 Del Method FiO2 01/05/24 08:22 Room Air 01/05/24 08:02 01/05/24 07:25 01/05/24 07:08 Room Air 01/05/24 03:35 21 01/05/24 03:10 Room Air, CPAP 01/04/24 23:56 Room Air 01/04/24 23:30 21 Coding Level of Care Code 50936 SUB INP/OBS CARE 235MIN Diagnoses Anemia D64.9
[2024-01-05 13:16] LABS: Hematocrit (blood only) 27.3 % (37.0-47.0); Hemoglobin 7.9 g/dl (12.0-16.0)
--- NOTE | 2024-01-05 13:33 | Electrocardiogram Report ---
Test Reason : Blood Pressure : / mmHG Vent. Rate : 067 BPM Atrial Rate : 067 BPM P-R Int : 184 ms QRS Dur : 166 ms QT Int : 490 ms P-R-T Axes : 037 058 113 degrees QTc Int : 517 ms Normal sinus rhythm Left bundle branch block Abnormal ECG When compared with ECG of 28-MAY-2023 17:00, No significant change was found Confirmed by Adebayo Jaramillo ([id number]) on 01/05/2024 1:33:30 PM Referred By: Miguel Morrow Confirmed By:Sherman Jaramillo
[2024-01-05] MEDS ORDERED: SODIUM CHLORIDE 0.9% 250 ML IV PRN (16:36)
[2024-01-05] MEDS: LAVAGE SOLUTION 4000ML PO SCH (18:00)
[2024-01-05] MEDS ORDERED: LORazepam 0.5 MG TAB PO PRN (18:34)
[2024-01-06 06:33] LABS: Hematocrit (blood only) 27.2 % (37.0-47.0); Hemoglobin 8.2 g/dl (12.0-16.0); Mean Corpuscular Hemoglobin 24.6 pg (25.0-34.0); Mean Corpuscular Hgb Conc 30.1 g/dL (32.0-36.0); Mean Corpuscular Volume 81.7 fL (80.0-100.0); Mean Platelet Volume 9.1 fL (9.4-12.4); Platelet Count 252 K/uL (130-400); RDW Standard Deviation 47.8 fL (36.4-46.3); Red Blood Count 3.33 M/uL (4.20-5.40); White Blood Count 5.91 K/ul (4.8-10.8)
[2024-01-06 06:55] LABS: BUN Creatinine Ratio 7.7 (10-20); Calcium 8.8 mg/dl (8.6-10.3); Est GFR (African American) 45.2 ml/min; Magnesium 1.7 mg/dl (1.7-2.4); Phosphorus 2.5 mg/dl (2.5-4.9)
[2024-01-06 07:01] LABS: INR 1.7 (0.9-1.1); Prothrombin Time 17.9 Seconds (9.0-12.0)
--- NOTE | 2024-01-06 09:38 | Cardiology Progress Note ---
Date of Service January 06, 2024 Assessment & Plan (1) Anemia: (2) S/P AVR (aortic valve replacement): (3) S/P MVR (mitral valve replacement): (4) CAD (coronary artery disease): (5) Paroxysmal atrial fibrillation: (6) CKD (chronic kidney disease), stage III: Plan Impression: Medically complex 78 year old female with history of bioprosthetic AVR/MVR in 06/2013- anticoagulated with Coumadin. Admitted for anemia and possible GI bleed. Also carries a history of PAF on amiodarone. Telemetry has been benign. Plan: Iron deficiency anemia Possible GI bleed Acute TITA with admitting hgb of 8.1. Possible GIB. Appreciate GI recommendations- currently on PPI. Patient initially declined scope; now agreeable. Hospitalist service notified. Coumadin and ASA currently on hold for workup. Will resume when source of anemia is identified and corrected. No need for heparin bridge as she has a bioprosthetic AVR/MVR Transfuse hemoglobin per recommendations of hospitalist service/GI. Recommend maintaining hgb >10. Patient may require IV iron infusions as an outpatient. History of bioprosthetic AVR and MVR Patient on anticoagulation for AVR/MVR with history of postoperative tamponade secondary to thrombus. Inpatient echocardiogram revealing a preserved LVEF of 60 to 65% without wall motion abnormalities. Bioprosthetic aortic valve gradients were stable. Trace AI. Bioprosthetic mitral valve gradients were mildly stiff and indicating possible mild prosthetic stenosis but no regurgitation. Moderate to severe TR. RV systolic pressure elevated at 40 to 50 mmHg. Biatrial enlargement. Paroxysmal atrial fibrillation Post op AFIB following AVR/MVR- anticoagulated with Coumadin. Maintaining SR with LBBB on amiodarone. No PAF noted on telemetry. Coronary artery disease Branch vessel CAD, not amenable to intervention Stable. No angina. Normally on ASA 81 mg daily; on hold for possible GIB. Continue Statin therapy CKD stage III TONY on CKD in the setting of anemia. Baseline scr of 1.3-1.4. Improved on today's blood work when compared to admission. Case discussed with Dr. Desir. Cardiology will follow. I spent a total of 40 minutes on the date of service in preparation, delivery, and documentation of the care provided to the patient excluding any time spent in the performance of separately billed services. JED Suarez Department of Cardiology, [facility] This chart was completed in part utilizing Speech Voice Recognition Software. Grammatical errors, random word insertions, pronoun errors, and incomplete sentences are an occasional consequence of this system due to software limitations, ambient noise, and hardware issues. Any formal questions or concerns about the content, text, or information contained within the body of this dictation should be directly addressed to the provider for clarification. Admission and Anticipated Discharge Date Admission Date: January 04, 2024 Supervising Physician Co-Signing Physician Notes Patient was seen and personally examined. Full assessment and plan as outlined above, endorsed personally No active bleeding clinically hemodynamically stable Awaiting endoscopy later today. Outpatient records reflect recurrent iron deficiency anemia Patient with indications for chronic anticoagulation with warfarin given paroxysmal atrial fibrillation, left atrial dilatation and mitral valve pro sthesis. High risk for thromboembolism May require routine iron infusions I spent a total of 15 minutes on the date of service in preparation, delivery, and documentation of the care provided to the patient excluding any time spent in the performance of separately billed services. Subjective Medically complex 78 year old female with history of bioprosthetic AVR/MVR in 06/2013- anticoagulated with Coumadin. Presented to [facility] emergency department, 01/04/2024, after being evaluated by her PCP for routine 6-month check after reporting dark stools x2-3 days with anemia on CBC (Hemoglobin dropped from 13.4 to approximately 8.1) On admission Coumadin and ASA was held. Given 300 mg of IV Venofer and IV PPI was started>> hgb 7.3>>7.9>>8.2) Plans for scope today, 01/06/2024 INR 1.7 today. Upon entrance to the room patient ambulating comfortably. No acute concerns. Eager for her scope. No chest pain, shortness of breath, palpitations, dizzin ess, syncope or near syncope. No orthopnea, PND, or increased lower extremity edema. Telemetry: Sinus rhythm with a first-degree AV block, 50 to 60 bpm. Review of Systems Review of Systems: All systems reviewed & are unremarkable except as noted in HPI & below Physical Exam Constitutional: no acute distress Neck: trachea midline Respiratory: normal respiratory effort, lungs clear to auscultation Cardiovascular: RRR, no murmur, no edema Rate/Rhythm: regular rate and regular rhythm Heart Sounds: normal S1, normal S2 and + murmur (+systolic murmur) Vessels: no JVD Extremities: no edema Gastrointestinal (Abdomen): Inspection/Auscultation: abdomen normal to inspection and normal bowel sounds; abdomen not distended Percussion/Palpation: abdomen soft; abdomen nontender Musculoskeletal: no cyanosis or clubbing, extremities motor strength 5/5 Neurologic: PERRL, EOMI, accommodation nl, no face palsy, no dysarthria Psychiatric: A+Ox3, euthymic affect Results & Data Vital Signs (Past 12 Hours) Vital Signs Temp Pulse Pulse Resp BP Pulse Ox O2 Del Method 01/06/24 09:03 66 01/06/24 07:26 59 L 01/06/24 07:18 36.6 C 59 L 18 120/68 97 CPAP 01/06/24 03:08 36.7 C 80 18 118/50 L 94 CPAP 01/06/24 00:11 Room Air 01/05/24 23:38 95 CPAP 01/05/24 23:15 56 L 24 89 L 01/05/24 22:15 64 01/05/24 22:10 36.7 C 74 22 157/82 H 89 L Room Air O2 Flow Rate 01/06/24 09:03 01/06/24 07:26 01/06/24 07:18 01/06/24 03:08 01/06/24 00:11 01/05/24 23:38 2 01/05/24 23:15 2 01/05/24 22:15 01/05/24 22:10 Laboratory Results Coagulation 01/06/24 Range/Units 05:47 PT 17.9 H (9.0-12.0) Seconds CBC 01/05/24 01/06/24 Range/Units 12:56 05:47 WBC 5.91 (4.8-10.8) K/ul RBC 3.33 L (4.20-5.40) M/uL Hgb 7.9 L 8.2 L (12.0-16.0) g/dl Hct 27.3 L 27.2 L (37.0-47.0) % Plt Count 252 (130-400) K/uL Comprehensive Metabolic Panel 01/06/24 Range/Units 05:47 Sodium 138 (136-145) mmol/L Potassium 4.0 (3.5-5.1) mmol/L Chloride 106 (98-107) mmol/L Carbon Dioxide 24 (21-32) mmol/L BUN 10 (6-23) mg/dl Creatinine 1.30 H (0.6-1.2) mg/dl Glucose 82 (70-99(Fasting)) mg/dl Calcium 8.8 (8.6-10.3) mg/dl Intake and Output 01/05/24 01/06/24 01/06/24 22:59 06:59 14:59 Intake Total 300 / 300 Balance 300 / 300 Intake: Oral 300 / 300 Intake (Blood Product) Amt 0 / 0 Packed Cells, Leukoreduced 0 / 0 Unit [id number] Other: # Unmeasured Voids 2 # Bowel Movement Diapers 4 Weight 88.3 kg Weight Measurement Method Built [facility] (1) Anemia Anemia type: iron deficiency
--- NOTE | 2024-01-06 09:54 | History & Physical Bridge Note ---
Date of Service January 06, 2024 History & Physical Bridge Note I have examined the patient, reviewed the History & Physical and in the interval since the performance of the History & Physical I have noted the following changes of clinical significance: no changes noted. patient with reported dark stools and rectal bleeding during admission. she has finished prep. stools clear. GI ros unremarkable. no further melana or brbpr. no chest pain or sob. 01/05 hgb 8.2 - proceed with EGD and Colonoscopy as planned. Supervising Physician Co-Signing Physician Notes Prior to the exam the procedures, alternatives including no work up or treat ment, risks and benefits were discussed. Among the risks discussed included cardiorespiratory suppression, aspiration, bleeding, failure to diagnose cancer or other pathology and perforation requiring surgery. In addition we discussed that if specimens are obtained it may be deemed beneficial to send these for genetic/DNA testing. The patient claimed to understand all that was discussed, consented to all and all of her questions were answered.
--- NOTE | 2024-01-06 13:37 | Anesthesiology Consultation ---
Date of Service January 06, 2024 Assessment & Plan Chart Review Chart Review: Acceptable Risk for Surgery and Patient NOT seen in Pre Admission Testing ASA ASA3 Proposed Anesthesia Anesthesia Type: MAC History Surgery Operation Date: 01/05/24 17:10 Proposed Procedures p Colonoscopy EGD Avi Cárdenas MD Operation Date: 01/06/24 17:10 Proposed Procedures p Colonoscopy EGD Avi Cárdenas MD Height/Weight Height: 5 ft 3 in Weight: 88.3 kg Allergies Allergy/AdvReac Type Severity Reaction Status Date / Time No Known Allergies Allergy Verified 01/04/24 12:49 Medications Home Medications Medication Instructions Recorded Confirmed Last Taken amiodarone 200 mg tablet 200 mg PO QAM 08/16/18 01/04/24 01/04/24 aspirin 81 mg tablet,delayed 81 mg PO QPM 08/16/18 01/04/24 01/03/24 release (Yocasta Low Dose Aspirin) atorvastatin 10 mg tablet 10 mg PO QPM 08/16/18 01/04/24 01/03/24 levothyroxine 137 mcg tablet 137 mcg PO QAM 08/16/18 01/04/24 01/04/24 metoprolol tartrate 25 mg tablet 12.5 mg PO BID 08/16/18 01/04/24 01/04/24 multivitamin 1 tab PO QDD 08/16/18 01/04/24 01/04/24 warfarin 5 mg tablet (Jantoven) 7.5 mg PO HS 09/13/18 01/04/24 01/03/24 potassium citrate 10 mEq (1,080 10 meq PO BID 04/23/19 01/04/24 01/04/24 mg) tablet,extended release pantoprazole 20 mg tablet,delayed 20 mg PO QAM 12/02/22 01/04/24 01/04/24 release lisinopril 10 1 tab PO DAILY 01/04/24 01/04/24 Unknown mg-hydrochlorothiazide 12.5 mg tablet Active Medications Generic Name Dose Route Start Last Admin Trade Name Freq PRN Reason Stop Dose Admin Amiodarone HCl 200 mg 01/05/24 09:00 01/06/24 09:06 Amiodarone 200 Mg Tab PO 02/04/24 08:59 200 mg QAM PATTY Administration Atorvastatin Calcium 10 mg 01/04/24 21:00 01/05/24 20:13 Atorvastatin 10 Mg Tab PO 02/03/24 20:59 10 mg QPM PATTY Administration Pantoprazole Sodium 40 mg/ 10 mls @ 5 mls/min 01/04/24 21:00 01/06/24 09:06 Syringe IV 02/03/24 20:59 5 mls/min BID PATTY Administration Levothyroxine Sodium 137 mcg 01/05/24 09:00 01/06/24 09:06 Levothyroxine Sodium 137 Mcg Tablet PO 02/04/24 08:59 137 mcg QAM PATTY Administration Lisinopril 10 mg 01/05/24 09:00 01/05/24 08:05 Lisinopril 10 Mg Tab PO 02/04/24 08:59 10 mg QAM PATTY Administration Metoprolol Tartrate 12.5 mg 01/04/24 21:00 01/06/24 09:06 Metoprolol Tartrate 25 Mg Tab PO 02/03/24 20:59 12.5 mg BID PATTY Administration Potassium Citrate 10 meq 01/04/24 21:00 01/06/24 09:06 Potassium Citrate 10 Meq Tab PO 02/03/24 20:59 10 meq BID PATTY Administration NPO Date Last Intake of Fluids: 01/06/24 Time Last Intake of Fluids: 10:00 Last Intake of Fluids Comment: sip with medication Date Last Intake of Solids: 01/03/24 Time Last Intake of Solids: 17:00 Past Medical History Medical History Balance problem Poor historian Kidney stones hx Hypothyroidism Cancer of right breast sx, radiation, oral chemo On anticoagulant therapy warfarin daily Hypertension Hyperlipidemia History of transesophageal echocardiography (JAMEL) for monitoring Cardiac murmur followed with Dr. Sofia, has not seen new physician Sleep apnea cpap Thyroid cancer sx History of colon polyps Past Family History Family History Brother Family history of diabetes mellitus Family hx of colon cancer Father Family history of diabetes mellitus Other No family history of adverse response to anesthesia Past Surgical History Surgical History History of cystoscopy STENT INSERTED History of aortic aneurysm repair History of anesthesia reaction difficulty waking after heart surgery History of bilateral tubal ligation History of open reduction and internal fixation (ORIF) procedure collar bone fx---hardware in place History of open reduction and internal fixation (ORIF) procedure left leg---hardware removed History of colonoscopy History of esophagogastroduodenoscopy (EGD) History of partial mastectomy of right breast History of right breast biopsy malignant History of tooth extraction History of tonsillectomy and adenoidectomy History of cardiac cath 2014 @ [facility], no stents History of aortic valve replacement 2013 @ [facility] [place] History of mitral valve replacement 2013 @ [facility] [place] History of thyroidectomy History of partial colectomy 2018 d/t colon polyps Social History Smoking Status: Current every day smoker tobacco type: cigarettes Smoking cigarettes per day: 1/2 PPD Do You Dip or Chew Tobacco: No Hx Alcohol Use: No Hx Substance Use: No substance use type: does not use Physical Exam Vital Signs Last Vital Signs Temp 98.4 F 01/06/24 12:54 Pulse 73 01/06/24 13:24 Resp 18 01/06/24 13:24 BP 145/98 H 01/06/24 12:54 Pulse Ox 91 01/06/24 13:24 O2 Del Method Room Air 01/06/24 13:24 O2 Flow Rate 0 01/06/24 10:46 FiO2 21 01/05/24 03:35 Testing Laboratory Results 01/06/24 05:47 01/06/24 05:47 PT 17.9 Seconds (9.0-12.0) H 01/06/24 05:47 INR 1.7 (0.9-1.1) H 01/06/24 05:47 APTT 35 Seconds (21-31) H 01/04/24 11:15 Urine Color Yellow 01/04/24 13:20 Urine Appearance Clear (Clear) 01/04/24 13:20 Urine pH 7.5 (4.5-7.5) 01/04/24 13:20 Ur Specific [place] 1.008 (1.000-1.030) 01/04/24 13:20 Urine Protein Negative (Negative) 01/04/24 13:20 Urine Glucose (UA) Negative (Negative) 01/04/24 13:20 Urine Ketones Negative (Negative) 01/04/24 13:20 Urine Nitrite Negative (Negative) 01/04/24 13:20 Ur Leukocyte Esterase Negative (Negative) 01/04/24 13:20 Blood Type O Negative 01/04/24 11:15 Antibody Screen POSITIVE A 01/04/24 11:15 Electrocardiogram Date: 01/04/24 Normal sinus rhythm, rate 67 bpm Left bundle branch block Abnormal ECG When compared with ECG of 28-MAY-2023 17:00, No significant change was found Confirmed by Adebayo Jaramillo ([id number]) on 01/05/2024 1:33:30 PM Chest X-Ray Date: 01/04/24 IMPRESSION: 1. Cardiomegaly with pulmonary vascular congestion. Radiographic follow-up to resolution is recommended. 2. Small pleural effusion. Echocardiogram Date: 01/05/24 LV is normal in size Mod concentric LVH LV wall motion is normal EF 60-65% There is a bioprosthetic AV The gradient is normal for prostehetic AV Trace AR There is a bioprosthetic MV Mild prosthetic stenosis. There is no mitral insufficiency. Mod to severe TR RVSP is elevated at 40-50mmHg Moderate biatrial enlargement
[2024-01-06] MEDS: SODIUM CHLORIDE 0.9% 500 ML IV SCH (14:37)
--- NOTE | 2024-01-06 14:37 | Communication Note ---
Date of Service: January 06, 2024 Patient is s/p EGD and Colonoscopy. There wasn't anyhting seen to account for anemia. Recommend outpatient capsule endoscopy. She should follow with her [facility] gastroenterology office at [facility] upon discharge to discuss having the capsule endoscopy set up.
--- NOTE | 2024-01-06 14:39 | GI REPORT ---
[facility] Patient: CHENTE CARABALLO : 1945 Sex at : Female Age: 78 Years Procedure: Colonoscopy Date: 01/06/2024 Attending Physician: Fritz Cárdenas MD Referring MD: Kiara Dubose Md Indications: - Anemia Medications: - See the Anesthesia note for documentation of the administered medications Complications: - No immediate complications. Estimated Blood Loss: - Estimated blood loss: None. Procedure: - Prior to the procedure, a History and Physical was performed, and patient medications and allergies were reviewed. The patient's tolerance of previous anesthesia was also reviewed. The risks and benefits of the procedure and the sedation options and risks were discussed with the patient. All questions were answered, and informed consent was obtained. [Anticoagulant Agents] [Days Prior to Procedure]. ASA Grade Assessment: III - A patient with severe systemic disease. After reviewing the risks and benefits, the patient was deemed in satisfactory condition to undergo the procedure. - The adult colonoscope was introduced through the anus and advanced to the ileocolonic anastomosis. - The colonoscopy was performed without difficulty. - The quality of the bowel preparation was good. - Anatomical landmarks were photographed. - The patient tolerated the procedure well. Findings: - Hemorrhoids were found on perianal exam. - External vs grade IV internal - The colon (entire examined portion) appeared normal. Impression: - External vs grade IV internal - Hemorrhoids found on perianal exam. - The entire examined colon is normal. - No specimens collected. Recommendation: - Continue IP work up Procedure Code(s): - 93558, Colonoscopy, flexible; diagnostic, including collection of specimen(s) by brushing or washing, when performed (separate procedure) Diagnosis Code(s): - K64.9, Unspecified hemorrhoids CPT(R) - 2023 copyright [employer]. All Rights Reserved. The CPT codes, CCI edits and ICD codes generated are intended as suggestions and were generated based on input data. These codes are preliminary and upon steam pan sponger review may be revised to meet current compliance and payer requirements. The provider is responsible for the final determination of appropriate codes, and modifiers. Fritz Cárdenas MD This document has been electronically signed. Note Initiated:01/06/2024 Note Completed:01/06/2024 2:39 PM \\[email or web address]\Results\[id number]
--- NOTE | 2024-01-06 14:40 | Hospitalist Progress Note ---
Date of Service January 06, 2024 Assessment & Plan (1) Anemia: (2) CKD (chronic kidney disease), stage III: (3) HTN (hypertension): (4) SARAH on CPAP: Plan Pt is a 78 yr old F who has a significant PMH of HTN, hx of aortic and mitral valve replacement, PAF on warfarin, CAD, COPD, SARAH on CPAP, Tobacco abuse, hypothyroidism, CKD-3, Hyperparathyroidism, hx of R breast ca s/p partial mastectomy who presents to ED 2/2 referral from PCP after a noted drop in her hemoglobin from baseline of 13 to 8. Anemia, iron deficiency Possible GIB Referred by her pcp after a noted drop in her hemoglobin from baseline of 13 to 8 Notes dark stools, on chronic warfarin for Hx of aortic and mitral heart valve replacements with thrombus and atrial fibrillation Anemia panel on admission noting iron deficiency hgb low but stable at his time, was typed/crossed with 2 units on hold, blood consent obtained -transfused 1U of pRBCs on 01/04 for hgb of 7.3- 7.9 down from 8.2 on admission Last C scope 11/2022 evidence of prior end to end ileocolonic anastomosis in sigm oid, patent, HANH revealed prolapse Held warfarin and ASA on admission, cardiology consulted for further anticoagulation recs IV PPI BID s/p 1 bag of IV venofer on 01/03 GI consulted, appreciate recs. Noted the following -patient is now agreeable to an EGD and colonoscopy. - would wait until her INR is lower than 1.7 and once it is, would plan to prep for a colonoscopy and EGD to further evaluate. - continue to follow hgb/hct and transfuse as needed. -continue with protonix 40mg bid. s/p EGD and colonoscopy on 01/05- EGD noting gastritis, c-scope noting hemorrhoids. No acute cause for the bleeding. GI recommending outpt capsule f/u. Continue to monitor Hx of Aortic Valve replacement Hx of Mitral Valve replacement PAF Bioprosthetic aortic and mitral valve replacements with associated thrombus Hx of a fib anticoagulated with warfarin INR 2.0 on admission, currently 2.1. Per GI would like in range of 1.7 for procedure Continue metoprolol, amiodarone for rate/rhythm control for a fib Warfarin was held on admission in the setting of anemia requiring possible transfusion, continue to hold in anticipation of EGD/colonoscopy Cardiology consulted for further anticoagulation recs in this setting. -Obtain echocardiogram to assess AVR/MVR gradients/function -Coumadin and ASA currently on hold for workup. -Will resume when source of anemia is identified and corrected -No need for heparin bridge as she has a bioprosthetic AVR/MVR -Transfuse hemoglobin per recommendations of hospitalist service/GI. Recommend maintaining hgb >10. Continue to monitor Cardiomegaly Small Pleural Effusion Noted on chest xray Cardiology on board in setting of above, appreciate recs Echo ordered as above Stable at this time HTN Bp stable held HCTZ, lisinopril on admission continue metoprolol with parameters Continue to monitor TONY on CKD -3b cr elevated at 1.83 on admission Received IVF, currently downtrended to 1.43 avoid nephrotoxic agents as able, holding home lisinopril at this time Continue to monitor COPD Tobacco abuse encourage cessation, pt declines nicotine patch no acute exac SARAH on CPAP stable, continue cpap qhs Hypothyroidism TSh 6.13, free T4 1.56 Continue home meds Diet: advance diet as tolerated DVT ppx: SCDS in setting of possible bleed, warfarin on hold Dispo: PT/OT ordered for further recs Admission and Anticipated Discharge Date Admission Date: January 04, 2024 Subjective Was seen in the AM before her EGD/c-scope. Was resting comfortably, notes she prepped all night o did not sleep well. Denied acute concerns otherwise. Review of Systems Review of Systems: All systems reviewed & are unremarkable except as noted in Subjective Physical Exam Physical Exam: General: Alert, oriented. No acute distress Psych: Appropriate mood and affect Neuro: No gross deficits while laying in bed HEENT: NC/AT CV: RRR Resp: Breath sounds clear bilaterally, no increased effort of breathing Abdomen:Soft, nontender Extremities: edema in lower extremities bilaterally. Results & Data Results & Data Vital Signs (Past 12 Hours) Vital Signs Temp Pulse Pulse Resp BP Pulse Ox Pulse Ox 01/06/24 14:37 63 14 90/43 L 98 01/06/24 13:24 73 18 91 01/06/24 12:54 36.9 C 70 16 145/98 H 94 01/06/24 11:18 37.0 C 72 18 138/68 91 01/06/24 10:46 92 01/06/24 09:10 01/06/24 09:03 66 01/06/24 07:26 59 L 01/06/24 07:18 36.6 C 59 L 18 120/68 97 01/06/24 03:08 36.7 C 80 18 118/50 L 94 Pulse Ox O2 Del Method O2 Flow Rate O2 Flow Rate 01/06/24 14:37 Room Air 01/06/24 13:24 Room Air 01/06/24 12:54 Room Air 01/06/24 11:18 Room Air 01/06/24 10:46 89 L 0 0 01/06/24 09:10 Room Air 01/06/24 09:03 01/06/24 07:26 01/06/24 07:18 CPAP 01/06/24 03:08 CPAP
--- NOTE | 2024-01-06 14:43 | GI REPORT ---
[facility] Patient: CHENTE CARABALLO : 1945 Sex at : Female Age: 78 Years Procedure: Upper GI endoscopy Date: 01/06/2024 Attending Physician: Fritz Cárdenas MD Referring MD: Kiara Dubose Md Indications: - Anemia Medications: - See the Anesthesia note for documentation of the administered medications Complications: - No immediate complications. Estimated Blood Loss: - Estimated blood loss was minimal. Procedure: - Prior to the procedure, a History and Physical was performed, and patient medications and allergies were reviewed. The patient's tolerance of previous anesthesia was also reviewed. The risks and benefits of the procedure and the sedation options and risks were discussed with the patient. All questions were answered, and informed consent was obtained. [Anticoagulant Agents] [Days Prior to Procedure]. ASA Grade Assessment: III - A patient with severe systemic disease. After reviewing the risks and benefits, the patient was deemed in satisfactory condition to undergo the procedure. - The egd scope was introduced through the mouth and advanced to the second part of the duodenum. - The upper GI endoscopy was accomplished without difficulty. - The patient tolerated the procedure well. Findings: - The examined esophagus was normal. - Diffuse moderate inflammation characterized by erythema and granularity was found in the entire examined stomach. This was biopsied with a cold forceps for histology. - The examined duodenum was normal. Impression: - Normal esophagus. - Gastritis, characterized by erythema and granularity. Biopsied. - Normal examined duodenum. Recommendation: - Await pathology results. - Return to hospital [place] to continue work up Procedure Code(s): - 18282, Esophagogastroduodenoscopy, flexible, transoral; with biopsy, single or multiple Diagnosis Code(s): - K29.70, Gastritis, unspecified, without bleeding CPT(R) - 2023 copyright [employer]. All Rights Reserved. The CPT codes, CCI edits and ICD codes generated are intended as suggestions and were generated based on input data. These codes are preliminary and upon physician coder review may be revised to meet current compliance and payer requirements. The provider is responsible for the final determination of appropriate codes, and modifiers. Fritz Cárdenas MD This document has been electronically signed. Note Initiated:01/06/2024 Note Completed:01/06/2024 2:42 PM \\[email or web address]\Results\[email or web address]\[id number]
--- NOTE | 2024-01-06 15:08 | Anesthesiology Progress Note ---
Date of Service January 06, 2024 Anesthesia Post Procedure Vital Signs Vital Signs: Temp Pulse Pulse Resp BP BP Pulse Ox 01/06/24 14:51 54 L 18 120/56 L 98 01/06/24 14:37 63 14 90/43 L 98 01/06/24 13:24 73 18 91 01/06/24 12:54 98.4 F 70 16 145/98 H 94 01/06/24 11:18 98.6 F 72 18 138/68 91 01/06/24 10:46 01/06/24 09:10 01/06/24 09:03 66 01/06/24 07:26 59 L 01/06/24 07:18 97.9 F 59 L 18 120/68 97 01/06/24 03:08 98.1 F 80 18 118/50 L 94 01/06/24 00:11 01/05/24 23:38 95 01/05/24 23:15 56 L 24 89 L 01/05/24 22:15 64 01/05/24 22:10 98.1 F 74 22 157/82 H 89 L 01/05/24 21:15 97.9 F 70 18 149/83 H 92 01/05/24 20:55 98.1 F 71 18 157/84 H 92 01/05/24 20:54 98.1 F 71 18 157/84 H 90 01/05/24 19:55 98.1 F 20 157/84 H 90 01/05/24 19:54 97.7 F 76 18 143/77 H 95 01/05/24 18:55 97.9 F 68 18 176/82 H 95 01/05/24 18:25 97.9 F 63 18 188/83 H 97 01/05/24 18:10 97.5 F L 65 16 163/85 H 98 01/05/24 17:52 98.1 F 64 18 154/64 H 94 01/05/24 17:21 98.1 F 64 16 154/64 H 94 01/05/24 17:20 98.1 F 64 18 154/64 H 93 Pulse Ox Pulse Ox O2 Del Method O2 Flow Rate O2 Flow Rate O2 Flow Rate 01/06/24 14:51 Room Air 01/06/24 14:37 Room Air 01/06/24 13:24 Room Air 01/06/24 12:54 Room Air 01/06/24 11:18 Room Air 01/06/24 10:46 92 89 L 0 0 01/06/24 09:10 Room Air 01/06/24 09:03 01/06/24 07:26 01/06/24 07:18 CPAP 01/06/24 03:08 CPAP 01/06/24 00:11 Room Air 01/05/24 23:38 CPAP 2 01/05/24 23:15 2 01/05/24 22:15 01/05/24 22:10 Room Air 01/05/24 21:15 01/05/24 20:55 01/05/24 20:54 Room Air 01/05/24 19:55 01/05/24 19:54 01/05/24 18:55 01/05/24 18:25 01/05/24 18:10 01/05/24 17:52 01/05/24 17:21 Room Air 01/05/24 17:20 Transfer of Care Handoff Completed per policy Notes Mental Status: alert / awake / arousable and participated in evaluation Patient Amnestic to Procedure: Yes Nausea / Vomiting: adequately controlled Pain: adequately controlled Airway Patency, RR, SpO2: stable & adequate BP & HR: stable & adequate Hydration State: stable & adequate Anesthetic Complications: no major complications apparent and Pt Satisfied with anesthetic care
[2024-01-06] MEDS: ALBUT/IPRATROP 3MG/0.5MG NEB 3 ML VIAL NEB STA (15:32)
[2024-01-06] MEDS: LIDOCAINE 2% 2 ML VIAL/AMP(20MG/ML) INFIL ONE (15:33)
[2024-01-06] MEDS: ONDANSETRON INJ 2 MG/ML 2 ML VIAL ONE (15:33)
[2024-01-06] MEDS: PROPOFOL IV EMULSION 10 MG/ML 20 ML VIAL IV ONE (15:33)
[2024-01-07 06:30] LABS: Hematocrit (blood only) 30.9 % (37.0-47.0); Mean Corpuscular Hemoglobin 24.6 pg (25.0-34.0); Mean Corpuscular Hgb Conc 29.1 g/dL (32.0-36.0); Mean Corpuscular Volume 84.4 fL (80.0-100.0); Mean Platelet Volume 9.4 fL (9.4-12.4); Platelet Count 259 K/uL (130-400); RDW Coefficient of Variation 16.5 % (11.5-14.5); RDW Standard Deviation 50.2 fL (36.4-46.3); Red Blood Count 3.66 M/uL (4.20-5.40); White Blood Count 5.73 K/ul (4.8-10.8)
[2024-01-07 06:41] LABS: INR 1.4 (0.9-1.1); Prothrombin Time 15.2 Seconds (9.0-12.0)
[2024-01-07 06:52] LABS: BUN Creatinine Ratio 8.4 (10-20); Calcium 9.1 mg/dl (8.6-10.3); Creatinine Clr Calc Pharmacy 33.7 ml/min; Est GFR (African American) 40.3 ml/min; Est GFR (Non-African American) 34.7 ml/min; Magnesium 1.8 mg/dl (1.7-2.4); Phosphorus 3.2 mg/dl (2.5-4.9); Potassium 4.5 mmol/L (3.5-5.1)
--- NOTE | 2024-01-07 11:00 | Gastroenterology Progress Note ---
Date of Service January 07, 2024 Assessment & Plan (1) Anemia: Plan: EGD and Colonoscopy failed to uncover a distinct source of her anemia although she does have a large external hemorrhoid. She should have an OP SB Video Capsule Endoscopy. She should have surgical consultation for hemorrhoid. I discussed this with the patient and she stated she has had this recommended in the past and declined but is considering it now. In addition to the above recommendations - as far as her anticoagulation - if surgery is to be planned soon then would be best if she was not on anticoagulation for surgery. If she continues to decline (and then likely will continue to bleed some from her hemorrhoid) no GI contraindication for continued anticoagulation. This will also not interfer with SB Video capsule endoscopy. IP GI Service will sign off. Admission and Anticipated Discharge Date Admission Date: January 04, 2024 Subjective Patient states she feels improved. Denies any vomiting or further blood in bowel movements. Physical Exam Constitutional: Afebrile BP stable Slightly denis Respiratory: Lungs: Clear Cardiovascular: Heart: RRR Gastrointestinal (Abdomen): Abd: NL BS, soft, nontender Results & Data Results & Data Vital Signs (Past 12 Hours) Vital Signs Temp Pulse Pulse Resp BP Pulse Ox O2 Del Method 01/07/24 08:23 36.9 C 59 L 18 133/48 L 96 Room Air 01/07/24 07:32 57 L 01/07/24 03:35 36.5 C 58 L 18 114/62 94 Room Air 01/06/24 23:21 36.6 C 68 18 121/71 97 Room Air PG Care Time/CCT Total # of Minutes Spent Total Time Spent with Patient: Total time spent is greater than 50% in coordination of care (as documented) at patient's floor/unit and/or counseling patient: Coding Level of Care Code 45481 SUB INP/OBS CARE 125MIN Diagnoses Anemia D64.9
--- NOTE | 2024-01-07 14:47 | Hospitalist Progress Note ---
Date of Service January 07, 2024 Assessment & Plan (1) Anemia: (2) CKD (chronic kidney disease), stage III: (3) HTN (hypertension): (4) SARAH on CPAP: Plan Pt is a 78 yr old F who has a significant PMH of HTN, hx of aortic and mitral valve replacement, PAF on warfarin, CAD, COPD, SARAH on CPAP, Tobacco abuse, hypothyroidism, CKD-3, Hyperparathyroidism, hx of R breast ca s/p partial mastectomy who presents to ED 2/2 referral from PCP after a noted drop in her hemoglobin from baseline of 13 to 8. Anemia, iron deficiency Possible GIB Referred by her pcp after a noted drop in her hemoglobin from baseline of 13 to 8 Notes dark stools, on chronic warfarin for Hx of aortic and mitral heart valve replacements with thrombus and atrial fibrillation Anemia panel on admission noting iron deficiency hgb low but stable at his time, was typed/crossed with 2 units on hold, blood consent obtained -transfused 1U of pRBCs on 01/04 for hgb of 7.3- 7.9 down from 8.2 on admission Last C scope 11/2022 evidence of prior end to end ileocolonic anastomosis in sigm oid, patent, HANH revealed prolapse Held warfarin and ASA on admission, cardiology consulted for further anticoagulation recs IV PPI BID s/p 1 bag of IV venofer on 01/03 GI consulted, appreciate recs. Noted the following -patient is now agreeable to an EGD and colonoscopy. - would wait until her INR is lower than 1.7 and once it is, would plan to prep for a colonoscopy and EGD to further evaluate. - continue to follow hgb/hct and transfuse as needed. -continue with protonix 40mg bid. s/p EGD and colonoscopy on 01/05- EGD noting gastritis, c-scope noting hemorrhoids. No acute cause for the bleeding. GI recommending outpt capsule f/u. 01/06- per GI, needs surgical eval for hemorrhoids. Per surgery, can have hemorrhoidal surgery done outpt. Will restart anticoagulation. Continue to monitor overnight Hx of Aortic Valve replacement Hx of Mitral Valve replacement PAF Bioprosthetic aortic and mitral valve replacements with associated thrombus Hx of a fib anticoagulated with warfarin INR 2.0 on admission, currently 2.1. Per GI would like in range of 1.7 for procedure Continue metoprolol, amiodarone for rate/rhythm control for a fib Warfarin was held on admission in the setting of anemia requiring possible transfusion, continue to hold in anticipation of EGD/colonoscopy Cardiology consulted for further anticoagulation recs in this setting. -Obtain echocardiogram to assess AVR/MVR gradients/function -Coumadin and ASA currently on hold for workup. -Will resume when source of anemia is identified and corrected -No need for heparin bridge as she has a bioprosthetic AVR/MVR -Transfuse hemoglobin per recommendations of hospitalist service/GI. Recommend maintaining hgb >10. Continue to monitor Bradycardia Noted on telemetry on 01/06 Will hold nighttime metoprolol Cardiology on board and aware, appreciate recs Cardiomegaly Small Pleural Effusion Noted on chest xray Cardiology on board in setting of above, appreciate recs Echo ordered as above Stable at this time HTN Bp stable held HCTZ, lisinopril on admission continue metoprolol with parameters Continue to monitor TONY on CKD -3b cr elevated at 1.83 on admission Received IVF, currently downtrended to 1.43 avoid nephrotoxic agents as able, holding home lisinopril at this time Continue to monitor COPD Tobacco abuse encourage cessation, pt declines nicotine patch no acute exac SARAH on CPAP stable, continue cpap qhs Hypothyroidism TSh 6.13, free T4 1.56 Continue home meds Diet: advance diet as tolerated DVT ppx: SCDS in setting of possible bleed, warfarin on hold Dispo: PT/OT ordered for further recs Admission and Anticipated Discharge Date Admission Date: January 04, 2024 Subjective per GI, needs surgical eval for hemorhoids Per surgery, can have hemorhoidal surgery done outpt. Will restart anticoagulation. pt with noted bradycardia at this time. remains asymptomatic. Review of Systems Review of Systems: All systems reviewed & are unremarkable except as noted in Subjective Physical Exam Physical Exam: General: Alert, oriented. No acute distress Psych: Appropriate mood and affect Neuro: No gross deficits while laying in bed HEENT: NC/AT CV: RRR Resp: Breath sounds clear bilaterally, no increased effort of breathing Abdomen:Soft, nontender Extremities: edema in lower extremities bilaterally. Results & Data Results & Data Vital Signs (Past 12 Hours) Vital Signs Temp Pulse Pulse Resp BP Pulse Ox O2 Del Method 01/07/24 12:07 36.6 C 63 16 131/72 93 Room Air 01/07/24 08:23 36.9 C 59 L 18 133/48 L 96 Room Air 01/07/24 07:32 57 L 01/07/24 03:35 36.5 C 58 L 18 114/62 94 Room Air
[2024-01-07] MEDS: WARFARIN SOD 7.5 MG TAB PO SCH (17:42)
[2024-01-07] MEDS: PANTOprazole 40 MG TAB PO SCH (20:19)
[2024-01-08 05:45] LABS: Calcium 9.3 mg/dl (8.6-10.3); Magnesium 1.8 mg/dl (1.7-2.4); Potassium 4.2 mmol/L (3.5-5.1)
[2024-01-08 05:51] LABS: BUN Creatinine Ratio 7.3 (10-20); Creatinine Clr Calc Pharmacy 35.2 ml/min; Est GFR (African American) 42.4 ml/min; Est GFR (Non-African American) 36.6 ml/min; Phosphorus 2.9 mg/dl (2.5-4.9)
[2024-01-08 05:52] LABS: INR 1.4 (0.9-1.1); Prothrombin Time 14.6 Seconds (9.0-12.0)
[2024-01-08 07:10] LABS: Hematocrit (blood only) 29.3 % (37.0-47.0); Hemoglobin 8.6 g/dl (12.0-16.0); Mean Corpuscular Hemoglobin 24.9 pg (25.0-34.0); Mean Corpuscular Hgb Conc 29.4 g/dL (32.0-36.0); Mean Corpuscular Volume 84.7 fL (80.0-100.0); Mean Platelet Volume 9.2 fL (9.4-12.4); Platelet Count 229 K/uL (130-400); RDW Coefficient of Variation 16.7 % (11.5-14.5); RDW Standard Deviation 50.1 fL (36.4-46.3); Red Blood Count 3.46 M/uL (4.20-5.40); White Blood Count 4.89 K/ul (4.8-10.8)
--- NOTE | 2024-01-08 10:48 | Cardiology Progress Note ---
Date of Service January 08, 2024 Assessment & Plan (1) Bradycardia: (2) Anemia: (3) S/P AVR (aortic valve replacement): (4) S/P MVR (mitral valve replacement): (5) CAD (coronary artery disease): (6) Paroxysmal atrial fibrillation: Plan Medically complex 78 year old female with history of bioprosthetic AVR/MVR in 06/2013- anticoagulated with Coumadin. Admitted for anemia and possible GI bleed. EGD and colonoscopy did not reveal any source of bleeding however large hemorrhoid. Has been restarted on anticoagulation. Yesterday developed significant bradycardia in 40s and pauses, longest 4.5 seconds, was asymptomatic. - currently feels well and is asymptomatic on exam - due to bradycardia and conduction disease with LBBB recommend EP evaluation to consider pacemaker - discontinue metoprolol - continue to monitor on telemetry - possible iron deficiency anemia, may require iron transfusions, monitor hemoglobin - continue amiodarone, atorvastatin, warfarin Case discussed with supervising physician, further recommendations per Dr. Rodriguez. I spent a total of 40 minutes on the date of service in preparation, delivery, and documentation of the care provided to this patient excluding any time spent in the performance of separately billed services. This visit was a split-shared visit with the substantial portion of the decision making performed by the supervising analysis lead/billing provider. Admission and Anticipated Discharge Date Admission Date: January 04, 2024 Supervising Physician Co-Signing Physician Notes I have personally performed a history and physical examination on the patient. I have reviewed the advance practitioner's documentation, and I agree with, and take responsibility for the plan of care. I spent a total of 35 minutes on the date of service in preparation, delivery, and documentation of the care provided to this patient, excluding any time spent in the performance of separately billed services. Patient was to be discharged yesterday however she became bradycardic and having frequent pauses up to 4 seconds. No high degree AV block noted. EKG reviewed which showed sinus bradycardia with left bundle branch block and premature atrial contractions. During these episodes patient was completely asymptomatic. Her metoprolol and amiodarone are currently being held. She remains bra dycardic with heart rates in the 50s but thankfully no more episodes of pauses. She otherwise denies chest pain, dyspnea, orthopnea. On clinical exam she is euvolemic. Will need EP evaluation prior to discharge for evaluation of possible underlying sick sinus syndrome. Subjective Cardiology reconsulted due to bradycardia. Heart rates as low as 40s, significant pauses, longest 4.5 seconds, she was asymptomatic during these episodes. Metoprolol has been held. Today on evaluation she states she is feeling well. Denies chest pain, palpitations, shortness of breath. No signs of bleeding, denies hematochezia, melena, hematuria. Walked in the halls with no lightheadedness or dizziness. She is sitting on edge of bed, eating regular diet. Review of Systems Review of Systems: CONSTITUTIONAL: No change in weight, No weakness, No fatigue and No fevers, No sweats or chills. PULMONARY: No cough, sputum, or hemoptysis, No wheezing, No shortness of breath and No recent change in breathing. CARDIOVASCULAR: No chest pain, No dyspnea on exertion, No edema, No palpitations and No syncope. GASTROINTESTINAL: No abdominal pain, No change in bowel habits, No significant heartburn, No nausea, No vomiting, No diarrhea, No constipation, No blood in sto ols or black tarry stools. No dysphagia. HEMATOLOGIC: No abnormal bleeding and No bruising. NEUROLOGICAL: Normal balance, No headaches and No weakness. Physical Exam Physical Exam: General: No acute distress. A+Ox3. HEENT: Normocephalic. Atraumatic. PERRL. EOMI. Conjunctiva and sclera clear. NECK: No carotid bruits. No JVD. Carotid upstrokes are brisk. Heart: RRR. S1 and S2 noted. + 2/6 systolic murmur. No rubs or gallops. PMI non displaced. Lungs: Clear to auscultation. No wheezes. No rhonchi. No rales. Abdomen: Normal bowel sounds. Soft. Nontender. No masses or organomegaly. No abdominal bruits. Extremities: No edema. No clubbing or cyanosis. Pulses: radial=2/4, posterior tibial=2/4, dorsalis pedis = 2/4. NEURO: No focal deficits. PSYCH: Appropriate affect and insight. Results & Data Vital Signs (Past 12 Hours) Vital Signs Temp Pulse Pulse Resp BP Pulse Ox O2 Del Method 01/08/24 07:43 36.4 C L 52 L 18 134/74 93 Room Air, CPAP 01/08/24 07:32 47 L 01/08/24 02:35 36.4 C L 57 L 18 124/74 97 Room Air, CPAP 01/08/24 02:17 50 L 17 93 01/07/24 22:45 36.4 C L 58 L 18 142/82 H 99 Room Air, CPAP O2 Flow Rate 01/08/24 07:43 01/08/24 07:32 01/08/24 02:35 01/08/24 02:17 2 01/07/24 22:45 Laboratory Results Coagulation 01/08/24 Range/Units 04:35 PT 14.6 H (9.0-12.0) Seconds CBC 01/08/24 01/08/24 Range/Units 04:30 06:39 WBC Cancelled 4.89 RBC Cancelled 3.46 L Hgb Cancelled 8.6 L Hct Cancelled 29.3 L Plt Count Cancelled 229 Comprehensive Metabolic Panel 01/08/24 Range/Units 04:30 Sodium 135 L (136-145) mmol/L Potassium 4.2 (3.5-5.1) mmol/L Chloride 105 (98-107) mmol/L Carbon Dioxide 26 (21-32) mmol/L BUN 10 (6-23) mg/dl Creatinine 1.37 H (0.6-1.2) mg/dl Glucose 83 (70-99(Fasting)) mg/dl Calcium 9.3 (8.6-10.3) mg/dl Intake and Output 01/07/24 01/08/24 01/08/24 22:59 06:59 14:59 Intake Total 660 / 1250 350 / 1250 Balance 660 / 1249 350 / 1249 Intake: Oral 660 / 1250 350 / 1250 Other: Weight 83.2 kg Diagnostic Findings EKG 01/06 sinus bradycardia at 48 bpm, LBBB Telemetry reviewed from today sinus rhythm in 60s (2) Anemia Anemia type: unspecified type Qualified Code(s): D64.9 - Anemia, unspecified (5) CAD (coronary artery disease) Associated angina: without angina Coronary Disease-Associated Artery/Lesion type: elem artery [place] vs. transplanted heart: elem heart Qualified Code(s): I25.10 - Atherosclerotic heart disease of elem coronary artery without angina pectoris
--- NOTE | 2024-01-08 12:48 | Electrocardiogram Report ---
Test Reason : Blood Pressure : / mmHG Vent. Rate : 048 BPM Atrial Rate : 048 BPM P-R Int : 200 ms QRS Dur : 160 ms QT Int : 536 ms P-R-T Axes : 081 078 088 degrees QTc Int : 478 ms Sinus bradycardia with marked sinus arrhythmia Left bundle branch block Abnormal ECG When compared with ECG of 04-JAN-2024 11:28, No significant change was found Confirmed by Devin Pokl ([id number]) on 01/08/2024 12:48:02 PM Referred By: Miguel Morrow Confirmed By:Devin Polk
--- NOTE | 2024-01-08 14:17 | Hospitalist Progress Note ---
Date of Service January 08, 2024 Assessment & Plan (1) Anemia: (2) CKD (chronic kidney disease), stage III: (3) HTN (hypertension): (4) SARAH on CPAP: Plan Pt is a 78 yr old F who has a significant PMH of HTN, hx of aortic and mitral valve replacement, PAF on warfarin, CAD, COPD, SARAH on CPAP, Tobacco abuse, hypothyroidism, CKD-3, Hyperparathyroidism, hx of R breast ca s/p partial mastectomy who presents to ED 2/2 referral from PCP after a noted drop in her hemoglobin from baseline of 13 to 8. Anemia, iron deficiency Possible GIB Referred by her pcp after a noted drop in her hemoglobin from baseline of 13 to 8 Notes dark stools, on chronic warfarin for Hx of aortic and mitral heart valve replacements with thrombus and atrial fibrillation Anemia panel on admission noting iron deficiency hgb low but stable at his time, was typed/crossed with 2 units on hold, blood consent obtained -transfused 1U of pRBCs on 01/04 for hgb of 7.3- 7.9 down from 8.2 on admission Last C scope 11/2022 evidence of prior end to end ileocolonic anastomosis in sigm oid, patent, HANH revealed prolapse Held warfarin and ASA on admission, cardiology consulted for further anticoagulation recs IV PPI BID s/p 1 bag of IV venofer on 01/03 GI consulted, appreciate recs. Noted the following -patient is now agreeable to an EGD and colonoscopy. - would wait until her INR is lower than 1.7 and once it is, would plan to prep for a colonoscopy and EGD to further evaluate. - continue to follow hgb/hct and transfuse as needed. -continue with protonix 40mg bid. s/p EGD and colonoscopy on 01/05- EGD noting gastritis, c-scope noting hemorrhoids. No acute cause for the bleeding. GI recommending outpt capsule f/u. 01/06- per GI, needs surgical eval for hemorrhoids. Per surgery, can have hemorrhoidal surgery done outpt. Will restart anticoagulation. 01/07- hgb remains stable Continue to monitor overnight Hx of Aortic Valve replacement Hx of Mitral Valve replacement PAF Bioprosthetic aortic and mitral valve replacements with associated thrombus Hx of a fib anticoagulated with warfarin INR 2.0 on admission, currently 2.1. Per GI would like in range of 1.7 for procedure Continue metoprolol, amiodarone for rate/rhythm control for a fib Warfarin was held on admission in the setting of anemia requiring possible transfusion, wasin anticipation of EGD/colonoscopy Cardiology consulted for further anticoagulation recs in this setting. -Obtain echocardiogram to assess AVR/MVR gradients/function -Coumadin and ASA currently on hold for workup. -Will resume when source of anemia is identified and corrected -No need for heparin bridge as she has a bioprosthetic AVR/MVR -Transfuse hemoglobin per recommendations of hospitalist service/GI. Recommend maintaining hgb >10. 01/06- warfarin was resumed, follow AM INR and H/H 01/07- INR 1.4, continue warfarin Continue to monitor Bradycardia Noted on telemetry on 01/06 Cardiology on board and aware, appreciate recs - currently feels well and is asymptomatic on exam - due to bradycardia and conduction disease with LBBB recommend EP evaluation to consider pacemaker - discontinue metoprolol - continue to monitor on telemetry - possible iron deficiency anemia, may require iron transfusions, monitor hemoglobin Metoprolol and amiodarone held per Cardiology recs (discussed with financial management consultant Dr Rodriguez) Continue telemetry monitoring Awaiting further EP eval Cardiomegaly Small Pleural Effusion Noted on chest xray Cardiology on board in setting of above, appreciate recs Echo ordered as above Stable at this time HTN Bp stable held HCTZ, lisinopril on admission continue metoprolol with parameters Continue to monitor TONY on CKD -3b cr elevated at 1.83 on admission Received IVF, currently downtrended to 1.43 avoid nephrotoxic agents as able, holding home lisinopril at this time Continue to monitor COPD Tobacco abuse encourage cessation, pt declines nicotine patch no acute exac SARAH on CPAP stable, continue cpap qhs Hypothyroidism TSh 6.13, free T4 1.56 Continue home meds Diet: advance diet as tolerated DVT ppx: SCDS in setting of possible bleed, warfarin on hold Dispo: PT/OT ordered for further recs Admission and Anticipated Discharge Date Admission Date: January 04, 2024 Subjective Pt was seen sitting up in bed. Anxious for discharge. Had bradycardia yesterday with noted pauses No pauses overnight, bradycardia seems to be improving. States she wants to go home Denies chest pain, SOB, palpitations Review of Systems Review of Systems: All systems reviewed & are unremarkable except as noted in Subjective Physical Exam Physical Exam: General: Alert, oriented. No acute distress Psych: Appropriate mood and affect Neuro: No gross deficits while laying in bed HEENT: NC/AT CV: RRR Resp: Breath sounds clear bilaterally, no increased effort of breathing Abdomen:Soft, nontender Extremities: edema in lower extremities bilaterally. Results & Data Results & Data Vital Signs (Past 12 Hours) Vital Signs Temp Pulse Pulse Resp BP Pulse Ox O2 Del Method 01/08/24 11:17 36.4 C L 76 16 124/62 95 Room Air, CPAP 01/08/24 07:43 36.4 C L 52 L 18 134/74 93 Room Air, CPAP 01/08/24 07:32 47 L 01/08/24 02:35 36.4 C L 57 L 18 124/74 97 Room Air, CPAP
[2024-01-09 06:44] LABS: Hematocrit (blood only) 30.2 % (37.0-47.0); Hemoglobin 8.9 g/dl (12.0-16.0); Mean Corpuscular Hemoglobin 24.9 pg (25.0-34.0); Mean Corpuscular Hgb Conc 29.5 g/dL (32.0-36.0); Mean Corpuscular Volume 84.6 fL (80.0-100.0); Mean Platelet Volume 9.1 fL (9.4-12.4); Platelet Count 262 K/uL (130-400); Red Blood Count 3.57 M/uL (4.20-5.40); White Blood Count 5.28 K/ul (4.8-10.8)
[2024-01-09 07:06] LABS: BUN Creatinine Ratio 8.3 (10-20); Calcium 9.4 mg/dl (8.6-10.3); Creatinine Clr Calc Pharmacy 35.3 ml/min; Est GFR (Non-African American) 37.9 ml/min; Magnesium 1.8 mg/dl (1.7-2.4); Phosphorus 3.5 mg/dl (2.5-4.9); Potassium 4.6 mmol/L (3.5-5.1)
[2024-01-09 07:11] LABS: INR 1.7 (0.9-1.1); Prothrombin Time 17.3 Seconds (9.0-12.0)
--- NOTE | 2024-01-09 12:32 | Cardiology Progress Note ---
Date of Service January 09, 2024 Assessment & Plan (1) Bradycardia: (2) Anemia: (3) S/P AVR (aortic valve replacement): (4) S/P MVR (mitral valve replacement): (5) CAD (coronary artery disease): (6) Paroxysmal atrial fibrillation: Plan Medically complex 78 year old female with history of bioprosthetic AVR/MVR in 06/2013- anticoagulated with Coumadin. Admitted for anemia and possible GI bleed. EGD and colonoscopy did not reveal any source of bleeding however large hemorrhoid. Has been restarted on anticoagulation. Has longstanding h/o left bundle branch block on EKG, dating back to 2013, QRS duration of 150-160 ms. Developed post operative atrial fibrillation in 2013 and has been on amiodarone since. This admission on 01/07/24, developed significant bradycardia in 40s and pauses, longest 4.5 seconds, was asymptomatic. Metoprolol tartrate 12.5 mg and amiodarone 200 mg therefore held. Echo this admission reveals normal LVEF, normal bio AVR prosthetic function, ongoing prosthetic moderate prosthetic mitral stenosis , which is chronic. [id number] score 5 for age over 75, female, HTN, vascular disease. - currently feels well and is asymptomatic on exam - continue to monitor on telemetry. SR in the 60s noted am of 01/08, however, bradycardia with rate in the 50s now noted with short (less than 2 second pauses), consistent with sick sinus syndrome. 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 -Patient agreeable to pacemaker this admission. -Working on determining timing of scheduling. -Will reach out to pt's daughter to provide updateds. Admission and Anticipated Discharge Date Admission Date: January 04, 2024 Subjective Patient seen in follow up. Feeling well at present. Denies chest pain, shortness of breath, lightheadedness or syncope. Review of Systems Review of Systems: All systems reviewed & are unremarkable except as noted in HPI & below Physical Exam Constitutional: no acute distress Neck: trachea midline Respiratory: normal respiratory effort, lungs clear to auscultation Cardiovascular: RRR, no murmur, no edema Rate/Rhythm: regular rate and regular rhythm Heart Sounds: normal S1, normal S2 and + murmur (+systolic murmur) Vessels: no JVD Extremities: no edema Gastrointestinal (Abdomen): Inspection/Auscultation: abdomen normal to inspection and normal bowel sounds; abdomen not distended Percussion/Palpation: abdomen soft; abdomen nontender Neurologic: PERRL, EOMI, accommodation nl, no face palsy, no dysarthria Psychiatric: A+Ox3, euthymic affect Results & Data Vital Signs (Past 12 Hours) Vital Signs Temp Pulse Pulse Resp BP Pulse Ox O2 Del Method 01/09/24 11:26 36.8 C 63 16 136/71 98 Room Air 01/09/24 10:21 58 L 01/09/24 07:14 36.5 C 58 L 16 146/75 H 94 Room Air 01/09/24 04:00 36.5 C 63 18 140/73 100 Room Air 01/09/24 02:20 65 15 96 O2 Flow Rate 01/09/24 11:26 01/09/24 10:21 01/09/24 07:14 01/09/24 04:00 01/09/24 02:20 2 Laboratory Results Coagulation 01/09/24 Range/Units 06:06 PT 17.3 H (9.0-12.0) Seconds INR on 01/09/24: 1. 7 CBC 01/09/24 Range/Units 06:06 WBC 5.28 (4.8-10.8) K/ul RBC 3.57 L (4.20-5.40) M/uL Hgb 8.9 L (12.0-16.0) g/dl Hct 30.2 L (37.0-47.0) % Plt Count 262 (130-400) K/uL Comprehensive Metabolic Panel 01/09/24 Range/Units 06:06 Sodium 139 (136-145) mmol/L Potassium 4.6 (3.5-5.1) mmol/L Chloride 107 (98-107) mmol/L Carbon Dioxide 27 (21-32) mmol/L BUN 11 (6-23) mg/dl Creatinine 1.33 H (0.6-1.2) mg/dl Glucose 94 (70-99(Fasting)) mg/dl Calcium 9.4 (8.6-10.3) mg/dl Intake and Output 01/08/24 01/09/24 01/09/24 22:59 06:59 14:59 Intake Total 80 / 280 200 / 280 Balance 80 / 280 200 / 280 Intake: Oral 80 / 280 200 / 280 Other: Weight 84.2 kg Weight Measurement Method Built in [facility] (2) Anemia Anemia type: unspecified type Qualified Code(s): D64.9 - Anemia, unspecified (5) CAD (coronary artery disease) Coronary Disease-Associated Artery/Lesion type: [place] artery [place] vs. transplanted heart: [place] heart Associated angina: without angina Qualified Code(s): I25.10 - Atherosclerotic heart disease of [place] coronary artery without angina pectoris
--- NOTE | 2024-01-09 13:40 | Hospitalist Progress Note ---
Date of Service January 09, 2024 Assessment & Plan (1) Anemia: (2) CKD (chronic kidney disease), stage III: (3) HTN (hypertension): (4) SARAH on CPAP: Plan Pt is a 78 yr old F who has a significant PMH of HTN, hx of aortic and mitral valve replacement, PAF on warfarin, CAD, COPD, SARAH on CPAP, Tobacco abuse, hypothyroidism, CKD-3, Hyperparathyroidism, hx of R breast ca s/p partial mastectomy who presents to ED 2/2 referral from PCP after a noted drop in her hemoglobin from baseline of 13 to 8. Anemia, iron deficiency Possible GIB Referred by her pcp after a noted drop in her hemoglobin from baseline of 13 to 8 Notes dark stools, on chronic warfarin for Hx of aortic and mitral heart valve replacements with thrombus and atrial fibrillation Anemia panel on admission noting iron deficiency hgb low but stable at his time, was typed/crossed with 2 units on hold, blood consent obtained -transfused 1U of pRBCs on 01/04 for hgb of 7.3- 7.9 down from 8.2 on admission Last C scope 11/2022 evidence of prior end to end ileocolonic anastomosis in sigm oid, patent, HANH revealed prolapse Held warfarin and ASA on admission, cardiology consulted for further anticoagulation recs IV PPI BID s/p 1 bag of IV venofer on 01/03 GI consulted, appreciate recs. Noted the following -patient is now agreeable to an EGD and colonoscopy. - would wait until her INR is lower than 1.7 and once it is, would plan to prep for a colonoscopy and EGD to further evaluate. - continue to follow hgb/hct and transfuse as needed. -continue with protonix 40mg bid. s/p EGD and colonoscopy on 01/05- EGD noting gastritis, c-scope noting hemorrhoids. No acute cause for the bleeding. GI recommending outpt capsule f/u. Per GI, bleeding likely due to pt's hemorrhoids and would recommend urgent surgical evaluation. General surgery was consulted, recommended outpt followup. Pt's anticoagulation resumed as a result. Continue to monitor H/H- has been stable Hx of Aortic Valve replacement Hx of Mitral Valve replacement PAF Bioprosthetic aortic and mitral valve replacements with associated thrombus Hx of a fib anticoagulated with warfarin INR 2.0 on admission. Per GI would like in range of 1.7 for EGD/colonoscopy Was on metoprolol and amiodarone for rate/rhythm control for a fib Warfarin was held on admission in the setting of anemia requiring possible transfusion, was held in anticipation of EGD/colonoscopy Cardiology consulted for further anticoagulation recs in this setting. -Obtain echocardiogram to assess AVR/MVR gradients/function -Coumadin and ASA currently on hold for workup. -Will resume when source of anemia is identified and corrected -No need for heparin bridge as she has a bioprosthetic AVR/MVR -Transfuse hemoglobin per recommendations of hospitalist service/GI. Recommend maintaining hgb >10. As noted above, warfarin was resumed per recs of GI and General Surgery, as pt would have hemorrhoidal surgery done as an outpatient. Warfarin resumed on January 06. INR increasing. 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 Dr Rodriguez) Continue telemetry monitoring pt with noted bradycardia and pauses once more on 01/08 Per Cardiology, anticipating pacemaker placement on 01/09, pt agreeable Cardiomegaly Small Pleural Effusion Noted on chest xray Cardiology on board in setting of above, appreciate recs Stable at this time HTN Bp stable held HCTZ, lisinopril on admission continue metoprolol with parameters Continue to monitor TONY on CKD -3b cr elevated at 1.83 on admission Received IVF, currently downtrended to 1.43 avoid nephrotoxic agents as able, holding home lisinopril at this time Continue to monitor COPD Tobacco abuse encourage cessation, pt declines nicotine patch no acute exac SARAH on CPAP stable, continue cpap qhs Hypothyroidism TSh 6.13, free T4 1.56 Continue home meds Diet: advance diet as tolerated DVT ppx: SCDS in setting of possible bleed, warfarin on hold Dispo: PT/OT recommending home Admission and Anticipated Discharge Date Admission Date: January 04, 2024 Subjective pt was seen multiple times during the day. In the AM denied chest pain, palpitations, SOB, dizziness or syncopal episodes. Later notified pt having bradycardic episodes once more with short pauses, cardiology aware. Saw pt at that time, asymptomatic once more. Later discussed with pt cardiology's plan for pacemaker. Review of Systems Review of Systems: All systems reviewed & are unremarkable except as noted in Subjective Physical Exam Physical Exam: General: Alert, oriented. No acute distress Psych: Appropriate mood and affect Neuro: No gross deficits while laying in bed HEENT: NC/AT CV: RRR Resp: Breath sounds clear bilaterally, no increased effort of breathing Abdomen:Soft, nontender Extremities: edema in lower extremities bilaterally. Results & Data Results & Data Vital Signs (Past 12 Hours) Vital Signs Temp Pulse Pulse Resp BP Pulse Ox O2 Del Method 01/09/24 11:26 36.8 C 63 16 136/71 98 Room Air 01/09/24 10:21 58 L 01/09/24 07:14 36.5 C 58 L 16 146/75 H 94 Room Air 01/09/24 04:00 36.5 C 63 18 140/73 100 Room Air 01/09/24 02:20 65 15 96 O2 Flow Rate 01/09/24 11:26 01/09/24 10:21 01/09/24 07:14 01/09/24 04:00 01/09/24 02:20 2
--- NOTE | 2024-01-09 16:45 | Communication Note ---
Date of Service: January 09, 2024 Discussed findings and plan in room with the patient and her daughter, Amparo. Questions answered to their satisfaction. Plan for dual-chamber permanent p yolanda tomorrow. I spent a total of 65 minutes on the date of service in preparation, delivery, and documentation of the care provided to this patient, excluding any time spent in the performance of separately billed services.
[2024-01-10 06:32] LABS: Hematocrit (blood only) 30.7 % (37.0-47.0); Mean Corpuscular Hemoglobin 24.7 pg (25.0-34.0); Mean Corpuscular Hgb Conc 29.3 g/dL (32.0-36.0); Mean Corpuscular Volume 84.3 fL (80.0-100.0); Mean Platelet Volume 9.3 fL (9.4-12.4); Platelet Count 216 K/uL (130-400); RDW Coefficient of Variation 18.3 % (11.5-14.5); RDW Standard Deviation 49.7 fL (36.4-46.3); Red Blood Count 3.64 M/uL (4.20-5.40); White Blood Count 5.45 K/ul (4.8-10.8)
[2024-01-10 06:54] LABS: BUN Creatinine Ratio 8.7 (10-20); Calcium 9.3 mg/dl (8.6-10.3); Creatinine Clr Calc Pharmacy 31.6 ml/min; Est GFR (African American) 38.3 ml/min; Est GFR (Non-African American) 33.1 ml/min; Magnesium 1.7 mg/dl (1.7-2.4); Phosphorus 3.4 mg/dl (2.5-4.9); Potassium 4.4 mmol/L (3.5-5.1)
[2024-01-10 07:01] LABS: INR 1.7 (0.9-1.1); Prothrombin Time 17.3 Seconds (9.0-12.0)
--- NOTE | 2024-01-10 07:42 | History & Physical Bridge Note ---
Date of Service January 10, 2024 History & Physical Bridge Note I have examined the patient, reviewed the History & Physical and in the interval since the performance of the History & Physical I have noted the following changes of clinical significance: pt with TBS and SSS recommended a pacemaker prior to hospital discharge; discussed the procedure and potential risks with the patient-she expressed an understanding and consents signed.
--- NOTE | 2024-01-10 07:43 | Pre Anesthesia Assessment ---
Date of Service January 10, 2024 Pre Sedation Assessment Vital Signs Temp Pulse Pulse Resp BP Pulse Ox O2 Del Method 01/10/24 03:25 36.8 C 66 16 130/76 94 Room Air 01/09/24 23:00 68 01/09/24 22:49 36.8 C 64 18 150/79 H 95 Room Air 01/09/24 19:49 37.0 C 73 18 162/79 H 98 Room Air 01/09/24 16:39 36.7 C 74 20 181/90 H 97 Room Air 01/09/24 16:38 75 01/09/24 15:50 36.7 C 62 16 177/79 H 97 Room Air 01/09/24 14:56 65 01/09/24 11:26 36.8 C 63 16 136/71 98 Room Air 01/09/24 10:21 58 L Cardiovascular RRR, no murmur, no edema Respiratory normal respiratory effort, lungs clear to auscultation Pre-Sedation Airway Assessment Smoking Status: Current every day smoker Hx Sleep Apnea: No Hx Difficult Intubation: No Short, Thick Neck: No Thyromental Distance: < 3.5 Finger Breadths Oral Cavity: + Dentures Mallampati Class: II ASA: ASA3 NPO Status Date of Last Intake of Fluids: 01/09/24 Date of Last Intake of Solid Food: 01/09/24 Procedure Planning Contraindications for Sedation: none Current Medications Reviewed: Yes Notes The planned sedation has been discussed with the patient. Informed Consent was obtained. I have identified the patient, determined the appropriateness of sedation and have assessed the patient immediately prior to the procedure. All medicine(s) and interventions are by my order.
[2024-01-10] MEDS: ceFAZolin 330 MG/ML 1 GM VIAL ONE (09:36)
[2024-01-10] MEDS: fentaNYL citrate PF 100 MCG/2 ML VIAL ONE ×2 (09:37→09:43)
[2024-01-10] MEDS: MIDAZOLAM HCL 5 MG/ML 1 ML VIAL ONE (09:43)
[2024-01-10] MEDS: OPTIRAY 350 ONE (09:51)
--- NOTE | 2024-01-10 11:00 | Post Anesthesia Assessment ---
Date of Service January 10, 2024 Post Sedation Assessment Vital Signs Temp Pulse Pulse Resp BP Pulse Ox O2 Del Method 01/10/24 10:20 60 16 169/73 H 99 Room Air 01/10/24 10:15 62 16 173/82 H 99 Room Air 01/10/24 10:10 60 16 173/82 H 99 Room Air 01/10/24 10:05 60 16 164/82 H 98 Room Air 01/10/24 10:00 64 16 163/83 H 92 Room Air 01/10/24 09:55 67 16 180/81 H 93 Room Air 01/10/24 07:55 95 Room Air 01/10/24 07:53 67 16 152/92 H Room Air 01/10/24 03:25 36.8 C 66 16 130/76 94 Room Air 01/09/24 23:00 68 01/09/24 22:49 36.8 C 64 18 150/79 H 95 Room Air 01/09/24 19:49 37.0 C 73 18 162/79 H 98 Room Air 01/09/24 16:39 36.7 C 74 20 181/90 H 97 Room Air 01/09/24 16:38 75 01/09/24 15:50 36.7 C 62 16 177/79 H 97 Room Air 01/09/24 14:56 65 01/09/24 11:26 36.8 C 63 16 136/71 98 Room Air Recovery Score Activity: Moves 4 extremities Respiration: Deep Breath/Cough Circulation: +/-20% PreAnes Value Consciousness: Fully Awake Oxygen Saturation: > 92% On Room Air Post Anesthesia Score: 10 Discharge Sedation Level of Care: Fast Track Phase II Post Sedation Plan On clinical assessment, the patient appears to have tolerated the sedation without complications. Patient is recovering as anticipated. Patient will continue to be monitored by nursing and may be discharged when sedation discharge criteria are met per below protocol. Upon Completions of procedure up to 15 minutes continue every 5 minute vital signs and the P.A.R. score; then discharge to a Phase I or Fast Track to Phase II per the following guidelines: * Discharge Patient to appropriate Phase II area if PAR is 8 or greater or return to pre- procedure baseline. The post - procedure orders will be as directed. * If PAR score is less than 8 or not return to pre-procedure baseline then patient will follow Phase I monitoring till PAR is reached for Phase II. The Phase I may be done in procedure room or may call to secure a Phase I area. * If naloxone or flumazenil are used for reversal, hold in Phase I for continued monitoring from when last reversal dose was given for a minimum of 60 minutes or longer pending the nurse and/or physician discretion of patient condition before discharge to Phase II. Please call the Sedation Physician to re-evaluate and complete post-note for discharge to Phase II area. Do NOT discharge from procedure sedation or Phase 1 until post- sedation evaluation note is complete by procedure /sedation MD Sedation Discharge Instructions to be given to the patient at discharge to home.
--- NOTE | 2024-01-10 13:02 | XRay Report ---
XR chest 1V portable CLINICAL HISTORY: s/p ppm ensure no ptx COMPARISON STUDY: Chest CT August 25, 2013. Chest radiograph January 04, 2024. FINDINGS: There is no pneumothorax following placement of a left subclavian pacer. Lead tips project over the expected location of the right ventricle and right atrium. There is apparent rotation of the pacemaker battery pack. This may be artifactual. There are median sternotomy wires. Cardiomegaly is unchanged. There is pulmonary vascular congestion without overt pulmonary edema. There is no pleural effusion. Right mid to lower lung density measures approximately 7 cm previously this may be artifact ual. IMPRESSION: 1. No pneumothorax following placement of a left subclavian pacemaker. Apparent rotation of the pacem colin battery pack although this may be projectional. 2. Cardiomegaly with pulmonary vascular congestion. 3. 7 mm oval-shaped right lower lung density. This may be artifactual and related to overlying soft t issues. However, radiographic follow-up is recommended to exclude a pulmonary abnormality. ACT 112: Negative or not required by law. Electronically signed by: Power Ayala M.D. 01/10/2024 1:01 PM
--- NOTE | 2024-01-10 13:27 | Communication Note ---
Date of Service: January 10, 2024 Post pacemaker portable chest x-ray reviewed independently, radiology report also reviewed. The unusual appearance of the left infraclavicular pacemaker is felt to be positional due to the patient's posture at the time the x-ray was taken. There is also an incidental 7 mm right-sided pulmonary abnormality, possibly artifactual. No pneumothorax noted. Plan: Patient to have repeat PA and lateral chest x-ray in the radiology department, she is to remove her surgical bra for the x-ray and we will remove the external panel monitor. Instructions reviewed with her nurse. Otherwise: Metoprolol succinate reinitiated dose of 25 mg daily, amiodarone reinitiated 200 mg daily. --Will reassess post chest x-ray with regards to discharge.
--- NOTE | 2024-01-10 14:03 | XRay Report ---
TWO VIEW CHEST CLINICAL HISTORY: Follow-up abnormal chest x-ray. Right-sided opacity. FINDINGS: PA and lateral chest radiographs are compared to study dated 01/10/2024 and correlated with chest CT dated 08/25/[address] as [address] as abdominal CT dated 05/28/2023. The patient is status post midline s ternotomy. A 2-lead cardiac pacemaker is unchanged in position and partially obscures the left upper chest. The heart is enlarged measuring atherosclerotic calcification of the thoracic aorta. Mild pulm onary vascular congestion persists. Chronic interstitial thickening is similar to previous. There are small pleural effusions with dependent atelectasis. A lobular opacity is again seen projecting over the right lower lung. This likely represents loculated pleural fluid. There is no pneumothorax. The s keletal structures are osteopenic. Chronic deformity and postsurgical change is noted in the left cla vicle. IMPRESSION: 1. Cardiomegaly and cardiac pacemaker with mild pulmonary vascular congestion. 2. Small pleural effusions with dependent atelectasis. 3. A lobular opacity projecting over the right lower lung likely represents loculated pleural fluid. Radiographic follow-up to resolution is recommended. ACT 112: Negative or not required by law. Electronically signed by: Rush Morton M.D. 01/10/2024 2:01 PM
[2024-01-10] MEDS: METOPROLOL SUCC 25MG EXT REL TAB PO SCH (14:16)
--- NOTE | 2024-01-10 15:51 | Communication Note ---
Date of Service: January 10, 2024 Repeat chest x-ray reveals pacemaker in appropriate position, no pneumothorax, mild interstitial edema and small pleural effusions. Patient without rales on exam. She has received blood products and IV iron this admission and her HCTZ had been on hold. Discussed chest x-ray results with patient and her daughter. Will plan on furosemide 10 mg IV x 1 now. Keep in hospital overnight, check chemistry panel tomorrow, if stable findings, anticipate discharge tomorrow. Will make arrangements for outpatient pacemaker clinic follow-up.
[2024-01-10] MEDS: VANCOMYCIN HCL 1000MG/20ML VIAL ONE (15:53)
[2024-01-10] MEDS: BUPIVACAINE 0.25% PF 30 ML VIAL ONE (15:53)
[2024-01-10] MEDS: WATER, STERILE FOR INJ 10 ML VIAL ONE (15:53)
[2024-01-10] MEDS: LIDOCAINE 1% LOCAL 20 ML VIAL ONE (15:53)
--- NOTE | 2024-01-10 16:01 | Hospitalist Progress Note ---
Date of Service January 10, 2024 Assessment & Plan (1) Anemia: (2) CKD (chronic kidney disease), stage III: (3) HTN (hypertension): (4) SARAH on CPAP: Plan Pt is a 78 yr old F who has a significant PMH of HTN, hx of aortic and mitral valve replacement, PAF on warfarin, CAD, COPD, SARAH on CPAP, Tobacco abuse, hypothyroidism, CKD-3, Hyperparathyroidism, hx of R breast ca s/p partial mastectomy who presents to ED 2/2 referral from PCP after a noted drop in her hemoglobin from baseline of 13 to 8. Anemia, iron deficiency Possible GIB Referred by her pcp after a noted drop in her hemoglobin from baseline of 13 to 8 Notes dark stools, on chronic warfarin for Hx of aortic and mitral heart valve replacements with thrombus and atrial fibrillation Anemia panel on admission noting iron deficiency hgb low but stable at his time, was typed/crossed with 2 units on hold, blood consent obtained -transfused 1U of pRBCs on 01/04 for hgb of 7.3- 7.9 down from 8.2 on admission Last C scope 11/2022 evidence of prior end to end ileocolonic anastomosis in sigm oid, patent, HANH revealed prolapse Held warfarin and ASA on admission, cardiology consulted for further anticoagulation recs IV PPI BID s/p 1 bag of IV venofer on 01/03 GI consulted, appreciate recs. Noted the following -patient is now agreeable to an EGD and colonoscopy. - would wait until her INR is lower than 1.7 and once it is, would plan to prep for a colonoscopy and EGD to further evaluate. - continue to follow hgb/hct and transfuse as needed. -continue with protonix 40mg bid. s/p EGD and colonoscopy on 01/05- EGD noting gastritis, c-scope noting hemorrhoids. No acute cause for the bleeding. GI recommending outpt capsule f/u. Per GI, bleeding likely due to pt's hemorrhoids and would recommend urgent surgical evaluation. General surgery was consulted, recommended outpt followup. Pt's anticoagulation resumed as a result. Continue to monitor H/H- has been stable Hx of Aortic Valve replacement Hx of Mitral Valve replacement PAF Bioprosthetic aortic and mitral valve replacements with associated thrombus Hx of a fib anticoagulated with warfarin INR 2.0 on admission. Per GI would like in range of 1.7 for EGD/colonoscopy Was on metoprolol and amiodarone for rate/rhythm control for a fib Warfarin was held on admission in the setting of anemia requiring possible transfusion, was held in anticipation of EGD/colonoscopy Cardiology consulted for further anticoagulation recs in this setting. -Obtain echocardiogram to assess AVR/MVR gradients/function -Coumadin and ASA currently on hold for workup. -Will resume when source of anemia is identified and corrected -No need for heparin bridge as she has a bioprosthetic AVR/MVR -Transfuse hemoglobin per recommendations of hospitalist service/GI. Recommend maintaining hgb >10. As noted above, warfarin was resumed per recs of GI and General Surgery, as pt would have hemorrhoidal surgery done as an outpatient. Warfarin resumed on January 06. INR increasing. Warfarin held on 01/08 in anticipation of pacemaker placement on 01/09, resumed on 01/09 Bradycardia Noted on telemetry with pauses on 01/06, then improved after metoprolol and amiodarone held However occurred once more on 01/08 Pt asymptomatic Cardiology on board and aware, appreciate recs Metoprolol and amiodarone held per Cardiology recs s/p pacemaker placement on 01/09 Metoprolol and amiodarone resumed by cardiology Followup chest xray concerning for pleural effusions so pt received dose of IV lasix and being monitored overnight. Continue telemetry monitoring Per Cardiology on 01/09: Repeat chest x-ray reveals pacemaker in appropriate position, no pneumothorax, mild interstitial edema and small pleural effusions. Patient without rales on exam. She has received blood products and IV iron this admission and her HCTZ had been on hold. Discussed chest x-ray results with patient and her daughter. Will plan on furosemide 10 mg IV x 1 now. Keep in hospital overnight, check chemistry panel tomorrow, if stable findings, anticipate discharge tomorrow. Will make arrangements for outpatient pacemaker clinic follow-up. Cardiomegaly Small Pleural Effusion Noted on chest xray Cardiology on board in setting of above, appreciate recs -s/p IV lasix on 01/09 repeat chest xray concerned for loculation- consider CT chest if no improvement after IV lasix Stable at this time HTN Bp stable held HCTZ, lisinopril on admission continue metoprolol with parameters Continue to monitor TONY on CKD -3b cr elevated at 1.83 on admission Received IVF, currently downtrended to 1.43 avoid nephrotoxic agents as able, holding home lisinopril at this time Continue to monitor COPD Tobacco abuse encourage cessation, pt declines nicotine patch no acute exac SARAH on CPAP stable, continue cpap qhs Hypothyroidism TSh 6.13, free T4 1.56 Continue home meds Diet: advance diet as tolerated DVT ppx: SCDS in setting of possible bleed, warfarin on hold Dispo: PT/OT recommending home Admission and Anticipated Discharge Date Admission Date: January 04, 2024 Subjective Pt was seen in 450-1 after her pacemaker was placed. Denied pain at that time. Denied SOB, palpitations. Review of Systems Review of Systems: All systems reviewed & are unremarkable except as noted in Subjective Physical Exam Physical Exam: General: Alert, oriented. No acute distress Psych: Appropriate mood and affect Neuro: No gross deficits while laying in bed HEENT: NC/AT CV: RRR Resp: Breath sounds clear bilaterally, no increased effort of breathing Abdomen:Soft, nontender Extremities: edema in lower extremities bilaterally. Results & Data Results & Data Vital Signs (Past 12 Hours) Vital Signs Temp Pulse Pulse Resp BP Pulse Ox O2 Del Method 01/10/24 14:49 36.7 C 64 18 138/71 97 Room Air 01/10/24 14:48 65 01/10/24 11:40 61 18 156/72 H 97 Room Air 01/10/24 11:10 60 18 159/72 H 95 Room Air 01/10/24 10:40 36.7 C 60 18 167/79 H 93 Room Air 01/10/24 10:20 60 16 169/73 H 99 Room Air 01/10/24 10:15 62 16 173/82 H 99 Room Air 01/10/24 10:10 60 16 173/82 H 99 Room Air 01/10/24 10:05 60 16 164/82 H 98 Room Air 01/10/24 10:00 64 16 163/83 H 92 Room Air 01/10/24 09:55 67 16 180/81 H 93 Room Air 01/10/24 07:55 95 Room Air 01/10/24 07:53 67 16 152/92 H Room Air
[2024-01-10] MEDS: AMIODARONE 200 MG TAB PO ONE (16:18)
[2024-01-10] MEDS: FUROSEMIDE INJ 20 MG/2 ML VIAL IV ONE (16:39)
[2024-01-11 06:29] LABS: Hematocrit (blood only) 32.6 % (37.0-47.0); Hemoglobin 9.5 g/dl (12.0-16.0); Mean Corpuscular Hemoglobin 24.7 pg (25.0-34.0); Mean Corpuscular Hgb Conc 29.1 g/dL (32.0-36.0); Mean Corpuscular Volume 84.7 fL (80.0-100.0); Mean Platelet Volume 9.2 fL (9.4-12.4); Platelet Count 192 K/uL (130-400); RDW Coefficient of Variation 18.5 % (11.5-14.5); RDW Standard Deviation 52.1 fL (36.4-46.3); Red Blood Count 3.85 M/uL (4.20-5.40); White Blood Count 5.41 K/ul (4.8-10.8)
[2024-01-11 06:42] LABS: BUN Creatinine Ratio 12.4 (10-20); Calcium 9.2 mg/dl (8.6-10.3); Creatinine Clr Calc Pharmacy 30.9 ml/min; Est GFR (African American) 37.1 ml/min; Magnesium 1.7 mg/dl (1.7-2.4); Phosphorus 3.5 mg/dl (2.5-4.9); Potassium 4.1 mmol/L (3.5-5.1)
[2024-01-11 06:51] LABS: INR 1.5 (0.9-1.1); Prothrombin Time 15.6 Seconds (9.0-12.0)
--- NOTE | 2024-01-11 10:28 | Cardiology Progress Note ---
Date of Service January 11, 2024 Assessment & Plan (1) Bradycardia: (2) Anemia: (3) S/P AVR (aortic valve replacement): (4) S/P MVR (mitral valve replacement): (5) CAD (coronary artery disease): (6) Paroxysmal atrial fibrillation: Plan Medically complex 78 year old female with history of bioprosthetic AVR/MVR in 06/2013- anticoagulated with Coumadin. Admitted for anemia and possible GI bleed. EGD and colonoscopy did not reveal any source of bleeding however large hemorrhoid. Has been restarted on anticoagulation. Has longstanding h/o left bundle branch block on EKG, dating back to 2013, QRS duration of 150-160 ms. Developed post operative atrial fibrillation in 2013 and has been on amiodarone since. This admission on 01/07/24, developed significant bradycardia in 40s and pauses, longest 4.5 seconds, was asymptomatic. Metoprolol tartrate 12.5 mg and amiodarone 200 mg therefore held. Echo this admission reveals normal LVEF, normal bio AVR prosthetic function, ongoing prosthetic moderate prosthetic mitral stenosis , which is chronic. [id number] score 5 for age over 75, female, HTN, vascular disease. - currently feels well and is asymptomatic on exam -Patient status Neri dual-chamber permanent pacemaker on 01/10/2024 for history of sick sinus syndrome, left bundle branch block, and paroxysmal atrial fibrillation. She is now back on metoprolol, dose increased to 25 mg daily, amiodarone 200 mg daily. She has been on amiodarone ever since her heart surgery in 2013. -Patient received a dose of furosemide on the evening of 01/10/2024 for mild pulmonary edema noted on post pacemaker chest x-ray. -INR 1.5 today. Hemoglobin stable. Creatinine level of 1.53 relatively stable compared to recent outpatient levels of 1.6-1.7 noted in 2023. Patient stable for discharge from a cardiology perspective. Resume outpatient cardiac medications with noted treatment to include lisinopril/HCTZ, metoprolol succinate dose of 25 mg daily. Resume aspirin 81 mg daily. Coumadin resumed, goal INR 2-3. Outpatient Coumadin dose per clinical pharmacy notes included 7.5 mg every Tuesday and 5 mg every other day. GI had recommended consideration of outpatient intervention for hemorrhoids, capsule endoscopy. Patient stable for discharge from a cardiac perspective. Will arrange for post hospital pacemaker clinic follow-up and clinical cardiology follow-up. I will contact office. Admission and Anticipated Discharge Date Admission Date: January 04, 2024 Subjective Patient seen in cardiology follow-up. Feels well. Denies chest discomfort or shortness of breath. Postprocedure pain well-controlled. Telemetry reveals sinus rhythm, atrial pacing in the 60s with negative QRS complexes. Physical Exam Constitutional: no acute distress Neck: trachea midline Respiratory: normal respiratory effort, lungs clear to auscultation Cardiovascular: RRR, no murmur, no edema Rate/Rhythm: regular rate and regular rhythm Heart Sounds: normal S1, normal S2 and + murmur (+systolic murmur) Vessels: no JVD Extremities: no edema Chest (Breasts): Additional Comments: Left infraclavicular pacemaker pocket with dressing which was dried, it was not removed. Gastrointestinal (Abdomen): Inspection/Auscultation: abdomen normal to inspection and normal bowel sounds; abdomen not distended Percussion/Palpation: abdomen soft; abdomen nontender Neurologic: PERRL, EOMI, accommodation nl, no face palsy, no dysarthria Psychiatric: A+Ox3, euthymic affect Results & Data Vital Signs (Past 12 Hours) Vital Signs Temp Pulse Pulse Resp BP Pulse Ox O2 Del Method 01/11/24 08:18 36.7 C 65 18 154/77 H 95 Room Air 01/11/24 08:14 60 01/11/24 02:36 36.4 C L 62 16 127/67 95 CPAP 01/11/24 02:25 66 20 98 01/10/24 23:05 60 01/10/24 22:55 36.4 C L 67 18 145/70 H 94 CPAP Laboratory Results Coagulation 01/11/24 Range/Units 05:32 PT 15.6 H (9.0-12.0) Seconds INR 01/11/24: 1.5 CBC 01/11/24 Range/Units 05:32 WBC 5.41 (4.8-10.8) K/ul RBC 3.85 L (4.20-5.40) M/uL Hgb 9.5 L (12.0-16.0) g/dl Hct 32.6 L (37.0-47.0) % Plt Count 192 (130-400) K/uL Comprehensive Metabolic Panel 01/11/24 Range/Units 05:32 Sodium 138 (136-145) mmol/L Potassium 4.1 (3.5-5.1) mmol/L Chloride 104 (98-107) mmol/L Carbon Dioxide 26 (21-32) mmol/L BUN 19 (6-23) mg/dl Creatinine 1.53 H (0.6-1.2) mg/dl Glucose 94 (70-99(Fasting)) mg/dl Calcium 9.2 (8.6-10.3) mg/dl Intake and Output 01/10/24 01/11/24 01/11/24 22:59 06:59 14:59 Intake Total 175 / 415 Balance 175 / 415 Intake: Oral 175 / 415 Other: Other Intake Source Sips # Unmeasured Voids 1 Weight 85.7 kg Weight Measurement Method Built in [facility] (2) Anemia Anemia type: unspecified type Qualified Code(s): D64.9 - Anemia, unspecified (5) CAD (coronary artery disease) Coronary Disease-Associated Artery/Lesion type: [place] artery [place] vs. transplanted heart: [place] heart Associated angina: without angina Qualified Code(s): I25.10 - Atherosclerotic heart disease of [place] coronary artery without angina pectoris
[2024-01-11] MEDS: ASPIRIN 81 MG ECTAB PO SCH (11:14)
--- NOTE | 2024-01-11 14:49 | Electrocardiogram Report ---
Test Reason : Blood Pressure : / mmHG Vent. Rate : 066 BPM Atrial Rate : 066 BPM P-R Int : 200 ms QRS Dur : 164 ms QT Int : 494 ms P-R-T Axes : 068 072 097 degrees QTc Int : 517 ms Normal sinus rhythm Possible atrial paced complex Left bundle branch block Abnormal ECG When compared with ECG of 07-JAN-2024 16:20, No significant change was found Confirmed by Devin Polk ([id number]) on 01/11/2024 2:49:02 PM Referred By: Miguel Morrow Confirmed By:Devin Polk
--- NOTE | 2024-01-11 19:52 | Discharge Summary ---
Discharge Summary Date of Service January 11, 2024 Principal Dx & Hospital Course #1 = Principal Diagnosis (1) Anemia: (2) CKD (chronic kidney disease), stage III: (3) HTN (hypertension): (4) SARAH on CPAP: Plan Pt is a 78 yr old F who has a significant PMH of HTN, hx of aortic and mitral valve replacement, PAF on warfarin, CAD, COPD, SARAH on CPAP, Tobacco abuse, hypothyroidism, CKD-3, Hyperparathyroidism, hx of R breast ca s/p partial mastectomy who presents to ED 2/2 referral from PCP after a noted drop in her hemoglobin from baseline of 13 to 8. Acute on chronic anemia 2/2 hemorrhoids Iron deficiency Referred by her pcp after a noted drop in her hemoglobin from baseline of 13 to 8 Notes dark stools, on chronic warfarin for Hx of aortic and mitral heart valve replacements with thrombus and atrial fibrillation Anemia panel on admission noting iron deficiency hgb low but stable at his time, was typed/crossed with 2 units on hold, blood consent obtained -transfused 1U of pRBCs on 01/04 for hgb of 7.3- 7.9 down from 8.2 on admission Last C scope 11/2022 evidence of prior end to end ileocolonic anastomosis in sigmoid, patent, HANH revealed prolapse Held warfarin and ASA on admission, cardiology consulted for further anticoagulation recs IV PPI BID s/p 1 bag of IV venofer on 01/03 GI consulted, appreciate recs. Noted the following -patient is now agreeable to an EGD and colonoscopy. - would wait until her INR is lower than 1.7 and once it is, would plan to prep for a colonoscopy and EGD to further evaluate. s/p EGD and colonoscopy on 01/05- EGD noting gastritis, c-scope noting hemorrhoids. No acute cause for the bleeding. GI recommending outpt capsule f/u. Per GI, bleeding likely due to pt's hemorrhoids and would recommend urgent surgical evaluation. General surgery was consulted, recommended outpt followup. Pt's anticoagulation resumed as a result. Continue to monitor H/H- has been stable on warfarin Follow up [facility] Hx of Aortic Valve replacement Hx of Mitral Valve replacement PAF Bioprosthetic aortic and mitral valve replacements with associated thrombus Hx of a fib anticoagulated with warfarin INR 2.0 on admission. Per GI would like in range of 1.7 for EGD/colonoscopy Was on metoprolol and amiodarone for rate/rhythm control for a fib Warfarin was held on admission in the setting of anemia requiring possible transfusion, was held in anticipation of EGD/colonoscopy Cardiology consulted for further anticoagulation recs in this setting. -Obtain echocardiogram to assess AVR/MVR gradients/function -Coumadin and ASA currently on hold for workup. -Will resume when source of anemia is identified and corrected -No need for heparin bridge as she has a bioprosthetic AVR/MVR -Transfuse hemoglobin per recommendations of hospitalist service/GI. Recommend maintaining hgb >10. As noted above, warfarin was resumed per recs of GI and General Surgery, as pt would have hemorrhoidal surgery done as an outpatient. Warfarin resumed on January 06. INR increasing. Warfarin held on 01/08 in anticipation of pacemaker placement on 01/09, resumed on 01/09 Bradycardia Noted on telemetry with pauses on 01/06, then improved after metoprolol and amiodarone held However occurred once more on 01/08 Pt asymptomatic Cardiology on board and aware, appreciate recs Metoprolol and amiodarone held per Cardiology recs s/p pacemaker placement on 01/09 Metoprolol and amiodarone resumed by cardiology Followup chest xray concerning for pleural effusions so pt received dose of IV lasix and being monitored overnight. Continue telemetry monitoring Per Cardiology on 01/09: Repeat chest x-ray reveals pacemaker in appropriate position, no pneumothorax, mild interstitial edema and small pleural effusions. Patient without rales on exam. She has received blood products and IV iron this admission and her HCTZ had been on hold. Discussed chest x-ray results with patient and her daughter. Will plan on furosemide 10 mg IV x 1 now. Keep in hospital overnight, check chemistry panel tomorrow, if stable findings, anticipate discharge tomorrow. Will make arrangements for outpatient pacemaker clinic follow-up. --Resumed on [employer] home regimen Cardiomegaly Small Pleural Effusion Noted on chest xray Cardiology on board in setting of above, appreciate recs -s/p IV lasix on 01/09 repeat chest xray concerned for loculation--notable improvement in clinical status, resume home lisinopril-hctz Stable at this time HTN Bp stable resumed HCTZ, lisinopril on discharge continue metoprolol with parameters Continue to monitor TONY on CKD -3b *improved cr elevated at 1.83 on admission Received IVF, currently downtrended to 1.43 avoid nephrotoxic agents as able, holding home lisinopril at this time Continue to monitor COPD Tobacco abuse encourage cessation, pt declines nicotine patch no acute exac SARAH on CPAP stable, continue cpap qhs Hypothyroidism TSh 6.13, free T4 1.56 Continue home meds Notes For Next Care Provider Medication Changes From Visit Discontinue Metoprolol Tartrate 12.5mg two times a day Start Metoprolol Succinate 25mg daily Admission HPI Per Admitting Provider This is a 78 yr old F who has a significant PMH of HTN, hx of AVR and MVR, PAF on warfarin, CAD, COPD, SARAH on CPAP, Tobacco abuse, hypothyroidism, CKD-3, Hyperparathyroidism, hx of R breast ca s/p partial mastectomy who presents to ED 2/2 referral from PCP. She was seen by PCP Dr. Marino yesterday for routine 6 month check up and hemoglobin had dropped from 13.4 to ~ 8.0. Due to being on coumadin she was referred to ED for further work up. She reports feeling more fatigued and less energy to do her daily tasks then normal. THis has been going on for a few weeks. She also reports dark stools over last 2-3 days. She has known hemorrhoids for which she uses preparation H for but denies and significant BRBPR. She denies any abd pain, n/v/d, postprandial pain, significa nt NSAID use, f/c/s, chest pain, sob or URI sx. She is on a PPI daily and has been compliant with that. She reports several years ago having a part of her colon removed due to polyps but denies any prior hx of GIB or PUD. Her Daughter works in housekeeping at [employer]. In ED she remained hemodynamically stable. Her HGb was 8.2 and cr 1.9. She received some gentle IVF in ED. Her outpt records in [facility] were reviewed. No family at bedside to assist with history. Discussed with ED provider Dr. Montoya. She smokes 2-4 cigarettes a day as a stress reliever and has second hand exposure with . She denies alcohol. Admission Exam Per Admitting Provider Constitutional: WD/WN, vitals as above, NAD, sitting up in bed, pleasant, conversing easily Head: Normocephalic, Atraumatic Eyes: PERRL, conjunctivae normal, anicteric sclerae ENMT: external ear and nose normal, oropharynx normal Neck: trachea midline, no thyromegaly normal visual inspection Respiratory: normal respiratory effort, lungs clear to auscultation, no wheeze, rales, rhonchi. Normal insp/exp effort, no accessory muscle use Cardiovascular: RRR, no murmur, no edema Vessels: no JVD or carotid bruit Chest: normal inspection of chest Abdomen: normal bowel sounds, soft, nontender, no hepatosplenomegaly Musculoskeletal: no cyanosis or clubbing, extremities motor strength 5/5 Skin: no rashes, warm and dry normal turgor Neurologic: PERRL, EOMI, accommodation nl, no face palsy, no dysarthria CN's II-XI intact bilaterally and moves all extremities Psychiatric: A+Ox3, euthymic affect Lymphatic: no cervical or axillary lymphadenopathy : +ext hemorrhoid, nonbleeding nonthrombosed Discharge Exam Constitutional WD/WN, vitals as above Respiratory normal respiratory effort, lungs clear to auscultation Cardiovascular RRR, no murmur, no edema Gastrointestinal (Abdomen) normal bowel sounds, soft, nontender, no hepatosplenomegaly Musculoskeletal no cyanosis or clubbing, extremities motor strength 5/5 Updated Medication List Medication Instructions Recorded Confirmed Type amiodarone 200 mg tablet 200 mg PO QAM 08/16/18 01/04/24 History aspirin 81 mg tablet,delayed 81 mg PO QPM 08/16/18 01/04/24 History release (Yocasta Low Dose Aspirin) atorvastatin 10 mg tablet 10 mg PO QPM 08/16/18 01/04/24 History levothyroxine 137 mcg tablet 137 mcg PO QAM 08/16/18 01/04/24 History multivitamin 1 tab PO QDD 08/16/18 01/04/24 History warfarin 5 mg tablet (Jantoven) 7.5 mg PO HS 09/13/18 01/04/24 History potassium citrate 10 mEq (1,080 10 meq PO BID 04/23/19 01/04/24 History mg) tablet,extended release pantoprazole 20 mg tablet,delayed 20 mg PO QAM 12/02/22 01/04/24 History release lisinopril 10 1 tab PO DAILY 01/04/24 01/04/24 History mg-hydrochlorothiazide 12.5 mg tablet metoprolol succinate 25 mg 25 mg PO QAM #30 tabs 01/11/24 Rx tablet,extended release 24 hr Hospital Stay Data Consultations 01/04/24 12:59 ED Decision to Admit Stat 01/04/24 13:06 Consult Gastroenterology Routine 01/05/24 09:43 Consult Cardiology Routine Procedures Performed Operation Date: 01/10/24 09:00 Actual Procedures p Pacer with A/V Leads (Dual) - Sofia Marvin DO s Venogram, Unilateral - Sofia Marvin DO Diagnostic Imagining Performed 01/10/24 08:30 EP Lab Images for PACS ONCE Pending Results Patient Have Any Pending Studies at Discharge: No Discharge Instructions Given to Patient (Per Discharging Provider) Device and wound check at [facility] next week try to wear the sports bra for wound healing You were admitted for bleeding which is suspected to be related to hemorrhoids. You were seen by General Surgery who recommends follow up for possible interv ention as an outpatient. An appointment will be coordinated. You were noted to have pauses between heart beats and a pacemaker was placed on 01/09. You will follow up with Cardiology Pacemaker Clinic as directed. You will resume all home medications with the following changes: Discontinue Metoprolol Tartrate 12.5mg two times a day Start Metoprolol Succinate 25mg daily Resume outpatient cardiac medications with noted treatment to include lisinopril/HCTZ, metoprolol succinate dose of 25 mg daily. Resume aspirin 81 mg daily Outpatient Coumadin dose per clinical pharmacy notes included 7.5 mg every Tuesday and 5 mg every other day. Total Time Total Time Spent Total Time Spent (In Minutes): 35
--- NOTE | 2024-01-23 08:33 | Operative Report ---
Post Operative Report DATE OF PROCEDURE: 01/10/2024. PREOPERATIVE DIAGNOSES: SSS POSTOPERATIVE DIAGNOSIS: Same PROCEDURE: A dual-chamber rate responsive permanent pacemaker along with a peripheral venogram under fluoroscopic guidance. SURGEON: Sofia Marvin DO ASSISTANTS: None. ANESTHESIA: Monitored conscious sedation administered under my supervision by Jennifer Valero. Start time 08:28, end time 109:40, a total of 5 mg of Versed and 125 mcg of fentanyl. INTRAVENOUS FLUIDS: 38 mL. CONTRAST: 15 mL. ANTIBIOTICS: 2 grams of Ancef. ADDITIONAL MEDICATIONS: None BLOOD LOSS: 38 mL. URINE OUTPUT: Not applicable. SPECIMENS: None. FINDINGS: See below. DRAINS: None. COMPLICATIONS: None. CONDITION: Stable. INDICATIONS: This is a 78-year-old female who has a past medical history AVR, MVR, CABG in 07/06/2013 with h/o bioprosthetic IE as well, post op cardiac tamponade, CAD non-obstructive disease, HTN, HLD, LBBB< CKD stage III, COPD, Tobacco use, H/o breast cancer s/p partial mastectomy & radiation on arimidx. . She was admitted with anemia and during hospitalization was having sinus pauses and SSS along with TBS and recommended a pacemaker prior to discharge. CONSENT: Consent was obtained prior to the patient going into the electrophysiology lab. The patient was informed of the risks, benefits, and alternatives to the procedure. Risks include, but not limited to, sudden cardiac , cardiac arrhythmias, cerebrovascular accident, myocardial infarction, injury to his blood vessels, chamber of the heart and lung, bleeding and infection. The patient understood these risks and agreed to the procedure as planned. Informed consent was obtained. DESCRIPTION OF PROCEDURE: The patient was brought into electrophysiology lab in a fasting state. She was connected to continuous cardiac monitoring. A timeout was performed to ensure the patient's identity and procedure correctly. She was prepped and draped in the left infraclavicular space in normal surgical standard fashion. Monitored conscious sedation was given throughout the procedure for the patient's comfort level. [place] precautions were maintained throughout the procedure. Prophylactic antibiotics were given prior to incision. A 20 mL of 1% lidocaine and bupivacaine mixture were given in the left deltopec jose r groove. An incision was made in the left deltopectoral groove. Blunt dissection was performed down to the pectoralis muscle. Then, using blunt dissection over the pectoralis muscle within the pectoral fascia, a pacemaker pocket was created. Then, a peripheral venogram was performed to identify the axillary vein. Venous axillary access was obtained through a needlestick without any problems. A guidewire was inserted without any resistance. A 6- Indonesian sheath was inserted over the guidewire without any resistance. Dilator was removed and a second guidewire was inserted through the sheath to allow for retained venous access. Then a 9 Indonesian sheath was inserted over one of the guidewires. The guidewire and dilator were removed. Then, the [employer] 3D medium sheath was inserted through the 9-Indonesian sheath over a Glidewire into the right ventricle. The Glidewire and dilator were removed. Then, the left bundle lead was advanced through the sheath and intracardiac electrogram His bundle recordings were performed when the camera was in HENDRICKS 10. Once I found where the His bundle is, see below for results, I then moved the camera to HENDRICKS 30 and marked where the His bundle was on my fluoroscopy screen. I came down about 2 cm from this in a line that would extend out to the apex and then started coming on pacing. Once I found an area where I had a nice W formed pace complex in my lead V1, I then moved the camera to ARMENIAN 30. Then the helix was extended into the septum. Then the helix locking tool was placed. Then the lead was screwed further into the septum while pacing by giving slow clockwise turns. The paced complex changed to a nice R' in V1 and the pacing stim to peak QRS in V6 was good. Of note I did have to reposition it one time. I then gave contrast through the sheath to see how far the lead was into the septum and then I slit the [employer] 3D medium sheath under fluoroscopic guidance and left the 9-Indonesian sheath in while I positioned the right atrial lead. A 6-Indonesian sheath was inserted over the retained guidewire, the guidewire and dilator removed. The right atrial lead was then advanced into right atrium and positioned into right atrial appendage under fluoroscopic guidance. There was adequate pacing and sensing thresholds and no diaphragmatic stimulation with high output pacing.I did have to reposition it a couple of times. The 6-Indonesian sheath was peeled away and the lead was fixated to the pectoralis muscle using 0 silk suture. The 9-Indonesian sheath around the left bundle lead was peeled away and the lead was fixated to pectoralis muscle using 0 silk suture. The pocket was flushed with copious amounts of vancomycin and saline wash and inspected for hemostasis. The leads were then attached to the pulse generator making sure the pins were in appropriate position, passed set screws, and set screws were all tightened. Pulse generator was then placed in the pocket, making sure the leads were lying flat beneath the device. The incision was closed in a 3-layer fashion using 2-0 Vicryl interrupted suture, followed by 3-0 Vicryl interrupted suture, followed by 4-0 Monocryl running stitch. Then a primaseal dressing was placed EQUIPMENT: 1. Pulse generator is a Tyfone MRI Model Number [id number] SN: [id number]. 2. Right atrial lead, MyNextRunM Tendril STS 8TC SN: [id number] 3. Left bundle lead, Neri SJM Tendril STS 8TC SN: [id number] INTRAPROCEDURAL FINDINGS: 1. Right atrial lead, P waves 0.5 millivolts, impedance 380 ohms, threshold 2 volts at 0.4 milliseconds. 2. Left bundle lead, R waves 8.4 millivolts, impedance 830 ohms, threshold 1.7 volts at 0.4 milliseconds. FINAL MEASUREMENTS THROUGH THE DEVICE: 1. Right atrial lead, P waves 0.6millivolts, impedance 450 ohms, threshold 1.5 volt at 0.4 milliseconds. 2. Left bundle lead, R waves 9.5 millivolts, impedance 850 ohms, threshold 1 volts at 0.4 milliseconds. FINAL PARAMETERS: DDD 60/120, right atrial amplitude 3.5 volts, pulse width 0.4 milliseconds, sensitivity 0.2 millivolts. Left bundle lead amplitude 3.5 volts, pulse width 0.4 milliseconds, sensitivity 2 millivolts. IMPRESSION: Successful dual chamber rate responsive permanent pacemaker under fluoroscopic guidance along with peripheral venogram, all under fluoroscopic guidance secondary to SSS PLAN: Monitor the patient post-procedure. A 12-lead ECG, chest x-ray. She is not to lift the left elbow or left shoulder for 1 month. She cannot lift more than 10 pounds with the left arm for 2 weeks. She is to keep the dressing on and dry until her wound check next week.
== END 2024-01-11 15:30 | disposition home or self-care (01) | DRG 982 ==
LOC: ED 10:46 → 2W 13:06 → SUATTDRO 13:06 → 2W 14:43 → 4W 01-09 16:37

== ENCOUNTER 2025-02-02 16:58 | Inpatient (IN) ==
[2025-02-02 17:35] LABS: Hematocrit (blood only) 24.5 % (37.0-47.0); Hemoglobin 7.7 g/dl (12.0-16.0); Immature Granulocytes # (auto) 0.01 K/uL (0.01-0.20); Immature Granulocytes % (auto) 0.2 %; Mean Corpuscular Hemoglobin 26.6 pg (25.0-34.0); Mean Corpuscular Volume 84.8 fL (80.0-100.0); Platelet Count 295 K/uL (130-400); RDW Standard Deviation 45.6 fL (36.4-46.3); Red Blood Count 2.89 M/uL (4.20-5.40); White Blood Count 4.54 K/ul (4.8-10.8)
[2025-02-02] MEDS: PANTOprazole 40 MG in DEXTROSE 5% MINI-B 100 ML IV SCH (17:37)
[2025-02-02] MEDS: PANTOPRAZOLE BOLUS/DRIP IV STA (17:38)
--- NOTE | 2025-02-02 17:47 | Emergency Department Note ---
Impression & Plan Dyspnea, ABLA (acute blood loss anemia), Bloody stools, Weakness ED Provider Note Provider: Justyn Bella MD CHIEF COMPLAINT: Weak, fatigue, restless legs, short of breath HISTORY OF PRESENT ILLNESS: Patient is a 79-year-old female past medical history including A-fib on Coumadin, pacemaker, hypertension, SARAH, CKD, CAD, bioprosthetic aortic valve replacement presenting here today due to worsening shortness of breath and fatigue. Patient states over the past 1 to 2 weeks she has had worsening generalized fatigue. Went to her doctor on had blood work. Noted to be more anemic with a hemoglobin in the sevens from tens in November. Was scheduled for outpatient GI follow-up and she has had some darker stools. Patient states that she has had red blood when wiping again in the toilet for at least several days if not longer. Denies abdominal pain however her chest pain. Reports she has been short of breath with exertion but today was more short of breath even just sitting still. No fevers reported. No nausea or vomiting. Denies alcohol or NSAID usage. Has noted a bit of restlessness in her legs. No falls or syncope. Has tried some butyryl at home without improvement. PAST MEDICAL HISTORY: As noted above MEDICATIONS: Reviewed home medications includes Coumadin SOCIAL HISTORY: Resides at home PHYSICAL EXAM: GENERAL: alert and oriented in no acute distress on stretcher Head: normocephalic and atraumatic EYES: No injection, discharge or icterus. EOMI. NECK: Trachea midline. ENT: Mucous membranes pink and moist. LUNGS: Airway patent. No retractions. Breath sounds clear HEART: Regular rate and rhythm. No chest wall tenderness ABDOMEN: Soft and non-tender, without guarding or rebound. . SKIN: Acyanotic, warm, dry, without rashes EXTREMITIES: Without deformity with trace bilateral pedal edema. NEUROLOGICAL: No focal deficits. No aphasia. No facial droop or slurred speech. Ambulatory. EK bpm sinus rhythm with sinus arrhythmia. Left bundle branch is noted. No clear acute ST segment elevation with QTc 46. CONTINUOUS CARDIAC MONITORING: was ordered and showed a heart rate of 60s-70s bpm in sinus rhythm with bundle branch block. Patient's laboratory studies and imaging reviewed. Differential includes Infection, dehydration, metabolic abnormality, hypo/hyperglycemia, electrolyte disturbance, anemia, GI bleed, hypoxia, cardiac sources, intracerebral event, toxicologic, neurologic, as well as other pathologies. IMPRESSION/MEDICAL DECISION MAKING: Patient with downtrending hemoglobin. May be contributing to her symptoms. Is anticoagulated. Reports bloody stools. Given Protonix Protonix drip. Hemoglobin recheck seems stable from at 7.7. Patient does have a cardiac history and seems symptomatic however. Does not seem significant fluid overload clinical exam. Chest x-ray and blood work obtained to exclude findings of pneumonia. Anticoagulated and doubt PE. COVID test is sent for completeness purposes. Does have significant low iron in outpatient testing. No significant leukocytosis and I doubt sepsis. Benign abdomen. History of CKD. Do not see role at this time for CT of the abdomen pelvis. Some hyponatremia 129 worsened today when INR 2.1. Stable renal function 1.7. Troponin elevated. BNP elevated 387 but no priors for comparison. Chest x-ray question some congestive changes. Given cardiac history and her symptoms we will transfuse 1 unit packed red blood cells. Patient was consented and agreeable with this plan. Will bring in for further care. Will need to be monitored closely for any fluid overload from the transfusion and may benefit from some slight diuresis as able. Will give a small dose of Lasix for some diuresis. DIAGNOSIS: Acute blood loss anemia, weakness, dyspnea, bloody stools DISPOSITION: Hospitalist will evaluate Patient was agreeable with this plan. Critical Care I have personally spent 32 minutes of critical care time in the direct management of this patient. This includes bedside care, interpretation of diagnostic studies, and testing, discussion with consultants, patient, and family members, and other required patient management activities. These 32 minutes is in excess of all separately billable procedures. Past Med/Surg History Problem List Weakness (Acute) Bloody stools (Acute) ABLA (acute blood loss anemia) (Acute) Dyspnea (Acute) Chronic anticoagulation History of permanent cardiac pacemaker placement Hyperlipidemia Hypertension History of right breast cancer 2014 Paroxysmal atrial fibrillation Fatigue (Acute) Anemia SARAH on CPAP (Chronic) CKD (chronic kidney disease), stage III (Chronic) Colon polyps (Chronic) Acquired hypothyroidism (Chronic) HTN (hypertension) (Chronic) CAD (coronary artery disease) (Chronic) CKD (chronic kidney disease), stage III (Chronic) Hx of colonic polyps (Acute) "2/2 sub-total colectomy by Dr. Blackmon in November 2017" S/P AVR (aortic valve replacement) (Chronic 08/25/13) Medical History (Updated 02/02/25 @ 18:10 by Justyn Bella M.D.) Malignant neoplasm of upper-outer quadrant of female breast (09/12/14) "Self detected firmness of the right breast Status post abnormal mammogram and ultrasound Status post ultrasound-guided biopsy 09/12/2014 revealing 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, progesterone receptor positive, HER-2/estelita positive Status post lumpectomy and axillary dissection 11/04/2014 positive margin Pathologic stage [id number] Reexcision 12/10/2014 no residual disease Oncotype DX score of 28, patient decision to not have chemotherapy Status post completion of radiation therapy 02/07/2015 received 3850 cGy" On 02/17/15 13:48 Anh Pop wrote "Self detected firmness of the right breast Status post abnormal mammogram and ultrasound Status post ultrasound-guided biopsy 09/12/2014 revealing 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, progesterone receptor positive, HER-2/estelita positive Status post lumpectomy and axillary dissection 11/04/2014 positive margin Pathologic stage [id number] Reexcision 12/10/2014 no residual disease Status post completion of radiation therapy 02/07/2015 received 3850 cGy" On 02/17/15 13:48 Anh Pop wrote "Self detected firmness of the right breast Status post abnormal mammogram and ultrasound Status post ultrasound-guided biopsy 09/12/2014 revealing 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, progesterone receptor positive, HER-2/estelita positive Status post lumpectomy and axillary dissection 11/04/2014 positive margin Pathologic stage [id number] Reexcision 12/10/2014 no residual disease Status post completion of radiation therapy 02/07/2015 received 3850 cGy" On 01/08/15 12:44 Anh Pop wrote "Self detected firmness of the right breast Status post abnormal mammogram and ultrasound Status post ultrasound-guided biopsy 09/12/2014 revealing 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, progesterone receptor positive, HER-2/estelita positive Status post lumpectomy and axillary dissection 11/04/2014 positive margin Pathologic stage [id number] Reexcision 12/10/2014 no residual disease" Bradycardia TONY (acute kidney injury) Hyponatremia Anemia Balance problem Poor historian Kidney stones hx Hypothyroidism Cancer of right breast sx, radiation, oral chemo On anticoagulant therapy warfarin daily History of transesophageal echocardiography (JAMEL) for monitoring Cardiac murmur followed with Dr. Sofia, has not seen new physician Sleep apnea cpap Thyroid cancer sx History of colon polyps Surgical History History of cystoscopy History of aortic aneurysm repair History of anesthesia reaction History of bilateral tubal ligation History of open reduction and internal fixation (ORIF) procedure History of open reduction and internal fixation (ORIF) procedure History of colonoscopy History of esophagogastroduodenoscopy (EGD) History of partial mastectomy of right breast History of right breast biopsy History of tooth extraction History of tonsillectomy and adenoidectomy History of cardiac cath History of aortic valve replacement History of mitral valve replacement History of thyroidectomy History of partial colectomy Family History Brother Family history of diabetes mellitus Family hx of colon cancer Father Family history of diabetes mellitus Other No family history of adverse response to anesthesia Social History Smoking Status: Current every day smoker Tobacco Type: Cigarettes Age Started Using Tobacco: 17; packs per day: 0.25; Cigarettes Per Day: 1/2 PPD; Second Hand Exposure: Yes ( smokes); Do You Dip or Chew Tobacco: No; Hx Alcohol Use: No Hx Substance Use: No Preferred Language: Malawian Communication Ability: Effective Sugar Sampler Required: No Beliefs That Will Affect Care: None Current Living Situation: Spouse Current Living Situation Comment: apartment with Feels Safe at Home: Yes Assistive Devices: Cane Allergies Allergies Allergy/AdvReac Type Severity Reaction Status Date / Time No Known Allergies Allergy Verified 01/31/25 10:44 Home Meds Home Medications Medication Instructions Recorded Confirmed amiodarone 200 mg tablet 200 mg PO QAM 08/16/18 02/02/25 aspirin 81 mg tablet,delayed 81 mg PO QPM 08/16/18 02/02/25 release (Yocasta Low Dose Aspirin) atorvastatin 10 mg tablet 10 mg PO QPM 08/16/18 02/02/25 levothyroxine 137 mcg tablet 137 mcg PO QAM 08/16/18 02/02/25 potassium citrate 10 mEq (1,080 10 meq PO BID 04/23/19 02/02/25 mg) tablet,extended release pantoprazole 20 mg tablet,delayed 20 mg PO QAM 12/02/22 02/02/25 release lisinopril 10 1 tab PO DAILY 01/04/24 02/02/25 mg-hydrochlorothiazide 12.5 mg tablet albuterol sulfate 90 mcg/actuation 2 inh inhalation Q6H PRN Shortness 12/20/24 02/02/25 aerosol inhaler Of Breath umeclidinium 62.5 mcg-vilanterol 1 inh inhalation DAILY 12/20/24 02/02/25 25 mcg/actuation powdr for inhalation (Anoro Ellipta) warfarin 5 mg tablet See Rx Instructions PO DAILY 12/20/24 02/02/25 multivitamin with minerals-folic 1 tab PO DAILY 02/02/25 02/02/25 acid 120 mcg chewable tablet (Adult Multivitamin Gummies) Previous Rx's Medication Instructions Recorded metoprolol succinate 25 mg 25 mg PO QAM #30 tabs 01/11/24 tablet,extended release 24 hr Results & Data (ED) Vital Signs Vital Signs - 24 hr 02/02/25 17:02 02/02/25 17:27 02/02/25 18:00 Temperature 36.9 C Temperature Source Temporal Artery Scan Pulse Rate 72 69 Pulse Rate [Apical] Respiratory Rate 16 Respiratory Effort / Characteristics Respiratory Depth Respiratory Pattern Blood Pressure 159/64 H Blood Pressure [Left Arm] Blood Pressure Mean 95 Blood Pressure Mean [Left Arm] Blood Pressure Position [Left Arm] Pulse Oximetry 100 99 Oxygen Delivery Method Room Air Room Air Sepsis Recent Fever Within 48 Hours No Sepsis New/Unexplained Change in Mental Status No Sepsis Action Taken by Nursing No Action Required 02/02/25 19:12 02/02/25 19:33 02/02/25 20:00 Temperature Temperature Source Pulse Rate 62 75 Pulse Rate [Apical] 72 Respiratory Rate 20 18 18 Respiratory Effort / Characteristics Non-Labored Respiratory Depth Normal Respiratory Pattern Regular Blood Pressure 152/87 H Blood Pressure [Left Arm] 155/63 H Blood Pressure Mean 108 Blood Pressure Mean [Left Arm] 93 Blood Pressure Position [Left Arm] Sitting Pulse Oximetry 100 99 98 Oxygen Delivery Method Room Air Room Air Room Air Sepsis Recent Fever Within 48 Hours Sepsis New/Unexplained Change in Mental Status Sepsis Action Taken by Nursing Laboratory Data 02/02/25 17:22 02/02/25 17:22 Lab Results 02/02/25 02/02/25 02/02/25 Range/Units 17:22 17:22 19:01 WBC 4.54 L (4.8-10.8) K/ul RBC 2.89 L (4.20-5.40) M/uL Hgb 7.7 L (12.0-16.0) g/dl Hct 24.5 L (37.0-47.0) % MCV 84.8 (80.0-100.0) fL MCH 26.6 (25.0-34.0) pg MCHC 31.4 L (32.0-36.0) g/dL RDW Std Deviation 45.6 (36.4-46.3) fL RDW Coeff of Kallie 14.6 H (11.5-14.5) % Plt Count 295 (130-400) K/uL MPV 8.4 L (9.4-12.4) fL Immature Gran % (Auto) 0.2 % Neut % (Auto) 64.4 % Lymph % (Auto) 24.0 % Door % (Auto) 9.0 % Eos % (Auto) 2.2 % Baso % (Auto) 0.2 % Neut # (Auto) 2.92 (1.40-6.50) K/uL Lymph # (Auto) 1.09 L (1.20-3.40) K/uL Door # (Auto) 0.41 (0.11-0.59) K/uL Eos # (Auto) 0.10 (0.00-0.50) K/uL Baso # (Auto) 0.01 (0.00-0.20) K/uL Immature Gran # (Auto) 0.01 (0.01-0.20) K/uL Polychromasia 2+ PT 20.9 H (9.0-12.0) Seconds INR 2.1 H (0.9-1.1) APTT 38 H (21-31) Seconds PTT Ratio 1.4 Sodium 129 L (136-145) mmol/L Potassium 4.1 (3.5-5.1) mmol/L Chloride 98 (98-107) mmol/L Carbon Dioxide 24 (21-32) mmol/L Anion Gap 7 (3-11) BUN 18 (6-23) mg/dl Creatinine 1.74 H (0.6-1.2) mg/dl Est Cr Clr Drug Dosing 27.4 ml/min eGFR 29.30 BUN/Creatinine Ratio 10.3 (10-20) Glucose 104 H (70-99(Fasting)) mg/dl Calcium 9.3 (8.6-10.3) mg/dl Iron 13 L (35-150) mcg/dl TIBC 493 H (250-450) mcg/dl Transferrin 352 (200-360) mg/dl Transferrin % Sat 3 L (15-50) % Total Bilirubin 0.4 (0.2-1.0) mg/dl AST 29 (13-39) U/L ALT 16 (7-52) U/L Alkaline Phosphatase 35 (34-104) U/L Troponin I High Sens 11.7 (0-14) pg/ml B-Natriuretic Peptide 387 H (0-100) pg/ml Total Protein 7.6 (6.0-8.3) gm/dl Albumin 3.7 (3.4-5.0) gm/dl Globulin 3.9 (2.5-4.0) gm/dl Albumin/Globulin Ratio 0.9 (0.9-2) SARS-CoV-2, RNA, NAAT NEGATIVE (NEGATIVE) Blood Type O Negative Antibody Screen POSITIVE A Antibody Identification Anti-C Anti-D Crossmatch See Detail Administered Medications Pantoprazole Sodium 40 mg/ (Dextrose) 100 mls @ 20 mls/hr IV Q5H PATTY Stop: 03/04/25 17:44 Last Admin: 02/02/25 17:37 Dose: 8 mg/hr, 20 mls/hr Documented By: IRAM Discontinued Medications Furosemide (Furosemide Inj 20 Mg/2 Ml Vial) 20 mg IV ONE ONE Stop: 02/02/25 18:22 Last Admin: 02/02/25 18:53 Dose: 20 mg Documented By: IRAM Pantoprazole Sodium 80 mg/ (Dextrose) 120 mls @ 480 mls/hr IV NOW ONE Stop: 02/02/25 17:29 Last Infusion: 02/02/25 17:52 Dose: Infused Documented By: Admin: 02/02/25 17:37 Dose: 480 mls/hr Documented By: IRAM Pantoprazole Sodium (Pantoprazole Bolus/Drip) 1 each IV NOW STA Stop: 02/02/25 17:16 Last Admin: 02/02/25 17:38 Dose: Not Given Documented By: IRAM Imaging Data Radiologist's Impression: Chest X-Ray 02/02/25 17:40 EXAM: Portable AP chest radiograph TECHNIQUE: AP portable radiograph of the chest was obtained. INDICATION: Shortness of breath Comparison: None FINDINGS: LINES and TUBES: Left-sided cardiac pacemaker with leads projecting over the right atrium and the right ventricle of the heart. CARDIOVASCULAR: Cardiac silhouette is enlarged in size. LUNGS/PLEURA: Mild pulmonary vascular congestion and chronic interstitial lung changes. Right basilar scarring. No focal consolidation identified. No significant pleural fluid. No discernible pneumothorax. OSSEOUS/OTHER: No displaced acute osseous process identified. Median sternotomy wires. ORIF of the left clavicle with plate and screws. IMPRESSION: Congestive changes of the cardiovascular system as above. Electronically signed by Thomas Jefferson 02-02-2025 6:02 PM Discharge Plan Visit Data Chief Complaint: Shortness of Breath/Dyspnea Stated Complaint: shortness of breath, fatigue, anemia ED Provider: Justyn Bella Discharge Problem: Dyspnea, ABLA (acute blood loss anemia), Bloody stools, Weakness Patient Disposition: Being Evaluated by Hospitalist Condition: Fair Forms Stand Alone Forms: My [facility] Prescriptions Prescriptions: No Action warfarin 5 mg tablet See Rx Instructions PO DAILY Rx Instructions: 7.5 mg Mon Tue and 5 mg x 5 days orally daily; umeclidinium-vilanterol [Anoro Ellipta] 62.5-25 mcg/actuation blister with device 1 inh inhalation DAILY albuterol sulfate 90 mcg/actuation HFA aerosol inhaler 2 inh inhalation Q6H PRN (Reason: Shortness Of Breath) potassium citrate 10 mEq (1,080 mg) Tablet Extended Release 10 meq PO BID levothyroxine 137 mcg Tablet 137 mcg PO QAM atorvastatin 10 mg Tablet 10 mg PO QPM amiodarone 200 mg Tablet 200 mg PO QAM aspirin [Yocasta Low Dose Aspirin] 81 mg Tablet,Delayed Release (Dr/Ec) 81 mg PO QPM pantoprazole 20 mg Tablet,Delayed Release (Dr/Ec) 20 mg PO QAM lisinopril-hydrochlorothiazide 10-12.5 mg tablet 1 tab PO DAILY metoprolol succinate 25 mg Tablet Extended Release 24 Hr 25 mg PO QAM Qty: 30 0RF multivit with min-folic acid [Adult Multivitamin Gummies] 120 mcg Tablet,Chewable 1 tab PO DAILY Referrals Referrals: Veronica Caban CRNP [Primary Care Provider] -
[2025-02-02 17:53] LABS: Alanine Aminotransferase 16.0 U/L (7-52); Albumin Globulin Ratio 0.9 (0.9-2); Alkaline Phosphatase 35.0 U/L (34-104); Anion Gap 7.0 (3-11); Bilirubin,Total 0.4 mg/dl (0.2-1.0); Blood Urea Nitrogen 18.0 mg/dl (6-23); Calcium 9.3 mg/dl (8.6-10.3); Carbon Dioxide 24.0 mmol/L (21-32); Chloride 98.0 mmol/L (98-107); Creatinine Clr Calc Pharmacy 27.4 ml/min; Globulin 3.9 gm/dl (2.5-4.0); Glucose 104.0 mg/dl (70-99(Fasting)); Polychromasia 2+; Potassium 4.1 mmol/L (3.5-5.1); Sodium 129.0 mmol/L (136-145); Total Protein 7.6 gm/dl (6.0-8.3)
--- NOTE | 2025-02-02 18:03 | XRay Report ---
EXAM: Portable AP chest radiograph TECHNIQUE: AP portable radiograph of the chest was obtained. INDICATION: Shortness of breath Comparison: None FINDINGS: LINES and TUBES: Left-sided cardiac pacemaker with leads projecting over the right atrium and the right ventricle of the heart. CARDIOVASCULAR: Cardiac silhouette is enlarged in size. LUNGS/PLEURA: Mild pulmonary vascular congestion and chronic interstitial lung changes. Right basilar scarring. No focal consolidation identified. No significant pleural fluid. No discernible pneumothorax. OSSEOUS/OTHER: No displaced acute osseous process identified. Median sternotomy wires. ORIF of the left clavicle with plate and screws. IMPRESSION: Congestive changes of the cardiovascular system as above. Electronically signed by Thomas Jefferson 02-02-2025 6:02 PM
[2025-02-02 18:05] LABS: INR 2.1 (0.9-1.1); Partial Thromboplastin Time 38 Seconds (21-31); Prothrombin Time 20.9 Seconds (9.0-12.0)
[2025-02-02] MEDS ORDERED: SODIUM CHLORIDE 0.9% 100 ML IV PRN (18:21)
--- NOTE | 2025-02-02 18:50 | History & Physical Report ---
Date of Service February 02, 2025 Assessment & Plan (1) Weakness: (2) Dyspnea: (3) Chronic anticoagulation: (4) Bloody stools: (5) ABLA (acute blood loss anemia): (6) History of permanent cardiac pacemaker placement: (7) Hyperlipidemia: (8) Paroxysmal atrial fibrillation: (9) S/P AVR (aortic valve replacement): (10) S/P MVR (mitral valve replacement): Plan #Symptomatic anemia - Hgb drop from 10 > 7.7, currently stable compared to two days ago - given symptoms, 1 unit PRBC ordered in the ED with Lasix 20mg IV x1 - check iron studies (to be drawn before PRBC transfusion) - monitor Hgb q6h - GI evaluation - cont PPI gtt - hold warfarin at this time (INR: 2.1) - pt is hemodynamically stable, will hold off on IV fluids #Hyponatremia - pt is on lisinopril-HCTZ combination - HCTZ should be discontinued indefinitely - trend Na at this time #HTN - hold lisinopril for now #AFib - cont amiodarone - hold metoprolol for now - hold Coumadin, last dose on 02/01/25 #Hypothyroidism - cont levothyroxine #HLD - cont statin #COPD - cont home inhalers #DVT ppx: contraindicated History of Present Illness Chief Complaint: Fatigue, shortness of breath, weakness Primary Care Provider: JED Horne 79 yr old F with PMHx of AFib s/p PPM on warfarin, HTN, SARAH, CKD IV, CAD, active smoker, bioprosthetic aortic and mitral valve replacement. She presents to today to [facility] for the evaluation of worsening dyspnea and fatigue. She has been having these symptoms for about 1 to 2 weeks. She had Hgb checked in November and it was 10.6. She had Hgb check on 01/31 and it was 7.6. Today it is 7.7. She also reports ACEVEDO which has worsened to dyspnea at rest. She noted that she has BRBPR with every BM. She reports melanotic stool, but could not clarify whether it was truly dark / tarry stool. She was scheduled for outpatient GI follow up on 02/05, however given persistent darker stools with along with BRBPR with every BM she was instructed to come into the hospital for further evaluation. She denies use of NSAIDs, recent steroid use, N/V, fevers, alcohol consumption. Allergies Allergy/AdvReac Type Severity Reaction Status Date / Time No Known Allergies Allergy Verified 01/31/25 10:44 Home Medications Medication Instructions Recorded Confirmed Type amiodarone 200 mg tablet 200 mg PO QAM 08/16/18 02/02/25 History aspirin 81 mg tablet,delayed 81 mg PO QPM 08/16/18 02/02/25 History release (Yocasta Low Dose Aspirin) atorvastatin 10 mg tablet 10 mg PO QPM 08/16/18 02/02/25 History levothyroxine 137 mcg tablet 137 mcg PO QAM 08/16/18 02/02/25 History potassium citrate 10 mEq (1,080 10 meq PO BID 04/23/19 02/02/25 History mg) tablet,extended release pantoprazole 20 mg tablet,delayed 20 mg PO QAM 12/02/22 02/02/25 History release lisinopril 10 1 tab PO DAILY 01/04/24 02/02/25 History mg-hydrochlorothiazide 12.5 mg tablet metoprolol succinate 25 mg 25 mg PO QAM #30 tabs 01/11/24 02/02/25 Rx tablet,extended release 24 hr albuterol sulfate 90 mcg/actuation 2 inh inhalation Q6H PRN Shortness 12/20/24 02/02/25 History aerosol inhaler Of Breath umeclidinium 62.5 mcg-vilanterol 1 inh inhalation DAILY 12/20/24 02/02/25 History 25 mcg/actuation powdr for inhalation (Anoro Ellipta) warfarin 5 mg tablet See Rx Instructions PO DAILY 12/20/24 02/02/25 History multivitamin with minerals-folic 1 tab PO DAILY 02/02/25 02/02/25 History acid 120 mcg chewable tablet (Adult Multivitamin Gummies) Past Med/Surg History Problem List Weakness (Acute) Bloody stools (Acute) ABLA (acute blood loss anemia) (Acute) Dyspnea (Acute) Chronic anticoagulation History of permanent cardiac pacemaker placement Hyperlipidemia Hypertension History of right breast cancer 2014 Paroxysmal atrial fibrillation Fatigue (Acute) Anemia SARAH on CPAP (Chronic) CKD (chronic kidney disease), stage III (Chronic) Colon polyps (Chronic) Acquired hypothyroidism (Chronic) HTN (hypertension) (Chronic) CAD (coronary artery disease) (Chronic) CKD (chronic kidney disease), stage III (Chronic) Hx of colonic polyps (Acute) "2/2 sub-total colectomy by Dr. 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, progesterone receptor positive, HER-2/estelita positive Status post lumpectomy and axillary dissection 11/04/2014 positive margin Pathologic stage [id number] Reexcision 12/10/2014 no residual disease Oncotype DX score of 28, patient decision to not have chemotherapy Status post completion of radiation therapy 02/07/2015 received 3850 cGy" On 02/17/15 13:48 Ahn Pop wrote "Self detected firmness of the right breast Status post abnormal mammogram and ultrasound Status post ultrasound-guided biopsy 09/12/2014 revealing 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, progesterone receptor positive, HER-2/estelita positive Status post lumpectomy and axillary dissection 11/04/2014 positive margin Pathologic stage [id number] Reexcision 12/10/2014 no residual disease Status post completion of radiation therapy 02/07/2015 received 3850 cGy" On 02/17/15 13:48 Anh Pop wrote "Self detected firmness of the right breast Status post abnormal mammogram and ultrasound Status post ultrasound-guided biopsy 09/12/2014 revealing 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, progesterone receptor positive, HER-2/estelita positive Status post lumpectomy and axillary dissection 11/04/2014 positive margin Pathologic stage [id number] Reexcision 12/10/2014 no residual disease Status post completion of radiation therapy 02/07/2015 received 3850 cGy" On 01/08/15 12:44 Anh Pop wrote "Self detected firmness of the right breast Status post abnormal mammogram and ultrasound Status post ultrasound-guided biopsy 09/12/2014 revealing 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 Sofia, has not seen new physician Sleep apnea cpap Thyroid cancer sx History of colon polyps Surgical History History of cystoscopy History of aortic aneurysm repair History of anesthesia reaction History of bilateral tubal ligation History of open reduction and internal fixation (ORIF) procedure History of open reduction and internal fixation (ORIF) procedure History of colonoscopy History of esophagogastroduodenoscopy (EGD) History of partial mastectomy of right breast History of right breast biopsy History of tooth extraction History of tonsillectomy and adenoidectomy History of cardiac cath History of aortic valve replacement History of mitral valve replacement History of thyroidectomy History of partial colectomy Family History Brother Family history of diabetes mellitus Family hx of colon cancer Father Family history of diabetes mellitus Other No family history of adverse response to anesthesia Social History Smoking Status: Current every day smoker Tobacco Type: Cigarettes Age Started Using Tobacco: 17; packs per day: 0.25; Cigarettes Per Day: 1/2 PPD; Second Hand Exposure: Yes ( smokes); Do You Dip or Chew Tobacco: No; Hx Alcohol Use: No Hx Substance Use: No Preferred Language: Maltese Communication Ability: Effective Open Hearth Melter Required: No Beliefs That Will Affect Care: None Current Living Situation: Spouse Current Living Situation Comment: apartment with Feels Safe at Home: Yes Assistive Devices: Cane Physical Exam Physical Exam: Gen: no acute distress HEENT: NC/AT, pallor Lungs: CTAB CVS: [id number], RRR Abd: soft, NT, normal bowel sounds : no delong Ext: no edema, spider veins b/l Neuro: AAOx3 Psych: calm / cooperative Results & Data Results & Data Vital Signs (Past 12 Hours) Vital Signs Temp Pulse Resp BP Pulse Ox O2 Del Method 02/02/25 17:27 69 02/02/25 17:02 36.9 C 72 16 159/64 H 100 Room Air PG Care Time/CCT Total # of Minutes Spent Total Time Spent with Patient: Total time spent is greater than 50% in coordination of care (as documented) at patient's floor/unit and/or counseling patient: Coding Level of Care Code 10494 INT INP/OBS CARE 3/75MIN Diagnoses Weakness R53.1 Dyspnea R06.00 Chronic anticoagulation Z79.01 Bloody stools K92.1 ABLA (acute blood loss anemia) D62 History of permanent cardiac pacemaker placement Z95.0 Hyperlipidemia E78.5 Paroxysmal atrial fibrillation I48.0 S/P AVR (aortic valve replacement) Z95.2 S/P MVR (mitral valve replacement) Z95.2
[2025-02-02] MEDS: FUROSEMIDE INJ 20 MG/2 ML VIAL IV ONE (18:53)
[2025-02-02 19:49] LABS: Iron 13.0 mcg/dl (35-150); Total Iron Binding Cap Calc 493.0 mcg/dl (250-450); Transferrin 352.0 mg/dl (200-360); Transferrin (FE) Percent Satur 3.0 % (15-50)
[2025-02-02] MEDS ORDERED: MELATONIN 3 MG TAB PO PRN (22:27)
[2025-02-02] MEDS ORDERED: ACETAMINOPHEN 325 MG TAB PO PRN (22:27)
[2025-02-02] MEDS ORDERED: ALBUTEROL HFA 8 GM INHALER INH PRN (22:27)
[2025-02-02] MEDS ORDERED: ONDANSETRON INJ 2 MG/ML 2 ML VIAL IV PRN (22:27)
[2025-02-02] MEDS: ATORVASTATIN 10 MG TAB PO SCH (23:34)
[2025-02-03] MEDS: TROLAMINE SALICYLATE 10% CRM 255 APPLN/85 GM TUBE EXT PRN (02:14)
[2025-02-03 03:43] LABS: Hematocrit (blood only) 27.7 % (37.0-47.0); Hematocrit (blood only) 28.2 % (37.0-47.0); Hemoglobin 8.8 g/dl (12.0-16.0); Hemoglobin 8.9 g/dl (12.0-16.0); Mean Corpuscular Hemoglobin 26.5 pg (25.0-34.0); Mean Corpuscular Volume 83.9 fL (80.0-100.0); Platelet Count 271 K/uL (130-400); RDW Standard Deviation 44.1 fL (36.4-46.3); Red Blood Count 3.36 M/uL (4.20-5.40); White Blood Count 5.29 K/ul (4.8-10.8)
[2025-02-03 03:59] LABS: Anion Gap 8.0 (3-11); Blood Urea Nitrogen 16.0 mg/dl (6-23); Calcium 9.4 mg/dl (8.6-10.3); Carbon Dioxide 25.0 mmol/L (21-32); Chloride 99.0 mmol/L (98-107); Creatinine Clr Calc Pharmacy 28.9 ml/min; Glucose 87.0 mg/dl (70-99(Fasting)); Magnesium 1.7 mg/dl (1.7-2.4); Potassium 3.8 mmol/L (3.5-5.1); Sodium 132.0 mmol/L (136-145)
[2025-02-03] MEDS: LEVOTHYROXINE SODIUM 137 MCG TABLET PO SCH (06:19)
[2025-02-03] MEDS: AMIODARONE 200 MG TAB PO SCH (08:53)
[2025-02-03] MEDS: UMECLIDINIUM/VILANTEROL 62.5/25MCG 7 PUFFS/INHALER INH SCH (08:53)
--- NOTE | 2025-02-03 09:04 | Gastrointestinal Consultation ---
Date of Consultation February 03, 2025 Assessment & Plan (1) Bloody stools: Pleasant lady with hematochezia who has undergone full workup within the last year. It has been felt her bleeding was hemorrhoidal and I agree with that. I do not think she needs repeat evaluation but will leave that up to the primary GI team when they take over tomorrow. I advised her that she needs to reconsider hemorrhoidectomy as she has had anemia problems related to her bleeding. I also advised her that the capsule would likely not get stuck as she has never had problems with obstruction in the past. She is going to think about things. History of Present Illness Reason for Consultation: hematochezia Attending Physician: Torie Ramirez MD History of Present Illness 79 year old female admitted with symptomatic anemia. She reports bright red blood with every bowel movement. She does not have issues with bleeding between bowel movements. It is with every bowel movement and always bright red. She gets a lot of blood on the tissue as well. She denies any pain with it. She denies abdominal pain, nausea or vomiting. She denies seeing any black stools to me. She had an EGD and a colonoscopy last year in December and it was felt that she was likely having hemorrhoidal bleeding. It was suggested to her that she see a surgeon about her hemorrhoids and also to pursue capsule endoscopy to complete the workup. She tells me she has seen a surgeon and decided she didn't want to fool with hemorrhoid surgery. She also tells me that she met with someone about capsule endoscopy and was told the only risk was that it could get stuck. She says she refused it because she didn't want anything getting stuck. Allergies Allergy/AdvReac Type Severity Reaction Status Date / Time No Known Allergies Allergy Verified 01/31/25 10:44 Home Medications Medication Instructions Recorded Confirmed Type amiodarone 200 mg tablet 200 mg PO QAM 08/16/18 02/02/25 History aspirin 81 mg tablet,delayed 81 mg PO QPM 08/16/18 02/02/25 History release (Yocasta Low Dose Aspirin) atorvastatin 10 mg tablet 10 mg PO QPM 08/16/18 02/02/25 History levothyroxine 137 mcg tablet 137 mcg PO QAM 08/16/18 02/02/25 History potassium citrate 10 mEq (1,080 10 meq PO BID 04/23/19 02/02/25 History mg) tablet,extended release pantoprazole 20 mg tablet,delayed 20 mg PO QAM 12/02/22 02/02/25 History release lisinopril 10 1 tab PO DAILY 01/04/24 02/02/25 History mg-hydrochlorothiazide 12.5 mg tablet metoprolol succinate 25 mg 25 mg PO QAM #30 tabs 01/11/24 02/02/25 Rx tablet,extended release 24 hr albuterol sulfate 90 mcg/actuation 2 inh inhalation Q6H PRN Shortness 12/20/24 02/02/25 History aerosol inhaler Of Breath umeclidinium 62.5 mcg-vilanterol 1 inh inhalation DAILY 12/20/24 02/02/25 History 25 mcg/actuation powdr for inhalation (Anoro Ellipta) warfarin 5 mg tablet See Rx Instructions PO DAILY 12/20/24 02/02/25 History multivitamin with minerals-folic 1 tab PO DAILY 02/02/25 02/02/25 History acid 120 mcg chewable tablet (Adult Multivitamin Gummies) Patient History Medical History Malignant neoplasm of upper-outer quadrant of female breast (09/12/14) "Self detected firmness of the right breast Status post abnormal mammogram and ultrasound Status post ultrasound-guided biopsy 09/12/2014 revealing 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, progesterone receptor positive, HER-2/estelita positive Status post lumpectomy and axillary dissection 11/04/2014 positive margin Pathologic stage [id number] Reexcision 12/10/2014 no residual disease Oncotype DX score of 28, patient decision to not have chemotherapy Status post completion of radiation therapy 02/07/2015 received 3850 cGy" On 02/17/15 13:48 Anh Pop wrote "Self detected firmness of the right breast Status post abnormal mammogram and ultrasound Status post ultrasound-guided biopsy 09/12/2014 revealing 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, progesterone receptor positive, HER-2/estelita positive Status post lumpectomy and axillary dissection 11/04/2014 positive margin Pathologic stage [id number] Reexcision 12/10/2014 no residual disease Status post completion of radiation therapy 02/07/2015 received 3850 cGy" On 02/17/15 13:48 Anh Pop wrote "Self detected firmness of the right breast Status post abnormal mammogram and ultrasound Status post ultrasound-guided biopsy 09/12/2014 revealing 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, progesterone receptor positive, HER-2/estelita positive Status post lumpectomy and axillary dissection 11/04/2014 positive margin Pathologic stage [id number] Reexcision 12/10/2014 no residual disease Status post completion of radiation therapy 02/07/2015 received 3850 cGy" On 01/08/15 12:44 Anh Pop wrote "Self detected firmness of the right breast Status post abnormal mammogram and ultrasound Status post ultrasound-guided biopsy 09/12/2014 revealing 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 Sofia, has not seen new physician Sleep apnea cpap Thyroid cancer sx History of colon polyps Surgical History History of cystoscopy STENT INSERTED History of aortic aneurysm repair History of anesthesia reaction difficulty waking after heart surgery History of bilateral tubal ligation History of open reduction and internal fixation (ORIF) procedure collar bone fx---hardware in place History of open reduction and internal fixation (ORIF) procedure left leg---hardware removed History of colonoscopy History of esophagogastroduodenoscopy (EGD) History of partial mastectomy of right breast History of right breast biopsy malignant History of tooth extraction History of tonsillectomy and adenoidectomy History of cardiac cath 2014 @ [facility], no stents [place] of [place] [facility] [facility] [place] of [place] [facility] [place] [place] History of thyroidectomy History of partial colectomy 2018 d/t colon polyps Family History Brother Family history of diabetes mellitus Family hx of colon cancer Father Family history of diabetes mellitus Other No family history of adverse response to anesthesia Social History Smoking Status: Current every day smoker Tobacco Type: Cigarettes Age Started Using Tobacco: 17; packs per day: 0.25; Cigarettes Per Day: 6; Second Hand Exposure: No; Do You Dip or Chew Tobacco: No; Tobacco Cessation Education Requested by Patient: No Hx Alcohol Use: No Hx Substance Use: No Preferred Language: Iranian Communication Ability: Effective Internet Ecommerce Specialist Required: No Beliefs That Will Affect Care: None Current Living Situation: Spouse Current Living Situation Comment: apartment with Other Information That Helps Us Care for You: No Feels Safe at Home: Yes Safety Concerns: Feels Safe At This Time Assistive Devices: Cane and Denture - Upper Review of Systems Review of Systems: All systems reviewed & are unremarkable except as noted in HPI & below Physical Exam Physical Exam: Pleasant elderly female in no distress Constitutional: WD/WN, vitals as above Neck: trachea midline, no thyromegaly Respiratory: normal respiratory effort, lungs clear to auscultation Cardiovascular: RRR, no murmur, no edema Gastrointestinal (Abdomen): normal bowel sounds, soft, nontender, no hepatosplenomegaly Results & Data Vital Signs (Past 12 Hours) Vital Signs Temp Pulse Pulse Pulse Resp BP BP 02/03/25 07:48 36.3 C L 61 18 137/80 02/03/25 03:15 36.4 C L 65 20 149/71 H 02/03/25 02:00 36.5 C 58 L 18 120/73 02/03/25 01:11 36.7 C 65 18 134/82 02/03/25 00:11 36.5 C 65 16 164/81 H 02/02/25 23:41 36.5 C 65 18 136/73 02/02/25 23:26 36.3 C L 62 18 119/76 02/02/25 23:09 36.9 C 61 18 149/63 H 02/02/25 22:45 02/02/25 22:31 60 02/02/25 22:29 36.7 C 66 20 151/69 H 02/02/25 22:02 08/09/25 22:00 77 17 142/74 H Pulse Ox O2 Del Method 02/03/25 07:48 95 Room Air 02/03/25 03:15 91 Room Air 02/03/25 02:00 94 02/03/25 01:11 95 02/03/25 00:11 100 02/02/25 23:41 94 02/02/25 23:26 96 02/02/25 23:09 94 02/02/25 22:45 Room Air 02/02/25 22:31 02/02/25 22:29 100 Room Air 02/02/25 22:02 Room Air 02/02/25 22:00 96 Room Air Laboratory Results 02/03/25 02/03/25 02/03/25 Range/Units 03:25 03:25 03:25 WBC 5.29 (4.8-10.8) K/ul RBC 3.36 L (4.20-5.40) M/uL Hgb 8.9 L 8.8 L (12.0-16.0) g/dl Hct 28.2 L 27.7 L (37.0-47.0) % MCV 83.9 (80.0-100.0) fL MCH 26.5 (25.0-34.0) pg MCHC 31.6 L (32.0-36.0) g/dL RDW Std Deviation 44.1 (36.4-46.3) fL RDW Coeff of Kallie 14.4 (11.5-14.5) % Plt Count 271 (130-400) K/uL MPV 9.0 L (9.4-12.4) fL Immature Gran % (Auto) % Neut % (Auto) % Lymph % (Auto) % Bradford % (Auto) % Eos % (Auto) % Baso % (Auto) % Neut # (Auto) (1.40-6.50) K/uL Lymph # (Auto) (1.20-3.40) K/uL Bradford # (Auto) (0.11-0.59) K/uL Eos # (Auto) (0.00-0.50) K/uL Baso # (Auto) (0.00-0.20) K/uL Immature Gran # (Auto) (0.01-0.20) K/uL Polychromasia PT (9.0-12.0) Seconds INR (0.9-1.1) APTT (21-31) Seconds PTT Ratio Sodium 132 L (136-145) mmol/L Potassium 3.8 (3.5-5.1) mmol/L Chloride 99 (98-107) mmol/L Carbon Dioxide 25 (21-32) mmol/L Anion Gap 8 (3-11) BUN 16 (6-23) mg/dl Creatinine 1.65 H (0.6-1.2) mg/dl Est Cr Clr Drug Dosing 28.9 ml/min eGFR 31.23 BUN/Creatinine Ratio 9.7 L (10-20) Glucose 87 (70-99(Fasting)) mg/dl Calcium 9.4 (8.6-10.3) mg/dl Phosphorus 3.2 (2.5-4.9) mg/dl Magnesium 1.7 (1.7-2.4) mg/dl Iron (35-150) mcg/dl TIBC (250-450) mcg/dl Transferrin (200-360) mg/dl Transferrin % Sat (15-50) % Total Bilirubin (0.2-1.0) mg/dl AST (13-39) U/L ALT (7-52) U/L Alkaline Phosphatase (34-104) U/L Troponin I High Sens (0-14) pg/ml B-Natriuretic Peptide (0-100) pg/ml Total Protein (6.0-8.3) gm/dl Albumin (3.4-5.0) gm/dl Globulin (2.5-4.0) gm/dl Albumin/Globulin Ratio (0.9-2) SARS-CoV-2, RNA, NAAT (NEGATIVE) Blood Type Antibody Screen Antibody Identification Antibody ID Comment Crossmatch 02/02/25 02/02/25 02/02/25 Range/Units 19:01 17:22 17:22 WBC 4.54 L (4.8-10.8) K/ul RBC 2.89 L (4.20-5.40) M/uL Hgb 7.7 L (12.0-16.0) g/dl Hct 24.5 L (37.0-47.0) % MCV 84.8 (80.0-100.0) fL MCH 26.6 (25.0-34.0) pg MCHC 31.4 L (32.0-36.0) g/dL RDW Std Deviation 45.6 (36.4-46.3) fL RDW Coeff of Kallie 14.6 H (11.5-14.5) % Plt Count 295 (130-400) K/uL MPV 8.4 L (9.4-12.4) fL Immature Gran % (Auto) 0.2 % Neut % (Auto) 64.4 % Lymph % (Auto) 24.0 % Bradford % (Auto) 9.0 % Eos % (Auto) 2.2 % Baso % (Auto) 0.2 % Neut # (Auto) 2.92 (1.40-6.50) K/uL Lymph # (Auto) 1.09 L (1.20-3.40) K/uL Bradford # (Auto) 0.41 (0.11-0.59) K/uL Eos # (Auto) 0.10 (0.00-0.50) K/uL Baso # (Auto) 0.01 (0.00-0.20) K/uL Immature Gran # (Auto) 0.01 (0.01-0.20) K/uL Polychromasia 2+ PT 20.9 H (9.0-12.0) Seconds INR 2.1 H (0.9-1.1) APTT 38 H (21-31) Seconds PTT Ratio 1.4 Sodium 129 L (136-145) mmol/L Potassium 4.1 (3.5-5.1) mmol/L Chloride 98 (98-107) mmol/L Carbon Dioxide 24 (21-32) mmol/L Anion Gap 7 (3-11) BUN 18 (6-23) mg/dl Creatinine 1.74 H (0.6-1.2) mg/dl Est Cr Clr Drug Dosing 27.4 ml/min eGFR 29.30 BUN/Creatinine Ratio 10.3 (10-20) Glucose 104 H (70-99(Fasting)) mg/dl Calcium 9.3 (8.6-10.3) mg/dl Phosphorus (2.5-4.9) mg/dl Magnesium (1.7-2.4) mg/dl Iron 13 L (35-150) mcg/dl TIBC 493 H (250-450) mcg/dl Transferrin 352 (200-360) mg/dl Transferrin % Sat 3 L (15-50) % Total Bilirubin 0.4 (0.2-1.0) mg/dl AST 29 (13-39) U/L ALT 16 (7-52) U/L Alkaline Phosphatase 35 (34-104) U/L Troponin I High Sens 11.7 (0-14) pg/ml B-Natriuretic Peptide 387 H (0-100) pg/ml Total Protein 7.6 (6.0-8.3) gm/dl Albumin 3.7 (3.4-5.0) gm/dl Globulin 3.9 (2.5-4.0) gm/dl Albumin/Globulin Ratio 0.9 (0.9-2) SARS-CoV-2, RNA, NAAT NEGATIVE (NEGATIVE) Blood Type O Negative Antibody Screen POSITIVE A Antibody Identification Anti-D Anti-C Antibody ID Comment Pending Crossmatch See Detail Diagnostic Findings Chest X-Ray 02/02/25 17:40 EXAM: Portable AP chest radiograph TECHNIQUE: AP portable radiograph of the chest was obtained. INDICATION: Shortness of breath Comparison: None FINDINGS: LINES and TUBES: Left-sided cardiac pacemaker with leads projecting over the right atrium and the right ventricle of the heart. CARDIOVASCULAR: Cardiac silhouette is enlarged in size. LUNGS/PLEURA: Mild pulmonary vascular congestion and chronic interstitial lung changes. Right basilar scarring. No focal consolidation identified. No significant pleural fluid. No discernible pneumothorax. OSSEOUS/OTHER: No displaced acute osseous process identified. Median sternotomy wires. ORIF of the left clavicle with plate and screws. IMPRESSION: Congestive changes of the cardiovascular system as above. Electronically signed by Thomas Jefferson 02-02-2025 6:02 PM
[2025-02-03] MEDS: IRON SUCROSE 300 MG in SODIUM CHLORIDE 0.9% 250 ML IV ONE (11:27)
[2025-02-03 13:06] VITALS: RESP 18
[2025-02-03 13:22] LABS: Hematocrit (blood only) 27.7 % (37.0-47.0); Hemoglobin 8.8 g/dl (12.0-16.0)
--- NOTE | 2025-02-03 16:35 | Hospitalist Progress Note ---
Date of Service February 03, 2025 Assessment & Plan (1) Chronic anticoagulation: (2) Bloody stools: (3) ABLA (acute blood loss anemia): (4) Paroxysmal atrial fibrillation: (5) S/P AVR (aortic valve replacement): (6) S/P MVR (mitral valve replacement): Plan #Symptomatic anemia Hg down from 10-11 to mid 7's recently No abdominal pain, chronic hemorrhoidal bleeding, has seen at least one maroon clot Family reports that every day after morning coffee, she has a dark stool that looks "like coffee" Definitely a component of hemorrhoidal bleeding, however, she may have some degree of melena. No stools yet in hospital. 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 holding ASA - INR 2.1 last night, will give some oral vitamin K - cont IV PPI for now, clears - AM CBC and INR - discuss with [facility] tomorrow #Hyponatremia - pt is on lisinopril-HCTZ combination - HCTZ should be discontinued indefinitely - Na improved from 129-->132 #HTN - resume lisinopril, metoprolol #Bioprosthetic AVR and MVR 2013, postop Afib, CAD - branch vessel disease according to last [facility] cardiology note I can see from 2019 - reviewed previous available cardiology clinic notes, inpatient cardiology and hospitalist notes from a year ago - discussed with her current collar cutter Dr. Joseph who she has seen once in office but no records were available to her. She reviewed pacemaker record from 10/2024 and no afib since pacer placed 11/2023 - decrease amiodarone to 100 mg - continue metoprolol - hold warfarin - perhaps can be discontinued since no recent afib, will get pacer interrogated. If warfarin discontinued will continue aspirin. If warfarin resumed, will discontinue aspirin #Hypothyroidism - cont levothyroxine #HLD - cont statin #COPD - cont home inhalers #DVT ppx: INR 2.1 last night so still anticoagulated. SCDs I updated her daughter Natalie Admission and Anticipated Discharge Date Admission Date: February 02, 2025 Subjective Blood transfusion went fine, peed a lot with lasix, no dyspnea No abdominal pain, chronic hemorrhoidal bleeding, has seen at least one maroon clot Family reports that every day after morning coffee, she has a dark stool that looks "like coffee" Physical Exam 2 Physical Exam: Last 24h vitals reviewed GEN: no acute distress, sitting in bed HEENT: pupils equal, sclerae anicteric, moist MM RESP: normal WOB, CTAB CV: reg no mrg ABD: soft/nt/nd +BT : no delong SKIN: warm and dry, no generalized rashes EXT: varicose veins especially on R, nonpitting edema NEURO: AOx person, place, and situation. Face symmetric, speech normal, moves 4 ext spontaneously and equally Results & Data Results & Data Vital Signs (Past 12 Hours) Vital Signs Temp Pulse Pulse Resp BP Pulse Ox O2 Del Method 02/03/25 16:04 36.7 C 62 18 162/79 H 98 Room Air 02/03/25 13:05 18 L 73 18 147/80 H 96 Room Air 02/03/25 12:43 70 20 132/76 96 Room Air 02/03/25 11:53 63 18 139/63 02/03/25 11:31 36.8 C 93 Room Air 02/03/25 11:27 67 18 128/74 02/03/25 07:48 36.3 C L 61 18 137/80 95 Room Air Laboratory Results 02/03/25 13:02 02/03/25 03:25 Hg increased from 7.7 --> 8.9 after transfusion, stable at 8.8 this afternoon No INR drawn this AM PG Care Time/CCT Total # of Minutes Spent Total Time Spent with Patient: Total time spent is greater than 50% in coordination of care (as documented) at patient's floor/unit and/or counseling patient: Coding Level of Care Code 06202 SUB INP/OBS CARE 3/50MIN Diagnoses Chronic anticoagulation Z79.01 Bloody stools K92.1 ABLA (acute blood loss anemia) D62 Paroxysmal atrial fibrillation I48.0 S/P AVR (aortic valve replacement) Z95.2 S/P MVR (mitral valve replacement) Z95.2
[2025-02-03] MEDS: PHYTONADIONE 5 MG TAB PO STA (17:11)
--- NOTE | 2025-02-04 08:01 | Electrocardiogram Report ---
Test Reason : Blood Pressure : */* mmHG Vent. Rate : 71 BPM Atrial Rate : 71 BPM P-R Int : 192 ms QRS Dur : 166 ms QT Int : 448 ms P-R-T Axes : 12 -5 172 degrees QTcB Int : 486 ms Normal sinus rhythm with sinus arrhythmia Left bundle branch block Abnormal ECG When compared with ECG of 11-Jan-2024 12:59, Questionable change in QRS axis T wave inversion now evident in Inferior leads Confirmed by Shahida Joseph ([place]) on 02/04/2025 8:01:16 AM Referred By: Confirmed By: Shahida Joseph
[2025-02-04] MEDS: AMIODARONE 200 MG TAB PO SCH (08:04)
[2025-02-04] MEDS: METOPROLOL SUCC 25MG EXT REL TAB PO SCH (08:05)
--- NOTE | 2025-02-04 09:36 | Gastroenterology Progress Note ---
Date of Service February 04, 2025 Assessment & Plan (1) Bloody stools: Plan: 79yowf with h/o grade IV hemorrhoids on EGD/colonoscopy 12/2023 presents with chronic hematochezia. (1) Hematochezia DDX- Likely hemorrhoidal given timing and description. Family history negative for IBD/Colorectal CA. EGD and Colonoscopy otherwise unremarkable in 12/2023. No pain or diarrhea to suggest colitis. Discussed options for further treatment including stool softeners as needed for constipation, SITZ bath/Preperation H for discomfort. Ongoing monitoring of CBC and iron replacement as indicated by Primary care team. Explained that we typically recommended surgical intervention for hemorrhoidal bleeding that is this persistent. Understanding voiced. Further recommendations to come with Supervising GI provider on medical rounds. Please see co-signature comments. Admission and Anticipated Discharge Date Admission Date: February 02, 2025 Supervising Physician Co-Signing Physician Notes Frequent bowel movements with blood 2-3 times per week. Worse with straining or prolonged toileting. Long-term problem. Endoscopy back in 2023 negative for problem other than hemorrhoids. Patient is on warfarin for valve replacement although he is found to be porcine in nature. Rectal examination shows grade 4 prolapse she is edematous swollen hemorrhoids which are nonreducible. Impression bleeding is likely to be ongoing and persistent resulting in iron deficiency anemia and worsening low hemoglobin I do keeping with the bleeding rate itself. Management as iron supplementation and potentially surgery. If warfarin can be discontinued should significantly decrease her bleeding risk. Patient does not require further endoscopy at this time. Subjective 79 year old female admitted with symptomatic anemia. GI consulted for further evaluation. Last EGD and Colonoscopy 12/2023 revealed Grade IV hemorrhoids. Otherwise unremarkable. She reports that she's had small amounts of bright red blood with each bowel movement for many years. She declined further evaluation with VCE and remains hesitant to proceed with surgical treatment for hemorrhoids. Admission Hgb was 7.6 g/dl. Given 1 UPRBCs. Warfarin was placed on hold. INR 2.1 on 02/02/25. Hgb today was 8.8g/dl She denies any fevers, chills, weight loss, abdominal pain, N/V/D, rectal pain. Social History - + Tobacco use. No alcohol or drug use. Family history - No colorectal CA or Inflammatory bowel disease. Review of Systems Review of Systems: See HPI Physical Exam Physical Exam: Constitutional: NAD. Alert. Answering questions appropriately. Respiratory: Breathing is even, non-labored. Lungs blackwood are clear to auscultation anteriorly. Cardiovascular: Regular Rate and Rhythm, no murmurs, rubs or gallops appreciated. Gastrointestinal (Abdomen): Normoactive bowel sounds x4, soft, non-distended, non-tender. Musculoskeletal: Lying in bed comfortably. No peripheral edema. Results & Data Results & Data Vital Signs (Past 12 Hours) Vital Signs Temp Pulse Pulse Resp BP Pulse Ox O2 Del Method 02/04/25 07:45 67 02/04/25 07:26 97.3 F L 70 18 148/79 H 95 Room Air 02/04/25 02:51 97.9 F 70 18 132/77 93 Room Air 02/03/25 23:40 97.5 F L 60 18 144/75 H 93 Room Air 02/03/25 22:00 60 PG Care Time/CCT Total # of Minutes Spent Total Time Spent with Patient: Total time spent is greater than 50% in coordination of care (as documented) at patient's floor/unit and/or counseling patient: Coding Level of Care Code 49834 SUB INP/OBS CARE 2/35MIN Diagnoses Bloody stools K92.1
[2025-02-04] MEDS: IRON SUCROSE 300 MG in SODIUM CHLORIDE 0.9% 250 ML IV ONE (10:06)
[2025-02-04 11:11] LABS: Hematocrit (blood only) 29.3 % (37.0-47.0); Hemoglobin 9.0 g/dl (12.0-16.0); Mean Corpuscular Hemoglobin 26.2 pg (25.0-34.0); Mean Corpuscular Volume 85.4 fL (80.0-100.0); Platelet Count 211 K/uL (130-400); RDW Standard Deviation 45.4 fL (36.4-46.3); Red Blood Count 3.43 M/uL (4.20-5.40); White Blood Count 4.81 K/ul (4.8-10.8)
[2025-02-04 11:24] VITALS: BP 146/75; TEMP 98.4; O2SAT 96
[2025-02-04 11:25] LABS: Anion Gap 7.0 (3-11); Blood Urea Nitrogen 10.0 mg/dl (6-23); Calcium 9.4 mg/dl (8.6-10.3); Carbon Dioxide 26.0 mmol/L (21-32); Chloride 104.0 mmol/L (98-107); Creatinine Clr Calc Pharmacy 35.5 ml/min; Glucose 85.0 mg/dl (70-99(Fasting)); Potassium 3.8 mmol/L (3.5-5.1); Sodium 137.0 mmol/L (136-145)
[2025-02-04 11:38] LABS: INR 1.4 (0.9-1.1); Prothrombin Time 15.2 Seconds (9.0-12.0)
--- NOTE | 2025-02-04 17:15 | Discharge Summary ---
Discharge Summary Date of Service February 04, 2025 Principal Dx & Hospital Course #1 = Principal Diagnosis (1) ABLA (acute blood loss anemia): (2) Iron deficiency anemia: (3) Bleeding grade IV hemorrhoids: (4) Hemorrhoids with prolapsed tissue that cannot be manually replaced: (5) Chronic anticoagulation: (6) Paroxysmal atrial fibrillation: Plan #Symptomatic iron deficiency anemia caused by acute and chronic blood loss ane jeremiah #Grade 4 prolapsed hemorrhoids which cannot be reduced, chronic bleeding with significantly increased bleeding recently Hg down from 04-06 to mid 's symptomatic of ACEVEDO, fatigue, weakness No abdominal pain, chronic hemorrhoidal bleeding, has seen at least one maroon clot No stools in hospital. - transfused with IV lasix 02/02 and Hg improved to 9.0 remained stable - IV PPI and warfarin was held, partially reversed with po Vit K - consulted gastroenterology - felt ABLA was hemorrhoidal, made care recommendations, recommended referral to general surgery - referral made - 600 mg IV venofer given this admission, tolerated well - ferrous sulfate q48h - stopping anticoagulation - continue oral PPI - symptomatically improved #Hyponatremia, mild/moderate but recurrent, on lisinopril-HCTZ - resolved with holding HCTZ - stopped HCTZ - wrote Rx for lisinopril 10 mg alone #HTN - resume lisinopril, increased metoprolol dose to 50 mg (has pacemaker) #Bioprosthetic AVR and MVR 2013, postop Afib, CAD - branch vessel disease according to last [facility] cardiology note I can see from 2019 - reviewed previous available cardiology clinic notes, inpatient cardiology and hospitalist notes from a year ago - discussed with her current mechanical service technician Dr. Joseph who she has seen once in office but no records were available to her. She reviewed pacemaker record from 10/2024 and no afib since pacer placed 11/2023 - interrogated pacer 02/04 - no afib since placement of the device more than a year ago - decrease amiodarone to 100 mg - has been on since 2013, plan to taper off - continue metoprolol (increased for hypertension) - stopped warfarin, continue baby aspirin and statin - follow up with Dr. Joseph #Hypothyroidism - cont levothyroxine #HLD - cont statin #COPD - cont home inhalers I updated her daughter Natalie 02/04 Admission HPI Per Admitting Provider 79 yr old F with PMHx of AFib s/p PPM on warfarin, HTN, SARAH, CKD IV, CAD, active smoker, bioprosthetic aortic and mitral valve replacement. She presents to today to [facility] for the evaluation of worsening dyspnea and fatigue. She has been having these symptoms for about 1 to 2 weeks. She had Hgb checked in November and it was 10.6. She had Hgb check on 01/31 and it was 7.6. Today it is 7.7. She also reports ACEVEDO which has worsened to dyspnea at rest. She noted that she has BRBPR with every BM. She reports melanotic stool, but could not clarify whether it was truly dark / tarry stool. She was scheduled for outpatient GI follow up on 02/05, however given persistent darker stools with along with BRBPR with every BM she was instructed to come into the hospital for further evaluation. She denies use of NSAIDs, recent steroid use, N/V, fevers, alcohol consumption. Discharge Exam Last 24h vitals reviewed GEN: no acute distress, sitting in bed HEENT: pupils equal, sclerae anicteric, moist MM RESP: normal WOB, CTAB CV: reg no mrg ABD: soft/nt/nd +BT : no delong SKIN: warm and dry, no generalized rashes EXT: varicose veins especially on R, nonpitting edema NEURO: AOx person, place, and situation. Face symmetric, speech normal, moves 4 ext spontaneously and equally Discharge Plan Discharge Items Patient Disposition: Home - Self-Care Reason For Visit: SYMPTOMATIC ANEMIA Discharge Diagnosis: Symptomatic anemia and iron deficiency from chronic hemorrhoidal blood loss. Condition on Discharge: Good Activity: Resume your previous activity Non-emergency contact: Primary Care Provider and Surgeon Call non-emergency contact if: you have any medication questions and your symptoms worsen Follow-up/Referrals: Veronica Caban CRNP [Primary Care Provider] - 02/11/25 11:30 am (Scheduled with JED Godinez at 02/11/25 11:30 am.) Diet: Heart Healthy and Low Sodium (2gm) Addtl Attending Provider Instructions: Symptomatic iron deficiency anemia from chronic hemorrhoidal blood loss. Solutions Consultant Dr. Craven recommends seeing a general surgeon about getting the hemorrhoids removed. Some other hemorrhoid care recommendations are: stool softeners and laxatives as needed for constipation - stools should be no harder than toothpaste, SITZ bath, Preperation H for discomfort. These are available over the counter We gave you blood transfusion and iron infusions. Its a good idea to keep taking oral iron supplement. You can take it every other day. This works just as well as daily or twice a day with a lot less GI side effects For constipation: Docusate AKA colace once or twice a day - stool softener. Personally I think stool softeners are usually ineffective. Miralax 1 capful daily or twice a day as needed Senna tabs 1-2 tabs daily as needed -these are both safe to take termite inspector Dulcolax 5-10 mg tab daily as needed if the above meds are ineffective Dulcolax suppository per rectum daily as needed -these are for more severe constipation and are for short term use These medications are all available over the counter at the drugstore I was able to have a conversation with your new mechanical service technician Dr. Joseph and we went over your [facility] cardiology records. -you have not had Afib at least since last summer when your pacer was put in -you can stop taking warfarin (AKA coumadin) - this will help with the bleeding -she said to reduce your amiodarone to 100 mg (half tab) daily. You can find a pill tree cutter the drug store -continue your baby aspirin and metoprolol which we increased -the combo pill lisinopril-HCT is causing you to have low blood sodium which resolved on lisinopril alone. I wrote a prescription for plain lisinopril. Make sure to take the warfarin out of the pill boxes and also fix the amiodarone and lisinopril It was a pleasure taking care of you in the hospital Pending Studies at Discharge: No Stand-Alone Forms: My [facility], Smoking Cessation Medications and DC Order Prescriptions: New amiodarone 200 mg Tablet 100 mg PO QAM Qty: 0 0RF trolamine salicylate [Myoflex] 10 % Cream 1 applic EXT Q6H PRNQty: 0 0RF ferrous sulfate 325 mg (65 mg iron) tablet,delayed release (DR/EC) 325 mg PO Q OTHER DAY Qty: 30 0RF Rx Instructions: buy over the counter lisinopril 10 mg tablet 10 mg PO DAILY Qty: 30 0RF metoprolol succinate 25 mg Tablet Extended Release 24 Hr 50 mg PO QAM Qty: 60 0RF Continued umeclidinium-vilanterol [Anoro Ellipta] 62.5-25 mcg/actuation blister with device 1 inh inhalation DAILY albuterol sulfate 90 mcg/actuation HFA aerosol inhaler 2 inh inhalation Q6H PRN (Reason: Shortness Of Breath) potassium citrate 10 mEq (1,080 mg) Tablet Extended Release 10 meq PO BID levothyroxine 137 mcg Tablet 137 mcg PO QAM atorvastatin 10 mg Tablet 10 mg PO QPM aspirin [Yocasta Low Dose Aspirin] 81 mg Tablet,Delayed Release (Dr/Ec) 81 mg PO QPM pantoprazole 20 mg Tablet,Delayed Release (Dr/Ec) 20 mg PO QAM multivit with min-folic acid [Adult Multivitamin Gummies] 120 mcg Tablet,Chewable 1 tab PO DAILY Discontinued warfarin 5 mg tablet See Rx Instructions PO DAILY Rx Instructions: 7.5 mg Mon Tue and 5 mg x 5 days orally daily; amiodarone 200 mg Tablet 200 mg PO QAM lisinopril-hydrochlorothiazide 10-12.5 mg tablet 1 tab PO DAILY metoprolol succinate 25 mg Tablet Extended Release 24 Hr 25 mg PO QAM Qty: 30 0RF Discharge Orders: Discharge Order (Routine); Ordered 02/04/25 Ordered By: Torie Ramirez Admission Data Admit Date/Time: 02/02/25 19:26 Attending Provider: Torie Ramirez Admit Provider: Keily Galaviz Primary Care Provider: Veronica Caban Other Providers: Keily Galaviz; John Veliz Jr Other Interventions: Discharge Summary Assessment (RN) Last Done: 02/04/25 17:26 Hospital Stay Data Consultations 02/02/25 18:36 ED Decision to Admit Stat 02/02/25 22:27 Consult Gastroenterology Routine Pending Results Patient Have Any Pending Studies at Discharge: No Discharge Instructions Given to Patient (Per Discharging Provider) Symptomatic iron deficiency anemia from chronic hemorrhoidal blood loss. Solutions Consultant Dr. Craven recommends seeing a general surgeon about getting the hemorrhoids removed. Some other hemorrhoid care recommendations are: stool softeners and laxatives as needed for constipation - stools should be no harder than toothpaste, SITZ bath, Preperation H for discomfort. These are available over the counter We gave you blood transfusion and iron infusions. Its a good idea to keep taking oral iron supplement. You can take it every other day. This works just as well as daily or twice a day with a lot less GI side effects For constipation: Docusate AKA colace once or twice a day - stool softener. Personally I think stool softeners are usually ineffective. Miralax 1 capful daily or twice a day as needed Senna tabs 1-2 tabs daily as needed -these are both safe to take assisted Dulcolax 5-10 mg tab daily as needed if the above meds are ineffective Dulcolax suppository per rectum daily as needed -these are for more severe constipation and are for short term use These medications are all available over the counter at the drugstore I was able to have a conversation with your new mechanical service technician Dr. Joseph and we went over your [facility] cardiology records. -you have not had Afib at least since last summer when your pacer was put in -you can stop taking warfarin (AKA coumadin) - this will help with the bleeding -she said to reduce your amiodarone to 100 mg (half tab) daily. You can find a pill tree cutter the drug store -continue your baby aspirin and metoprolol which we increased -the combo pill lisinopril-HCT is causing you to have low blood sodium which resolved on lisinopril alone. I wrote a prescription for plain lisinopril. Make sure to take the warfarin out of the pill boxes and also fix the amiodarone and lisinopril It was a pleasure taking care of you in the hospital Total Time Total Time Spent Total Time Spent (In Minutes): I personally spent: 45 minutes today on clinical care activities including: reviewing chart notes and vital signs reviewing labs discussion with network pricing consultant(s) - Dr. Craven examining and counseling the patient counseling the patient's family writing orders writing prescriptions, discharge instructions documentation Coding Level of Care Code 41441 INP/OBS DISCH >30 MIN Diagnoses ABLA (acute blood loss anemia) D62 Iron deficiency anemia D50.9 Bleeding grade IV hemorrhoids K64.3 Hemorrhoids with prolapsed tissue that cannot be manually replaced K64.3 Chronic anticoagulation Z79.01 Paroxysmal atrial fibrillation I48.0
[2025-02-04 17:25] VITALS: PULSE 18
== END 2025-02-04 18:01 | disposition home or self-care (01) | DRG 812 ==
LOC: SUATTDRO → ED 16:58 → 4W 19:26 → SUATTDRO 19:26 → 4W 22:02